=== PATIENT | male | born 1960 | race Caucasian/White ===

== ENCOUNTER 2019-01-18 10:30 | Outpatient (RCR) | payer OTHER, SELFPAY ==
--- NOTE | 2018-03-06 15:18 | PT.OTN ---
Current Diagnoses Stiffness of right knee, not elsewhere classified (03/06/18) Muscle weakness (generalized) (03/06/18) Other abnormalities of gait and mobility (03/06/18) Presence of right artificial knee joint (03/06/18) Physical Therapy Treatment Note PT-OP-A Visit Information Start: 03/06/18 14:55 Freq: Status: Active Protocol: Document 03/06/18 14:58 EA (Rec: 03/06/18 14:58 EA [id number]) Out-Patient Physical Therapy Visit Information Visit Information Visit Type Treatment Note Total Visit Minutes 55 Visit Number 13 PT-OP-B Current Condition Start: 03/06/18 14:55 Freq: Status: Active Protocol: Document 03/06/18 14:56 EA (Rec: 03/06/18 14:57 EA [id number]) Current Condition History of Current Condition Onset Date S/P R TKA 01/03/2018 Current Complaints Diffculty with all mobility Prior Treatments and Tests Patient 12 PT session since after surgery. Prior Functional Status Baseline Function- ADL's Independent Current Functional Impairments (Reported) Functional Limitations- Mobility/Gait Gait difficulty/distance tolerance Functional Limitations- Recreation/ Unable at this time Hobbies PT-OP-C Subjective Start: 03/06/18 14:55 Freq: Status: Active Protocol: Document 03/06/18 14:58 EA (Rec: 03/06/18 15:15 EA [id number]) OP-PT Subjective Patient Comments Patient Comments Patient reports unable to come last visits appointment due to medical insurance issue; states has been compliant w/ HEP; states pain to hamstring was quite increased in the past few days but improving at this time. Patient Reported Progress Improving PT-OP-Q Treatments Start: 03/06/18 14:55 Freq: Status: Active Protocol: Document 03/06/18 14:58 EA (Rec: 03/06/18 15:15 EA [id number]) Cardio Equipment Bicycle (Upright) Duration (Minutes) 8 Resistance 3-7 Seat Position 5-4 Gym Equipment Cable Column (Body Solid) Leg Extension Details pain free Resistance 10-15 Reps/Time 12-2reps Shuttle Recovery Bilateral Squats Details pain free range Resistance 6 cords Shuttle Recovery Platform Stable Reps/Time 15 x 3 Unilateral Squats Details pain free range Resistance 3 cords Shuttle Recovery Platform Stable Reps/Time 15x 2reps Shuttle Balance 1 Details ANT/POST TILT AT RED CLIPS: BALL REBOUND CHALLENGE Reps/Duration X 8 Therapeutic Exercises Supine Exercises 1 Supine Exercise Name Hamstring stretch Side right Standing Exercises 5 Standing Exercise Name 6 step and step down w/ rails support to step dwon Reps/Minutes x 10 reps x 2 sets 4 Standing Exercise Name side steps squat heel raises w / GTB to both ankle Reps/Minutes x 4 lines 2 Standing Exercise Name Steady: 3 ways (side/front/ back) step/ to partial lunges: stable to foam Side bilateral Reps/Minutes x 6 mins 3 Standing Exercise Name 3rd steps right leg lunges w/ arms fwd Side right Reps/Minutes 12 x 2 1 Standing Exercise Name Edge of steps heel raises Side bilateral Reps/Minutes 15 x 2 PT-OP-R Modalities Start: 03/06/18 14:55 Freq: Status: Active Protocol: Document 03/06/18 14:58 EA (Rec: 03/06/18 15:15 EA [id number]) Hot Pack/Cold Pack Treatment Cold Pack Patient Position Hooklying Patient Tolerance Good PT-OP-T Assessment and Plan Start: 03/06/18 14:55 Freq: Status: Active Protocol: Document 03/06/18 14:58 EA (Rec: 03/06/18 15:15 EA [id number]) Physical Therapy Assessment Assessment Summary Assessment Patient is progressing well and no signs of set back (Knee flexion 0-105). advanced as tolerated Physical Therapy Plan Next Visit Focus/Plan Next Visit Plan To possibly add gentle joint mob and quads stertch next visit to increase flexion.
--- NOTE | 2018-03-09 18:38 | PT.OTN ---
Current Diagnoses Stiffness of right knee, not elsewhere classified (03/09/18) Muscle weakness (generalized) (03/09/18) Other abnormalities of gait and mobility (03/09/18) Presence of right artificial knee joint (03/09/18) Physical Therapy Treatment Note PT-OP-A Visit Information Start: 03/06/18 14:55 Freq: Status: Active Protocol: Document 03/09/18 12:04 RCC (Rec: 03/09/18 18:37 RCC [email or web address]) Out-Patient Physical Therapy Visit Information Visit Information Visit Type Treatment Note Visit Start Time 11:15 Visit Stop Time 12:05 Visit Number 14 Number of COMMUNITY SUPPORT SPECIALIST Visits 0 Evaluation Information Evaluation Date 01/13/18 PT-OP-B Current Condition Start: 03/06/18 14:55 Freq: Status: Active Protocol: Document 03/09/18 12:04 RCC (Rec: 03/09/18 18:37 RCC [email or web address]) Current Condition History of Current Condition Onset Date S/P R TKA 01/03/2018 Current Complaints Diffculty with all mobility Prior Treatments and Tests Patient 13 PT session post- surgical. PT-OP-C Subjective Start: 03/06/18 14:55 Freq: Status: Active Protocol: Document 03/09/18 12:04 RCC (Rec: 03/09/18 18:37 RCC [email or web address]) OP-PT Subjective Patient Comments Patient Comments Pt reports he was sore after previous treatment. He feels like he is still lacking flexion he feels due to having missed sessions last week waiting for insurance approval , but has been dilligent with his HEP. Patient Reported Progress Improving Patient Questionnaires Lower Extremity Functional Scale LEFS Score 29 (as of 02/17/2018) PT-OP-K Range of Motion Start: 03/06/18 14:55 Freq: Status: Active Protocol: Document 03/09/18 12:04 RCC (Rec: 03/09/18 18:37 RCC [email or web address]) Knee Goniometric Range of Motion Knee Measured in Degrees Right Knee ROM WFL No Patient Position Supine Flexion Active (degrees) 107 Flexion Passive (degrees) 111 Extension Active (degrees) 0 Extension Passive (degrees) 0 PT-OP-M Strength Start: 03/06/18 14:55 Freq: Status: Active Protocol: Document 03/09/18 12:04 RCC (Rec: 03/09/18 18:37 [facility] [email or web address]) Knee Strength Knee Manual Muscle Testing Right Flexion (S2) 4 Good Extension (L3) 4 Good Left Flexion (S2) 5 Normal Extension (L3) 5 Normal Ankle/Foot Strength Ankle and Foot Manual Muscle Testing Right Dorsiflexion (L4) 5 Normal Left Dorsiflexion (L4) 5 Normal PT-OP-Q Treatments Start: 03/06/18 14:55 Freq: Status: Active Protocol: Document 03/09/18 12:04 [facility] (Rec: 03/09/18 18:37 [facility] [email or web address]) Gym Equipment Cable Column (Body Solid) Leg Curl Resistance 4 plates B, 2 plates R Reps/Time 10 B, 15 R Shuttle Recovery Bilateral Squats Details pain free range Resistance 150 lbs Shuttle Recovery Platform Stable Reps/Time 30 reps Unilateral Squats Details pain free range Resistance 75 lbs Shuttle Recovery Platform Stable Reps/Time 25 reps Therapeutic Exercises Standing Exercises 3 Standing Exercise Name 3rd steps right leg lunges w/ arms fwd Side right Reps/Minutes 2 x10 Manual Therapy Treatment Soft Tissue Mobilization 2 Body Location R knee scar tissue Mobilization Type Other Intensity/Depth Deep Body Position Supine 1 Body Location R hamstrings Mobilization Type Strumming Intensity/Depth mod Body Position Prone Joint Mobilizations 2 Joint Tibiofemoral Direction posterior Grade III Body Position Supine Reps/Duration 8 min. Comments to increase knee flexion. 1 Joint PF joint Direction inferior Grade III Body Position Supine Reps/Duration 8 min. PT-OP-R Modalities Start: 03/06/18 14:55 Freq: Status: Active Protocol: Document 03/09/18 12:04 [facility] (Rec: 03/09/18 18:37 [facility] [email or web address]) Hot Pack/Cold Pack Treatment Cold Pack Location R knee ant/posterior Patient Position Hooklying Treatment Duration (minutes) 10 Patient Tolerance Good PT-OP-T Assessment and Plan Start: 03/06/18 14:55 Freq: Status: Active Protocol: Document 03/09/18 12:04 [facility] (Rec: 03/09/18 18:37 [facility] [email or web address]) Physical Therapy Assessment Rehab Potential Rehabilitation Potential Excellent Impairments Impairments Activity Tolerance Gait Pain ROM Soft Tissue Mobility Strength Goals Six Impairment Lower Extremity Function Scale Shipping & Receiving Lead Goal (LTG) total score: 7 LTG Duration 6 weeks Five Impairment RLE weakness Shipping & Receiving Lead Goal (LTG) 5/5 MMT RLE strength grossly LTG Duration 6 weeks Four Impairment R knee ROM Shipping [employer] Receiving Lead Goal (LTG) 0-120 AROM R knee LTG Duration 6 weeks Three Impairment Unable to perform recreational activities Shipping & Receiving Lead Goal (LTG) low level hiking without pain prior to d/c LTG Duration 6 weeks Two Impairment Knee pain Shipping & Receiving Lead Goal (LTG) 1/10 knee pain or less LTG Duration 6 weeks One Impairment Gait impairment Shipping & Receiving Lead Goal (LTG) Normal, unassisted levels of gait LTG Duration 6 weeks Progress Towards Goals Progress Towards Goals Progressing Toward Goals Assessment Summary Assessment Pt with R knee AROM 0-107 degrees, and PROM of knee flexion to 111 degrees this session. Pt still with 4/5 grade MMT to the R knee, which is not equal to his non- involved side. Pt is ambulating without an assistive device, but has yet to get back to low level hiking or recreational activities. Pt would greatly benefit from the continuation of skilled physical therapy to progress his strength, ROM, decrease pain, and improve overall function to meet the established goals. Physical Therapy Plan Frequency and Duration Frequency of Treatment 2x/Week Duration of Treatment 6 weeks Plan of Care Start Date 03/09/18 Plan of Care End Date 04/20/18 Therapeutic Interventions Therapeutic Interventions Aquatic Therapy Balance Training Coordination Training Gait Training Home Exercise Program Joint Mobilizations Manual Therapy Neuromuscular Re-education Patient/Caregiver Education Self-Care/Home Management Soft Tissue Mobilization Taping Therapeutic Activities Therapeutic Exercises Modalities Cold Pack/Ice Massage Electric Stimulation Hot Packs Ultrasound Next Visit Focus/Plan Next Visit Plan quadriceps stretching, HS and quad strengthening. Progress knee flexion.
--- NOTE | 2018-03-09 18:39 | PT.OPPOC ---
Current Diagnoses Stiffness of right knee, not elsewhere classified (03/09/18) Muscle weakness (generalized) (03/09/18) Other abnormalities of gait and mobility (03/09/18) Presence of right artificial knee joint (03/09/18) Provider Visit Care Team Role Provider Type Franko Young MD Attending Provider Non-Staff Family Provider Primary Care Provider Specialty: Medical Address: [address] [place] [address], [facility] [place] Email: Plan Of Care PT-OP-T Assessment and Plan Start: 03/06/18 14:55 Freq: Status: Active Protocol: Document 03/09/18 12:04 RCC (Rec: 03/09/18 18:37 RCC [email or web address]) Physical Therapy Assessment Rehab Potential Rehabilitation Potential Excellent Impairments Impairments Activity Tolerance Gait Pain ROM Soft Tissue Mobility Strength Goals Six Impairment Lower Extremity Function Scale Upholsterer Helper Goal (LTG) total score: 7 LTG Duration 6 weeks Five Impairment RLE weakness Custodial Goal (LTG) 5/5 MMT RLE strength grossly LTG Duration 6 weeks Four Impairment R knee ROM Custodial Goal (LTG) 0-120 AROM R knee LTG Duration 6 weeks Three Impairment Unable to perform recreational activities Upholsterer Helper Goal (LTG) low level hiking without pain prior to d/c LTG Duration 6 weeks Two Impairment Knee pain Custodial Goal (LTG) 1/10 knee pain or less LTG Duration 6 weeks One Impairment Gait impairment Upholsterer Helper Goal (LTG) Normal, unassisted levels of gait LTG Duration 6 weeks Progress Towards Goals Progress Towards Goals Progressing Toward Goals Assessment Summary Assessment Pt with R knee AROM 0-107 degrees, and PROM of knee flexion to 111 degrees this session. Pt still with 4/5 grade MMT to the R knee, which is not equal to his non- involved side. Pt is ambulating without an assistive device, but has yet to get back to low level hiking or recreational activities. Pt would greatly benefit from the continuation of skilled physical therapy to progress his strength, ROM, decrease pain, and improve overall function to meet the established goals. Physical Therapy Plan Frequency and Duration Frequency of Treatment 2x/Week Duration of Treatment 6 weeks Plan of Care Start Date 03/09/18 Plan of Care End Date 04/20/18 Therapeutic Interventions Therapeutic Interventions Aquatic Therapy Balance Training Coordination Training Gait Training Home Exercise Program Joint Mobilizations Manual Therapy Neuromuscular Re-education Patient/Caregiver Education Self-Care/Home Management Soft Tissue Mobilization Taping Therapeutic Activities Therapeutic Exercises Modalities Cold Pack/Ice Massage Electric Stimulation Hot Packs Ultrasound Next Visit Focus/Plan Next Visit Plan quadriceps stretching, HS and quad strengthening. Progress knee flexion. Plan of Care Dates Plan of Care Start Date 03/09/18 Plan of Care End Date 04/20/18 Please Sign and Return: I have reviewed this Plan of Care and certify that the skilled therapy services above are required to meet the patient???s needs. Physician Signature Date Printed Name and Credentials
--- NOTE | 2018-03-14 16:03 | PT.OTN ---
Current Diagnoses Stiffness of right knee, not elsewhere classified (03/14/18) Muscle weakness (generalized) (03/14/18) Other abnormalities of gait and mobility (03/14/18) Presence of right artificial knee joint (03/14/18) Physical Therapy Treatment Note PT-OP-A Visit Information Start: 03/06/18 14:55 Freq: Status: Active Protocol: Document 03/14/18 15:56 EA (Rec: 03/14/18 16:03 EA [id number]) Out-Patient Physical Therapy Visit Information Visit Information Visit Type Treatment Note Visit Number 15 PT-OP-B Current Condition Start: 03/06/18 14:55 Freq: Status: Active Protocol: Document 03/09/18 12:04 RCC (Rec: 03/09/18 18:37 RCC [email or web address]) Current Condition History of Current Condition Onset Date S/P R TKA 01/03/2018 Current Complaints Diffculty with all mobility Prior Treatments and Tests Patient 13 PT session post- surgical. PT-OP-C Subjective Start: 03/06/18 14:55 Freq: Status: Active Protocol: Document 03/14/18 15:56 EA (Rec: 03/14/18 16:03 EA [id number]) OP-PT Subjective Patient Comments Patient Comments Patient reports hamstring still sore; but overall he feels that he is improving slowlyl. Patient Reported Progress Improving PT-OP-K Range of Motion Start: 03/06/18 14:55 Freq: Status: Active Protocol: Document 03/09/18 12:04 RCC (Rec: 03/09/18 18:37 RCC [email or web address]) Knee Goniometric Range of Motion Knee Measured in Degrees Right Knee ROM WFL No Patient Position Supine Flexion Active (degrees) 107 Flexion Passive (degrees) 111 Extension Active (degrees) 0 Extension Passive (degrees) 0 PT-OP-M Strength Start: 03/06/18 14:55 Freq: Status: Active Protocol: Document 03/09/18 12:04 RCC (Rec: 03/09/18 18:37 RCC [email or web address]) Knee Strength Knee Manual Muscle Testing Right Flexion (S2) 4 Good Extension (L3) 4 Good Left Flexion (S2) 5 Normal Extension (L3) 5 Normal Ankle/Foot Strength Ankle and Foot Manual Muscle Testing Right Dorsiflexion (L4) 5 Normal Left Dorsiflexion (L4) 5 Normal PT-OP-Q Treatments Start: 03/06/18 14:55 Freq: Status: Active Protocol: Document 03/14/18 15:56 EA (Rec: 03/14/18 16:03 EA [id number]) Cardio Equipment Bicycle (Upright) Duration (Minutes) 8 Resistance 3-7 Seat Position 5-4 Gym Equipment Cable Column (Body Solid) Leg Curl Resistance 4 plates B, 2 plates R Reps/Time 10 B, 15 R Leg Extension Details pain free Resistance 10-20 Reps/Time 12-2reps Shuttle Recovery Bilateral Squats Details pain free range Resistance 150 lbs Shuttle Recovery Platform Stable Reps/Time 30 reps Unilateral Squats Details pain free range Resistance 75 lbs Shuttle Recovery Platform Stable Reps/Time 25 reps Shuttle Balance 1 Details ANT/POST TILT AT RED CLIPS: BALL REBOUND CHALLENGE Reps/Duration X 8 Therapeutic Exercises Supine Exercises 1 Supine Exercise Name Hamstring stretch Side right Standing Exercises 5 Standing Exercise Name 6 step and step down w/ rails support to step dwon Reps/Minutes x 10 reps x 2 sets 4 Standing Exercise Name side steps squat heel raises w / GTB to both ankle Reps/Minutes x 4 lines 2 Standing Exercise Name Steady: 3 ways (side/front/ back) step/ to partial lunges: stable to foam Side bilateral Reps/Minutes x 6 mins 3 Standing Exercise Name 3rd steps right leg lunges w/ arms fwd Side right Reps/Minutes 2 x10 1 Standing Exercise Name Edge of steps heel raises Side bilateral Reps/Minutes 15 x 2 Manual Therapy Treatment Joint Mobilizations 2 Joint Tibiofemoral Direction posterior Grade III Body Position Supine Reps/Duration 5 Comments to increase knee flexion. PT-OP-R Modalities Start: 03/06/18 14:55 Freq: Status: Active Protocol: Document 03/14/18 15:56 EA (Rec: 03/14/18 16:03 EA [id number]) Electric Stimulation Electric Stimulation Interferential Current (IFC) Body Location right quads Combined With Heat/Cold Cold Pack PT-OP-T Assessment and Plan Start: 03/06/18 14:55 Freq: Status: Active Protocol: Document 03/14/18 15:56 EA (Rec: 03/14/18 16:03 EA [id number]) Physical Therapy Assessment Progress Towards Goals Progress Towards Goals Progressing Toward Goals Assessment Summary Assessment Tolerated treatment well. Physical Therapy Plan Next Visit Focus/Plan Next Visit Plan Continue with current plan; advance as tolerated. Please Sign and Return: I have reviewed this Plan of Care and certify that the skilled therapy services above are required to meet the patient???s needs. Physician Signature Date Printed Name and Credentials Clinical Instructor Signature Printed Name and Credentials
--- NOTE | 2018-03-18 13:57 | PT.OTN ---
Current Diagnoses Stiffness of right knee, not elsewhere classified (03/17/18) Muscle weakness (generalized) (03/17/18) Other abnormalities of gait and mobility (03/17/18) Presence of right artificial knee joint (03/17/18) Physical Therapy Treatment Note PT-OP-A Visit Information Start: 03/06/18 14:55 Freq: Status: Active Protocol: Document 03/17/18 10:40 RCC (Rec: 03/18/18 13:57 RCC [email or web address]) Out-Patient Physical Therapy Visit Information Visit Information Visit Type Treatment Note Visit Start Time 09:45 Visit Stop Time 10:40 Total Visit Minutes 55 Visit Number 16 Number of JUVENILE [employer]ENTION OFFICER Visits 0 Evaluation Information Evaluation Date 01/13/18 PT-OP-B Current Condition Start: 03/06/18 14:55 Freq: Status: Active Protocol: Document 03/09/18 12:04 RCC (Rec: 03/09/18 18:37 RCC [email or web address]) Current Condition History of Current Condition Onset Date S/P R TKA 01/03/2018 Current Complaints Diffculty with all mobility Prior Treatments and Tests Patient 13 PT session post- surgical. PT-OP-C Subjective Start: 03/06/18 14:55 Freq: Status: Active Protocol: Document 03/17/18 10:40 RCC (Rec: 03/18/18 13:57 RCC [email or web address]) OP-PT Subjective Patient Comments Patient Comments Pt notes that he is sore from last session, particularly in the hamstrings. His motion feels a little better but knows he needs to keep working it. PT-OP-K Range of Motion Start: 03/06/18 14:55 Freq: Status: Active Protocol: Document 03/17/18 10:40 RCC (Rec: 03/18/18 13:57 RCC [email or web address]) Knee Goniometric Range of Motion Knee Measured in Degrees Right Knee ROM WFL No Patient Position Supine Flexion Active (degrees) 109 Extension Active (degrees) 0 Knee ROM Limitations Comments R knee ROM 0-113 after session . PT-OP-M Strength Start: 03/06/18 14:55 Freq: Status: Active Protocol: Document 03/09/18 12:04 RCC (Rec: 03/09/18 18:37 RCC [email or web address]) Knee Strength Knee Manual Muscle Testing Right Flexion (S2) 4 Good Extension (L3) 4 Good Left Flexion (S2) 5 Normal Extension (L3) 5 Normal Ankle/Foot Strength Ankle and Foot Manual Muscle Testing Right Dorsiflexion (L4) 5 Normal Left Dorsiflexion (L4) 5 Normal PT-OP-Q Treatments Start: 03/06/18 14:55 Freq: Status: Active Protocol: Document 03/17/18 10:40 RCC (Rec: 03/18/18 13:57 RCC [email or web address]) Cardio Equipment Recumbent Bicycle Duration (Minutes) 6 Resistance 0 Seat Position 6-3 Therapeutic Exercises Standing Exercises 5 Standing Exercise Name 6 step and step down w/ rails support to step dwon Reps/Minutes x 10 reps x 2 sets 3 Standing Exercise Name 3rd steps right leg lunges w/ arms fwd Side right Reps/Minutes 2 x10 1 Standing Exercise Name Edge of steps heel raises Side bilateral Reps/Minutes 15 x 2 Manual Therapy Treatment Soft Tissue Mobilization 3 Body Location R gastroc Mobilization Type Strumming Intensity/Depth mod Body Position Prone Comments 5 min 1 Body Location R hamstrings Mobilization Type Strumming Intensity/Depth mod Body Position Prone Comments 15 min Joint Mobilizations 2 Joint Tibiofemoral Direction posterior Grade III Body Position Supine Reps/Duration 10 min Comments to increase knee flexion. 1 Joint PF joint Direction inferior Grade III Body Position Supine Reps/Duration 5 min. PT-OP-R Modalities Start: 03/06/18 14:55 Freq: Status: Active Protocol: Document 03/17/18 10:40 [facility] (Rec: 03/18/18 13:57 [facility] [email or web address]) Electric Stimulation Electric Stimulation Interferential Current (IFC) Body Location R anterior knee Duration (Minutes) 10 Combined With Heat/Cold Cold Pack PT-OP-T Assessment and Plan Start: 03/06/18 14:55 Freq: Status: Active Protocol: Document 03/17/18 10:40 [facility] (Rec: 03/18/18 13:57 [facility] [email or web address]) Physical Therapy Assessment Assessment Summary Assessment Pt's ROM 0-113 of the R knee after manual therapy. Pt with patellofemoral hypomobility and joint stiffness of the tibiofemoral joint, tolerates and responds to manual therapy well. Pt still requiring ongoing physical therapy to progress his strength, ROM, and return to recreational activities. Physical Therapy Plan Frequency and Duration Frequency of Treatment 2x/Week Duration of Treatment 6 weeks Plan of Care Start Date 03/09/18 Plan of Care End Date 04/20/18 Next Visit Focus/Plan Next Visit Plan advance R knee strength and ROM, emphasis on R knee flexion with ROM Please Sign and Return: I have reviewed this Plan of Care and certify that the skilled therapy services above are required to meet the patient???s needs. Physician Signature Date Printed Name and Credentials Clinical Instructor Signature Printed Name and Credentials
--- NOTE | 2018-03-23 17:55 | PT.OTN ---
Current Diagnoses Stiffness of right knee, not elsewhere classified (03/23/18) Muscle weakness (generalized) (03/23/18) Other abnormalities of gait and mobility (03/23/18) Presence of right artificial knee joint (03/23/18) Physical Therapy Treatment Note PT-OP-A Visit Information Start: 03/06/18 14:55 Freq: Status: Active Protocol: Document 03/23/18 17:40 [facility] (Rec: 03/23/18 17:54 [facility] [email or web address]) Out-Patient Physical Therapy Visit Information Visit Information Visit Type Treatment Note Visit Start Time 16:45 Visit Stop Time 17:40 Total Visit Minutes 55 Visit Number 17 Number of COORDINATOR OF PLACEMENT Visits 0 Evaluation Information Evaluation Date 01/13/18 PT-OP-B Current Condition Start: 03/06/18 14:55 Freq: Status: Active Protocol: Document 03/09/18 12:04 [facility] (Rec: 03/09/18 18:37 [facility] [email or web address]) Current Condition History of Current Condition Onset Date S/P R TKA 01/03/2018 Current Complaints Diffculty with all mobility Prior Treatments and Tests Patient 13 PT session post- surgical. PT-OP-C Subjective Start: 03/06/18 14:55 Freq: Status: Active Protocol: Document 03/23/18 17:40 [facility] (Rec: 03/23/18 17:54 [facility] [email or web address]) OP-PT Subjective Patient Comments Patient Comments Pt feels a little stiff from being in the car all day. PT-OP-K Range of Motion Start: 03/06/18 14:55 Freq: Status: Active Protocol: Document 03/23/18 17:40 [facility] (Rec: 03/23/18 17:54 [facility] [email or web address]) Knee Goniometric Range of Motion Knee Measured in Degrees Right Knee ROM WFL No Patient Position Supine Flexion Active (degrees) 111 Extension Active (degrees) 0 Knee ROM Limitations Comments R knee 0-115 AROM after session, PROM to 120. PT-OP-M Strength Start: 03/06/18 14:55 Freq: Status: Active Protocol: Document 03/09/18 12:04 [facility] (Rec: 03/09/18 18:37 [facility] [email or web address]) Knee Strength Knee Manual Muscle Testing Right Flexion (S2) 4 Good Extension (L3) 4 Good Left Flexion (S2) 5 Normal Extension (L3) 5 Normal Ankle/Foot Strength Ankle and Foot Manual Muscle Testing Right Dorsiflexion (L4) 5 Normal Left Dorsiflexion (L4) 5 Normal PT-OP-Q Treatments Start: 03/06/18 14:55 Freq: Status: Active Protocol: Document 03/23/18 17:40 [facility] (Rec: 03/23/18 17:54 [facility] [email or web address]) Cardio Equipment Bicycle (Upright) Duration (Minutes) 10 Seat Position 5-4 Gym Equipment Cable Column (Body Solid) Leg Curl Resistance 5 plate B Reps/Time 1x20 Shuttle Recovery Bilateral Squats Details pain free range Resistance 150 lbs Shuttle Recovery Platform Stable Reps/Time 30 reps Unilateral Squats Details pain free range Resistance 75 lbs Shuttle Recovery Platform Stable Reps/Time 25 reps Therapeutic Exercises Standing Exercises 7 Standing Exercise Name Quad stretch Side right Equipment Used chair Reps/Minutes 3 min Comments R foot on chair @ standing bar 6 Standing Exercise Name Lunges on level surface Reps/Minutes 2x10 3 Standing Exercise Name 3rd steps right leg lunges w/ arms fwd Side right Reps/Minutes 2 x10 Manual Therapy Treatment Soft Tissue Mobilization 3 Body Location R gastroc Mobilization Type Strumming Intensity/Depth mod Body Position Prone 2 Body Location R knee scar tissue Mobilization Type Other Intensity/Depth Deep Body Position Supine 1 Body Location R hamstrings Mobilization Type Strumming Intensity/Depth mod Body Position Prone Joint Mobilizations 1 Joint PF joint Direction inferior Grade III Body Position Supine Reps/Duration 5 min. PT-OP-R Modalities Start: 03/06/18 14:55 Freq: Status: Active Protocol: Document 03/23/18 17:40 [facility] (Rec: 03/23/18 17:54 [facility] [email or web address]) Electric Stimulation Electric Stimulation Interferential Current (IFC) Body Location R anterior knee Duration (Minutes) 10 Combined With Heat/Cold Cold Pack PT-OP-T Assessment and Plan Start: 03/06/18 14:55 Freq: Status: Active Protocol: Document 03/23/18 17:40 [facility] (Rec: 03/23/18 17:54 [facility] [email or web address]) Physical Therapy Assessment Assessment Summary Assessment PROM to 120 degrees of the R knee, but only able to get to 115 with AROM of the R knee. Pt responded well to standing quadriceps stretch using a chair, and added to HEP. Physical Therapy Plan Frequency and Duration Frequency of Treatment 2x/Week Duration of Treatment 6 weeks Plan of Care Start Date 03/09/18 Plan of Care End Date 04/20/18 Next Visit Focus/Plan Next Note Type Treatment Note Next Visit Plan Continue with current plan; advance as tolerated. Please Sign and Return: I have reviewed this Plan of Care and certify that the skilled therapy services above are required to meet the patient?s needs. Physician Signature Date Printed Name and Credentials Clinical Instructor Signature Printed Name and Credentials
--- NOTE | 2018-03-27 10:59 | PT.OTN ---
Current Diagnoses Stiffness of right knee, not elsewhere classified (03/27/18) Muscle weakness (generalized) (03/27/18) Other abnormalities of gait and mobility (03/27/18) Presence of right artificial knee joint (03/27/18) Physical Therapy Treatment Note PT-OP-A Visit Information Start: 03/06/18 14:55 Freq: Status: Active Protocol: Document 03/27/18 10:45 EA (Rec: 03/27/18 10:58 EA [id number]) Out-Patient Physical Therapy Visit Information Visit Information Visit Type Treatment Note Visit Start Time 09:45 Visit Stop Time 10:15 Total Visit Minutes 48 Visit Number 18 Number of PATIENT SERVICES SPECIALIST Visits 0 PT-OP-B Current Condition Start: 03/06/18 14:55 Freq: Status: Active Protocol: Document 03/09/18 12:04 [facility] (Rec: 03/09/18 18:37 [facility] [email or web address]) Current Condition History of Current Condition Onset Date S/P R TKA 01/03/2018 Current Complaints Diffculty with all mobility Prior Treatments and Tests Patient 13 PT session post- surgical. PT-OP-C Subjective Start: 03/06/18 14:55 Freq: Status: Active Protocol: Document 03/27/18 10:58 EA (Rec: 03/27/18 10:59 EA [id number]) OP-PT Subjective Patient Comments Patient Comments Patient reports less knee and hamstring pain even with increasing activities at home. Patient Reported Progress Improving PT-OP-K Range of Motion Start: 03/06/18 14:55 Freq: Status: Active Protocol: Document 03/23/18 17:40 [facility] (Rec: 03/23/18 17:54 [facility] [email or web address]) Knee Goniometric Range of Motion Knee Measured in Degrees Right Knee ROM WFL No Patient Position Supine Flexion Active (degrees) 111 Extension Active (degrees) 0 Knee ROM Limitations Comments R knee 0-115 AROM after session, PROM to 120. PT-OP-M Strength Start: 03/06/18 14:55 Freq: Status: Active Protocol: Document 03/09/18 12:04 [facility] (Rec: 03/09/18 18:37 [facility] [email or web address]) Knee Strength Knee Manual Muscle Testing Right Flexion (S2) 4 Good Extension (L3) 4 Good Left Flexion (S2) 5 Normal Extension (L3) 5 Normal Ankle/Foot Strength Ankle and Foot Manual Muscle Testing Right Dorsiflexion (L4) 5 Normal Left Dorsiflexion (L4) 5 Normal PT-OP-Q Treatments Start: 03/06/18 14:55 Freq: Status: Active Protocol: Document 03/27/18 10:45 EA (Rec: 03/27/18 10:58 EA [id number]) Cardio Equipment Treadmill Duration (Minutes) 7 Speed 2.8-1.2 Incline 6-15 Other No hand support: push off emphasis Gym Equipment Cable Column (Body Solid) Leg Extension Details pain free Resistance 10-20 Reps/Time 12-2reps Shuttle Recovery Bilateral Squats Details pain free range Resistance 150 lbs Shuttle Recovery Platform Stable Reps/Time 30 reps Unilateral Squats Details pain free range Resistance 80 lbs Shuttle Recovery Platform Stable Reps/Time 25 reps Shuttle Balance 1 Details Staggered knee bent/ side to side knee bent Reps/Duration x 30 sec each x 3 reps Therapeutic Exercises Prone Exercises 1 Prone Exercise Name Hold-Relax passive stretch to right quads Reps/Minutes x 3 reps Standing Exercises 8 Standing Exercise Name Floor square/ foot work w/ steady knee bent position Reps/Minutes x 3 lines 6 Standing Exercise Name cable squat/lunges row Resistance x 2-3 plates Reps/Minutes 2x10 5 Standing Exercise Name 6 step and step down w/ rails support to step dwon Reps/Minutes x 10 reps x 2 sets 3 Standing Exercise Name 3rd steps right leg lunges w/ arms fwd Side right Reps/Minutes 2 x10 1 Standing Exercise Name Edge of steps heel raises Side bilateral Reps/Minutes 15 x 2 PT-OP-R Modalities Start: 03/06/18 14:55 Freq: Status: Active Protocol: Document 03/27/18 10:45 EA (Rec: 03/27/18 10:58 EA [id number]) Electric Stimulation Electric Stimulation Interferential Current (IFC) Body Location R anterior knee Duration (Minutes) 10 Combined With Heat/Cold Cold Pack PT-OP-T Assessment and Plan Start: 03/06/18 14:55 Freq: Status: Active Protocol: Document 03/27/18 10:45 EA (Rec: 03/27/18 10:58 EA [id number]) Physical Therapy Assessment Assessment Summary Assessment Patient exhibits no discomfort during exercises. Early muscle fatigue noted in activities with steady squat position. However, patient is progressing well. Physical Therapy Plan Next Visit Focus/Plan Next Note Type Treatment Note Next Visit Plan Progress as tolerated. Please Sign and Return: I have reviewed this Plan of Care and certify that the skilled therapy services above are required to meet the patient?s needs. Physician Signature Date Printed Name and Credentials Clinical Instructor Signature Printed Name and Credentials
--- NOTE | 2018-03-31 12:01 | PT.OTN ---
Current Diagnoses Stiffness of right knee, not elsewhere classified (03/31/18) Muscle weakness (generalized) (03/31/18) Other abnormalities of gait and mobility (03/31/18) Presence of right artificial knee joint (03/31/18) Physical Therapy Treatment Note PT-OP-A Visit Information Start: 03/06/18 14:55 Freq: Status: Active Protocol: Document 03/31/18 11:30 [facility] (Rec: 03/31/18 12:01 [facility] [email or web address]) Out-Patient Physical Therapy Visit Information Visit Information Visit Type Treatment Note Visit Start Time 10:32 Visit Stop Time 11:30 Total Visit Minutes 58 Visit Number [address] OF [address] JUDGE Visits 0 Evaluation Information Evaluation Date 01/13/18 PT-OP-B Current Condition Start: 03/06/18 14:55 Freq: Status: Active Protocol: Document 03/09/18 12:04 [facility] (Rec: 03/09/18 18:37 RCC [email or web address]) Current Condition History of Current Condition Onset Date S/P R TKA 01/03/2018 Current Complaints Diffculty with all mobility Prior Treatments and Tests Patient 13 PT session post- surgical. PT-OP-C Subjective Start: 03/06/18 14:55 Freq: Status: Active Protocol: Document 03/31/18 11:30 [facility] (Rec: 03/31/18 12:01 [facility] [email or web address]) OP-PT Subjective Patient Comments Patient Comments Pt notes that he feels like the weather changes made his knee a little sore. He is doing exercises at home. Patient Reported Progress Improving PT-OP-K Range of Motion Start: 03/06/18 14:55 Freq: Status: Active Protocol: Document 03/31/18 11:30 [facility] (Rec: 03/31/18 12:01 RCC [email or web address]) Knee Goniometric Range of Motion Knee Measured in Degrees Right Knee ROM WFL No Patient Position Supine Flexion Active (degrees) 109 Extension Active (degrees) 0 Knee ROM Limitations Comments R knee flexion: 113 after PF mobs, 118 after first tibiofemoral glides, 125 after tibiofemoral glides on wall PT-OP-M Strength Start: 03/06/18 14:55 Freq: Status: Active Protocol: Document 03/09/18 12:04 [facility] (Rec: 03/09/18 18:37 RCC [email or web address]) Knee Strength Knee Manual Muscle Testing Right Flexion (S2) 4 Good Extension (L3) 4 Good Left Flexion (S2) 5 Normal Extension (L3) 5 Normal Ankle/Foot Strength Ankle and Foot Manual Muscle Testing Right Dorsiflexion (L4) 5 Normal Left Dorsiflexion (L4) 5 Normal PT-OP-Q Treatments Start: 03/06/18 14:55 Freq: Status: Active Protocol: Document 03/31/18 11:30 RCC (Rec: 03/31/18 12:01 [facility] [email or web address]) Therapeutic Exercises Supine Exercises 2 Supine Exercise Name Wall slides Side right Reps/Minutes 3 min Manual Therapy Treatment Soft Tissue Mobilization 2 Body Location R knee scar tissue Mobilization Type Other Intensity/Depth Deep Body Position Supine 1 Body Location R hamstrings Mobilization Type Strumming Intensity/Depth mod Body Position Prone Joint Mobilizations 2 Joint Tibiofemoral Direction posterior Grade IV Body Position Supine Reps/Duration 18 min Comments to increase knee flexion. supine and foot on wall (wall slide position). 1 Joint PF joint Direction inferior Grade III Body Position Supine Reps/Duration 6 min. Manual Techniques 2 Type Manual assisted heel slide to increase knee flexion Body Location R knee Body Position Hooklying Reps/Duration 5 min. 1 Type Contract/relax HS Body Location R knee Body Position Supine Reps/Duration 10 reps PT-OP-R Modalities Start: 03/06/18 14:55 Freq: Status: Active Protocol: Document 03/31/18 11:30 RCC (Rec: 03/31/18 12:01 [facility] [email or web address]) Electric Stimulation Electric Stimulation Interferential Current (IFC) Body Location R anterior knee Duration (Minutes) 15 Combined With Heat/Cold Cold Pack PT-OP-T Assessment and Plan Start: 03/06/18 14:55 Freq: Status: Active Protocol: Document 03/31/18 11:30 RCC (Rec: 03/31/18 12:01 [facility] [email or web address]) Physical Therapy Assessment Assessment Summary Assessment Pt able to achieve 125 degrees of passive R knee flexion at end of session today, but still only able to get 118 degrees AROM with treatment. Pt still with tension in the R hamstrings, and weakness of the R knee. Physical Therapy Plan Frequency and Duration Frequency of Treatment 2x/Week Duration of Treatment 6 weeks Plan of Care Start Date 03/09/18 Plan of Care End Date 06/28/18 Next Visit Focus/Plan Next Note Type Treatment Note Next Visit Plan advance R knee strength and ROM, emphasis on R knee flexion with ROM Please Sign and Return: I have reviewed this Plan of Care and certify that the skilled therapy services above are required to meet the patient?s needs. Physician Signature Date Printed Name and Credentials Clinical Instructor Signature Printed Name and Credentials
--- NOTE | 2018-04-03 14:35 | PT.OTN ---
Current Diagnoses Stiffness of right knee, not elsewhere classified (04/03/18) Muscle weakness (generalized) (04/03/18) Other abnormalities of gait and mobility (04/03/18) Presence of right artificial knee joint (04/03/18) Physical Therapy Treatment Note PT-OP-A Visit Information Start: 03/06/18 14:55 Freq: Status: Active Protocol: Document 04/03/18 10:30 [facility] (Rec: 04/03/18 14:32 [facility] [email or web address]) Out-Patient Physical Therapy Visit Information Visit Information Visit Type Treatment Note Visit Start Time 10:30 Visit Stop Time 11:35 Total Visit Minutes 65 Visit Number 20 Number of FOOD SUPERVISOR Visits 0 PT-OP-B Current Condition Start: 03/06/18 14:55 Freq: Status: Active Protocol: Document 03/09/18 12:04 RCC (Rec: 03/09/18 18:37 RCC [email or web address]) Current Condition History of Current Condition Onset Date S/P R TKA 01/03/2018 Current Complaints Diffculty with all mobility Prior Treatments and Tests Patient 13 PT session post- surgical. PT-OP-C Subjective Start: 03/06/18 14:55 Freq: Status: Active Protocol: Document 04/03/18 10:30 [facility] (Rec: 04/03/18 14:32 [facility] [email or web address]) OP-PT Subjective Patient Comments Patient Comments Cont issue with HS & is frustrated that his flex is not more. Was happy he gained more last session, but his knee gets tight even after the drive from [place] to PT. PT-OP-K Range of Motion Start: 03/06/18 14:55 Freq: Status: Active Protocol: Document 04/03/18 10:30 [facility] (Rec: 04/03/18 14:32 [facility] [email or web address]) Knee Goniometric Range of Motion Knee ROM Limitations Comments 0-111 at start then with mobs & scar tissue mobs 0-121 AROM PT-OP-M Strength Start: 03/06/18 14:55 Freq: Status: Active Protocol: Document 03/09/18 12:04 [facility] (Rec: 03/09/18 18:37 RCC [email or web address]) Knee Strength Knee Manual Muscle Testing Right Flexion (S2) 4 Good Extension (L3) 4 Good Left Flexion (S2) 5 Normal Extension (L3) 5 Normal Ankle/Foot Strength Ankle and Foot Manual Muscle Testing Right Dorsiflexion (L4) 5 Normal Left Dorsiflexion (L4) 5 Normal PT-OP-Q Treatments Start: 03/06/18 14:55 Freq: Status: Active Protocol: Document 04/03/18 10:30 [facility] (Rec: 04/03/18 14:32 [facility] [email or web address]) Therapeutic Exercises Supine Exercises 4 Supine Exercise Name rolling on tennis ball & foam roll HS 3 Supine Exercise Name HS with tball & foam roll Standing Exercises 4 Standing Exercise Name HS curls Resistance 6# Manual Therapy Treatment Soft Tissue Mobilization 2 Body Location R knee scar tissue Mobilization Type Other Intensity/Depth w/plunger Body Position Supine 1 Body Location R hamstrings Mobilization Type Strumming Intensity/Depth mod Body Position Prone Joint Mobilizations 3 Joint fibular mobs Direction PA FM 2 Joint Tibiofemoral Direction PA Grade IV Body Position Supine Comments to increase knee flexion FM with AP 1 Joint PF joint Direction inferior Grade III Body Position Supine Self-Care/Home Management Treatment Education Other Education HS, quad, tibia, fibula & femur edu on anatomy PT-OP-R Modalities Start: 03/06/18 14:55 Freq: Status: Active Protocol: Document 04/03/18 10:30 [facility] (Rec: 04/03/18 14:34 [facility] [email or web address]) Electric Stimulation Electric Stimulation Interferential Current (IFC) Body Location R anterior knee Duration (Minutes) 15 Combined With Heat/Cold Cold Pack PT-OP-T Assessment and Plan Start: 03/06/18 14:55 Freq: Status: Active Protocol: Document 04/03/18 10:30 [facility] (Rec: 04/03/18 14:32 [facility] [email or web address]) Physical Therapy Assessment Assessment Summary Assessment Significant improvement with comfort with ROM with PA mob of fibula. Improved ROM with tibial mobs & scar tissue mobs . Physical Therapy Plan Frequency and Duration Frequency of Treatment 2x/Week Duration of Treatment 6 weeks Plan of Care Start Date 03/09/18 Plan of Care End Date 04/20/18 Next Visit Focus/Plan Next Note Type Treatment Note Next Visit Plan Cont to work on flex & fibular mobility Please Sign and Return: I have reviewed this Plan of Care and certify that the skilled therapy services above are required to meet the patient?s needs. Physician Signature Date Printed Name and Credentials Clinical Instructor Signature Printed Name and Credentials
--- NOTE | 2018-04-07 12:47 | PT.OTN ---
Current Diagnoses Stiffness of right knee, not elsewhere classified (04/07/18) Muscle weakness (generalized) (04/07/18) Other abnormalities of gait and mobility (04/07/18) Presence of right artificial knee joint (04/07/18) Physical Therapy Treatment Note PT-OP-A Visit Information Start: 03/06/18 14:55 Freq: Status: Active Protocol: Document 04/07/18 11:30 [facility] (Rec: 04/07/18 12:47 [facility] [email or web address]) Out-Patient Physical Therapy Visit Information Visit Information Visit Type Treatment Note Visit Start Time 10:35 Visit Stop Time 11:30 Total Visit Minutes 55 Visit Number 21 Number of SUPERVISOR CARDING Visits 0 Evaluation Information Evaluation Date 01/13/18 OP-PT Subjective Patient Comments Patient Comments Pt has been working on his home exercise program. He notes that he still feels still with knee flexion, but is improving with every day function. Patient Reported Progress Improving PT-OP-K Range of Motion Start: 03/06/18 14:55 Freq: Status: Active Protocol: Document 04/07/18 11:30 [facility] (Rec: 04/07/18 12:47 [facility] [email or web address]) Knee Goniometric Range of Motion Knee Measured in Degrees Right Knee ROM WFL No Patient Position Supine Flexion Active (degrees) 111 Extension Active (degrees) 0 Knee ROM Limitations Comments R knee AROM 0-120 after manual therapy, and 125 degrees PROM . PT-OP-M Strength Start: 03/06/18 14:55 Freq: Status: Active Protocol: Document 04/07/18 11:30 [facility] (Rec: 04/07/18 12:47 [facility] [email or web address]) Hip Strength Hip Manual Muscle Testing Right Flexion (L2) 4+ Good+ External Rotation 4 Good Internal Rotation 4+ Good+ Knee Strength Knee Manual Muscle Testing Right Flexion (S2) 4+ Good+ Extension (L3) 5 Normal PT-OP-Q Treatments Start: 03/06/18 14:55 Freq: Status: Active Protocol: Document 04/07/18 11:30 [facility] (Rec: 04/07/18 12:47 [facility] [email or web address]) Gym Equipment Shuttle Recovery Bilateral Squats Resistance 150 lbs Shuttle Recovery Platform Stable Reps/Time 25 reps Unilateral Squats Resistance 87 lbs Shuttle Recovery Platform Stable Reps/Time 25 reps Sport Cord 3 Exercise Details Squats Cord/Resistance Blue with black Reps/Duration 10 Comments lateral facing for increased WB RLE 2 Exercise Details Step up, down, lateral with 5 step Cord/Resistance blue with black Reps/Duration 10 each 1 Exercise Details Fwd, Bkwd, lateral walks Cord/Resistance blue with black Reps/Duration 5 each Manual Therapy Treatment Soft Tissue Mobilization 2 Body Location R knee scar tissue Mobilization Type Other Intensity/Depth w/plunger Body Position Supine 1 Body Location R hamstrings Mobilization Type Strumming Intensity/Depth mod Body Position Prone Joint Mobilizations 3 Joint fibular mobs Direction PA FM 2 Joint Tibiofemoral Direction PA Grade IV Body Position Supine Comments to increase knee flexion FM with AP Manual Techniques 1 Type Contract/relax HS Body Location R knee Body Position Prone Reps/Duration 10 reps PT-OP-R Modalities Start: 03/06/18 14:55 Freq: Status: Active Protocol: Document 04/07/18 11:30 [facility] (Rec: 04/07/18 12:47 [facility] [email or web address]) Electric Stimulation Electric Stimulation Interferential Current (IFC) Body Location R anterior knee Duration (Minutes) 15 Combined With Heat/Cold Cold Pack PT-OP-T Assessment and Plan Start: 03/06/18 14:55 Freq: Status: Active Protocol: Document 04/07/18 11:30 [facility] (Rec: 04/07/18 12:47 [facility] [email or web address]) Physical Therapy Assessment Progress Towards Goals Progress Comments Pt not yet walking outdoors on trails for recreation. R knee flexion, hip flexion and ER are still below 5/5 grade with manual muscle testing. R knee AROM 0-111 without interventions. Assessment Summary Assessment Pt continues to improve s/p R TKA, however is still presenting with impaired RLE strength and ROM which is affecting his ability to return to recreational activities and tolerate prolonged standing without increased fatigue and weakness . Pt's R knee flexion is to 111 degrees actively, but able to get to 120 degrees with skilled outpatient therapy interventions and 125 degrees PROM after interventions. With pt's limited ROM and strength impairments, it is recommended that the pt continue to attend physical therapy at this time, and highly recommend 2 x per week for 4 weeks to continue to improve. Pt is still making progress with physical therapy and has excellent potential to achieve all established goals and safe functional independence and improved quality of life if able to attend further skilled physical therapy. Physical Therapy Plan Frequency and Duration Frequency of Treatment 3x/Week Duration of Treatment 4 weeks Plan of Care Start Date 04/07/18 Plan of Care End Date 05/05/18 Therapeutic Interventions Therapeutic Interventions Gait Training Home Exercise Program Joint Mobilizations Manual Therapy Neuromuscular Re-education Patient/Caregiver Education Self-Care/Home Management Soft Tissue Mobilization Taping Therapeutic Activities Therapeutic Exercises Modalities Cold Pack/Ice Massage Electric Stimulation Hot Packs Ultrasound Next Visit Focus/Plan Next Note Type Treatment Note Next Visit Plan continue to progress ROM ( emphasis on R kne flexion) and HS and hip strength. Please Sign and Return: I have reviewed this Plan of Care and certify that the skilled therapy services above are required to meet the patient?s needs. Physician Signature Date Printed Name and Credentials Clinical Instructor Signature Printed Name and Credentials
--- NOTE | 2018-04-11 10:29 | PT.OTN ---
Current Diagnoses Stiffness of right knee, not elsewhere classified (04/11/18) Muscle weakness (generalized) (04/11/18) Other abnormalities of gait and mobility (04/11/18) Presence of right artificial knee joint (04/11/18) Physical Therapy Treatment Note PT-OP-A Visit Information Start: 03/06/18 14:55 Freq: Status: Active Protocol: Document 04/11/18 09:00 [facility] (Rec: 04/11/18 10:28 [facility] [id number]) Out-Patient Physical Therapy Visit Information Visit Information Visit Type Treatment Note Visit Start Time 09:03 Visit Stop Time 09:55 Total Visit Minutes 52 Visit Number 22 Number of MACHINE SILVER STRIPPER Visits 0 PT-OP-B Current Condition Start: 03/06/18 14:55 Freq: Status: Active Protocol: Document 03/09/18 12:04 [facility] (Rec: 03/09/18 18:37 [facility] [id number]) Current Condition History of Current Condition Onset Date S/P R TKA 01/03/2018 Current Complaints Diffculty with all mobility Prior Treatments and Tests Patient 13 PT session post- surgical. PT-OP-C Subjective Start: 03/06/18 14:55 Freq: Status: Active Protocol: Document 04/11/18 09:00 [facility] (Rec: 04/11/18 10:28 [facility] [id number]) OP-PT Subjective Patient Comments Patient Comments Cont frustration with flex PT-OP-K Range of Motion Start: 03/06/18 14:55 Freq: Status: Active Protocol: Document 04/11/18 09:00 [facility] (Rec: 04/11/18 10:27 [facility] [id number]) Knee Goniometric Range of Motion Knee Measured in Degrees Right Patient Position Supine Flexion Active (degrees) 115 PT-OP-M Strength Start: 03/06/18 14:55 Freq: Status: Active Protocol: Document 04/07/18 11:30 [facility] (Rec: 04/07/18 12:47 [facility] [id number]) Hip Strength Hip Manual Muscle Testing Right Flexion (L2) 4+ Good+ External Rotation 4 Good Internal Rotation 4+ Good+ Knee Strength Knee Manual Muscle Testing Right Flexion (S2) 4+ Good+ Extension (L3) 5 Normal PT-OP-Q Treatments Start: 03/06/18 14:55 Freq: Status: Active Protocol: Document 04/11/18 09:00 [facility] (Rec: 04/11/18 10:27 [facility] [id number]) Gym Equipment Sport Cord 3 Exercise Details Squats Cord/Resistance Blue with black Reps/Duration 10 Comments lateral facing B 2 Exercise Details Step up, down, lateral with 5 step Cord/Resistance blue with black Reps/Duration 10 each 1 Exercise Details Fwd, Bkwd, lateral walks Cord/Resistance blue with black Reps/Duration 5 each Comments w/lunge at end Therapeutic Exercises Supine Exercises 3 Supine Exercise Name HS curl with foam roll Manual Therapy Treatment Joint Mobilizations 3 Joint fibular mobs Direction PA FM 2 Joint Tibiofemoral Direction PA Grade IV Body Position Supine Comments to increase knee flexion FM with AP Taping 1 Body Location Hugo for tibial IR & Fibular PA position Manual Techniques 2 Type Manual assisted heel slide to increase knee flexion Body Location R knee Body Position Hooklying Reps/Duration 5 min. PT-OP-R Modalities Start: 03/06/18 14:55 Freq: Status: Active Protocol: Document 04/11/18 09:00 [facility] (Rec: 04/11/18 10:28 [facility] [id number]) Hot Pack/Cold Pack Treatment Cold Pack Location R knee Treatment Duration (minutes) 10 PT-OP-T Assessment and Plan Start: 03/06/18 14:55 Freq: Status: Active Protocol: Document 04/11/18 09:00 [facility] (Rec: 04/11/18 10:27 [facility] [id number]) Physical Therapy Assessment Assessment Summary Assessment Pt has excessive ER of tibia and cont to have improved ROM with tibial & fibular glides. Inc AROM to 118 with glides and 121 with taping Physical Therapy Plan Frequency and Duration Frequency of Treatment 3x/Week Duration of Treatment 4 weeks Plan of Care Start Date 04/07/18 Plan of Care End Date 05/05/18 Next Visit Focus/Plan Next Note Type Treatment Note Next Visit Plan Cont to work on knee ROM & hip strength
--- NOTE | 2018-04-14 13:36 | PT.OTN ---
Current Diagnoses Stiffness of right knee, not elsewhere classified (04/14/18) Muscle weakness (generalized) (04/14/18) Other abnormalities of gait and mobility (04/14/18) Presence of right artificial knee joint (04/14/18) Physical Therapy Treatment Note PT-OP-A Visit Information Start: 03/06/18 14:55 Freq: Status: Active Protocol: Document 04/14/18 11:25 [facility] (Rec: 04/14/18 13:36 [facility] [email or web address]) Out-Patient Physical Therapy Visit Information Visit Information Visit Type Treatment Note Visit Start Time 10:40 Visit Stop Time 11:25 Total Visit Minutes 45 Visit Number 23 Number of RADIO ELECTRONICS OFFICER Visits 0 Evaluation Information Evaluation Date 01/13/18 PT-OP-B Current Condition Start: 03/06/18 14:55 Freq: Status: Active Protocol: Document 03/09/18 12:04 [facility] (Rec: 03/09/18 18:37 [facility] [email or web address]) Current Condition History of Current Condition Onset Date S/P R TKA 01/03/2018 Current Complaints Diffculty with all mobility Prior Treatments and Tests Patient 13 PT session post- surgical. PT-OP-C Subjective Start: 03/06/18 14:55 Freq: Status: Active Protocol: Document 04/14/18 11:25 [facility] (Rec: 04/14/18 13:36 [facility] [email or web address]) OP-PT Subjective Patient Comments Patient Comments Pt states the tape did not stay on long. He does admit he feels stiff, but he is compliant with his HEP. PT-OP-K Range of Motion Start: 03/06/18 14:55 Freq: Status: Active Protocol: Document 04/14/18 11:25 [facility] (Rec: 04/14/18 13:36 [facility] [email or web address]) Knee Goniometric Range of Motion Knee Measured in Degrees Right Patient Position Supine Flexion Active (degrees) 115 Knee ROM Limitations Comments R knee 0-120 after manual therapy and taping of AROM PT-OP-M Strength Start: 03/06/18 14:55 Freq: Status: Active Protocol: Document 04/07/18 11:30 [facility] (Rec: 04/07/18 12:47 [facility] [email or web address]) Hip Strength Hip Manual Muscle Testing Right Flexion (L2) 4+ Good+ External Rotation 4 Good Internal Rotation 4+ Good+ Knee Strength Knee Manual Muscle Testing Right Flexion (S2) 4+ Good+ Extension (L3) 5 Normal PT-OP-Q Treatments Start: 03/06/18 14:55 Freq: Status: Active Protocol: Document 04/14/18 11:25 [facility] (Rec: 04/14/18 13:36 [facility] [id number]) Cardio Equipment Recumbent Elliptical (Biodex) Duration (Minutes) 5 Resistance 2 Manual Therapy Treatment Soft Tissue Mobilization 1 Body Location R hamstrings Mobilization Type Strumming Intensity/Depth mod Body Position Prone Joint Mobilizations 3 Joint fibular mobs Direction PA FM 2 Joint Tibiofemoral Direction PA Grade IV Body Position Supine Comments to increase knee flexion FM with AP Taping 1 Body Location Hugo for tibial IR & Fibular PA position Manual Techniques 2 Type Manual assisted heel slide to increase knee flexion Body Location R knee Body Position Hooklying 1 Type Contract/relax HS Body Location R knee Body Position Prone Reps/Duration 10 reps PT-OP-R Modalities Start: 03/06/18 14:55 Freq: Status: Active Protocol: Document 04/14/18 11:25 [facility] (Rec: 04/14/18 13:36 [facility] [id number]) Electric Stimulation Electric Stimulation Interferential Current (IFC) Body Location R anterior knee Duration (Minutes) 15 Combined With Heat/Cold Cold Pack PT-OP-T Assessment and Plan Start: 03/06/18 14:55 Freq: Status: Active Protocol: Document 04/14/18 11:25 [facility] (Rec: 04/14/18 13:36 [facility] [id number]) Physical Therapy Assessment Assessment Summary Assessment Pt with 115 degrees of AROM R knee flexion on cold measurement, increased to 120 degrees with tape and manual therapy. Pt continues to have fibular hypomobility and impaired kinematics which are possible cause of impaired R knee ROM. Physical Therapy Plan Frequency and Duration Frequency of Treatment 3x/Week Duration of Treatment 4 weeks Plan of Care Start Date 04/07/18 Plan of Care End Date 05/05/18 Next Visit Focus/Plan Next Note Type Treatment Note Next Visit Plan Cont to work on knee ROM ( flexion) & hip strength as tolerated.
--- NOTE | 2018-05-18 07:47 | PT.OTN ---
Current Diagnoses Stiffness of right knee, not elsewhere classified (05/10/18) Muscle weakness (generalized) (05/10/18) Other abnormalities of gait and mobility (05/10/18) Presence of right artificial knee joint (05/10/18) Physical Therapy Treatment Note PT-OP-A Visit Information Start: 03/06/18 14:55 Freq: Status: Active Protocol: Document 05/10/18 15:10 EA (Rec: 05/10/18 16:00 EA [id number]) Out-Patient Physical Therapy Visit Information Visit Information Visit Type Treatment Note Visit Note No charge re-eval performed to this date Visit Start Time 09:45 Visit Stop Time 10:30 Total Visit Minutes 45 Visit Number 24 Number of LCAC RADAR OPERATOR/NAVIGATOR Visits 0 PT-OP-B Current Condition Start: 03/06/18 14:55 Freq: Status: Active Protocol: Document 05/10/18 15:10 EA (Rec: 05/10/18 16:00 EA [id number]) Current Condition Current Functional Impairments (Reported) Functional Limitations- ADL's Deep squat Functional Limitations- Mobility/Gait indep PT-OP-C Subjective Start: 03/06/18 14:55 Freq: Status: Active Protocol: Document 05/10/18 15:10 EA (Rec: 05/10/18 16:00 EA [id number]) OP-PT Subjective Patient Comments Patient Comments Pt reports unable to come in the last 3 weeks due to medical insurance issues; states he has been compliant with HEP and noticed only knee discomfort mostly with stairs descent. Patient Reported Progress Improving PT-OP-K Range of Motion Start: 03/06/18 14:55 Freq: Status: Active Protocol: Document 05/10/18 15:10 EA (Rec: 05/10/18 16:00 EA [id number]) Knee Goniometric Range of Motion Knee Measured in Degrees Right Patient Position Supine Flexion Active (degrees) 110 Knee ROM Limitations Comments Patient had knee flexion ROM decreased by 5 degrees due to soft tissue tightness PT-OP-M Strength Start: 03/06/18 14:55 Freq: Status: Active Protocol: Document 05/10/18 15:40 EA (Rec: 05/18/18 07:46 EA [id number]) Knee Strength Knee Manual Muscle Testing Right Flexion (S2) 4 Good Extension (L3) 4- Good- PT-OP-Q Treatments Start: 03/06/18 14:55 Freq: Status: Active Protocol: Document 05/10/18 15:40 EA (Rec: 05/18/18 07:46 EA [id number]) Cardio Equipment Bicycle (Upright) Duration (Minutes) 10 Resistance 3-6 Seat Position 6-4 Gym Equipment Cable Column (Body Solid) Leg Curl Resistance 2-4 plates Reps/Time x 15 reps Leg Extension Resistance 1-3 plates Reps/Time 12-15 reps Shuttle Recovery Bilateral Squats Details plyomet/ Resistance 50 lbs Shuttle Recovery Platform Stable Reps/Time 25 reps Unilateral Squats Resistance 87lbs Shuttle Recovery Platform Stable Reps/Time 12-15 reps Sport Cord 3 Exercise Details Squats Cord/Resistance Blue with black Reps/Duration 10 Comments lateral facing B 1 Exercise Details Fwd, Bkwd, lateral walks Cord/Resistance blue with black Reps/Duration 5 each Comments w/lunge at end Therapeutic Exercises Standing Exercises 8 Standing Exercise Name Side step squat Reps/Minutes x 10 steps each side Manual Therapy Treatment Joint Mobilizations 2 Joint Tibiofemoral Direction PA Grade IV Body Position Supine Comments to increase knee flexion FM with AP PT-OP-R Modalities Start: 03/06/18 14:55 Freq: Status: Active Protocol: Document 05/10/18 17:46 EA (Rec: 05/18/18 07:47 EA [id number]) Hot Pack/Cold Pack Treatment Cold Pack Patient Position Hooklying Patient Tolerance Good PT-OP-T Assessment and Plan Start: 03/06/18 14:55 Freq: Status: Active Protocol: Document 05/10/18 15:40 EA (Rec: 05/18/18 07:46 EA [id number]) Physical Therapy Assessment Goals Six Impairment Lower Extremity Function Scale Group Home Goal (LTG) total score: 7 LTG Duration 4 weeks Five Impairment RLE weakness grossly grade 4-5 / Car Pusher Goal (LTG) 5/5 MMT RLE strength grossly LTG Duration 6 weeks Four Impairment R knee ROM 0-110 Car Pusher Goal (LTG) 0-120 AROM R knee LTG Duration 6 weeks Three Impairment Low level hiking with minimal pain Car Pusher Goal (LTG) low level hiking without pain prior to d/c LTG Duration 4 weeks Two Impairment Knee pain Group Home Goal (LTG) 1/10 knee pain or less LTG Duration 2 wks One Impairment Gait impairment Car Pusher Goal (LTG) Normal, unassisted levels of gait LTG Duration goals reached Assessment Summary Assessment Patient is progressing well as to strength and functional mobility. Patient will cont. to benefit with skilled PT with decrease frequency session. Advance rehab program as tolerated. Physical Therapy Plan Frequency and Duration Frequency of Treatment 1x/Week Duration of Treatment 6 wks Plan of Care Start Date 05/10/18 Plan of Care End Date 06/21/18 Therapeutic Interventions Therapeutic Interventions Gait Training Home Exercise Program Joint Mobilizations Manual Therapy Neuromuscular Re-education Patient/Caregiver Education Self-Care/Home Management Soft Tissue Mobilization Taping Therapeutic Activities Therapeutic Exercises Modalities Cold Pack/Ice Massage Electric Stimulation Hot Packs Ultrasound Next Visit Focus/Plan Next Note Type Treatment Note Next Visit Plan Advance rehab protocol as tolerated.
--- NOTE | 2018-05-18 07:47 | PT.OPPOC ---
Current Diagnoses Stiffness of right knee, not elsewhere classified (05/10/18) Muscle weakness (generalized) (05/10/18) Other abnormalities of gait and mobility (05/10/18) Presence of right artificial knee joint (05/10/18) Provider Visit Care Team Role Provider Type Franko Young MD Attending Provider Non-Staff Family Provider Primary Care Provider Specialty: Medical Address: [address] [place] [address], [facility] Email: Plan Of Care PT-OP-T Assessment and Plan Start: 03/06/18 14:55 Freq: Status: Active Protocol: Document 05/10/18 15:40 EA (Rec: 05/18/18 07:46 EA [id number]) Physical Therapy Assessment Goals Six Impairment Lower Extremity Function Scale Nursing Home Goal (LTG) total score: 7 LTG Duration 4 weeks Five Impairment RLE weakness grossly grade 4-5 / Central Supply Clerk Goal (LTG) 5/5 MMT RLE strength grossly LTG Duration 6 weeks Four Impairment R knee ROM 0-110 Central Supply Clerk Goal (LTG) 0-120 AROM R knee LTG Duration 6 weeks Three Impairment Low level hiking with minimal pain Nursing Home Goal (LTG) low level hiking without pain prior to d/c LTG Duration 4 weeks Two Impairment Knee pain Nursing Home Goal (LTG) 1/10 knee pain or less LTG Duration 2 wks One Impairment Gait impairment Nursing Home Goal (LTG) Normal, unassisted levels of gait LTG Duration goals reached Assessment Summary Assessment Patient is progressing well as to strength and functional mobility. Patient will cont. to benefit with skilled PT with decrease frequency session. Advance rehab program as tolerated. Physical Therapy Plan Frequency and Duration Frequency of Treatment 1x/Week Duration of Treatment 6 wks Plan of Care Start Date 05/10/18 Plan of Care End Date 06/21/18 Therapeutic Interventions Therapeutic Interventions Gait Training Home Exercise Program Joint Mobilizations Manual Therapy Neuromuscular Re-education Patient/Caregiver Education Self-Care/Home Management Soft Tissue Mobilization Taping Therapeutic Activities Therapeutic Exercises Modalities Cold Pack/Ice Massage Electric Stimulation Hot Packs Ultrasound Next Visit Focus/Plan Next Note Type Treatment Note Next Visit Plan Advance rehab protocol as tolerated. Plan of Care Dates Plan of Care Start Date 05/10/18 Plan of Care End Date 06/21/18 Please Sign and Return: I have reviewed this Plan of Care and certify that the skilled therapy services above are required to meet the patient?s needs. Physician Signature Date Printed Name and Credentials Clinical Instructor Signature Printed Name and Credentials
--- NOTE | 2018-05-25 10:08 | PT.OTN ---
Current Diagnoses Stiffness of right knee, not elsewhere classified (05/25/18) Muscle weakness (generalized) (05/25/18) Other abnormalities of gait and mobility (05/25/18) Presence of right artificial knee joint (05/25/18) Physical Therapy Treatment Note PT-OP-A Visit Information Start: 03/06/18 14:55 Freq: Status: Active Protocol: Document 05/25/18 09:01 [facility] (Rec: 05/25/18 10:07 [facility] [id number]) Out-Patient Physical Therapy Visit Information Visit Information Visit Type Treatment Note Visit Start Time 09:00 Visit Stop Time 10:00 Total Visit Minutes 60 Visit Number 25 PT-OP-B Current Condition Start: 03/06/18 14:55 Freq: Status: Active Protocol: Document 05/10/18 15:10 EA (Rec: 05/10/18 16:00 EA [id number]) Current Condition Current Functional Impairments (Reported) Functional Limitations- ADL's Deep squat Functional Limitations- Mobility/Gait indep PT-OP-C Subjective Start: 03/06/18 14:55 Freq: Status: Active Protocol: Document 05/25/18 09:01 [facility] (Rec: 05/25/18 10:07 [facility] [id number]) OP-PT Subjective Patient Comments Patient Comments Reports the first time going down stairs in AM is still a little painful, but typically not painful. He has been walking and that is helpful but has not tried trails yet. PT-OP-K Range of Motion Start: 03/06/18 14:55 Freq: Status: Active Protocol: Document 05/10/18 15:10 EA (Rec: 05/10/18 16:00 EA [id number]) Knee Goniometric Range of Motion Knee Measured in Degrees Right Patient Position Supine Flexion Active (degrees) 110 Knee ROM Limitations Comments Patient had knee flexion ROM decreased by 5 degrees due to soft tissue tightness PT-OP-M Strength Start: 03/06/18 14:55 Freq: Status: Active Protocol: Document 05/10/18 15:40 EA (Rec: 05/18/18 07:46 EA [id number]) Knee Strength Knee Manual Muscle Testing Right Flexion (S2) 4 Good Extension (L3) 4- Good- PT-OP-Q Treatments Start: 03/06/18 14:55 Freq: Status: Active Protocol: Document 05/25/18 09:01 [facility] (Rec: 05/25/18 10:07 [facility] [id number]) Manual Therapy Treatment Soft Tissue Mobilization 2 Body Location ant knee Mobilization Type Myofascial Release Comments FM w/ knee flex & c/r into flex in supine & prone 1 Body Location R hamstrings Mobilization Type Sustained Pressure Intensity/Depth mod Body Position Supine Comments FM w/knee ext Joint Mobilizations 3 Joint fibular mobs Direction PA FM 2 Joint Tibiofemoral Direction PA Grade IV Body Position Supine Comments to increase knee flexion FM PT-OP-R Modalities Start: 03/06/18 14:55 Freq: Status: Active Protocol: Document 05/25/18 09:01 [facility] (Rec: 05/25/18 10:08 [facility] [id number]) Electric Stimulation Electric Stimulation Interferential Current (IFC) Body Location R anterior knee Duration (Minutes) 15 Combined With Heat/Cold Cold Pack PT-OP-T Assessment and Plan Start: 03/06/18 14:55 Freq: Status: Active Protocol: Document 05/25/18 09:01 [facility] (Rec: 05/25/18 10:07 [facility] [id number]) Physical Therapy Assessment Goals Six Impairment Lower Extremity Function Scale Detention Goal (LTG) total score: 7 LTG Duration 4 weeks Five Impairment RLE weakness grossly grade 4-5 / Detention Goal (LTG) 5/5 MMT RLE strength grossly LTG Duration 6 weeks Four Impairment R knee ROM 0-110 Detention Goal (LTG) 0-120 AROM R knee LTG Duration 6 weeks Three Impairment Low level hiking with minimal pain Detention Goal (LTG) low level hiking without pain prior to d/c LTG Duration 4 weeks Two Impairment Knee pain Detention Goal (LTG) 1/10 knee pain or less LTG Duration 2 wks One Impairment Gait impairment Detention Goal (LTG) Normal, unassisted levels of gait LTG Duration goals reached Assessment Summary Assessment Discussed w/pt re: starting to hike flat trails to start working on uneven terrain. Inc AROM flex to 121 from 112 deg after manual rx. Pt cont to have tibiofemoral tigthness, HS tightness especially between gracilis & semimembrenosus. Physical Therapy Plan Frequency and Duration Frequency of Treatment 1x/Week Duration of Treatment 6 wks Plan of Care Start Date 05/10/18 Plan of Care End Date 06/21/18 Next Visit Focus/Plan Next Note Type Treatment Note Next Visit Plan uneven surfaces work, cont to work on limits of myofascial tissue restricting flex & joint restrictions.
--- NOTE | 2018-06-01 15:10 | PT.OTN ---
Current Diagnoses Stiffness of right knee, not elsewhere classified (06/01/18) Muscle weakness (generalized) (06/01/18) Other abnormalities of gait and mobility (06/01/18) Presence of right artificial knee joint (06/01/18) Physical Therapy Treatment Note PT-OP-A Visit Information Start: 03/06/18 14:55 Freq: Status: Active Protocol: Document 06/01/18 13:43 EA (Rec: 06/01/18 15:10 EA [id number]) Out-Patient Physical Therapy Visit Information Visit Information Visit Type Treatment Note Visit Start Time 13:45 Total Visit Minutes 45 Visit Number PT-OP-B Current Condition Start: 03/06/18 14:55 Freq: Status: Active Protocol: Document 05/10/18 15:10 EA (Rec: 05/10/18 16:00 EA [id number]) Current Condition Current Functional Impairments (Reported) Functional Limitations- ADL's Deep squat Functional Limitations- Mobility/Gait indep PT-OP-C Subjective Start: 03/06/18 14:55 Freq: Status: Active Protocol: Document 06/01/18 13:43 EA (Rec: 06/01/18 15:10 EA [id number]) OP-PT Subjective Patient Comments Patient Comments Pt reports right knee is painful at night 2 days after last session; denies any task alteration. PT-OP-K Range of Motion Start: 03/06/18 14:55 Freq: Status: Active Protocol: Document 05/10/18 15:10 EA (Rec: 05/10/18 16:00 EA [id number]) Knee Goniometric Range of Motion Knee Measured in Degrees Right Patient Position Supine Flexion Active (degrees) 110 Knee ROM Limitations Comments Patient had knee flexion ROM decreased by 5 degrees due to soft tissue tightness PT-OP-M Strength Start: 03/06/18 14:55 Freq: Status: Active Protocol: Document 05/10/18 15:40 EA (Rec: 05/18/18 07:46 EA [id number]) Knee Strength Knee Manual Muscle Testing Right Flexion (S2) 4 Good Extension (L3) 4- Good- PT-OP-Q Treatments Start: 03/06/18 14:55 Freq: Status: Active Protocol: Document 06/01/18 13:43 EA (Rec: 06/01/18 15:10 EA [id number]) Cardio Equipment Bicycle (Upright) Duration (Minutes) 10 Resistance 3-6 Seat Position 6-4 Gym Equipment Cable Column (Body Solid) Leg Extension Resistance 2-3 plates Reps/Time 12-15 reps Shuttle Recovery Unilateral Squats Resistance 87-150lbs Shuttle Recovery Platform Stable Reps/Time 12-15 reps Shuttle Balance 1 Details Staggered knee bent/ side to side knee bent Reps/Duration x 30 sec each x 3 reps Manual Therapy Treatment Soft Tissue Mobilization 2 Body Location ant knee Mobilization Type Myofascial Release 1 Body Location R hamstrings Mobilization Type Myofascial Release Strumming Sustained Pressure Intensity/Depth mod Body Position Prone Joint Mobilizations 2 Joint Tibiofemoral Direction PA Grade IV Body Position Supine Comments to increase knee flexion FM PT-OP-R Modalities Start: 03/06/18 14:55 Freq: Status: Active Protocol: Document 06/01/18 13:43 EA (Rec: 06/01/18 15:10 EA [id number]) Electric Stimulation Electric Stimulation Interferential Current (IFC) Body Location R anterior knee/hamstring Duration (Minutes) 15 Combined With Heat/Cold Cold Pack Comments cold pack ant/posterior knee Hot Pack/Cold Pack Treatment Cold Pack Patient Position Hooklying Patient Tolerance Good PT-OP-T Assessment and Plan Start: 03/06/18 14:55 Freq: Status: Active Protocol: Document 06/01/18 13:43 EA (Rec: 06/01/18 15:10 EA [id number]) Physical Therapy Assessment Assessment Summary Assessment Noted hamstring tenderness and medial sup patellar pole which probably irritation of the bursa. advised patient to refrain from strenous and low duration of walk to rest hamstring. Physical Therapy Plan Next Visit Focus/Plan Next Note Type Treatment Note Next Visit Plan Advance as tolerated.
--- NOTE | 2018-06-08 15:15 | PT.OTN ---
Current Diagnoses Stiffness of right knee, not elsewhere classified (06/08/18) Muscle weakness (generalized) (06/08/18) Other abnormalities of gait and mobility (06/08/18) Presence of right artificial knee joint (06/08/18) Physical Therapy Treatment Note PT-OP-A Visit Information Start: 03/06/18 14:55 Freq: Status: Active Protocol: Document 06/08/18 15:15 RCC (Rec: 06/09/18 12:23 RCC [email or web address]) Out-Patient Physical Therapy Visit Information Visit Information Visit Type Treatment Note Visit Start Time 14:40 Visit Stop Time 15:30 Total Visit Minutes 50 Visit Number 27/32 Number of RADIOPHONE OPERATOR Visits 0 Evaluation Information Evaluation Date 01/13/18 PT-OP-B Current Condition Start: 03/06/18 14:55 Freq: Status: Active Protocol: Document 05/10/18 15:10 EA (Rec: 05/10/18 16:00 EA [id number]) Current Condition Current Functional Impairments (Reported) Functional Limitations- ADL's Deep squat Functional Limitations- Mobility/Gait indep PT-OP-C Subjective Start: 03/06/18 14:55 Freq: Status: Active Protocol: Document 06/08/18 15:15 RCC (Rec: 06/09/18 12:23 RCC [email or web address]) OP-PT Subjective Patient Comments Patient Comments pt notes that his pain in the HS area feel like a dull ache, sometimes waking him up at night. PT-OP-K Range of Motion Start: 03/06/18 14:55 Freq: Status: Active Protocol: Document 06/08/18 15:15 RCC (Rec: 06/09/18 12:23 RCC [email or web address]) Knee Goniometric Range of Motion Knee Measured in Degrees Right Patient Position Supine Flexion Active (degrees) 114 Knee ROM Limitations Comments AROM after manual therapy 122 degrees PT-OP-M Strength Start: 03/06/18 14:55 Freq: Status: Active Protocol: Document 05/10/18 15:40 EA (Rec: 05/18/18 07:46 EA [id number]) Knee Strength Knee Manual Muscle Testing Right Flexion (S2) 4 Good Extension (L3) 4- Good- PT-OP-Q Treatments Start: 03/06/18 14:55 Freq: Status: Active Protocol: Document 06/08/18 15:15 RCC (Rec: 06/09/18 12:23 [facility] [email or web address]) Therapeutic Exercises Sitting Exercises 1 Sitting Exercise Name HS curl Side right Resistance L3 Reps/Minutes 2x15 Standing Exercises 7 Standing Exercise Name HS and gastroc stretch Side bilateral Equipment Used stair Manual Therapy Treatment Soft Tissue Mobilization 3 Body Location R gastroc Mobilization Type Strumming Intensity/Depth mod Body Position Prone 1 Body Location R hamstrings Mobilization Type Myofascial Release Strumming Sustained Pressure Intensity/Depth mod Body Position Prone Joint Mobilizations 3 Joint fibular mobs Direction PA FM Grade IV Body Position Prone 2 Joint Tibiofemoral Direction PA Grade IV Body Position Supine Comments to increase knee flexion FM PT-OP-R Modalities Start: 03/06/18 14:55 Freq: Status: Active Protocol: Document 06/08/18 15:15 [facility] (Rec: 06/09/18 12:23 [facility] [email or web address]) Electric Stimulation Electric Stimulation Interferential Current (IFC) Body Location R anterior knee/hamstring Duration (Minutes) 15 Combined With Heat/Cold Cold Pack Comments cold pack ant/posterior knee Hot Pack/Cold Pack Treatment Cold Pack Location R ant/posterior knee Patient Position Hooklying Treatment Duration (minutes) 15 Patient Tolerance Good Comments with IFC PT-OP-T Assessment and Plan Start: 03/06/18 14:55 Freq: Status: Active Protocol: Document 06/08/18 15:15 [facility] (Rec: 06/09/18 12:23 [facility] [email or web address]) Physical Therapy Assessment Assessment Summary Assessment Pt continues to have stiffness of the R fibual and tension in the HS and gastroc, likely causing continued impaired R knee AROM without manual intervention. Pt would greatly benefit from continued progression of R knee strengthening and ROM to improve with daily function and recreation. Physical Therapy Plan Frequency and Duration Frequency of Treatment 1x/Week Duration of Treatment 6 wks Plan of Care Start Date 05/10/18 Plan of Care End Date 06/21/18 Next Visit Focus/Plan Next Note Type Progress Note Next Visit Plan new POC required, reassess obj . measures.
--- NOTE | 2018-06-22 10:30 | PT.OPPOC ---
Current Diagnoses Stiffness of right knee, not elsewhere classified (06/22/18) Muscle weakness (generalized) (06/22/18) Other abnormalities of gait and mobility (06/22/18) Presence of right artificial knee joint (06/22/18) Provider Visit Care Team Role Provider Type Franko Young MD Attending Provider Non-Staff Family Provider Primary Care Provider Specialty: Medical Address: [address] [place] [address], [facility] Email: Plan Of Care PT-OP-T Assessment and Plan Start: 03/06/18 14:55 Freq: Status: Active Protocol: Document 06/22/18 10:30 RCC (Rec: 06/22/18 11:48 RCC [email or web address]) Physical Therapy Assessment Goals Six Impairment Lower Extremity Function Scale Jail Goal (LTG) total score: 70% or greater (score on 06/22/2018 45%) LTG Duration 4 weeks Five Impairment RLE weakness grossly grade 4-5 / Jail Goal (LTG) 5/5 MMT RLE strength grossly LTG Duration 4 weeks Four Impairment R knee ROM 0-111 Jail Goal (LTG) 0-120 AROM R knee LTG Duration 4 weeks Three Impairment Low level hiking with minimal pain Jail Goal (LTG) low level hiking without pain prior to d/c LTG Duration 4 weeks Two Impairment Knee pain Vegetable I Farmworker Goal (LTG) 1/10 knee pain or less LTG Duration 4 wks One Impairment Gait impairment Jail Goal (LTG) Normal, unassisted levels of gait LTG Duration goals reached Progress Towards Goals Progress Comments pt with increased knee pain and pain in the L knee also with stairs, strength in R knee and hip is improving but still below 5/5 with manual muscle testing, ROM 0-111 degree on the R. Assessment Summary Assessment Pt's increased knee pain bilaterally, likely due to increased activity and as pt reported performing an increasing amount of stairs over the past couple of weeks. Pt's ROM of the R knee actively is still limited, 0- 111 degrees. His R knee AROM improved to 116 degrees just after soft tissue mobilization to the R hamstrings. He lacks appropriate knee strength in flexion and extension to progress his hiking and activity intensity, which would continue to be progressed with his HEP and physical therapy. Pt continues to also have restricted tibiofibular joint mobility on the right, which is restricting his AROM of the R knee as well. Pt demonstrates improvements in strength since last assessment, and will require skilled physical therapy to progress his HEP, strength, ROM and overall activity tolerance to improve functional independence and quality of life. Physical Therapy Plan Frequency and Duration Frequency of Treatment 1x/Week Duration of Treatment 4 wks Plan of Care Start Date 06/22/18 Plan of Care End Date 07/20/18 Therapeutic Interventions Therapeutic Interventions Gait Training Home Exercise Program Joint Mobilizations Manual Therapy Neuromuscular Re-education Patient/Caregiver Education Self-Care/Home Management Soft Tissue Mobilization Taping Therapeutic Activities Therapeutic Exercises Modalities Cold Pack/Ice Massage Electric Stimulation Hot Packs Ultrasound Next Visit Focus/Plan Next Note Type Progress Note Next Visit Plan continue to advance HS and quadriceps strengthening, knee ROM activities, joint mobilizations. Plan of Care Dates Plan of Care Start Date 06/22/18 Plan of Care End Date 07/20/18 Please Sign and Return: I have reviewed this Plan of Care and certify that the skilled therapy services above are required to meet the patient?s needs. Physician Signature Date Printed Name and Credentials Clinical Instructor Signature Printed Name and Credentials
--- NOTE | 2018-06-22 10:30 | PT.OTN ---
Current Diagnoses Stiffness of right knee, not elsewhere classified (06/22/18) Muscle weakness (generalized) (06/22/18) Other abnormalities of gait and mobility (06/22/18) Presence of right artificial knee joint (06/22/18) Physical Therapy Treatment Note PT-OP-A Visit Information Start: 03/06/18 14:55 Freq: Status: Active Protocol: Document 06/22/18 10:30 RCC (Rec: 06/22/18 11:48 RCC [email or web address]) Out-Patient Physical Therapy Visit Information Visit Information Visit Type Treatment Note Visit Start Time 09:55 Visit Stop Time 10:45 Total Visit Minutes 50 Visit Number 28/32 Number of PIT CREW SUPPORT WORKER Visits 0 Evaluation Information Evaluation Date 01/13/18 PT-OP-B Current Condition Start: 03/06/18 14:55 Freq: Status: Active Protocol: Document 05/10/18 15:10 EA (Rec: 05/10/18 16:00 EA [id number]) Current Condition Current Functional Impairments (Reported) Functional Limitations- ADL's Deep squat Functional Limitations- Mobility/Gait indep PT-OP-C Subjective Start: 03/06/18 14:55 Freq: Status: Active Protocol: Document 06/22/18 10:30 RCC (Rec: 06/22/18 11:48 RCC [email or web address]) OP-PT Subjective Patient Comments Patient Comments Pt notes that he continues to have tension and discomfort in the R hamstrings, and now states that he is having R lateral knee discomfort and L medial knee discomfort that he attributes to going up/down a lot of stairs over the past couple of weeks and traveling to [place]. Patient Questionnaires Lower Extremity Functional Scale LEFS Score 36 LEFS Impairment 40 to 59% Impaired (Score 32- 47) OP-PT Pain Assessment Location Right Knee Pain Location Details going up/down stairs @ worst Intensity 6 Scale Used Numeric (1 - 10) PT-OP-F Manual Assessment Start: 03/06/18 14:55 Freq: Status: Active Protocol: Document 06/22/18 10:30 RCC (Rec: 06/22/18 11:48 RCC [email or web address]) Manual Assessments Soft Tissue Assessment Soft Tissue Mobility Assessment tenderness to palpation: R hamstrings, L MCL and medial joint line Joint Mobility Assessment Joint Mobility Assessment hypomobile: R tibiofemoral and tibiofibular joints. PT-OP-K Range of Motion Start: 03/06/18 14:55 Freq: Status: Active Protocol: Document 06/22/18 10:30 RCC (Rec: 06/22/18 11:48 RCC [email or web address]) Knee Goniometric Range of Motion Knee Measured in Degrees Left Patient Position Supine Flexion Active (degrees) 122 Extension Active (degrees) 0 Right Patient Position Supine Flexion Active (degrees) 111 Extension Active (degrees) 0 Knee ROM Limitations Comments AROM R knee flexion to 116 after hamstring STR PT-OP-L Special Tests Start: 06/22/18 11:19 Freq: Status: Active Protocol: Document 06/22/18 10:30 RCC (Rec: 06/22/18 11:48 RCC [email or web address]) Special Tests Knee Special Tests Thessaly Test 5 Degrees Test Results Left: negative Thessaly Test 20 Degrees Test Results Left: positive Comments medial Yissel Test Test Results Left: negative Varus- 25 Degrees Test Results Left: negative Varus- 0 Degrees Test Results Left: negative Valgus- 25 Degrees Test Results Left: negative Valgus- 0 Degrees Test Results Left: negative Sabino's Test Results Left: negative PT-OP-M Strength Start: 03/06/18 14:55 Freq: Status: Active Protocol: Document 06/22/18 10:30 RCC (Rec: 06/22/18 11:48 RCC [email or web address]) Hip Strength Hip Manual Muscle Testing Left Flexion (L2) 5 Normal External Rotation 5 Normal Internal Rotation 4 Good Comments pain with IR @ medial L knee Right Flexion (L2) 5 Normal External Rotation 4+ Good+ Internal Rotation 4+ Good+ Knee Strength Knee Manual Muscle Testing Right Flexion (S2) 4 Good Extension (L3) 4 Good Left Flexion (S2) 5 Normal Extension (L3) 5 Normal PT-OP-Q Treatments Start: 03/06/18 14:55 Freq: Status: Active Protocol: Document 06/22/18 10:30 RCC (Rec: 06/22/18 11:48 RCC [email or web address]) Therapeutic Exercises Standing Exercises 9 Standing Exercise Name step up/down 6 steps Side bilateral Equipment Used B rails Reps/Minutes 2x10 Manual Therapy Treatment Soft Tissue Mobilization 3 Body Location R gastroc Mobilization Type Strumming Intensity/Depth mod Body Position Prone 1 Body Location R hamstrings Mobilization Type Myofascial Release Strumming Sustained Pressure Intensity/Depth mod Body Position Prone Joint Mobilizations 3 Joint fibular mobs Direction PA FM Grade IV Body Position Prone 2 Joint Tibiofemoral Direction PA Grade IV Body Position Supine Comments to increase knee flexion FM Other Other Manual Treatments Knee ROM, special tests, palpation, strength/MMT PT-OP-R Modalities Start: 03/06/18 14:55 Freq: Status: Active Protocol: Document 06/22/18 10:30 RCC (Rec: 06/22/18 11:49 RCC [email or web address]) Electric Stimulation Electric Stimulation Interferential Current (IFC) Body Location R anterior knee/hamstring Duration (Minutes) 15 Combined With Heat/Cold Cold Pack Comments cold pack ant/posterior knee Hot Pack/Cold Pack Treatment Cold Pack Location R ant/posterior knee Patient Position Hooklying Treatment Duration (minutes) 15 Patient Tolerance Good Comments with IFC PT-OP-T Assessment and Plan Start: 03/06/18 14:55 Freq: Status: Active Protocol: Document 06/22/18 10:30 [facility] (Rec: 06/22/18 11:48 RCC [email or web address]) Physical Therapy Assessment Goals Six Impairment Lower Extremity Function Scale Longterm Goal (LTG) total score: 70% or greater (score on 06/22/2018 45%) LTG Duration 4 weeks Five Impairment RLE weakness grossly grade 4-5 / Longterm Goal (LTG) 5/5 MMT RLE strength grossly LTG Duration 4 weeks Four Impairment R knee ROM 0-111 Manager Creative Goal (LTG) 0-120 AROM R knee LTG Duration 4 weeks Three Impairment Low level hiking with minimal pain Longterm Goal (LTG) low level hiking without pain prior to d/c LTG Duration 4 weeks Two Impairment Knee pain Manager Creative Goal (LTG) 1/10 knee pain or less LTG Duration 4 wks One Impairment Gait impairment Longterm Goal (LTG) Normal, unassisted levels of gait LTG Duration goals reached Progress Towards Goals Progress Comments pt with increased knee pain and pain in the L knee also with stairs, strength in R knee and hip is improving but still below 5/5 with manual muscle testing, ROM 0-111 degree on the R. Assessment Summary Assessment Pt's increased knee pain bilaterally, likely due to increased activity and as pt reported performing an increasing amount of stairs over the past couple of weeks. Pt's ROM of the R knee actively is still limited, 0- 111 degrees. His R knee AROM improved to 116 degrees just after soft tissue mobilization to the R hamstrings. He lacks appropriate knee strength in flexion and extension to progress his hiking and activity intensity, which would continue to be progressed with his HEP and physical therapy. Pt continues to also have restricted tibiofibular joint mobility on the right, which is restricting his AROM of the R knee as well. Pt demonstrates improvements in strength since last assessment, and will require skilled physical therapy to progress his HEP, strength, ROM and overall activity tolerance to improve functional independence and quality of life. Physical Therapy Plan Frequency and Duration Frequency of Treatment 1x/Week Duration of Treatment 4 wks Plan of Care Start Date 06/22/18 Plan of Care End Date 07/20/18 Therapeutic Interventions Therapeutic Interventions Gait Training Home Exercise Program Joint Mobilizations Manual Therapy Neuromuscular Re-education Patient/Caregiver Education Self-Care/Home Management Soft Tissue Mobilization Taping Therapeutic Activities Therapeutic Exercises Modalities Cold Pack/Ice Massage Electric Stimulation Hot Packs Ultrasound Next Visit Focus/Plan Next Note Type Progress Note Next Visit Plan continue to advance HS and quadriceps strengthening, knee ROM activities, joint mobilizations.
--- NOTE | 2018-06-29 13:17 | PT.OTN ---
Current Diagnoses Stiffness of right knee, not elsewhere classified (06/29/18) Muscle weakness (generalized) (06/29/18) Other abnormalities of gait and mobility (06/29/18) Presence of right artificial knee joint (06/29/18) Physical Therapy Treatment Note PT-OP-A Visit Information Start: 03/06/18 14:55 Freq: Status: Active Protocol: Document 06/29/18 13:04 EA (Rec: 06/29/18 13:17 EA [id number]) Out-Patient Physical Therapy Visit Information Visit Information Visit Type Treatment Note Visit Start Time 10:30 Visit Stop Time 11:30 Total Visit Minutes 55 Visit Number Number of SECONDARY SET UP MAN Visits 0 PT-OP-B Current Condition Start: 03/06/18 14:55 Freq: Status: Active Protocol: Document 05/10/18 15:10 EA (Rec: 05/10/18 16:00 EA [id number]) Current Condition Current Functional Impairments (Reported) Functional Limitations- ADL's Deep squat Functional Limitations- Mobility/Gait indep PT-OP-C Subjective Start: 03/06/18 14:55 Freq: Status: Active Protocol: Document 06/29/18 13:04 EA (Rec: 06/29/18 13:17 EA [id number]) OP-PT Subjective Patient Comments Patient Comments Doctor's referral brought by patient with a IT band syndrome treatment protocol. Patient still c/o lateral knee knee pain which aggravated with long walk. PT-OP-F Manual Assessment Start: 03/06/18 14:55 Freq: Status: Active Protocol: Document 06/22/18 10:30 RCC (Rec: 06/22/18 11:48 RCC [email or web address]) Manual Assessments Soft Tissue Assessment Soft Tissue Mobility Assessment tenderness to palpation: R hamstrings, L MCL and medial joint line Joint Mobility Assessment Joint Mobility Assessment hypomobile: R tibiofemoral and tibiofibular joints. PT-OP-K Range of Motion Start: 03/06/18 14:55 Freq: Status: Active Protocol: Document 06/22/18 10:30 RCC (Rec: 06/22/18 11:48 RCC [email or web address]) Knee Goniometric Range of Motion Knee Measured in Degrees Left Patient Position Supine Flexion Active (degrees) 122 Extension Active (degrees) 0 Right Patient Position Supine Flexion Active (degrees) 111 Extension Active (degrees) 0 Knee ROM Limitations Comments AROM R knee flexion to 116 after hamstring STR PT-OP-L Special Tests Start: 06/22/18 11:19 Freq: Status: Active Protocol: Document 06/22/18 10:30 RCC (Rec: 06/22/18 11:48 RCC [email or web address]) Special Tests Knee Special Tests Thessaly Test 5 Degrees Test Results Left: negative Thessaly Test 20 Degrees Test Results Left: positive Comments medial Yissel Test Test Results Left: negative Varus- 25 Degrees Test Results Left: negative Varus- 0 Degrees Test Results Left: negative Valgus- 25 Degrees Test Results Left: negative Valgus- 0 Degrees Test Results Left: negative Sabino's Test Results Left: negative PT-OP-M Strength Start: 03/06/18 14:55 Freq: Status: Active Protocol: Document 06/22/18 10:30 RCC (Rec: 06/22/18 11:48 RCC [email or web address]) Hip Strength Hip Manual Muscle Testing Left Flexion (L2) 5 Normal External Rotation 5 Normal Internal Rotation 4 Good Comments pain with IR @ medial L knee Right Flexion (L2) 5 Normal External Rotation 4+ Good+ Internal Rotation 4+ Good+ Knee Strength Knee Manual Muscle Testing Right Flexion (S2) 4 Good Extension (L3) 4 Good Left Flexion (S2) 5 Normal Extension (L3) 5 Normal PT-OP-Q Treatments Start: 03/06/18 14:55 Freq: Status: Active Protocol: Document 06/29/18 13:04 EA (Rec: 06/29/18 13:17 EA [id number]) Cardio Equipment Bicycle (Upright) Duration (Minutes) 10 Resistance 3-6 Seat Position 6-4 Gym Equipment Cable Column (Body Solid) Leg Extension Resistance 2-3 plates Reps/Time 12-15 reps Shuttle Recovery Unilateral Squats Resistance 100 lbs Shuttle Recovery Platform Stable Reps/Time 12-15 reps Therapeutic Exercises Sidelying Exercises 1 Sidelying Exercise Name ITB Passive to active stretch Reps/Minutes x 30 SH Comments Home program component Standing Exercises 9 Standing Exercise Name step up/down 6 -8 steps Side bilateral Equipment Used single rail Reps/Minutes 2x10 7 Standing Exercise Name HS and gastroc stretch Side bilateral Equipment Used stair 6 Standing Exercise Name BUSO step up/dpn with light hand support Reps/Minutes x 30 secx 2 5 Standing Exercise Name // bars steady lunges Reps/Minutes x 8 reps x 2 sets each leg 4 Standing Exercise Name 16 box squat Reps/Minutes x 10 reps x 2 Manual Therapy Treatment Soft Tissue Mobilization 2 Body Location R ITB Mobilization Type Myofascial Release Rolling 1 Body Location R hamstrings Mobilization Type Myofascial Release Strumming Sustained Pressure Intensity/Depth mod Body Position Prone PT-OP-R Modalities Start: 03/06/18 14:55 Freq: Status: Active Protocol: Document 06/29/18 13:04 EA (Rec: 06/29/18 13:17 EA [id number]) Electric Stimulation Electric Stimulation Interferential Current (IFC) Body Location R anterior knee/hamstring Duration (Minutes) 15 Combined With Heat/Cold Cold Pack Comments cold pack ant/posterior knee Ultrasound Therapy Treatment Right Lateral Hip Frequency Setting (mHz) 1 Mode Setting Continuous Intensity Setting (w/cm2) 1.2 PT-OP-T Assessment and Plan Start: 03/06/18 14:55 Freq: Status: Active Protocol: Document 06/29/18 13:04 EA (Rec: 06/29/18 13:17 EA [id number]) Physical Therapy Assessment Assessment Summary Assessment Increased functional strength noted at this time; no discomfort during exercises noted. Jenny's test positive in right ITB but improved after US and stretch Physical Therapy Plan Next Visit Focus/Plan Next Visit Plan Advance as tolerated.
--- NOTE | 2018-07-06 12:16 | PT.OTN ---
Current Diagnoses Stiffness of right knee, not elsewhere classified (07/06/18) Muscle weakness (generalized) (07/06/18) Other abnormalities of gait and mobility (07/06/18) Presence of right artificial knee joint (07/06/18) Physical Therapy Treatment Note PT-OP-A Visit Information Start: 03/06/18 14:55 Freq: Status: Active Protocol: Document 06/29/18 13:04 EA (Rec: 06/29/18 13:17 EA [id number]) Out-Patient Physical Therapy Visit Information Visit Information Visit Type Treatment Note Visit Start Time 10:30 Visit Stop Time 11:30 Total Visit Minutes 55 Visit Number 29/32 Number of EMBEDDED SOFTWARE DEVELOPER Visits 0 PT-OP-B Current Condition Start: 03/06/18 14:55 Freq: Status: Active Protocol: Document 05/10/18 15:10 EA (Rec: 05/10/18 16:00 EA [id number]) Current Condition Current Functional Impairments (Reported) Functional Limitations- ADL's Deep squat Functional Limitations- Mobility/Gait indep PT-OP-C Subjective Start: 03/06/18 14:55 Freq: Status: Active Protocol: Document 07/06/18 10:33 EA (Rec: 07/06/18 11:18 EA [id number]) OP-PT Subjective Patient Comments Patient Comments Pt reports knee is getting better. Patient states had a 5 miles walk flat/elevated ground. Denies increased symptoms. PT-OP-F Manual Assessment Start: 03/06/18 14:55 Freq: Status: Active Protocol: Document 06/22/18 10:30 RCC (Rec: 06/22/18 11:48 RCC [email or web address]) Manual Assessments Soft Tissue Assessment Soft Tissue Mobility Assessment tenderness to palpation: R hamstrings, L MCL and medial joint line Joint Mobility Assessment Joint Mobility Assessment hypomobile: R tibiofemoral and tibiofibular joints. PT-OP-K Range of Motion Start: 03/06/18 14:55 Freq: Status: Active Protocol: Document 06/22/18 10:30 RCC (Rec: 06/22/18 11:48 RCC [email or web address]) Knee Goniometric Range of Motion Knee Measured in Degrees Left Patient Position Supine Flexion Active (degrees) 122 Extension Active (degrees) 0 Right Patient Position Supine Flexion Active (degrees) 111 Extension Active (degrees) 0 Knee ROM Limitations Comments AROM R knee flexion to 116 after hamstring STR PT-OP-L Special Tests Start: 06/22/18 11:19 Freq: Status: Active Protocol: Document 06/22/18 10:30 RCC (Rec: 06/22/18 11:48 RCC [email or web address]) Special Tests Knee Special Tests Thessaly Test 5 Degrees Test Results Left: negative Thessaly Test 20 Degrees Test Results Left: positive Comments medial Yissel Test Test Results Left: negative Varus- 25 Degrees Test Results Left: negative Varus- 0 Degrees Test Results Left: negative Valgus- 25 Degrees Test Results Left: negative Valgus- 0 Degrees Test Results Left: negative Sabino's Test Results Left: negative PT-OP-M Strength Start: 03/06/18 14:55 Freq: Status: Active Protocol: Document 06/22/18 10:30 RCC (Rec: 06/22/18 11:48 RCC [email or web address]) Hip Strength Hip Manual Muscle Testing Left Flexion (L2) 5 Normal External Rotation 5 Normal Internal Rotation 4 Good Comments pain with IR @ medial L knee Right Flexion (L2) 5 Normal External Rotation 4+ Good+ Internal Rotation 4+ Good+ Knee Strength Knee Manual Muscle Testing Right Flexion (S2) 4 Good Extension (L3) 4 Good Left Flexion (S2) 5 Normal Extension (L3) 5 Normal PT-OP-Q Treatments Start: 03/06/18 14:55 Freq: Status: Active Protocol: Document 07/06/18 10:33 EA (Rec: 07/06/18 11:18 EA [id number]) Cardio Equipment Bicycle (Upright) Duration (Minutes) 10 Resistance 3-6 Seat Position 6-4 Gym Equipment Cable Column (Body Solid) Leg Extension Resistance 2-3 plates Reps/Time 12-15 reps Shuttle Recovery Unilateral Squats Resistance 100 lbs Shuttle Recovery Platform Stable Reps/Time 12-15 reps Shuttle Balance 1 Details Staggered knee bent/ side to side knee bent Reps/Duration x 30 sec each x 3 reps Therapeutic Exercises Standing Exercises 9 Standing Exercise Name step up/down 6 -8 steps Side bilateral Equipment Used single rail Reps/Minutes 2x10 7 Standing Exercise Name HS and gastroc stretch Side bilateral Equipment Used stair 6 Standing Exercise Name BUSO step up/dpn with light hand support Reps/Minutes x 30 secx 2 5 Standing Exercise Name steady lunges Reps/Minutes x 8 reps x 2 sets each leg Manual Therapy Treatment Soft Tissue Mobilization 2 Body Location R ITB Mobilization Type Myofascial Release Rolling Joint Mobilizations 2 Joint Tibiofemoral Direction PA Grade IV Body Position Supine Comments to increase knee flexion FM PT-OP-R Modalities Start: 03/06/18 14:55 Freq: Status: Active Protocol: Document 07/06/18 10:33 EA (Rec: 07/06/18 11:18 EA [id number]) Electric Stimulation Electric Stimulation Interferential Current (IFC) Body Location R anterior knee/hamstring Duration (Minutes) 15 Combined With Heat/Cold Cold Pack Comments cold pack ant/posterior knee PT-OP-T Assessment and Plan Start: 03/06/18 14:55 Freq: Status: Active Protocol: Document 07/06/18 10:33 EA (Rec: 07/06/18 11:18 EA [id number]) Physical Therapy Assessment Assessment Summary Assessment Patient is progressing well. Increased ROM, increased functional strength and dicreased discomfort during thera exercises Physical Therapy Plan Next Visit Focus/Plan Next Note Type Treatment Note Next Visit Plan Advance as tolerated.
--- NOTE | 2018-07-11 17:04 | PT.OTN ---
Current Diagnoses Stiffness of right knee, not elsewhere classified (07/11/18) Muscle weakness (generalized) (07/11/18) Other abnormalities of gait and mobility (07/11/18) Presence of right artificial knee joint (07/11/18) Physical Therapy Treatment Note PT-OP-A Visit Information Start: 03/06/18 14:55 Freq: Status: Active Protocol: Document 07/11/18 16:15 [facility] (Rec: 07/11/18 17:03 [facility] [id number]) Out-Patient Physical Therapy Visit Information Visit Information Visit Type Treatment Note Visit Start Time 16:05 Visit Stop Time 17:00 Total Visit Minutes 55 Visit Number 31/32 Number of TOWEL FOLDER Visits 0 PT-OP-B Current Condition Start: 03/06/18 14:55 Freq: Status: Active Protocol: Document 05/10/18 15:10 EA (Rec: 05/10/18 16:00 EA [id number]) Current Condition Current Functional Impairments (Reported) Functional Limitations- ADL's Deep squat Functional Limitations- Mobility/Gait indep PT-OP-C Subjective Start: 03/06/18 14:55 Freq: Status: Active Protocol: Document 07/11/18 16:15 [facility] (Rec: 07/11/18 17:03 [facility] [id number]) OP-PT Subjective Patient Comments Patient Comments Pt reports he was doing his hiking yesterday and now has pain in post thigh & knee in L side. Pt reports overall improving. PT-OP-F Manual Assessment Start: 03/06/18 14:55 Freq: Status: Active Protocol: Document 06/22/18 10:30 RCC (Rec: 06/22/18 11:48 RCC [email or web address]) Manual Assessments Soft Tissue Assessment Soft Tissue Mobility Assessment tenderness to palpation: R hamstrings, L MCL and medial joint line Joint Mobility Assessment Joint Mobility Assessment hypomobile: R tibiofemoral and tibiofibular joints. PT-OP-K Range of Motion Start: 03/06/18 14:55 Freq: Status: Active Protocol: Document 06/22/18 10:30 RCC (Rec: 06/22/18 11:48 RCC [email or web address]) Knee Goniometric Range of Motion Knee Measured in Degrees Left Patient Position Supine Flexion Active (degrees) 122 Extension Active (degrees) 0 Right Patient Position Supine Flexion Active (degrees) 111 Extension Active (degrees) 0 Knee ROM Limitations Comments AROM R knee flexion to 116 after hamstring STR PT-OP-L Special Tests Start: 06/22/18 11:19 Freq: Status: Active Protocol: Document 06/22/18 10:30 RCC (Rec: 06/22/18 11:48 RCC [email or web address]) Special Tests Knee Special Tests Thessaly Test 5 Degrees Test Results Left: negative Thessaly Test 20 Degrees Test Results Left: positive Comments medial Yissel Test Test Results Left: negative Varus- 25 Degrees Test Results Left: negative Varus- 0 Degrees Test Results Left: negative Valgus- 25 Degrees Test Results Left: negative Valgus- 0 Degrees Test Results Left: negative Sabino's Test Results Left: negative PT-OP-M Strength Start: 03/06/18 14:55 Freq: Status: Active Protocol: Document 06/22/18 10:30 RCC (Rec: 06/22/18 11:48 [facility] [email or web address]) Hip Strength Hip Manual Muscle Testing Left Flexion (L2) 5 Normal External Rotation 5 Normal Internal Rotation 4 Good Comments pain with IR @ medial L knee Right Flexion (L2) 5 Normal External Rotation 4+ Good+ Internal Rotation 4+ Good+ Knee Strength Knee Manual Muscle Testing Right Flexion (S2) 4 Good Extension (L3) 4 Good Left Flexion (S2) 5 Normal Extension (L3) 5 Normal PT-OP-Q Treatments Start: 03/06/18 14:55 Freq: Status: Active Protocol: Document 07/11/18 16:15 [facility] (Rec: 07/11/18 17:03 [facility] [id number]) Cardio Equipment Bicycle (Upright) Duration (Minutes) 10 Resistance 6 Seat Position 6-4 Other to inc flex Gait Training Gait Activity 1 Description up/down 6 in step Comments manual cueing & mirror Manual Therapy Treatment Soft Tissue Mobilization 2 Body Location R ITB Mobilization Type Myofascial Release Rolling 1 Body Location R hamstrings Mobilization Type Myofascial Release Strumming Sustained Pressure Intensity/Depth mod Body Position Prone Joint Mobilizations 2 Joint Tibiofemoral Direction PA Grade IV Body Position Supine Comments to increase knee flexion FM 1 Joint patellar mobs Direction sup, inf PT-OP-R Modalities Start: 03/06/18 14:55 Freq: Status: Active Protocol: Document 07/11/18 16:15 [facility] (Rec: 07/11/18 17:03 [facility] [id number]) Electric Stimulation Electric Stimulation Interferential Current (IFC) Body Location R anterior knee/hamstring Duration (Minutes) 15 Combined With Heat/Cold Cold Pack Comments cold pack ant/posterior knee PT-OP-T Assessment and Plan Start: 03/06/18 14:55 Freq: Status: Active Protocol: Document 07/11/18 16:15 [facility] (Rec: 07/11/18 17:03 [facility] [id number]) Physical Therapy Assessment Goals Six Impairment Lower Extremity Function Scale Warehouse Technician Goal (LTG) total score: 70% or greater (score on 06/22/2018 45%) LTG Duration 4 weeks Five Impairment RLE weakness grossly grade 4-5 / Fpc Goal (LTG) 5/5 MMT RLE strength grossly LTG Duration 4 weeks Four Impairment R knee ROM 0-111 Warehouse Technician Goal (LTG) 0-120 AROM R knee LTG Duration 4 weeks Three Impairment Low level hiking with minimal pain Warehouse Technician Goal (LTG) low level hiking without pain prior to d/c LTG Duration 4 weeks Two Impairment Knee pain Warehouse Technician Goal (LTG) 1/10 knee pain or less LTG Duration 4 wks One Impairment Gait impairment Warehouse Technician Goal (LTG) Normal, unassisted levels of gait LTG Duration goals reached Assessment Summary Assessment Pt is progressing with functional mobility and had significant improvement in pain with stairs after cueing and changing mechanics. Physical Therapy Plan Frequency and Duration Frequency of Treatment 1x/Week Duration of Treatment 4 wks Plan of Care Start Date 06/22/18 Plan of Care End Date 07/20/18 Next Visit Focus/Plan Next Note Type Treatment Note Next Visit Plan Advance as tolerated. Pt to bring his orthotics in for trial. Pt pending approval for further PT visits for ITB pain
--- NOTE | 2018-08-28 17:30 | PT.OTRE ---
Current Diagnoses Stiffness of right knee, not elsewhere classified (07/11/18) Muscle weakness (generalized) (07/11/18) Other abnormalities of gait and mobility (07/11/18) Presence of right artificial knee joint (07/11/18) Provider Visit Care Team Role Provider Type Franko Young MD Attending Provider Non-Staff Family Provider Primary Care Provider Specialty: Medical Address: [address] [place] [address], [facility] Email: Physical Therapy Re-Evaluation PT-OP-A Visit Information Start: 03/06/18 14:55 Freq: Status: Active Protocol: Document 07/11/18 16:15 LR (Rec: 07/11/18 17:03 [facility] [id number]) Out-Patient Physical Therapy Visit Information Visit Information Visit Type Treatment Note Visit Start Time 16:05 Visit Stop Time 17:00 Total Visit Minutes 55 Visit Number 31/32 Number of INCINERATOR PLANT GENERAL SUPERVISOR Visits 0 PT-OP-B Current Condition Start: 03/06/18 14:55 Freq: Status: Active Protocol: Document 05/10/18 15:10 EA (Rec: 05/10/18 16:00 EA [id number]) Current Condition Current Functional Impairments (Reported) Functional Limitations- ADL's Deep squat Functional Limitations- Mobility/Gait indep PT-OP-C Subjective Start: 03/06/18 14:55 Freq: Status: Active Protocol: Document 08/28/18 17:30 EA (Rec: 10/02/18 15:58 EA [id number]) OP-PT Subjective Patient Comments Patient Comments Pt reports unable to get schedule in the past weeks due insurance authorization issues. Patient states that knee pain is quite on and off and mostly occurred during long distance walk; states he is much more functional at this time and his concerns is just mainly with aches and pain with cold weather. Patient Reported Progress Improving PT-OP-F Manual Assessment Start: 03/06/18 14:55 Freq: Status: Active Protocol: Document 08/28/18 17:30 EA (Rec: 10/02/18 15:58 EA [id number]) Manual Assessments Soft Tissue Assessment Soft Tissue Mobility Assessment Mild R Quads tightness PT-OP-K Range of Motion Start: 03/06/18 14:55 Freq: Status: Active Protocol: Document 08/28/18 17:30 EA (Rec: 10/02/18 15:58 EA [id number]) Knee Goniometric Range of Motion Knee Measured in Degrees Left Patient Position Supine Flexion Active (degrees) 122 Extension Active (degrees) 0 Right Patient Position Supine Flexion Active (degrees) 118 Extension Active (degrees) 0 PT-OP-L Special Tests Start: 06/22/18 11:19 Freq: Status: Active Protocol: Document 06/22/18 10:30 RCC (Rec: 06/22/18 11:48 RCC [email or web address]) Special Tests Knee Special Tests Thessaly Test 5 Degrees Test Results Left: negative Thessaly Test 20 Degrees Test Results Left: positive Comments medial Yissel Test Test Results Left: negative Varus- 25 Degrees Test Results Left: negative Varus- 0 Degrees Test Results Left: negative Valgus- 25 Degrees Test Results Left: negative Valgus- 0 Degrees Test Results Left: negative Sabino's Test Results Left: negative PT-OP-M Strength Start: 03/06/18 14:55 Freq: Status: Active Protocol: Document 08/28/18 17:30 EA (Rec: 10/02/18 15:58 EA [id number]) Knee Strength Knee Manual Muscle Testing Right Flexion (S2) 5 Normal Extension (L3) 4+ Good+ Left Flexion (S2) 5 Normal Extension (L3) 5 Normal PT-OP-Q Treatments Start: 03/06/18 14:55 Freq: Status: Active Protocol: Document 08/28/18 17:30 EA (Rec: 10/02/18 15:58 EA [id number]) Cardio Equipment Bicycle (Upright) Duration (Minutes) 10 Resistance 6 Seat Position 6-3 Other to inc flex Therapeutic Exercises Prone Exercises 1 Prone Exercise Name Hold-Relax passive stretch to right quads Reps/Minutes x 3 reps Standing Exercises 9 Standing Exercise Name step up/down 6 -8 steps Side bilateral Equipment Used single rail Reps/Minutes 2x10 8 Standing Exercise Name Side step squat Reps/Minutes x 10 steps each side 7 Standing Exercise Name HS and gastroc stretch 6 Standing Exercise Name BUSO step up/dpn with light hand support 5 Standing Exercise Name steady lunges Reps/Minutes x 8 reps x 2 sets each leg 4 Standing Exercise Name 16 box squat Reps/Minutes x 10 reps x 2 Manual Therapy Treatment Soft Tissue Mobilization 3 Body Location R gastroc Mobilization Type Strumming Intensity/Depth mod Body Position Prone 2 Body Location R ITB Mobilization Type Myofascial Release Rolling 1 Body Location R hamstrings Mobilization Type Myofascial Release Strumming Sustained Pressure Intensity/Depth mod Body Position Prone PT-OP-R Modalities Start: 03/06/18 14:55 Freq: Status: Active Protocol: Document 07/11/18 16:15 [facility] (Rec: 07/11/18 17:03 [facility] [id number]) Electric Stimulation Electric Stimulation Interferential Current (IFC) Body Location R anterior knee/hamstring Duration (Minutes) 15 Combined With Heat/Cold Cold Pack Comments cold pack ant/posterior knee PT-OP-T Assessment and Plan Start: 03/06/18 14:55 Freq: Status: Active Protocol: Document 08/28/18 17:30 EA (Rec: 10/02/18 15:58 EA [id number]) Physical Therapy Assessment Goals Six Impairment Lower Extremity Function Scale Tenter Frame Back Tender Goal (LTG) total score: 70% or greater LTG Duration 4 weeks Five Impairment RLE weakness grossly grade 4/5 Residential Goal (LTG) 5/5 MMT RLE strength grossly LTG Duration 4 weeks Four Impairment R knee ROM 0-118 Residential Goal (LTG) 0-120 AROM R knee LTG Duration 4 weeks (Improving well) Three Impairment Low level hiking with minimal pain Residential Goal (LTG) low level hiking without pain prior to d/c LTG Duration 4 weeks Two Impairment Knee pain Residential Goal (LTG) 1/10 knee pain or less LTG Duration 4 wks One Impairment Gait impairment Tenter Frame Back Tender Goal (LTG) Normal, unassisted levels of gait LTG Duration goals reached Progress Towards Goals Progress Towards Goals Progressing Toward Goals Physical Therapy Plan Frequency and Duration Frequency of Treatment 1x/Week Plan of Care Start Date 07/20/18 Plan of Care End Date 09/14/18 Therapeutic Interventions Therapeutic Interventions Gait Training Home Exercise Program Joint Mobilizations Manual Therapy Neuromuscular Re-education Patient/Caregiver Education Self-Care/Home Management Soft Tissue Mobilization Taping Therapeutic Activities Therapeutic Exercises Modalities Cold Pack/Ice Massage Electric Stimulation Hot Packs Ultrasound Next Visit Focus/Plan Next Note Type Treatment Note Next Visit Plan Transition to HEP in the next 2 visits
--- NOTE | 2018-10-10 16:58 | PT.OTRE ---
Current Diagnoses Stiffness of right knee, not elsewhere classified (10/10/18) Muscle weakness (generalized) (10/10/18) Other abnormalities of gait and mobility (10/10/18) Presence of right artificial knee joint (10/10/18) Provider Visit Care Team Role Provider Type Franko Young MD Attending Provider Non-Staff Family Provider Primary Care Provider Specialty: Medical Address: [address] [place] [address], [facility] Email: Physical Therapy Re-Evaluation PT-OP-A Visit Information Start: 03/06/18 14:55 Freq: Status: Active Protocol: Document 10/10/18 16:56 EA (Rec: 10/10/18 16:57 EA [id number]) Out-Patient Physical Therapy Visit Information Visit Information Visit Type Treatment Note Visit Note Re-evaluation performed to this visit Visit Start Time 16:00 Visit Stop Time 16:55 Total Visit Minutes 55 Visit Number 32/32 PT-OP-B Current Condition Start: 03/06/18 14:55 Freq: Status: Active Protocol: Document 05/10/18 15:10 EA (Rec: 05/10/18 16:00 EA [id number]) Current Condition Current Functional Impairments (Reported) Functional Limitations- ADL's Deep squat Functional Limitations- Mobility/Gait indep PT-OP-C Subjective Start: 03/06/18 14:55 Freq: Status: Active Protocol: Document 10/10/18 16:43 EA (Rec: 10/10/18 16:54 EA [id number]) OP-PT Subjective Patient Comments Patient Comments Patient reports went to his surgeon for follow up visit and 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 Pt reports knee almost near to full function however unable to perform high impact exercises yet. Patient Questionnaires Lower Extremity Functional Scale LEFS Score 36 LEFS Impairment 40 to 59% Impaired (Score 32- 47) PT-OP-F Manual Assessment Start: 03/06/18 14:55 Freq: Status: Active Protocol: Document 10/10/18 16:43 EA (Rec: 10/10/18 16:54 EA [id number]) Manual Assessments Soft Tissue Assessment Soft Tissue Mobility Assessment Mild R Quads tightness Joint Mobility Assessment Joint Mobility Assessment Slight hypomobility of tibiofemoral jnt PT-OP-K Range of Motion Start: 03/06/18 14:55 Freq: Status: Active Protocol: Document 10/10/18 16:43 EA (Rec: 10/10/18 16:54 EA [id number]) Knee Goniometric Range of Motion Knee Measured in Degrees Left Patient Position Supine Flexion Active (degrees) 122 Extension Active (degrees) 0 Right Patient Position Supine Flexion Active (degrees) 120 Extension Active (degrees) 0 Knee ROM Limitations Knee ROM Limitations Soft Tissue Tightness Pain PT-OP-L Special Tests Start: 06/22/18 11:19 Freq: Status: Active Protocol: Document 10/10/18 16:43 EA (Rec: 10/10/18 16:54 EA [id number]) Special Tests Knee Special Tests Jenny's Test Test Results positive PT-OP-M Strength Start: 03/06/18 14:55 Freq: Status: Active Protocol: Document 10/10/18 16:43 EA (Rec: 10/10/18 16:54 EA [id number]) Knee Strength Knee Manual Muscle Testing Right Flexion (S2) 5 Normal Extension (L3) 4+ Good+ Left Flexion (S2) 5 Normal Extension (L3) 5 Normal PT-OP-Q Treatments Start: 03/06/18 14:55 Freq: Status: Active Protocol: Document 10/10/18 16:43 EA (Rec: 10/10/18 16:54 EA [id number]) Therapeutic Exercises Sidelying Exercises 1 Sidelying Exercise Name ITB stretch Standing Exercises 9 Standing Exercise Name step up/down 8-10 steps Side bilateral Equipment Used single rail Reps/Minutes 2x10 8 Standing Exercise Name Side step squat Reps/Minutes x 10 steps each side 7 Standing Exercise Name HS and gastroc stretch 6 Standing Exercise Name BUSO step up/dpn with light hand support 5 Standing Exercise Name steady lunges Reps/Minutes x 8 reps x 2 sets each leg 4 Standing Exercise Name 16 box squat Reps/Minutes x 10 reps x 2 2 Standing Exercise Name Steady: 3 ways (side/front/ back) step/ to partial lunges: stable to foam Side bilateral Reps/Minutes x 6 mins 3 Standing Exercise Name 3rd steps right leg lunges w/ arms fwd Side right Reps/Minutes 2 x10 1 Standing Exercise Name Edge of steps heel raises Side bilateral Reps/Minutes 15 x 2 Manual Therapy Treatment Soft Tissue Mobilization 2 Body Location R ITB Mobilization Type Myofascial Release Rolling 1 Body Location R hamstrings Mobilization Type Myofascial Release Strumming Sustained Pressure Intensity/Depth mod Body Position Prone Comments FM w/knee ext PT-OP-R Modalities Start: 03/06/18 14:55 Freq: Status: Active Protocol: Document 10/10/18 16:43 EA (Rec: 10/10/18 16:54 EA [id number]) Electric Stimulation Electric Stimulation Interferential Current (IFC) Body Location R anterior knee/hamstring Duration (Minutes) 15 Combined With Heat/Cold Cold Pack Comments cold pack ant/posterior knee PT-OP-T Assessment and Plan Start: 03/06/18 14:55 Freq: Status: Active Protocol: Document 10/10/18 16:43 EA (Rec: 10/10/18 16:54 EA [id number]) Physical Therapy Assessment Goals Six Impairment Lower Extremity Function Scale Rail Track Layer Goal (LTG) total score: 70% or greater LTG Duration 4 weeks Five Impairment RLE weakness grossly grade 4/5 [facility] Goal (LTG) 5/5 MMT RLE strength grossly LTG Duration 4 weeks Four Impairment R knee ROM 0-118 Rail Track Layer Goal (LTG) 0-122 AROM R knee LTG Duration 4 weeks (Improving well) Three Impairment Low level hiking with minimal pain [facility] Goal (LTG) low level hiking without pain prior to d/c LTG Duration 4 weeks Two Impairment Knee pain [facility] Goal (LTG) 1/10 knee pain or less LTG Duration 4 wks One Impairment Gait impairment Rail Track Layer Goal (LTG) Normal, unassisted levels of gait LTG Duration goals reached Assessment Summary Assessment Patient continue to show good improvement as to ROM, strength, functional mobility and symptoms. Overall patient is progress well and will continue to benefit s with skilled PT. Physical Therapy Plan Frequency and Duration Frequency of Treatment 1x/Week Plan of Care Start Date 09/14/18 Plan of Care End Date 11/14/18 Therapeutic Interventions Therapeutic Interventions Gait Training Home Exercise Program Joint Mobilizations Manual Therapy Neuromuscular Re-education Patient/Caregiver Education Self-Care/Home Management Soft Tissue Mobilization Taping Therapeutic Activities Therapeutic Exercises Modalities Cold Pack/Ice Massage Electric Stimulation Hot Packs Ultrasound Next Visit Focus/Plan Next Note Type Treatment Note
--- NOTE | 2018-10-10 16:58 | PT.OPPOC ---
Current Diagnoses Stiffness of right knee, not elsewhere classified (10/10/18) Muscle weakness (generalized) (10/10/18) Other abnormalities of gait and mobility (10/10/18) Presence of right artificial knee joint (10/10/18) Provider Visit Care Team Role Provider Type Franko Young MD Attending Provider Non-Staff Family Provider Primary Care Provider Specialty: Medical Address: [address] [place] [address], [facility] Email: Plan Of Care PT-OP-T Assessment and Plan Start: 03/06/18 14:55 Freq: Status: Active Protocol: Document 10/10/18 16:43 EA (Rec: 10/10/18 16:54 EA [id number]) Physical Therapy Assessment Goals Six Impairment Lower Extremity Function Scale [facility] Goal (LTG) total score: 70% or greater LTG Duration 4 weeks Five Impairment RLE weakness grossly grade 4/5 [facility] Goal (LTG) 5/5 MMT RLE strength grossly LTG Duration 4 weeks Four Impairment R knee ROM 0-118 [facility] Goal (LTG) 0-122 AROM R knee LTG Duration 4 weeks (Improving well) Three Impairment Low level hiking with minimal pain [facility] Goal (LTG) low level hiking without pain prior to d/c LTG Duration 4 weeks Two Impairment Knee pain Administrative Resident Goal (LTG) 1/10 knee pain or less LTG Duration 4 wks One Impairment Gait impairment Administrative Resident Goal (LTG) Normal, unassisted levels of gait LTG Duration goals reached Assessment Summary Assessment Patient continue to show good improvement as to ROM, strength, functional mobility and symptoms. Overall patient is progress well and will continue to benefit s with skilled PT. Physical Therapy Plan Frequency and Duration Frequency of Treatment 1x/Week Plan of Care Start Date 09/14/18 Plan of Care End Date 11/14/18 Therapeutic Interventions Therapeutic Interventions Gait Training Home Exercise Program Joint Mobilizations Manual Therapy Neuromuscular Re-education Patient/Caregiver Education Self-Care/Home Management Soft Tissue Mobilization Taping Therapeutic Activities Therapeutic Exercises Modalities Cold Pack/Ice Massage Electric Stimulation Hot Packs Ultrasound Next Visit Focus/Plan Next Note Type Treatment Note Plan of Care Dates Plan of Care Start Date 09/14/18 Plan of Care End Date 11/14/18 Please Sign and Return: I have reviewed this Plan of Care and certify that the skilled therapy services above are required to meet the patient?s needs. Physician Signature Date Printed Name and Credentials Clinical Instructor Signature Printed Name and Credentials
--- NOTE | 2018-10-18 17:05 | PT.OTN ---
Current Diagnoses Stiffness of right knee, not elsewhere classified (10/18/18) Muscle weakness (generalized) (10/18/18) Other abnormalities of gait and mobility (10/18/18) Presence of right artificial knee joint (10/18/18) Physical Therapy Treatment Note PT-OP-A Visit Information Start: 03/06/18 14:55 Freq: Status: Active Protocol: Document 10/18/18 16:00 EA (Rec: 10/18/18 16:13 EA [id number]) Out-Patient Physical Therapy Visit Information Visit Information Visit Type Treatment Note Visit Start Time 16:00 Visit Stop Time 16:45 Total Visit Minutes 45 PT-OP-B Current Condition Start: 03/06/18 14:55 Freq: Status: Active Protocol: Document 05/10/18 15:10 EA (Rec: 05/10/18 16:00 EA [id number]) Current Condition Current Functional Impairments (Reported) Functional Limitations- ADL's Deep squat Functional Limitations- Mobility/Gait indep PT-OP-C Subjective Start: 03/06/18 14:55 Freq: Status: Active Protocol: Document 10/18/18 16:00 EA (Rec: 10/18/18 16:13 EA [id number]) OP-PT Subjective Patient Comments Patient Comments Pt reports right knee is still quite tight but much better with walking. Patient Reported Progress Improving PT-OP-F Manual Assessment Start: 03/06/18 14:55 Freq: Status: Active Protocol: Document 10/10/18 16:43 EA (Rec: 10/10/18 16:54 EA [id number]) Manual Assessments Soft Tissue Assessment Soft Tissue Mobility Assessment Mild R Quads tightness Joint Mobility Assessment Joint Mobility Assessment Slight hypomobility of tibiofemoral jnt PT-OP-K Range of Motion Start: 03/06/18 14:55 Freq: Status: Active Protocol: Document 10/10/18 16:43 EA (Rec: 10/10/18 16:54 EA [id number]) Knee Goniometric Range of Motion Knee Measured in Degrees Left Patient Position Supine Flexion Active (degrees) 122 Extension Active (degrees) 0 Right Patient Position Supine Flexion Active (degrees) 120 Extension Active (degrees) 0 Knee ROM Limitations Knee ROM Limitations Soft Tissue Tightness Pain PT-OP-L Special Tests Start: 08/30/18 11:19 Freq: Status: Active Protocol: Document 10/10/18 16:43 EA (Rec: 10/10/18 16:54 EA [id number]) Special Tests Knee Special Tests Jenny's Test Test Results positive PT-OP-M Strength Start: 03/06/18 14:55 Freq: Status: Active Protocol: Document 10/10/18 16:43 EA (Rec: 10/10/18 16:54 EA [id number]) Knee Strength Knee Manual Muscle Testing Right Flexion (S2) 5 Normal Extension (L3) 4+ Good+ Left Flexion (S2) 5 Normal Extension (L3) 5 Normal PT-OP-Q Treatments Start: 03/06/18 14:55 Freq: Status: Active Protocol: Document 10/18/18 16:00 EA (Rec: 10/18/18 16:13 EA [id number]) Cardio Equipment Bicycle (Upright) Duration (Minutes) 10 Resistance 6 Seat Position 6-2 Other to inc flex Therapeutic Exercises Sidelying Exercises 1 Sidelying Exercise Name ITB stretch Reps/Minutes x 15SH x 2 reps Standing Exercises 9 Standing Exercise Name step up/down 8-10 steps Side bilateral Equipment Used single rail Reps/Minutes 2x10 7 Standing Exercise Name HS and gastroc stretch 5 Standing Exercise Name steady lunges Reps/Minutes x 8 reps x 2 sets each leg Manual Therapy Treatment Soft Tissue Mobilization 2 Body Location R ITB Mobilization Type Myofascial Release Rolling 1 Body Location R hamstrings Mobilization Type Myofascial Release Strumming Sustained Pressure Intensity/Depth mod Body Position Prone Comments FM w/knee ext Joint Mobilizations 2 Joint Tibiofemoral Direction PA Grade IV Body Position Supine Comments to increase knee flexion FM PT-OP-R Modalities Start: 03/06/18 14:55 Freq: Status: Active Protocol: Document 10/18/18 17:01 EA (Rec: 10/18/18 17:01 EA [id number]) Electric Stimulation Electric Stimulation Interferential Current (IFC) Body Location R anterior knee/hamstring Duration (Minutes) 15 Combined With Heat/Cold Cold Pack Comments cold pack ant/posterior knee PT-OP-T Assessment and Plan Start: 03/06/18 14:55 Freq: Status: Active Protocol: Document 10/18/18 17:02 EA (Rec: 10/18/18 17:05 EA [id number]) Physical Therapy Assessment Assessment Summary Assessment Pt tolerated treatment well with minor difficulty to bilateral lunges due to left knee pain. R Knee range measured with results of 122 degrees knee flexion after warm-up and manual stretch. IT band is less tight and tender after manual PT. Overall patient is progressing very well. Physical Therapy Plan Next Visit Focus/Plan Next Note Type Treatment Note
--- NOTE | 2018-11-01 10:57 | PT.OTN ---
Current Diagnoses Stiffness of right knee, not elsewhere classified (10/31/18) Muscle weakness (generalized) (10/31/18) Other abnormalities of gait and mobility (10/31/18) Presence of right artificial knee joint (10/31/18) Physical Therapy Treatment Note PT-OP-A Visit Information Start: 03/06/18 14:55 Freq: Status: Active Protocol: Document 10/31/18 13:45 [facility] (Rec: 11/01/18 09:58 [facility] [id number]) Out-Patient Physical Therapy Visit Information Visit Information Visit Type Re-Evaluation Visit Start Time 13:45 Visit Stop Time 14:30 Total Visit Minutes 55 Visit Number 2 PT-OP-B Current Condition Start: 03/06/18 14:55 Freq: Status: Active Protocol: Document 05/10/18 15:10 EA (Rec: 05/10/18 16:00 EA [id number]) Current Condition Current Functional Impairments (Reported) Functional Limitations- ADL's Deep squat Functional Limitations- Mobility/Gait indep PT-OP-C Subjective Start: 03/06/18 14:55 Freq: Status: Active Protocol: Document 10/31/18 13:45 [facility] (Rec: 11/01/18 09:58 [facility] [id number]) OP-PT Subjective Patient Comments Patient Comments Overall doing better, still experiencing tightness in the lateral ITB on the right. He did note some medial knee pain with lunges on the left knee after last visit PT-OP-F Manual Assessment Start: 03/06/18 14:55 Freq: Status: Active Protocol: Document 10/10/18 16:43 EA (Rec: 10/10/18 16:54 EA [id number]) Manual Assessments Soft Tissue Assessment Soft Tissue Mobility Assessment Mild R Quads tightness Joint Mobility Assessment Joint Mobility Assessment Slight hypomobility of tibiofemoral jnt PT-OP-K Range of Motion Start: 03/06/18 14:55 Freq: Status: Active Protocol: Document 10/10/18 16:43 EA (Rec: 10/10/18 16:54 EA [id number]) Knee Goniometric Range of Motion Knee Measured in Degrees Left Patient Position Supine Flexion Active (degrees) 122 Extension Active (degrees) 0 Right Patient Position Supine Flexion Active (degrees) 120 Extension Active (degrees) 0 Knee ROM Limitations Knee ROM Limitations Soft Tissue Tightness Pain PT-OP-L Special Tests Start: 06/22/18 11:19 Freq: Status: Active Protocol: Document 10/10/18 16:43 EA (Rec: 10/10/18 16:54 EA [id number]) Special Tests Knee Special Tests Jenny's Test Test Results positive PT-OP-M Strength Start: 03/06/18 14:55 Freq: Status: Active Protocol: Document 10/10/18 16:43 EA (Rec: 10/10/18 16:54 EA [id number]) Knee Strength Knee Manual Muscle Testing Right Flexion (S2) 5 Normal Extension (L3) 4+ Good+ Left Flexion (S2) 5 Normal Extension (L3) 5 Normal PT-OP-Q Treatments Start: 03/06/18 14:55 Freq: Status: Active Protocol: Document 10/31/18 13:45 [facility] (Rec: 11/01/18 09:58 [facility] [id number]) Cardio Equipment Bicycle (Upright) Duration (Minutes) 8 Resistance 6 Gym Equipment Shuttle Recovery Bilateral Squats Details plyomet/ Resistance 50 lbs Shuttle Recovery Platform Stable Reps/Time 25 reps Unilateral Squats Resistance 100 lbs Shuttle Recovery Platform Stable Reps/Time 12-15 reps Therapeutic Ball 1 Exercise Details supine ball rolls Ball Size/Color 65 Reps/Duration 20 reps Comments with hip extension Therapeutic Exercises Prone Exercises 1 Prone Exercise Name Hold-Relax passive stretch to right quads Standing Exercises 10 Standing Exercise Name standing lunges Comments cues to keep knee over the ankle 7 Standing Exercise Name HS and gastroc stretch Other Exercises 1 Other Exercise Name piriformis and ITB stretches PT-OP-R Modalities Start: 03/06/18 14:55 Freq: Status: Active Protocol: Document 10/31/18 13:45 [facility] (Rec: 11/01/18 10:56 [facility] [id number]) Hot Pack/Cold Pack Treatment Cold Pack Location R ant/posterior knee Patient Position Hooklying Treatment Duration (minutes) 15 Patient Tolerance Good PT-OP-T Assessment and Plan Start: 03/06/18 14:55 Freq: Status: Active Protocol: Document 10/31/18 13:45 [facility] (Rec: 11/01/18 10:56 [facility] [id number]) Physical Therapy Assessment Assessment Summary Assessment Worked on quad and ITB, and piriformis stretching prior to lunges today and then worked on cueing for lunges. Decreased symptoms of knee pain Physical Therapy Plan Frequency and Duration Frequency of Treatment 1x/Week Plan of Care Start Date 09/14/18 Plan of Care End Date 11/14/18 Therapeutic Interventions Therapeutic Interventions Gait Training Home Exercise Program Joint Mobilizations Manual Therapy Neuromuscular Re-education Patient/Caregiver Education Self-Care/Home Management Soft Tissue Mobilization Taping Therapeutic Activities Therapeutic Exercises Modalities Cold Pack/Ice Massage Electric Stimulation Hot Packs Ultrasound Next Visit Focus/Plan Next Note Type Treatment Note Next Visit Plan Continue working on releasing the right ITB, improve quad flexibility and knee stabilization
--- NOTE | 2018-11-07 16:05 | PT.OTN ---
Current Diagnoses Stiffness of right knee, not elsewhere classified (11/07/18) Muscle weakness (generalized) (11/07/18) Other abnormalities of gait and mobility (11/07/18) Presence of right artificial knee joint (11/07/18) Physical Therapy Treatment Note PT-OP-A Visit Information Start: 03/06/18 14:55 Freq: Status: Active Protocol: Document 11/07/18 15:55 EA (Rec: 11/07/18 16:04 EA [id number]) Out-Patient Physical Therapy Visit Information Visit Information Visit Type Treatment Note Visit Start Time 15:15 Visit Stop Time 16:00 Total Visit Minutes 45 Visit Number 3 PT-OP-B Current Condition Start: 03/06/18 14:55 Freq: Status: Active Protocol: Document 05/10/18 15:10 EA (Rec: 05/10/18 16:00 EA [id number]) Current Condition Current Functional Impairments (Reported) Functional Limitations- ADL's Deep squat Functional Limitations- Mobility/Gait indep PT-OP-C Subjective Start: 03/06/18 14:55 Freq: Status: Active Protocol: Document 11/07/18 15:55 EA (Rec: 11/07/18 16:04 EA [id number]) OP-PT Subjective Patient Comments Patient Comments Patient reports compliant with HEP; states left knee still bother her with mobility. Pt mentioned that right knee strength is improving; states ITB tightness still bother him . PT-OP-F Manual Assessment Start: 03/06/18 14:55 Freq: Status: Active Protocol: Document 10/10/18 16:43 EA (Rec: 10/10/18 16:54 EA [id number]) Manual Assessments Soft Tissue Assessment Soft Tissue Mobility Assessment Mild R Quads tightness Joint Mobility Assessment Joint Mobility Assessment Slight hypomobility of tibiofemoral jnt PT-OP-K Range of Motion Start: 03/06/18 14:55 Freq: Status: Active Protocol: Document 10/10/18 16:43 EA (Rec: 10/10/18 16:54 EA [id number]) Knee Goniometric Range of Motion Knee Measured in Degrees Left Patient Position Supine Flexion Active (degrees) 122 Extension Active (degrees) 0 Right Patient Position Supine Flexion Active (degrees) 120 Extension Active (degrees) 0 Knee ROM Limitations Knee ROM Limitations Soft Tissue Tightness Pain PT-OP-L Special Tests Start: 06/22/18 11:19 Freq: Status: Active Protocol: Document 10/10/18 16:43 EA (Rec: 10/10/18 16:54 EA [id number]) Special Tests Knee Special Tests Jenny's Test Test Results positive PT-OP-M Strength Start: 03/06/18 14:55 Freq: Status: Active Protocol: Document 10/10/18 16:43 EA (Rec: 10/10/18 16:54 EA [id number]) Knee Strength Knee Manual Muscle Testing Right Flexion (S2) 5 Normal Extension (L3) 4+ Good+ Left Flexion (S2) 5 Normal Extension (L3) 5 Normal PT-OP-Q Treatments Start: 03/06/18 14:55 Freq: Status: Active Protocol: Document 11/07/18 15:55 EA (Rec: 11/07/18 16:04 EA [id number]) Cardio Equipment Bicycle (Upright) Duration (Minutes) 10 Resistance 6 Seat Position 6-2 Other to inc flex Treadmill Duration (Minutes) 3 Speed 3-4.0 interval Gym Equipment Shuttle Recovery Unilateral Squats Details Plyometrics Resistance 50 lbs Shuttle Recovery Platform Stable Reps/Time 12-15 reps Therapeutic Exercises Sidelying Exercises 1 Sidelying Exercise Name ITB stretch Reps/Minutes x 15SH x 2 reps Standing Exercises 10 Standing Exercise Name standing lunges Comments cues to keep knee over the ankle 9 Standing Exercise Name step up/down 8-10 steps Side bilateral Equipment Used single rail Reps/Minutes 2x10 7 Standing Exercise Name HS and gastroc stretch 6 Standing Exercise Name 15 chair sit to stand without HS Reps/Minutes x 10 reps x 2 5 Standing Exercise Name Single leg walk hopping Reps/Minutes x 12 steps x 2 alternate Other Exercises 1 Other Exercise Name piriformis and ITB stretches Manual Therapy Treatment Soft Tissue Mobilization 2 Body Location R ITB Mobilization Type Myofascial Release Rolling 1 Body Location R hamstrings Mobilization Type Myofascial Release Strumming Sustained Pressure Intensity/Depth mod Body Position Prone Comments FM w/knee ext Joint Mobilizations 2 Joint Tibiofemoral Direction PA Grade IV Body Position Supine Comments to increase knee flexion FM PT-OP-R Modalities Start: 03/06/18 14:55 Freq: Status: Active Protocol: Document 11/07/18 15:55 EA (Rec: 11/07/18 16:04 EA [id number]) Hot Pack/Cold Pack Treatment Cold Pack Location R ant/posterior knee Patient Position Hooklying Treatment Duration (minutes) 15 Patient Tolerance Good PT-OP-T Assessment and Plan Start: 03/06/18 14:55 Freq: Status: Active Protocol: Document 11/07/18 15:55 EA (Rec: 11/07/18 16:04 EA [id number]) Physical Therapy Assessment Assessment Summary Assessment Tolerated treatment. Improved functional lunges exercises and hopping with no deficits noted. 12' sit to stand still bothers hamstring R. Pt continue to progress with mobility as no gait deviation with 4.0 treadmill speed. Physical Therapy Plan Next Visit Focus/Plan Next Note Type Treatment Note Next Visit Plan More advance functional exercises.
--- NOTE | 2018-11-20 15:03 | PT.OTN ---
Current Diagnoses Stiffness of right knee, not elsewhere classified (11/20/18) Muscle weakness (generalized) (11/20/18) Other abnormalities of gait and mobility (11/20/18) Presence of right artificial knee joint (11/20/18) Physical Therapy Treatment Note PT-OP-A Visit Information Start: 03/06/18 14:55 Freq: Status: Active Protocol: Document 11/20/18 13:50 [facility] (Rec: 11/20/18 15:02 [facility] [id number]) Out-Patient Physical Therapy Visit Information Visit Information Visit Type Treatment Note Visit Start Time 13:45 Visit Stop Time 14:45 Total Visit Minutes 60 Visit Number 4 PT-OP-B Current Condition Start: 03/06/18 14:55 Freq: Status: Active Protocol: Document 05/10/18 15:10 EA (Rec: 05/10/18 16:00 EA [id number]) Current Condition Current Functional Impairments (Reported) Functional Limitations- ADL's Deep squat Functional Limitations- Mobility/Gait indep PT-OP-C Subjective Start: 03/06/18 14:55 Freq: Status: Active Protocol: Document 11/20/18 13:50 [facility] (Rec: 11/20/18 15:02 [facility] [id number]) OP-PT Subjective Patient Comments Patient Comments Pt reports quad stretching helps with parnell and ROM. Pt reports difficulty with uneven terrain still Patient Questionnaires Lower Extremity Functional Scale LEFS Score 28 LEFS Impairment 60 to 79% Impaired (Score 17- 31) PT-OP-F Manual Assessment Start: 03/06/18 14:55 Freq: Status: Active Protocol: Document 10/10/18 16:43 EA (Rec: 10/10/18 16:54 EA [id number]) Manual Assessments Soft Tissue Assessment Soft Tissue Mobility Assessment Mild R Quads tightness Joint Mobility Assessment Joint Mobility Assessment Slight hypomobility of tibiofemoral jnt PT-OP-K Range of Motion Start: 03/06/18 14:55 Freq: Status: Active Protocol: Document 11/20/18 13:50 [facility] (Rec: 11/20/18 15:02 [facility] [id number]) Knee Goniometric Range of Motion Knee Measured in Degrees Right Flexion Active (degrees) 117 Knee ROM Limitations Comments pain post thigh and ant knee PT-OP-L Special Tests Start: 06/22/18 11:19 Freq: Status: Active Protocol: Document 10/10/18 16:43 EA (Rec: 10/10/18 16:54 EA [id number]) Special Tests Knee Special Tests Jenny's Test Test Results positive PT-OP-M Strength Start: 03/06/18 14:55 Freq: Status: Active Protocol: Document 11/20/18 13:50 [facility] (Rec: 11/20/18 15:02 [facility] [id number]) Hip Strength Hip Manual Muscle Testing Left Flexion (L2) 5 Normal Extension (S1) 5 Normal Abduction 5 Normal External Rotation 5 Normal Internal Rotation 5 Normal Right Flexion (L2) 4+ Good+ Extension (S1) 4+ Good+ Abduction 5 Normal External Rotation 5 Normal Internal Rotation 5 Normal Knee Strength Knee Manual Muscle Testing Right Flexion (S2) 4+ Good+ Extension (L3) 5 Normal Left Flexion (S2) 5 Normal Extension (L3) 5 Normal Ankle/Foot Strength Ankle and Foot Manual Muscle Testing Right Dorsiflexion (L4) 5 Normal Plantarflexion (S1) 5 Normal Left Dorsiflexion (L4) 5 Normal Plantarflexion (S1) 5 Normal PT-OP-Q Treatments Start: 03/06/18 14:55 Freq: Status: Active Protocol: Document 11/20/18 13:50 [facility] (Rec: 11/20/18 15:02 [facility] [id number]) Cardio Equipment Bicycle (Upright) Duration (Minutes) 10 Resistance 6 Seat Position 6-2 Other to inc flex Treadmill Duration (Minutes) 4 Speed 2.9 Incline 2-5 Gait Training Gait Activity 1 Description up/down stair Comments 6 in steps with focus on wt shift fwd Manual Therapy Treatment Soft Tissue Mobilization 3 Body Location ant knee Comments plunger 2 Body Location R ITB Mobilization Type Myofascial Release Rolling 1 Body Location R hamstrings Mobilization Type Myofascial Release Strumming Sustained Pressure Intensity/Depth mod Body Position Prone Comments FM w/knee ext Joint Mobilizations 2 Joint Tibiofemoral Direction PA; lat tib glide Grade IV Body Position Supine Comments to increase knee flexion FM PT-OP-R Modalities Start: 03/06/18 14:55 Freq: Status: Active Protocol: Document 11/20/18 13:50 [facility] (Rec: 11/20/18 15:02 [facility] [id number]) Electric Stimulation Electric Stimulation Interferential Current (IFC) Body Location R anterior knee/hamstring Duration (Minutes) 15 Combined With Heat/Cold Cold Pack Comments cold pack ant/posterior knee PT-OP-T Assessment and Plan Start: 03/06/18 14:55 Freq: Status: Active Protocol: Document 11/20/18 13:50 [facility] (Rec: 11/20/18 15:02 [facility] [id number]) Physical Therapy Assessment Goals Six Impairment Lower Extremity Function Scale Long-Term Goal (LTG) total score: 70% or greater (score on 06/22/2018 45%) LTG Duration 4 weeks Five Impairment RLE weakness grossly grade 4-5 / Long-Term Goal (LTG) 5/5 MMT RLE strength grossly LTG Duration 4 weeks-advancing Four Impairment R knee ROM 0-111 [employer] Team Leader Goal (LTG) 0-120 AROM R knee LTG Duration 4 weeks -advancing 116 11/20 Three Impairment Low level hiking with minimal pain [employer] Team Leader Goal (LTG) low level hiking without pain prior to d/c LTG Duration 4 weeks-able to walk flat terrain Two Impairment Knee pain [employer] Team Leader Goal (LTG) 1/10 knee pain or less LTG Duration 4 wks One Impairment Gait impairment Long-Term Goal (LTG) Normal, unassisted levels of gait LTG Duration goals reached Assessment Summary Assessment Pt is improving with ITB tightness, strength, and ROM. Improved functional ability to do stairs and improved ROM ot 120 after manual treatment. He cont to have soft tissue and joint restrictions limiting motion. Physical Therapy Plan Frequency and Duration Frequency of Treatment 1x/Week Duration of Treatment 2 months Plan of Care Start Date 11/20/18 Plan of Care End Date 01/18/19 Therapeutic Interventions Therapeutic Interventions Gait Training Home Exercise Program Joint Mobilizations Manual Therapy Neuromuscular Re-education Patient/Caregiver Education Self-Care/Home Management Soft Tissue Mobilization Taping Therapeutic Activities Therapeutic Exercises Modalities Cold Pack/Ice Massage Electric Stimulation Hot Packs Ultrasound Next Visit Focus/Plan Next Note Type Treatment Note Next Visit Plan cont to advance functional activity.
--- NOTE | 2018-11-20 15:03 | PT.OPPOC ---
Current Diagnoses Stiffness of right knee, not elsewhere classified (11/20/18) Muscle weakness (generalized) (11/20/18) Other abnormalities of gait and mobility (11/20/18) Presence of right artificial knee joint (11/20/18) Provider Visit Care Team Role Provider Type Franko Young MD Attending Provider Non-Staff Family Provider Primary Care Provider Specialty: Medical Address: [address] [place] [address], [facility] Email: Plan Of Care PT-OP-T Assessment and Plan Start: 03/06/18 14:55 Freq: Status: Active Protocol: Document 11/20/18 13:50 [facility] (Rec: 11/20/18 15:02 [facility] [id number]) Physical Therapy Assessment Goals Six Impairment Lower Extremity Function Scale [employer] Goal (LTG) total score: 70% or greater (score on 06/22/2018 45%) LTG Duration 4 weeks Five Impairment RLE weakness grossly grade 4-5 / [employer] Goal (LTG) 5/5 MMT RLE strength grossly LTG Duration 4 weeks-advancing Four Impairment R knee ROM 0-111 [employer] Goal (LTG) 0-120 AROM R knee LTG Duration 4 weeks -advancing 116 11/20 Three Impairment Low level hiking with minimal pain Custodial Goal (LTG) low level hiking without pain prior to d/c LTG Duration 4 weeks-able to walk flat terrain Two Impairment Knee pain [employer] Goal (LTG) 1/10 knee pain or less LTG Duration 4 wks One Impairment Gait impairment [employer] Goal (LTG) Normal, unassisted levels of gait LTG Duration goals reached Assessment Summary Assessment Pt is improving with ITB tightness, strength, and ROM. Improved functional ability to do stairs and improved ROM ot 120 after manual treatment. He cont to have soft tissue and joint restrictions limiting motion. Physical Therapy Plan Frequency and Duration Frequency of Treatment 1x/Week Duration of Treatment 2 months Plan of Care Start Date 11/20/18 Plan of Care End Date 01/18/19 Therapeutic Interventions Therapeutic Interventions Gait Training Home Exercise Program Joint Mobilizations Manual Therapy Neuromuscular Re-education Patient/Caregiver Education Self-Care/Home Management Soft Tissue Mobilization Taping Therapeutic Activities Therapeutic Exercises Modalities Cold Pack/Ice Massage Electric Stimulation Hot Packs Ultrasound Next Visit Focus/Plan Next Note Type Treatment Note Next Visit Plan cont to advance functional activity. Plan of Care Dates Plan of Care Start Date 11/20/18 Plan of Care End Date 01/18/19 Please Sign and Return: I have reviewed this Plan of Care and certify that the skilled therapy services above are required to meet the patient?s needs. Physician Signature Date Printed Name and Credentials Clinical Instructor Signature Printed Name and Credentials
--- NOTE | 2018-11-24 16:22 | PT.OTN ---
Current Diagnoses Stiffness of right knee, not elsewhere classified (11/24/18) Muscle weakness (generalized) (11/24/18) Other abnormalities of gait and mobility (11/24/18) Presence of right artificial knee joint (11/24/18) Physical Therapy Treatment Note PT-OP-A Visit Information Start: 03/06/18 14:55 Freq: Status: Active Protocol: Document 11/24/18 15:15 DCW (Rec: 11/24/18 16:22 DCW [id number]) Out-Patient Physical Therapy Visit Information Visit Information Visit Type Treatment Note Visit Start Time 15:15 Visit Stop Time 16:10 Total Visit Minutes 55 Visit Number 5 PT-OP-B Current Condition Start: 03/06/18 14:55 Freq: Status: Active Protocol: Document 05/10/18 15:10 EA (Rec: 05/10/18 16:00 EA [id number]) Current Condition Current Functional Impairments (Reported) Functional Limitations- ADL's Deep squat Functional Limitations- Mobility/Gait indep PT-OP-C Subjective Start: 03/06/18 14:55 Freq: Status: Active Protocol: Document 11/24/18 15:15 DCW (Rec: 11/24/18 16:22 DCW [id number]) OP-PT Subjective Patient Comments Patient Comments Pt reports his back is pretty stiff and sore from an old injury. PT-OP-F Manual Assessment Start: 03/06/18 14:55 Freq: Status: Active Protocol: Document 10/10/18 16:43 EA (Rec: 10/10/18 16:54 EA [id number]) Manual Assessments Soft Tissue Assessment Soft Tissue Mobility Assessment Mild R Quads tightness Joint Mobility Assessment Joint Mobility Assessment Slight hypomobility of tibiofemoral jnt PT-OP-K Range of Motion Start: 03/06/18 14:55 Freq: Status: Active Protocol: Document 11/20/18 13:50 [facility] (Rec: 11/20/18 15:02 [facility] [id number]) Knee Goniometric Range of Motion Knee Measured in Degrees Right Flexion Active (degrees) 117 Knee ROM Limitations Comments pain post thigh and ant knee PT-OP-L Special Tests Start: 06/22/18 11:19 Freq: Status: Active Protocol: Document 10/10/18 16:43 EA (Rec: 10/10/18 16:54 EA [id number]) Special Tests Knee Special Tests Jenny's Test Test Results positive PT-OP-M Strength Start: 03/06/18 14:55 Freq: Status: Active Protocol: Document 11/20/18 13:50 [facility] (Rec: 11/20/18 15:02 [facility] [id number]) Hip Strength Hip Manual Muscle Testing Left Flexion (L2) 5 Normal Extension (S1) 5 Normal Abduction 5 Normal External Rotation 5 Normal Internal Rotation 5 Normal Right Flexion (L2) 4+ Good+ Extension (S1) 4+ Good+ Abduction 5 Normal External Rotation 5 Normal Internal Rotation 5 Normal Knee Strength Knee Manual Muscle Testing Right Flexion (S2) 4+ Good+ Extension (L3) 5 Normal Left Flexion (S2) 5 Normal Extension (L3) 5 Normal Ankle/Foot Strength Ankle and Foot Manual Muscle Testing Right Dorsiflexion (L4) 5 Normal Plantarflexion (S1) 5 Normal Left Dorsiflexion (L4) 5 Normal Plantarflexion (S1) 5 Normal PT-OP-Q Treatments Start: 03/06/18 14:55 Freq: Status: Active Protocol: Document 11/24/18 15:15 DCW (Rec: 11/24/18 16:22 DCW [id number]) Cardio Equipment Bicycle (Upright) Duration (Minutes) 10 Resistance 6 Seat Position 6-2 Other to inc flex Gym Equipment Shuttle Recovery Bilateral Squats Details plyometric Resistance 100# Shuttle Recovery Platform Stable Reps/Time 25 reps Unilateral Squats Details Plyometrics Resistance 37# Shuttle Recovery Platform Stable Reps/Time 12-15 reps Manual Therapy Treatment Soft Tissue Mobilization 3 Body Location Scar mobiliization 1 Body Location R hamstrings Mobilization Type Myofascial Release Strumming Sustained Pressure Intensity/Depth mod Body Position Prone Comments FM w/knee ext Joint Mobilizations 2 Joint Tibiofemoral Direction PA; lat tib glide Grade IV Body Position Supine Comments to increase knee flexion FM PT-OP-R Modalities Start: 03/06/18 14:55 Freq: Status: Active Protocol: Document 11/24/18 15:15 DCW (Rec: 11/24/18 16:22 DCW [id number]) Electric Stimulation Electric Stimulation Interferential Current (IFC) Body Location R anterior knee/hamstring Duration (Minutes) 15 Combined With Heat/Cold Cold Pack Comments cold pack ant/posterior knee PT-OP-T Assessment and Plan Start: 03/06/18 14:55 Freq: Status: Active Protocol: Document 11/24/18 15:15 DCW (Rec: 11/24/18 16:22 DCW [id number]) Physical Therapy Assessment Goals Six Impairment Lower Extremity Function Scale 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 Goal (LTG) total score: 70% or greater (score on 06/22/2018 45%) LTG Duration 4 weeks Five Impairment RLE weakness grossly grade 4-5 / 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 Goal (LTG) 5/5 MMT RLE strength grossly LTG Duration 4 weeks-advancing Four Impairment R knee ROM 0-111 Fpc Goal (LTG) 0-120 AROM R knee LTG Duration 4 weeks -advancing 116 11/20 Three Impairment Low level hiking with minimal pain 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 Physical Therapy Plan Frequency and Duration Frequency of Treatment 1x/Week Duration of Treatment 2 months Plan of Care Start Date 11/20/18 Plan of Care End Date 01/18/19 Therapeutic Interventions Therapeutic Interventions Gait Training Home Exercise Program Joint Mobilizations Manual Therapy Neuromuscular Re-education Patient/Caregiver Education Self-Care/Home Management Soft Tissue Mobilization Taping Therapeutic Activities Therapeutic Exercises Modalities Cold Pack/Ice Massage Electric Stimulation Hot Packs Ultrasound Next Visit Focus/Plan Next Note Type Treatment Note Next Visit Plan cont to advance functional activity.
--- NOTE | 2018-12-06 14:42 | PT.OTN ---
Current Diagnoses Stiffness of right knee, not elsewhere classified (12/06/18) Muscle weakness (generalized) (12/06/18) Other abnormalities of gait and mobility (12/06/18) Presence of right artificial knee joint (12/06/18) Physical Therapy Treatment Note PT-OP-A Visit Information Start: 03/06/18 14:55 Freq: Status: Active Protocol: Document 12/06/18 13:51 EA (Rec: 12/06/18 13:54 EA [id number]) Out-Patient Physical Therapy Visit Information Visit Information Visit Type Treatment Note Visit Start Time 13:00 Visit Stop Time 13:50 PT-OP-B Current Condition Start: 03/06/18 14:55 Freq: Status: Active Protocol: Document 05/10/18 15:10 EA (Rec: 05/10/18 16:00 EA [id number]) Current Condition Current Functional Impairments (Reported) Functional Limitations- ADL's Deep squat Functional Limitations- Mobility/Gait indep PT-OP-C Subjective Start: 03/06/18 14:55 Freq: Status: Active Protocol: Document 12/06/18 13:51 EA (Rec: 12/06/18 13:54 EA [id number]) OP-PT Subjective Patient Comments Patient Comments Pt reports complaint with HEP; occasional sharp medial knee pain. Patient Reported Progress Improving PT-OP-F Manual Assessment Start: 03/06/18 14:55 Freq: Status: Active Protocol: Document 10/10/18 16:43 EA (Rec: 10/10/18 16:54 EA [id number]) Manual Assessments Soft Tissue Assessment Soft Tissue Mobility Assessment Mild R Quads tightness Joint Mobility Assessment Joint Mobility Assessment Slight hypomobility of tibiofemoral jnt PT-OP-K Range of Motion Start: 03/06/18 14:55 Freq: Status: Active Protocol: Document 11/20/18 13:50 [facility] (Rec: 11/20/18 15:02 [facility] [id number]) Knee Goniometric Range of Motion Knee Measured in Degrees Right Flexion Active (degrees) 117 Knee ROM Limitations Comments pain post thigh and ant knee PT-OP-L Special Tests Start: 06/22/18 11:19 Freq: Status: Active Protocol: Document 10/10/18 16:43 EA (Rec: 10/10/18 16:54 EA [id number]) Special Tests Knee Special Tests Jenny's Test Test Results positive PT-OP-M Strength Start: 03/06/18 14:55 Freq: Status: Active Protocol: Document 11/20/18 13:50 [facility] (Rec: 11/20/18 15:02 [facility] [id number]) Hip Strength Hip Manual Muscle Testing Left Flexion (L2) 5 Normal Extension (S1) 5 Normal Abduction 5 Normal External Rotation 5 Normal Internal Rotation 5 Normal Right Flexion (L2) 4+ Good+ Extension (S1) 4+ Good+ Abduction 5 Normal External Rotation 5 Normal Internal Rotation 5 Normal Knee Strength Knee Manual Muscle Testing Right Flexion (S2) 4+ Good+ Extension (L3) 5 Normal Left Flexion (S2) 5 Normal Extension (L3) 5 Normal Ankle/Foot Strength Ankle and Foot Manual Muscle Testing Right Dorsiflexion (L4) 5 Normal Plantarflexion (S1) 5 Normal Left Dorsiflexion (L4) 5 Normal Plantarflexion (S1) 5 Normal PT-OP-Q Treatments Start: 03/06/18 14:55 Freq: Status: Active Protocol: Document 12/06/18 13:54 EA (Rec: 12/06/18 13:55 EA [id number]) Cardio Equipment Bicycle (Upright) Duration (Minutes) 10 Resistance 6 Seat Position 4-2 Other to inc flex Gym Equipment Shuttle Recovery Bilateral Squats Details plyometric Resistance 125# Shuttle Recovery Platform Stable Reps/Time 25 reps x 3 sets Unilateral Squats Details Plyometrics Resistance 50-75# Shuttle Recovery Platform Stable Reps/Time 12-15 reps x 3 sests Therapeutic Exercises Prone Exercises 1 Prone Exercise Name Hold-Relax passive stretch to right quads Sidelying Exercises 1 Sidelying Exercise Name ITB stretch Reps/Minutes x 15SH x 2 reps Standing Exercises 10 Standing Exercise Name standing lunges Comments cues to keep knee over the ankle 9 Standing Exercise Name step up/down 8-10 steps Side bilateral Equipment Used single rail Reps/Minutes 2x10 7 Standing Exercise Name HS and gastroc stretch 6 Standing Exercise Name 15 chair sit to stand without HS Reps/Minutes x 10 reps x 2 5 Standing Exercise Name Single leg walk hopping Reps/Minutes x 12 steps x 2 alternate Other Exercises 1 Other Exercise Name single leg partial squat Side right Reps/Minutes x 5 reps x 2 sets Comments on blue foam PT-OP-R Modalities Start: 03/06/18 14:55 Freq: Status: Active Protocol: Document 12/06/18 13:51 EA (Rec: 12/06/18 13:54 EA [id number]) Hot Pack/Cold Pack Treatment Cold Pack Location R ant/posterior knee Patient Position Hooklying Treatment Duration (minutes) 10 Patient Tolerance Good PT-OP-T Assessment and Plan Start: 03/06/18 14:55 Freq: Status: Active Protocol: Document 12/06/18 13:51 EA (Rec: 12/06/18 13:54 EA [id number]) Physical Therapy Assessment Assessment Summary Assessment Pt performed therex with no discomfort noted and no sharp pain; left knee noted slight antalgic at times. Overall patient is progressing functionally. Physical Therapy Plan Next Visit Focus/Plan Next Visit Plan Advance as tolerated.
--- NOTE | 2018-12-12 11:15 | PT.OTN ---
Current Diagnoses Stiffness of right knee, not elsewhere classified (12/12/18) Muscle weakness (generalized) (12/12/18) Other abnormalities of gait and mobility (12/12/18) Presence of right artificial knee joint (12/12/18) Physical Therapy Treatment Note PT-OP-A Visit Information Start: 03/06/18 14:55 Freq: Status: Active Protocol: Document 12/12/18 11:06 EA (Rec: 12/12/18 11:15 EA [id number]) Out-Patient Physical Therapy Visit Information Visit Information Visit Type Treatment Note Visit Start Time 09:45 Visit Stop Time 10:40 Visit Number 7 PT-OP-B Current Condition Start: 03/06/18 14:55 Freq: Status: Active Protocol: Document 05/10/18 15:10 EA (Rec: 05/10/18 16:00 EA [id number]) Current Condition Current Functional Impairments (Reported) Functional Limitations- ADL's Deep squat Functional Limitations- Mobility/Gait indep PT-OP-C Subjective Start: 03/06/18 14:55 Freq: Status: Active Protocol: Document 12/12/18 11:06 EA (Rec: 12/12/18 11:15 EA [id number]) OP-PT Subjective Patient Comments Patient Comments Pt reports right medial side of the knee and IT band still sore but much very less and rated pain 2/10. Patient Reported Progress Improving PT-OP-F Manual Assessment Start: 03/06/18 14:55 Freq: Status: Active Protocol: Document 10/10/18 16:43 EA (Rec: 10/10/18 16:54 EA [id number]) Manual Assessments Soft Tissue Assessment Soft Tissue Mobility Assessment Mild R Quads tightness Joint Mobility Assessment Joint Mobility Assessment Slight hypomobility of tibiofemoral jnt PT-OP-K Range of Motion Start: 03/06/18 14:55 Freq: Status: Active Protocol: Document 11/20/18 13:50 [facility] (Rec: 11/20/18 15:02 [facility] [id number]) Knee Goniometric Range of Motion Knee Measured in Degrees Right Flexion Active (degrees) 117 Knee ROM Limitations Comments pain post thigh and ant knee PT-OP-L Special Tests Start: 06/22/18 11:19 Freq: Status: Active Protocol: Document 10/10/18 16:43 EA (Rec: 10/10/18 16:54 EA [id number]) Special Tests Knee Special Tests Jenny's Test Test Results positive PT-OP-M Strength Start: 03/06/18 14:55 Freq: Status: Active Protocol: Document 11/20/18 13:50 [facility] (Rec: 11/20/18 15:02 LR [id number]) Hip Strength Hip Manual Muscle Testing Left Flexion (L2) 5 Normal Extension (S1) 5 Normal Abduction 5 Normal External Rotation 5 Normal Internal Rotation 5 Normal Right Flexion (L2) 4+ Good+ Extension (S1) 4+ Good+ Abduction 5 Normal External Rotation 5 Normal Internal Rotation 5 Normal Knee Strength Knee Manual Muscle Testing Right Flexion (S2) 4+ Good+ Extension (L3) 5 Normal Left Flexion (S2) 5 Normal Extension (L3) 5 Normal Ankle/Foot Strength Ankle and Foot Manual Muscle Testing Right Dorsiflexion (L4) 5 Normal Plantarflexion (S1) 5 Normal Left Dorsiflexion (L4) 5 Normal Plantarflexion (S1) 5 Normal PT-OP-Q Treatments Start: 03/06/18 14:55 Freq: Status: Active Protocol: Document 12/12/18 11:06 EA (Rec: 12/12/18 11:15 EA [id number]) Cardio Equipment Bicycle (Upright) Duration (Minutes) 10 Resistance 6-7 Seat Position 4-2 Other to inc flex Therapeutic Exercises Prone Exercises 1 Prone Exercise Name Hold-Relax passive stretch to right quads Sidelying Exercises 1 Sidelying Exercise Name ITB stretch Reps/Minutes x 15SH x 2 reps Standing Exercises 10 Standing Exercise Name standing lunges Comments cues to keep knee over the ankle 9 Standing Exercise Name step up/down 8-10 steps Side bilateral Equipment Used single rail Reps/Minutes 2x10 7 Standing Exercise Name HS and gastroc stretch Reps/Minutes x 30SH x 2 reps 6 Standing Exercise Name 15 chair sit to stand without HS Reps/Minutes x 15 reps x 2 5 Standing Exercise Name Single leg walk hopping Reps/Minutes x 12 steps x 2 alternate 3 Standing Exercise Name steady backward full lunges Reps/Minutes x 8 reps x 2 sets Comments // bars balance support ( slight) 1 Standing Exercise Name 3: board jump up/down back with bars support Reps/Minutes x 8 reps x 2 sets Comments No locked knees PT-OP-R Modalities Start: 03/06/18 14:55 Freq: Status: Active Protocol: Document 12/12/18 11:06 EA (Rec: 12/12/18 11:15 EA [id number]) Hot Pack/Cold Pack Treatment Cold Pack Location R ant/posterior knee Patient Position Hooklying Treatment Duration (minutes) 15 Patient Tolerance Good PT-OP-T Assessment and Plan Start: 03/06/18 14:55 Freq: Status: Active Protocol: Document 12/12/18 11:06 EA (Rec: 12/12/18 11:15 EA [id number]) Physical Therapy Assessment Assessment Summary Assessment Improved R knee ROM to now 120 with passive and 117 with AROM . Patient functional mobility and RLE functional strength has noticeable gained. Patient continue to progress. Physical Therapy Plan Next Visit Focus/Plan Next Note Type Treatment Note Next Visit Plan Advance as tolerated.
--- NOTE | 2018-12-19 14:56 | PT.OTN ---
Current Diagnoses Stiffness of right knee, not elsewhere classified (12/19/18) Muscle weakness (generalized) (12/19/18) Other abnormalities of gait and mobility (12/19/18) Presence of right artificial knee joint (12/19/18) Physical Therapy Treatment Note PT-OP-A Visit Information Start: 03/06/18 14:55 Freq: Status: Active Protocol: Document 12/19/18 13:42 EA (Rec: 12/19/18 13:47 EA [id number]) Out-Patient Physical Therapy Visit Information Visit Information Visit Type Treatment Note Visit Start Time 09:45 Visit Stop Time 10:40 Visit Number 7 PT-OP-B Current Condition Start: 03/06/18 14:55 Freq: Status: Active Protocol: Document 05/10/18 15:10 EA (Rec: 05/10/18 16:00 EA [id number]) Current Condition Current Functional Impairments (Reported) Functional Limitations- ADL's Deep squat Functional Limitations- Mobility/Gait indep PT-OP-C Subjective Start: 03/06/18 14:55 Freq: Status: Active Protocol: Document 12/19/18 13:42 EA (Rec: 12/19/18 13:47 EA [id number]) OP-PT Subjective Patient Comments Patient Comments Pt reports that he has been active lately; states left knee bothers him a bit but not the right. Patient Reported Progress Improving PT-OP-F Manual Assessment Start: 03/06/18 14:55 Freq: Status: Active Protocol: Document 10/10/18 16:43 EA (Rec: 10/10/18 16:54 EA [id number]) Manual Assessments Soft Tissue Assessment Soft Tissue Mobility Assessment Mild R Quads tightness Joint Mobility Assessment Joint Mobility Assessment Slight hypomobility of tibiofemoral jnt PT-OP-K Range of Motion Start: 03/06/18 14:55 Freq: Status: Active Protocol: Document 11/20/18 13:50 [facility] (Rec: 11/20/18 15:02 [facility] [id number]) Knee Goniometric Range of Motion Knee Measured in Degrees Right Flexion Active (degrees) 117 Knee ROM Limitations Comments pain post thigh and ant knee PT-OP-L Special Tests Start: 06/22/18 11:19 Freq: Status: Active Protocol: Document 10/10/18 16:43 EA (Rec: 12/18/18 16:54 EA [id number]) Special Tests Knee Special Tests Jenny's Test Test Results positive PT-OP-M Strength Start: 03/06/18 14:55 Freq: Status: Active Protocol: Document 11/20/18 13:50 [facility] (Rec: 11/20/18 15:02 LR [id number]) Hip Strength Hip Manual Muscle Testing Left Flexion (L2) 5 Normal Extension (S1) 5 Normal Abduction 5 Normal External Rotation 5 Normal Internal Rotation 5 Normal Right Flexion (L2) 4+ Good+ Extension (S1) 4+ Good+ Abduction 5 Normal External Rotation 5 Normal Internal Rotation 5 Normal Knee Strength Knee Manual Muscle Testing Right Flexion (S2) 4+ Good+ Extension (L3) 5 Normal Left Flexion (S2) 5 Normal Extension (L3) 5 Normal Ankle/Foot Strength Ankle and Foot Manual Muscle Testing Right Dorsiflexion (L4) 5 Normal Plantarflexion (S1) 5 Normal Left Dorsiflexion (L4) 5 Normal Plantarflexion (S1) 5 Normal PT-OP-Q Treatments Start: 03/06/18 14:55 Freq: Status: Active Protocol: Document 12/19/18 13:42 EA (Rec: 12/19/18 13:47 EA [id number]) Gym Equipment Shuttle Recovery Bilateral Squats Details plyometric Resistance 125# Shuttle Recovery Platform Stable Reps/Time 25 reps x 3 sets Unilateral Squats Details Plyometrics Resistance 75# Shuttle Recovery Platform Stable Reps/Time 12-15 reps x 3 sests Therapeutic Exercises Prone Exercises 1 Prone Exercise Name Hold-Relax passive stretch to right quads Standing Exercises 10 Standing Exercise Name standing lunges Reps/Minutes x 7 ft x 12 lines Comments cues to keep knee over the ankle 9 Standing Exercise Name step up/down 8-10 steps Side bilateral Equipment Used no rail Reps/Minutes 2x10 6 Standing Exercise Name 15 chair sit to stand without HS Reps/Minutes x 15 reps x 2 5 Standing Exercise Name Single leg walk hopping Reps/Minutes x 15 steps x 2 alternate Comments with SLS during hopping 2 Standing Exercise Name TFL/IT band stretch 3 Standing Exercise Name steady backward full lunges Reps/Minutes x 8 reps x 2 sets Comments // bars balance support ( slight) 1 Standing Exercise Name 3: board jump up/down back with bars support Reps/Minutes x 8 reps x 2 sets Comments No locked knees Other Exercises 1 Other Exercise Name single leg partial squat Side right Reps/Minutes x 5 reps x 2 sets Comments on blue foam PT-OP-R Modalities Start: 03/06/18 14:55 Freq: Status: Active Protocol: Document 12/19/18 13:47 EA (Rec: 12/19/18 13:47 EA [id number]) Hot Pack/Cold Pack Treatment Cold Pack Location R ant/posterior knee Patient Position Hooklying Treatment Duration (minutes) 15 Patient Tolerance Good PT-OP-T Assessment and Plan Start: 03/06/18 14:55 Freq: Status: Active Protocol: Document 12/19/18 13:42 EA (Rec: 12/19/18 13:47 EA [id number]) Physical Therapy Assessment Assessment Summary Assessment Tolerated treatment well with no discomfort to right leg. Patient continued to progress. Physical Therapy Plan Next Visit Focus/Plan Next Note Type Treatment Note Next Visit Plan Advance as tolerated.
--- NOTE | 2018-12-26 12:13 | PT.OTN ---
Current Diagnoses Stiffness of right knee, not elsewhere classified (12/26/18) Muscle weakness (generalized) (12/26/18) Other abnormalities of gait and mobility (12/26/18) Presence of right artificial knee joint (12/26/18) Physical Therapy Treatment Note PT-OP-A Visit Information Start: 03/06/18 14:55 Freq: Status: Active Protocol: Document 12/26/18 11:07 EA (Rec: 12/26/18 11:16 EA [id number]) Out-Patient Physical Therapy Visit Information Visit Information Visit Type Treatment Note Visit Start Time 09:45 Visit Stop Time 10:37 Total Visit Minutes 53 Visit Number 9 PT-OP-B Current Condition Start: 03/06/18 14:55 Freq: Status: Active Protocol: Document 05/10/18 15:10 EA (Rec: 05/10/18 16:00 EA [id number]) Current Condition Current Functional Impairments (Reported) Functional Limitations- ADL's Deep squat Functional Limitations- Mobility/Gait indep PT-OP-C Subjective Start: 03/06/18 14:55 Freq: Status: Active Protocol: Document 12/26/18 11:07 EA (Rec: 12/26/18 11:16 EA [id number]) OP-PT Subjective Patient Comments Patient Comments Pt reports he will be seeing his doctor and would possibly look at his left knee which has been bothering him lately. PT-OP-F Manual Assessment Start: 03/06/18 14:55 Freq: Status: Active Protocol: Document 10/10/18 16:43 EA (Rec: 10/10/18 16:54 EA [id number]) Manual Assessments Soft Tissue Assessment Soft Tissue Mobility Assessment Mild R Quads tightness Joint Mobility Assessment Joint Mobility Assessment Slight hypomobility of tibiofemoral jnt PT-OP-K Range of Motion Start: 03/06/18 14:55 Freq: Status: Active Protocol: Document 11/20/18 13:50 [facility] (Rec: 11/20/18 15:02 LRH [id number]) Knee Goniometric Range of Motion Knee Measured in Degrees Right Flexion Active (degrees) 117 Knee ROM Limitations Comments pain post thigh and ant knee PT-OP-L Special Tests Start: 06/22/18 11:19 Freq: Status: Active Protocol: Document 10/10/18 16:43 EA (Rec: 10/10/18 16:54 EA [id number]) Special Tests Knee Special Tests Jenny's Test Test Results positive PT-OP-M Strength Start: 03/06/18 14:55 Freq: Status: Active Protocol: Document 11/20/18 13:50 [facility] (Rec: 11/20/18 15:02 LR [id number]) Hip Strength Hip Manual Muscle Testing Left Flexion (L2) 5 Normal Extension (S1) 5 Normal Abduction 5 Normal External Rotation 5 Normal Internal Rotation 5 Normal Right Flexion (L2) 4+ Good+ Extension (S1) 4+ Good+ Abduction 5 Normal External Rotation 5 Normal Internal Rotation 5 Normal Knee Strength Knee Manual Muscle Testing Right Flexion (S2) 4+ Good+ Extension (L3) 5 Normal Left Flexion (S2) 5 Normal Extension (L3) 5 Normal Ankle/Foot Strength Ankle and Foot Manual Muscle Testing Right Dorsiflexion (L4) 5 Normal Plantarflexion (S1) 5 Normal Left Dorsiflexion (L4) 5 Normal Plantarflexion (S1) 5 Normal PT-OP-Q Treatments Start: 03/06/18 14:55 Freq: Status: Active Protocol: Document 12/26/18 11:07 EA (Rec: 12/26/18 11:16 EA [id number]) Cardio Equipment Bicycle (Upright) Duration (Minutes) 10 Resistance 6-7 Seat Position 4-0 Other to inc flex Gym Equipment Cable Column (Body Solid) Leg Extension Resistance 30-70# both legs Reps/Time 12-15 reps Shuttle Recovery Unilateral Squats Details Plyometrics Resistance 75# Shuttle Recovery Platform Stable Reps/Time 12-15 reps x 3 sests Therapeutic Exercises Supine Exercises 5 Supine Exercise Name heel slides quads stretch 2 Supine Exercise Name Figure of 4 1 Supine Exercise Name Hamstring stretch Side right Prone Exercises 1 Prone Exercise Name Hold-Relax passive stretch to right quads Sidelying Exercises 1 Sidelying Exercise Name ITB stretch Reps/Minutes x 15SH x 2 reps Standing Exercises 10 Standing Exercise Name standing lunges Reps/Minutes x 7 ft x 12 lines Comments cues to keep knee over the ankle 9 Standing Exercise Name step up/down 8-12 steps Side bilateral Equipment Used no rail Reps/Minutes 2x10 6 Standing Exercise Name 15 chair sit to stand without HS Reps/Minutes x 15 reps x 2 5 Standing Exercise Name Single leg walk hopping Reps/Minutes x 15 steps x 2 alternate Comments with SLS during hopping 2 Standing Exercise Name TFL/IT band stretch Other Exercises 1 Other Exercise Name single leg partial squat Side right Reps/Minutes x 5 reps x 2 sets Comments on blue foam PT-OP-R Modalities Start: 03/06/18 14:55 Freq: Status: Active Protocol: Document 12/26/18 11:07 EA (Rec: 12/26/18 11:16 EA [id number]) Electric Stimulation Electric Stimulation Interferential Current (IFC) Body Location Left knee Duration (Minutes) 15 Intensity 15 Combined With Heat/Cold Cold Pack Comments cold pack ant/posterior both knees PT-OP-T Assessment and Plan Start: 03/06/18 14:55 Freq: Status: Active Protocol: Document 12/26/18 11:07 EA (Rec: 12/26/18 11:16 EA [id number]) Physical Therapy Assessment Assessment Summary Assessment Discomfort to left inner knee limits single leg WB exercises . Right knee ROM shows much improvement with 0-120 knee flexion, good 8 stair descent , good single leg squat and hopping. Overall patient is progressing well. Physical Therapy Plan Next Visit Focus/Plan Next Note Type Treatment Note Next Visit Plan Advance as tolerated.
--- NOTE | 2019-01-09 12:25 | PT.OTN ---
Current Diagnoses Stiffness of right knee, not elsewhere classified (01/09/19) Muscle weakness (generalized) (01/09/19) Other abnormalities of gait and mobility (01/09/19) Presence of right artificial knee joint (01/09/19) Physical Therapy Treatment Note PT-OP-A Visit Information Start: 03/06/18 14:55 Freq: Status: Active Protocol: Document 01/09/19 10:38 EA (Rec: 01/09/19 10:46 EA [id number]) Out-Patient Physical Therapy Visit Information Visit Information Visit Type Treatment Note Visit Start Time 09:45 Visit Stop Time 10:40 Total Visit Minutes 55 Visit Number 10 PT-OP-B Current Condition Start: 03/06/18 14:55 Freq: Status: Active Protocol: Document 05/10/18 15:10 EA (Rec: 05/10/18 16:00 EA [id number]) Current Condition Current Functional Impairments (Reported) Functional Limitations- ADL's Deep squat Functional Limitations- Mobility/Gait indep PT-OP-C Subjective Start: 03/06/18 14:55 Freq: Status: Active Protocol: Document 01/09/19 10:38 EA (Rec: 01/09/19 10:46 EA [id number]) OP-PT Subjective Patient Comments Patient Comments Pt reports that right knee is doing well and had checked by his surgeon; states that his surgeon was elated with the outcome recovery. Pt mentioned that his left knee continued to bother his mobility and he has talked about it to his doctor. Patient Reported Progress Improving PT-OP-F Manual Assessment Start: 03/06/18 14:55 Freq: Status: Active Protocol: Document 10/10/18 16:43 EA (Rec: 10/10/18 16:54 EA [id number]) Manual Assessments Soft Tissue Assessment Soft Tissue Mobility Assessment Mild R Quads tightness Joint Mobility Assessment Joint Mobility Assessment Slight hypomobility of tibiofemoral jnt PT-OP-K Range of Motion Start: 03/06/18 14:55 Freq: Status: Active Protocol: Document 11/20/18 13:50 [facility] (Rec: 11/20/18 15:02 LRH [id number]) Knee Goniometric Range of Motion Knee Measured in Degrees Right Flexion Active (degrees) 117 Knee ROM Limitations Comments pain post thigh and ant knee PT-OP-L Special Tests Start: 06/22/18 11:19 Freq: Status: Active Protocol: Document 10/10/18 16:43 EA (Rec: 10/10/18 16:54 EA [id number]) Special Tests Knee Special Tests Jenny's Test Test Results positive PT-OP-M Strength Start: 03/06/18 14:55 Freq: Status: Active Protocol: Document 11/20/18 13:50 [facility]H (Rec: 11/20/18 15:02 LR [id number]) Hip Strength Hip Manual Muscle Testing Left Flexion (L2) 5 Normal Extension (S1) 5 Normal Abduction 5 Normal External Rotation 5 Normal Internal Rotation 5 Normal Right Flexion (L2) 4+ Good+ Extension (S1) 4+ Good+ Abduction 5 Normal External Rotation 5 Normal Internal Rotation 5 Normal Knee Strength Knee Manual Muscle Testing Right Flexion (S2) 4+ Good+ Extension (L3) 5 Normal Left Flexion (S2) 5 Normal Extension (L3) 5 Normal Ankle/Foot Strength Ankle and Foot Manual Muscle Testing Right Dorsiflexion (L4) 5 Normal Plantarflexion (S1) 5 Normal Left Dorsiflexion (L4) 5 Normal Plantarflexion (S1) 5 Normal PT-OP-Q Treatments Start: 03/06/18 14:55 Freq: Status: Active Protocol: Document 01/09/19 10:38 EA (Rec: 01/09/19 10:46 EA [id number]) Cardio Equipment Bicycle (Upright) Duration (Minutes) 10 Resistance 6-7 Seat Position 4-0 Other to inc flex Gym Equipment Shuttle Balance 1 Details Staggered knee bent/ side to side knee bent Reps/Duration 4 mins Comments Ball throws Therapeutic Exercises Supine Exercises 1 Supine Exercise Name Hamstring stretch Side right Prone Exercises 1 Prone Exercise Name Hold-Relax passive stretch to right quads Sidelying Exercises 1 Sidelying Exercise Name ITB stretch Reps/Minutes x 15SH x 2 reps Standing Exercises 10 Standing Exercise Name standing lunges Reps/Minutes x 7 ft x 12 lines Comments fwd/backward with rails as needed 9 Standing Exercise Name step up/down 8-12 steps Side bilateral Equipment Used no rail Reps/Minutes 2x10 6 Standing Exercise Name 15 -13 chair sit to stand with HS Reps/Minutes x 10 reps x 2 5 Standing Exercise Name Single leg hopping Reps/Minutes x 15 steps x 2 alternate Comments with SLS pause in bet hopped 2 Standing Exercise Name TFL/IT band stretch 1 Standing Exercise Name 3 board jump up/down back with bars support Reps/Minutes x 8 reps x 2 sets Comments No locked knees Other Exercises 1 Other Exercise Name single leg partial squat Side right Reps/Minutes x 5 reps x 2 sets PT-OP-R Modalities Start: 03/06/18 14:55 Freq: Status: Active Protocol: Document 01/09/19 10:38 EA (Rec: 01/09/19 10:46 EA [id number]) Electric Stimulation Electric Stimulation Interferential Current (IFC) Body Location Left knee/right kneew Duration (Minutes) 15 Intensity 15 Combined With Heat/Cold Cold Pack Comments cold pack ant/posterior both knees PT-OP-T Assessment and Plan Start: 03/06/18 14:55 Freq: Status: Active Protocol: Document 01/09/19 12:15 EA (Rec: 01/09/19 12:17 EA [id number]) Physical Therapy Assessment Assessment Summary Assessment Patient show no difficulty using the right knee; exercises tolerance mostly limited by left knee discomfort and pain. Physical Therapy Plan Next Visit Focus/Plan Next Note Type Treatment Note Next Visit Plan Possible discharge next visit.
--- NOTE | 2019-01-18 10:30 | PT.OTN ---
Current Diagnoses Stiffness of right knee, not elsewhere classified (01/18/19) Muscle weakness (generalized) (01/18/19) Other abnormalities of gait and mobility (01/18/19) Presence of right artificial knee joint (01/18/19) Physical Therapy Treatment Note PT-OP-A Visit Information Start: 03/06/18 14:55 Freq: Status: Active Protocol: Document 01/18/19 10:30 RCC (Rec: 01/18/19 13:31 RCC [email or web address]) Out-Patient Physical Therapy Visit Information Visit Information Visit Type Treatment Note Visit Start Time 10:30 Visit Stop Time 11:20 Total Visit Minutes 50 Visit Number 11 Evaluation Information Evaluation Date 01/13/18 PT-OP-B Current Condition Start: 03/06/18 14:55 Freq: Status: Active Protocol: Document 05/10/18 15:10 EA (Rec: 05/10/18 16:00 EA [id number]) Current Condition Current Functional Impairments (Reported) Functional Limitations- ADL's Deep squat Functional Limitations- Mobility/Gait indep PT-OP-C Subjective Start: 03/06/18 14:55 Freq: Status: Active Protocol: Document 01/18/19 10:30 RCC (Rec: 01/18/19 13:31 RCC [id number]) OP-PT Subjective Patient Comments Patient Comments Pt reports things are going well overall with the R knee s /p R TKA. Pt does admit to L medial knee pain which has limited his ability to ambulate on uneven surfaces and is the most limiting factor for him at this time. OP-PT Pain Assessment Location Right Knee Intensity 0 PT-OP-F Manual Assessment Start: 03/06/18 14:55 Freq: Status: Active Protocol: Document 10/10/18 16:43 EA (Rec: 10/10/18 16:54 EA [id number]) Manual Assessments Soft Tissue Assessment Soft Tissue Mobility Assessment Mild R Quads tightness Joint Mobility Assessment Joint Mobility Assessment Slight hypomobility of tibiofemoral jnt PT-OP-K Range of Motion Start: 03/06/18 14:55 Freq: Status: Active Protocol: Document 01/18/19 10:30 RCC (Rec: 01/18/19 13:31 RCC [email or web address]) Knee Goniometric Range of Motion Knee Measured in Degrees Right Flexion Active (degrees) 117 Extension Active (degrees) 0 PT-OP-L Special Tests Start: 06/22/18 11:19 Freq: Status: Active Protocol: Document 10/10/18 16:43 EA (Rec: 10/10/18 16:54 EA [id number]) Special Tests Knee Special Tests Jenny's Test Test Results positive PT-OP-M Strength Start: 03/06/18 14:55 Freq: Status: Active Protocol: Document 01/18/19 10:30 RCC (Rec: 01/18/19 13:31 RCC [email or web address]) Hip Strength Hip Manual Muscle Testing Left Flexion (L2) 5 Normal Extension (S1) 5 Normal Abduction 5 Normal External Rotation 5 Normal Internal Rotation 5 Normal Right Flexion (L2) 5 Normal Extension (S1) 5 Normal Abduction 5 Normal External Rotation 5 Normal Internal Rotation 5 Normal Knee Strength Knee Manual Muscle Testing Right Flexion (S2) 4+ Good+ Extension (L3) 5 Normal Left Flexion (S2) 5 Normal Extension (L3) 5 Normal PT-OP-Q Treatments Start: 03/06/18 14:55 Freq: Status: Active Protocol: Document 01/18/19 10:30 RCC (Rec: 01/18/19 13:31 RCC [email or web address]) Cardio Equipment Bicycle (Upright) Duration (Minutes) 10 Resistance 7 Seat Position 4 Therapeutic Exercises Supine Exercises SLR Supine Exercise Name neutral and ER of the LE Side bilateral Reps/Minutes x10 Sitting Exercises HS curls Sitting Exercise Name neutral, ER, IR HS curls Side bilateral Reps/Minutes x10 Comments L4 band Standing Exercises 10 Standing Exercise Name standing lunges Reps/Minutes x 7 ft x 12 lines Comments fwd/backward with rails as needed 6 Standing Exercise Name 15 -13 chair sit to stand with HS Reps/Minutes x 10 reps x 2 Manual Therapy Treatment Other Other Manual Treatments R knee ROM and LE MMT PT-OP-R Modalities Start: 03/06/18 14:55 Freq: Status: Active Protocol: Document 01/18/19 10:30 RCC (Rec: 01/18/19 13:31 RCC [email or web address]) Electric Stimulation Electric Stimulation Interferential Current (IFC) Body Location Left knee/right kneew Duration (Minutes) 15 Intensity 46 Combined With Heat/Cold Cold Pack Comments cold pack ant/posterior both knees PT-OP-T Assessment and Plan Start: 03/06/18 14:55 Freq: Status: Active Protocol: Document 01/18/19 10:[address] [facility] (Rec: 01/18/19 13:31 RCC [email or web address]) Physical Therapy Assessment Goals Six Impairment Lower Extremity Function Scale Prison Goal (LTG) total score: 70% or greater (score on 06/22/2018 45%) LTG Duration 4 weeks Five Impairment RLE weakness grossly grade 4-5 / Pet Caregiver Goal (LTG) 5/5 MMT RLE strength grossly LTG Duration 4 weeks-advancing Four Impairment R knee ROM 0-111 Pet Caregiver Goal (LTG) 0-120 AROM R knee LTG Duration 4 weeks -advancing 116 11/20 Three Impairment Low level hiking with minimal pain Pet Caregiver Goal (LTG) low level hiking without pain prior to d/c LTG Duration 4 weeks-able to walk flat terrain Two Impairment Knee pain Prison Goal (LTG) 1/10 knee pain or less LTG Duration achieved Progress Towards Goals Progress Comments pt able to ambulate on level trails but hesitant due to L knee pain with gravel and when wet. R knee ROM 0-117 degrees AROM. LE strength improved but still 4+/5 with R knee flexion (hamstring strength). Assessment Summary Assessment Pt's R knee ROM 0-117 degrees actively today without intervention. He is able to perform lunges without R knee discomfort at this time. His most limiting factor now appears to be pain with the L knee medially with sit<->stand , squatting, and lunges and is actually the most limiting factor with his recreational activities including full return to hiking. Pt without c /o R knee pain during session, and appears to be safe for d/ c s/p R TKA and IT band issues . However, highly recommend pt be examined for his L knee pain and discuss with MD. At this time, pt no longer limited by impairments of R knee and will be d/c from physical therapy. Physical Therapy Plan Discharge Physical Therapy Discharge Comments pt completed current program, L knee impairing progression/ completion of all established goals (recreational)
== END 2019-02-07 10:51 | disposition home or self-care (01) ==
LOC: PHYS 10:30
PROVIDERS: Family Provider Orthopaedic Surgery; PCP Orthopaedic Surgery; Visit Provider Orthopaedic Surgery
DX: M25.661 Stiffness of right knee, not elsewhere classified (principal); Z96.651 Presence of right artificial knee joint; M62.81 Muscle weakness (generalized); R26.89 Other abnormalities of gait and mobility
CPT/HCPCS: 97010; 97014; 97110; 97116; 97140; 97535; G0283

== ENCOUNTER 2020-06-26 11:42 | Emergency (ER) | payer BC, SELFPAY ==
[2020-06-26] VITALS (20 sets, daily range): BP systolic 97–132; BP diastolic 54–74; PULSE 51–71; RESP 10–24; TEMP 36.3; O2SAT 94–98; BMI 31.1
--- NOTE | 2020-06-26 11:58 | DI.RAD.S_ITS ---
PROCEDURE: XR CHEST 1V INDICATIONS: chest pain TECHNIQUE: One view of the chest was acquired. COMPARISON: None. FINDINGS: Surgical changes and devices: None. Lungs and pleura: Lungs are clear. No pleural effusions or pneumothorax. Mediastinum: Mediastinal contours appear normal. Heart size is normal. Bones and chest wall: No suspicious bony lesions. Overlying soft tissues appear unremarkable. IMPRESSION: Normal for age, source of current chest pain symptoms is not seen. Dictated by: Siddharth Fan M.D. on 06/26/2020 at 12:56 Approved by: Siddharth Fan M.D. on 06/26/2020 at 12:57
[2020-06-26 12:03] LABS: Add Manual Diff / Slide Review NO; Basophils Absolute Auto 0 /uL (0-100); Basophils Percent Auto 0.7 % (0-2); Eosinophils Absolute Auto 100 /uL (0-450); Eosinophils Percent Auto 1.5 % (2-4); Hematocrit 44.9 % (41-53); Hemoglobin 15.2 g/dL (13.5-17.5); Lymphocytes Absolute Auto 1300 /uL (1100-4500); Lymphocytes Percent Auto 25.2 % (25-40); Mean Corpuscular HGB Conc 33.8 % (30-36); Mean Corpuscular Volume 91.7 fL (80-100); Monocytes Absolute Auto 600 /uL (0-900); Monocytes Percent Auto 10.7 % (3-14); Neutrophils Absolute Auto 3300 /uL (1500-7000); Neutrophils Percent Auto 61.9 % (50-75); Platelet Count 204 X10^3/uL (150-400); Red Cell Distribution Width 12.6 % (11.6-14.8); White Blood Cell Count 5.3 X10^3/uL (4.5-11.0)
[2020-06-26 12:09] LABS: Prothrombin Time 11.6 SECONDS (10.1-12.7)
[2020-06-26 12:11] LABS: PTT Partial Thromboplastin Tim 31 SECONDS (26.4-36.2)
[2020-06-26 12:13] LABS: Alanine Aminotransferase 34 IU/L (<50); Albumin 4.5 g/dL (3.5-5.0); Albumin Globulin Ratio 1.6 (1.0-2.8); Alkaline Phosphatase 54 U/L (38-126); Aspartate Aminotransferase 33 IU/L (17-59); BUN Creatinine Ratio 17.8 (6-22); Bilirubin Total 0.6 mg/dL (0.2-1.3); Blood Urea Nitrogen 16 mg/dL (9-20); Calcium 9.7 mg/dL (8.4-10.2); Carbon Dioxide 27 mmol/L (22-32); Chloride 102 mmol/L (98-107); Creatine Kinase 150 U/L (55-170); Estimated Glomerular Filt Rate > 60.0 mL/min (>60); Globulin 2.9 g/dL (1.7-4.1); Glucose 74 mg/dL (80-110); HEMOLYSIS < 15 (0-50); Lipase 49 U/L (23-300); Potassium 4.2 mmol/L (3.4-5.1); Sodium 137 mmol/L (137-145); Total Protein 7.4 g/dL (6.3-8.2)
--- NOTE | 2020-06-26 12:24 | ED.CHESTPAIN ---
HPI - Chest Pain General Chief Complaint: Chest Pain Stated Complaint: chest pains Time Seen by Provider: 06/26/20 11:56 Source: patient Mode of arrival: Ambulatory Limitations: no limitations History of Present Illness HPI narrative: Family physician in [place] sent patient here for evaluation of left-sided chest pain. Burning sensation. Left scapula left arm and left upper chest. Onset 2 days ago. No exertional chest pain or dyspnea. No syncope. No numbness tingling or weakness. Has history eczema and does have constant rash on his sternum. There are few lesions on the left upper back but at this time has the same appearance as his eczema on the chest. No prior history of shingles. Patient took full aspirin today MD complaint: chest pain Related Data Allergies Allergy/AdvReac Type Severity Reaction Status Date / Time ceftriaxone [From Rocephin] Allergy Verified 06/26/20 11:55 Review of Systems Review of Systems Narrative: GENERAL: Denies chills, fatigue, malaise, fever, sweats. HEENT: Denies sinus pain, ear pain, sore throat, difficulty swallowing, dizziness. RESPIRATORY: Denies dyspnea, cough, wheezing, hemoptysis, sputum. CARDIOVASCULAR: Complains chest pain, denied palpitations, orthopnea, edema, GASTROINTESTINAL: Denies nausea, vomiting, abdominal pain, diarrhea, constipation, melena. : Denies dysuria, frequency, incontinence, hematuria, urinary retention. MUSCULOSKELETAL: denies weakness, joint pain, or bony pain SKIN: Denies rash, skin lesions, or other NEUROLOGIC: Denies weakness, headache, numbness, change in speech, confusion, seizures, incoordination. PSYCHIATRIC: No concerning psychosocial issues. ROS Unobtainable: All systems reviewed & are unremarkable except as noted in HPI and below Patient History Social History Smoking Status: Unknown if ever smoked Smoking Status: Unknown if ever smoked alcohol intake frequency: holidays/special occasions only Substance Use Type: does not use Exam Narrative Exam Narrative: GENERAL: patient appears stated age. Well-nourished, well-developed patient, in no distress, not toxic HEAD: Atraumatic. Normocephalic. EYES: Pupils equal round and reactive. Extraocular motions intact. No scleral icterus. No injection or drainage. ENT: Nose without bleeding, purulent drainage. Throat without erythema, tonsillar hypertrophy or exudate. Airway patent. NECK: Trachea midline. Non tender CARDIOVASCULAR: Regular rate and rhythm without murmurs, gallops, or rubs. RESPIRATORY: Clear to auscultation. Breath sounds equal bilaterally. No wheezes, rales, or rhonchi. GASTROINTESTINAL: Abdomen soft, non-tender, nondistended. EXTREMITIES: No edema or joint tenderness. BACK: Nontender without deformity or crepitance. No flank tenderness. NEURO: AOx4. SKIN: Short is off. There is chronic eczema of the midsternum. Similar lesions on the left scapula but only 3 or 4 lesions. None on the neck and none on the arms none on the armpit PSYCH: Not anxious, is cooperative Initial Vital Signs Initial Vital Signs: Vital Signs Temperature 97.4 F L 06/26/20 11:50 Pulse Rate 71 06/26/20 11:50 Respiratory Rate 15 06/26/20 11:50 Blood Pressure 132/70 06/26/20 11:50 Pulse Oximetry 97 06/26/20 11:50 Scores HEART Score Heart Score history: Moderately Suspicious Heart Score EKG: Normal Heart Score Age: 45-64 years old Heart Score risk factors: 1-2 risk factors Heart Score troponin: < or = to normal limit Heart Score Total: 3 Course Course Course Narrative: Some relief with nitro paste Decision to Admit Date: 06/26/20 Decision to Admit time: 15:00 Orders Ordered: ED Orders 06/26/20 11:49 EKG-12 Lead Routine 06/26/20 11:53 Complete Blood Count AUTO DIFF Stat Comprehensive Metabolic Panel Stat Lipase Stat Partial Thromboplastin Time Stat Prothrombin Time INR Stat Troponin & CK Cardiac Panel Stat 06/26/20 11:58 XR chest 1V Stat Discontinued Medications Acetaminophen (Tylenol) 650 mg PO NOW ONE Stop: 06/26/20 16:47 Last Admin: 06/26/20 16:51 Dose: 650 mg Documented by: TRUONG Sodium Chloride (Normal Saline 0.9%) 1,000 mls @ 1,000 mls/hr IV BOLUS ONE Stop: 06/26/20 13:23 Last Infusion: 06/26/20 13:32 Dose: 0 mls/hr Documented by: Admin: 06/26/20 12:30 Dose: 1,000 mls/hr Documented by: TATIANA Nitroglycerin (Nitro-Bid) 0.5 inch TOP NOW ONE Stop: 06/26/20 12:25 Last Admin: 06/26/20 12:31 Dose: 0.5 inch Documented by: TATIANA Reevaluation(s) Reevaluation #1: Patient has had some mild relief with nitro paste. Time: 14:56 Reevaluation #2: at bedside. I did review results with patient and , she states the rash on the back is similar to his eczema Time: 16:07 Consultations Consultation #1: Spoke with primary care physician office nurse, Dr. Jones, informs that Dr. Jones would like patient be admitted Time: 15:01 Consultation #2: Spoke with [facility], hospitalist Dr Hudson, will admit patient Time: 16:06 Vital Signs Vital signs: Vital Signs - 8 hr 06/26/20 11:50 06/26/20 11:53 06/26/20 12:00 Temperature 97.4 F L Pulse Rate 71 66 63 Respiratory Rate 15 19 12 Blood Pressure 132/70 117/66 Pulse Oximetry 97 98 95 06/26/20 12:30 06/26/20 12:31 06/26/20 12:46 Temperature Pulse Rate 63 62 55 L Respiratory Rate 24 13 Blood Pressure 100/66 100/66 102/55 L Pulse Oximetry 96 96 06/26/20 13:00 06/26/20 13:15 06/26/20 13:30 Temperature Pulse Rate 55 L 51 L 51 L Respiratory Rate 10 L 11 L 11 L Blood Pressure 102/58 L 105/60 106/62 Pulse Oximetry 95 98 98 06/26/20 13:45 06/26/20 14:00 06/26/20 14:15 Temperature Pulse Rate 51 L 52 L 57 L Respiratory Rate 14 14 15 Blood Pressure 105/61 104/56 L 106/58 L Pulse Oximetry 98 98 97 06/26/20 14:30 06/26/20 14:45 06/26/20 15:00 Temperature Pulse Rate 58 L 52 L Respiratory Rate 18 18 Blood Pressure 109/57 L 103/56 L 102/57 L Pulse Oximetry 97 98 06/26/20 15:15 06/26/20 15:30 06/26/20 15:31 Temperature Pulse Rate 71 70 Respiratory Rate 19 24 Blood Pressure 104/56 L 128/74 Pulse Oximetry 96 96 06/26/20 15:45 06/26/20 17:20 Temperature Pulse Rate 53 L 55 L Respiratory Rate 12 18 Blood Pressure 97/54 L 112/58 L Pulse Oximetry 94 MDM - Chest Pain Differential Diagnosis Differential diagnosis: Likely stable angina, unstable angina pectoris, atypical chest pain, costochondritis and other (Shingles) Lab Data Attestation: I reviewed the patient's lab results. Result diagrams: 06/26/20 11:53 06/26/20 11:53 Labs: Lab Results 06/26/20 06/26/20 06/26/20 Range/Units 11:53 11:53 11:53 WBC 5.3 (4.5-11.0) X10^3/uL RBC 4.90 (4.5-5.9) X10^6/uL Hgb 15.2 (13.5-17.5) g/dL Hct 44.9 (41-53) % MCV 91.7 (80-100) fL MCH 31.0 (26-34) PG MCHC 33.8 (30-36) % RDW 12.6 (11.6-14.8) % Plt Count 204 (150-400) X10^3/uL Neut % (Auto) 61.9 (50-75) % Lymph % (Auto) 25.2 (25-40) % Borden % (Auto) 10.7 (3-14) % Eos % (Auto) 1.5 L (2-4) % Baso % (Auto) 0.7 (0-2) % Neut # (Auto) 3300 (1322-1766) /uL Lymph # (Auto) 1300 (8540-5692) /uL Borden # (Auto) 600 (0-900) /uL Eos # (Auto) 100 (0-450) /uL Baso # (Auto) 0 (0-100) /uL PT 11.6 (10.1-12.7) SECONDS INR 1.0 (0.9-1.3) APTT 31 (26.4-36.2) SECONDS Sodium 137 (137-145) mmol/L Potassium 4.2 (3.4-5.1) mmol/L Chloride 102 (98-107) mmol/L Carbon Dioxide 27 (22-32) mmol/L BUN 16 (9-20) mg/dL Creatinine 0.90 (0.66-1.25) mg/dL Estimated GFR > 60.0 (>60) mL/min BUN/Creatinine Ratio 17.8 (6-22) Glucose 74 L (80-110) mg/dL Calcium 9.7 (8.4-10.2) mg/dL Total Bilirubin 0.6 (0.2-1.3) mg/dL AST 33 (17-59) IU/L ALT 34 (<50) IU/L Alkaline Phosphatase 54 (38-126) U/L Total Creatine Kinase 150 (55-170) U/L CK-MB (CK-2) 1.21 (<2.37) ng/mL CK-MB (CK-2) Rel Index 0.8 L (1.5-5.0) % Troponin I < 0.012 (0.01-0.034) ng/mL Total Protein 7.4 (6.3-8.2) g/dL Albumin 4.5 (3.5-5.0) g/dL Globulin 2.9 (1.7-4.1) g/dL Albumin/Globulin Ratio 1.6 (1.0-2.8) Lipase 49 (23-300) U/L Imaging Data Chest x-ray: Radiologist's Impression: [place] [address] XRay Report Signed Patient: Gerri Bliss#: [id number] : 9Acct:[id number] Age/Sex: 59 / MDate of Service: 06/26/20 Loc: ED Accession Number: [id number] Procedure: XR chest 1V Ordering Provider: Khoi Reilly MD PROCEDURE: XR CHEST 1V INDICATIONS: chest pain TECHNIQUE: One view of the chest was acquired. COMPARISON: None. FINDINGS: Surgical changes and devices: None. Lungs and pleura: Lungs are clear. No pleural effusions or pneumothorax. Mediastinum: Mediastinal contours appear normal. Heart size is normal. Bones and chest wall: No suspicious bony lesions. Overlying soft tissues appear unremarkable. IMPRESSION: Normal for age, source of current chest pain symptoms is not seen. Dictated by: Siddharth Fan M.D. on 06/26/2020 at 12:56 Approved by: Siddharth Fan M.D. on 06/26/2020 at 12:57 ECG Data Attestation: I personally reviewed and interpreted this ECG as follows: Interpretation: Normal sinus rhythm, ventricular rate 60, no ST elevation or depression. MDM Narrative Medical decision making narrative: I spoke with hospitalist at [facility] dr javier,,,, there are no scheduled availability for stress test here tomorrow. Patient will need to be transferred At this time I do not believe left-sided chest pain and left scapular pain and left arm pain is due to the eczema or shingles. Dermatome distribution would involve cervical nerve root distribution. Skin lesion is on the scapula. Discharge Plan Departure Patient Disposition: [facility] Clinical Impression: Chest pain Qualifiers: Chest pain type: unspecified Qualified Code(s): R07.9 - Chest pain, unspecified Discharge Date/Time: 06/26/20 17:29 Referrals: Franko Young MD [Primary Care Provider] -
[2020-06-26 12:25] LABS: Troponin I < 0.012 ng/mL (0.01-0.034)
[2020-06-26 12:28] LABS: CKMB % Relative Index 0.8 % (1.5-5.0); Creatine Kinase MB 1.21 ng/mL (<2.37)
[2020-06-26] MEDS: SODIUM CHLORIDE 0.9% 1,000 ML 1000 ML IV (12:30)
[2020-06-26] MEDS: NITROGLYCERIN OINT 1 INCH/GM OINT...G. 0.5 INCH TOP (12:31)
--- NOTE | 2020-06-26 15:12 | PC.NURSE ---
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
[2020-06-26] MEDS: ACETAMINOPHEN 325 MG TABLET 650 MG PO (16:51)
== END 2020-06-26 17:29 | disposition short-term general hospital (02) ==
PROVIDERS: Emergency Provider Emergency Medicine; Family Provider Orthopaedic Surgery; PCP Orthopaedic Surgery
DX: R07.9 Chest pain, unspecified (principal)
CPT/HCPCS: 36415; 71045; 80053; 82550; 82553; 83690; 84484; 85025; 85610; 85730; 93005; 96360; 99284

== ENCOUNTER → 2023-04-15 16:37 | Outpatient (CLI) | payer BC, SELFPAY ==
--- NOTE | 2023-04-15 16:46 | DI.MRI.S_ITS ---
PROCEDURE: MR CERVICAL SPINE WO/W CON INDICATIONS: Numbness and tingling TECHNIQUE: Noncontrast sagittal T1 spin echo and T2 fast spin echo, sagittal STIR, foraminal oblique sagittal T2 fast spin echo, axial gradient echo or T2 fast spin echo through the cervical spine. After the administration of contrast, axial and sagittal T1 spin echo with fat saturation through the cervical spine. COMPARISON: None. FINDINGS: Image quality: Excellent. Alignment and curvature: There is normal bony alignment. Marrow: Mild multilevel degenerative endplate changes Spinal cord: Visualized spinal cord has normal size and signal. No cerebellar tonsillar herniation. No abnormal intramedullary enhancement. Paraspinous soft tissues: No paravertebral masses or suspicious enhancement. C2-3: Normal appearance. C3-4: Disc space narrowing and asymmetric left disc osteophyte complex with hypertrophic uncovertebral joints results in mild central stenosis with severe left in moderate right foraminal stenosis. C4-5: Disc height is preserved. No central or foraminal stenosis C5-6: Disc space narrowing small posterior disc osteophyte complex results in mild central stenosis. No foraminal stenosis. C6-7: Disc space narrowing with posterior disc osteophyte complex results in mild central stenosis. No foraminal stenosis. C7-T1: Normal appearance. IMPRESSION: Multilevel degenerative disc disease and arthropathy results in severe left and moderate right foraminal stenosis at C3-4 Approved by: Colin Lyle M.D. on 04/18/2023 at 13:57
== END ==
PROVIDERS: Family Provider Orthopaedic Surgery; PCP Orthopaedic Surgery; Referring Provider Nurse Practitioner Family; Visit Provider Nurse Practitioner Family
DX: M50.31 Other cervical disc degeneration, high cervical region (principal); M47.812 Spondylosis without myelopathy or radiculopathy, cervical region; M48.02 Spinal stenosis, cervical region; R20.0 Anesthesia of skin; R20.2 Paresthesia of skin
CPT/HCPCS: 72156; A9579

== ENCOUNTER → 2024-09-12 16:15 | Outpatient (CLI) | payer MEDICARE, OTHER, SELFPAY ==
--- NOTE | 2024-09-12 16:23 | DI.RAD.S_ITS ---
PROCEDURE: XR WRIST RT MIN 3V INDICATIONS: WRIST PAIN TECHNIQUE: 4 views of the wrist were acquired. COMPARISON: [facility], CR, XR HAND 3+ VIEWS RIGHT, 02/11/2023, 9:26. FINDINGS: Bones: No fractures or dislocations. Mild degenerative changes. No suspicious bony lesions. Soft tissues: No suspicious soft tissue calcifications. IMPRESSION: Mild degenerative changes. Dictated by: Harry Price M.D. on 09/12/2024 at 23:40 Approved by: Harry Price M.D. on 09/12/2024 at 23:42
--- NOTE | 2024-09-12 16:24 | DI.RAD.S_ITS ---
PROCEDURE: XR SHOULDER RT MIN 2V INDICATIONS: SHOULDER PAIN TECHNIQUE: 3 views of the shoulder were acquired. COMPARISON: None. FINDINGS: Bones: No fractures or dislocations. Mild to moderate degenerative changes at the AC joint. No suspicious bony lesions. Visualized ribs appear intact. Soft tissues: No suspicious soft tissue calcifications. IMPRESSION: [id number] degenerative changes at the AC joint. Dictated by: Harry Price M.D. on 09/12/2024 at 23:43 Approved by: Harry Price M.D. on 09/12/2024 at 23:44
== END ==
PROVIDERS: Family Provider Family Medicine
DX: M25.531 Pain in right wrist (principal); M25.511 Pain in right shoulder; G89.29 Other chronic pain
CPT/HCPCS: 73030; 73110

== ENCOUNTER 2024-12-03 12:00 | Emergency (ER) | payer MEDICARE, SELFPAY ==
[2024-12-03] VITALS (10 sets, daily range): BP systolic 97–123; BP diastolic 57–71; PULSE 51–71; RESP 16–19; TEMP 36.3–36.6; O2SAT 97–100; BMI 29.0
--- NOTE | 2024-12-03 16:57 | EKG_ITS ---
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
[2024-12-03 17:25] LABS: Add Manual Diff / Slide Review NO; Basophils Absolute Auto 0 /uL (0-100); Basophils Percent Auto 0.7 % (0-2); Eosinophils Absolute Auto 100 /uL (0-450); Eosinophils Percent Auto 1.6 % (2-4); Hematocrit 42.2 % (41-53); Hemoglobin 14.2 g/dL (13.5-17.5); Lymphocytes Absolute Auto 1400 /uL (1100-4500); Lymphocytes Percent Auto 25.9 % (25-40); Mean Corpuscular HGB Conc 33.6 % (30-36); Mean Corpuscular Hemoglobin 31.3 PG (26-34); Monocytes Absolute Auto 600 /uL (0-900); Monocytes Percent Auto 11.6 % (3-14); Neutrophils Absolute Auto 3300 /uL (1500-7000); Neutrophils Percent Auto 60.2 % (50-75); Platelet Count 232 X10^3/uL (150-400); Red Blood Cell Count 4.53 X10^6/uL (4.5-5.9); Red Cell Distribution Width 12.7 % (11.6-14.8); White Blood Cell Count 5.5 X10^3/uL (4.5-11.0)
[2024-12-03 17:29] LABS: INR 1.1 (0.9-1.3); Prothrombin Time 12.1 SECONDS (9.4-12.5)
[2024-12-03 17:32] LABS: PTT Partial Thromboplastin Tim 34 SECONDS (25.1-36.5)
[2024-12-03 17:33] LABS: Alanine Aminotransferase 22 IU/L (<50); Albumin 4.3 g/dL (3.5-5.0); Albumin Globulin Ratio 1.3 (1.0-2.8); Alkaline Phosphatase 63 U/L (38-126); Aspartate Aminotransferase 27 IU/L (17-59); BUN Creatinine Ratio 17.2 (6-22); Bilirubin Total 0.7 mg/dL (0.2-1.3); Blood Urea Nitrogen 15 mg/dL (9-20); Calcium 9.5 mg/dL (8.4-10.2); Carbon Dioxide 30 mmol/L (22-32); Chloride 100 mmol/L (98-107); Estimated Glomerular Filt Rate > 60 mL/min (>60); Globulin 3.2 g/dL (1.7-4.1); Glucose 93 mg/dL (80-110); HEMOLYSIS < 15 (0-50); Lipase 46 U/L (23-300); Sodium 136 mmol/L (137-145); Total Protein 7.5 g/dL (6.3-8.2)
[2024-12-03] MEDS: ONDANSETRON 4 MG/2 ML INJ IV (17:48)
[2024-12-03] MEDS: PANTOPRAZOLE 40 MG VIAL 80 MG IV (17:48)
[2024-12-03 20:06] LABS: Hematocrit 40.6 % (41-53); Hemoglobin 13.8 g/dL (13.5-17.5)
--- NOTE | 2024-12-03 21:06 | ED_ITS ---
HPI - GI Bleed General Chief complaint: GI Bleed Stated complaint: rectal bleeding Time Seen by Provider: 12/03/24 16:57 Source: patient Mode of arrival: Ambulatory History of Present Illness HPI Narrative: Patient is a 64-year-old male not on anticoagulation or antiplatelet medication presenting today with rectal bleeding. Reports it has been ongoing for about a week and a half. He fasted from meat and sugar with a month of October he had a piece of meat last week. He does put some for with a paper between his buttocks it soaks it. He has not having 2 with a pulse of blood he has not passing blood clots. He has no significant abdominal pain. No dizziness lightheadedness chest pain or shortness of breath. He had a colonoscopy 5 years ago that was clean. Related Data Allergies Allergy/AdvReac Type Severity Reaction Status Date / Time ceftriaxone [From Rocephin] Allergy Verified 06/26/20 11:55 Patient History Social History Smoking Status: Unknown if ever smoked Smoking Status: Unknown if ever smoked alcohol intake frequency: holidays/special occasions only Exam Initial Vital Signs Initial Vital Signs: Vital Signs Temperature 97.3 F L 12/03/24 12:03 Pulse Rate 71 12/03/24 12:03 Respiratory Rate 18 12/03/24 12:03 Blood Pressure 123/60 12/03/24 12:03 Pulse Oximetry 97 12/03/24 12:03 Oxygen Delivery Method Room Air 12/03/24 12:03 GENERAL: Alert well-appearing 64-year-old and in no acute distress. HEENT: Head atraumatic,EOMI, pupils reactive, face symmetric, moist mucous membranes CARDIOVASCULAR: Regular rate and rhythm without murmurs, rubs or gallops. RESPIRATORY: Breath sounds equal bilaterally, no wheezes rales or rhonchi. ABDOMEN: Soft, nontender. Normoactive bowel sounds all 4 quadrants. No guarding or rebound. EXTREMITIES: Normal range of motion, no clubbing or edema. Neurovascularly intact NEUROLOGICAL: Alert and oriented x4.Normal gait and speech. Cranial nerves II through XII grossly intact. SKIN: Warm, dry, no laceration, no petechiae, no rashes or lesions. Course Orders Ordered: Discontinued Medications Ondansetron HCl (Ondansetron 4 Mg/2 Ml Inj) 4 mg IV NOW PRN PRN Reason: Nausea And Vomiting Last Admin: 12/03/24 17:48 Dose: 4 mg Documented By: JULIANA Ondansetron HCl (Ondansetron 4 Mg Odt) 4 mg SL NOW PRN PRN Reason: Nausea And Vomiting Pantoprazole Sodium (Pantoprazole 40 Mg Vial) 80 mg IV NOW ONE Stop: 12/03/24 16:58 Last Admin: 12/03/24 17:48 Dose: 80 mg Documented By: JULIANA Vital Signs Vital signs: Vital Signs - 8 hr 12/03/24 16:57 12/03/24 17:00 12/03/24 17:00 Temperature Pulse Rate 52 L 51 L Respiratory Rate 16 Blood Pressure 111/69 Pulse Oximetry 99 100 Oxygen Delivery Method 12/03/24 17:30 12/03/24 17:30 12/03/24 18:00 Temperature 98 F Pulse Rate 53 L 52 L Respiratory Rate 19 19 Blood Pressure 110/66 Pulse Oximetry 100 98 Oxygen Delivery Method Room Air Room Air 12/03/24 18:00 12/03/24 18:30 12/03/24 19:00 Temperature Pulse Rate 57 L 57 L Respiratory Rate 18 18 Blood Pressure 114/59 L 97/57 L 108/61 Pulse Oximetry 98 100 Oxygen Delivery Method Room Air Room Air 12/03/24 19:30 12/03/24 20:00 12/03/24 20:15 Temperature Pulse Rate 54 L 55 L 57 L Respiratory Rate 18 16 Blood Pressure 115/61 111/71 Pulse Oximetry 99 97 Oxygen Delivery Method Room Air Room Air MDM - GI Bleed Lab Data 12/03/24 19:52 12/03/24 17:10 Labs: Lab Results 12/03/24 12/03/24 Range/Units 17:10 19:52 WBC 5.5 (4.5-11.0) X10^3/uL RBC 4.53 (4.5-5.9) X10^6/uL Hgb 14.2 13.8 (13.5-17.5) g/dL Hct 42.2 40.6 L (41-53) % MCV 93.0 (80-100) fL MCH 31.3 (26-34) PG MCHC 33.6 (30-36) % RDW 12.7 (11.6-14.8) % Plt Count 232 (150-400) X10^3/uL Neut % (Auto) 60.2 (50-75) % Lymph % (Auto) 25.9 (25-40) % Kleberg % (Auto) 11.6 (3-14) % Eos % (Auto) 1.6 L (2-4) % Baso % (Auto) 0.7 (0-2) % Neut # (Auto) 3300 (1871-8467) /uL Lymph # (Auto) 1400 (5929-4059) /uL Kleberg # (Auto) 600 (0-900) /uL Eos # (Auto) 100 (0-450) /uL Baso # (Auto) 0 (0-100) /uL PT 12.1 (9.4-12.5) SECONDS INR 1.1 (0.9-1.3) APTT 34 (25.1-36.5) SECONDS Sodium 136 L (137-145) mmol/L Potassium 4.0 (3.4-5.1) mmol/L Chloride 100 (98-107) mmol/L Carbon Dioxide 30 (22-32) mmol/L BUN 15 (9-20) mg/dL Creatinine 0.87 (0.66-1.25) mg/dL Estimated GFR > 60 (>60) mL/min BUN/Creatinine Ratio 17.2 (6-22) Glucose 93 (80-110) mg/dL Calcium 9.5 (8.4-10.2) mg/dL Total Bilirubin 0.7 (0.2-1.3) mg/dL AST 27 (17-59) IU/L ALT 22 (<50) IU/L Alkaline Phosphatase 63 (38-126) U/L Total Protein 7.5 (6.3-8.2) g/dL Albumin 4.3 (3.5-5.0) g/dL Globulin 3.2 (1.7-4.1) g/dL Albumin/Globulin Ratio 1.3 (1.0-2.8) Lipase 46 (23-300) U/L Blood Type O Positive Antibody Screen Negative Urine Dip Bedside Urine Glucose Negative Bedside Urine Bilirubin - Negative Bedside Urine Ketone - Negative Urine Specific Sparks 1.010 Bedside Urine Occult Blood - Negative Bedside Urine pH 6 Bedside Urine Protein - Negative Bedside Urine Urobilinogen - Negative Bedside Urine Nitrite - Negative Bedside Urine Leukocytes - Negative Esterase ECG Data Attestation: I personally reviewed and interpreted this ECG as follows: Prior ECG tracings: available for review Interpretation: Normal sinus rhythm see 6 QRS [address] changes similar to previous EKGs in 2020 MDM Narrative Medical decision making narrative: Patient left the emergency department initially prior to evaluation however he came back was very apologetic. He is hungry he wants to leave. Abdomen is soft nontender. He is awake alert appropriate. Blood work is overall reassuring he has stable hemoglobin no significant drop. He was shown me a picture of the blood-soaked toilet paper. There is no significant blood clots or toilet bowl filled. He has had ongoing rectal waiting for awhile. He was hemodynamically stable. At this time recommend outpatient colonoscopy. Abdomen is soft nontender I see no need for imaging. Discharge Plan Departure Patient Disposition: Home Clinical Impression: RB (rectal bleeding) Instructions: Gastrointestinal Bleeding Activity Restrictions/Additional Instructions: *You have been diagnosed with rectal bleeding *What to do: At this time I recommend outpatient colonoscopy. Bleeding should slow down however if it worsens you must return to the ED *Continue to take medications as directed Avoid aspirin ibuprofen NSAIDs Okay to take Tylenol if needed *Follow up with your primary care provider in 2-3 days or call [phone] *Return to ER if you should have increasing rectal bleeding pain dizziness lightheadedness passing out or any new, worsening or concerning symptoms Referrals: Zeinab Espinoza ARNP [Primary Care Provider] - Stand Alone Forms: Patient Portal/API/Survey
--- NOTE | 2024-12-03 21:21 | PC.NURSE ---
1900 asking to leave 190 Patient completed AMA paperwork, RAC #18 Ga PIV removed by RN Suzi Garcia, patient ambulated out of department independently steady gate left after 4 hours after waiting 5 hours in lobby 191 called and spoke to [facility] that we discharged patient with IV in place, [facility] stated if he would come back in we could remove IV. Patient returned to ER room 7 asking to be seen by MD, No iv in place in RAC, PIV removed with AMA paperwork completion. 1917 Physician remains on phone explanation provided to patient by nursing staff that provider was currently with patient and could not come in room at current time.
--- NOTE | 2024-12-03 21:24 | PC.NURSE ---
2114 Pts Spouse called back to ED from red phone to let ED know that Pt left with his IV in and the Dr refused to see Pt. This Tech informed Spouse that Pt should not have left with IV in and Pt is to come back to dept to have it removed. Tech informed pts spouse that the Dr is trying to get through Pts as fast as possible. Spouse Stated that Why are you not watching my ? you should not have let him leave. Tech went out to red phone but, Spouse had left. Pt did return to the Dept a couple of minutes later to have IV taken out. @ 1904 JAKE Garcia had already taken out the IV prior to Pt leaving. When Pt returned to the Dept he said the Dr was supposed to see him now. RN and Provider aware of interaction
--- NOTE | 2024-12-03 21:33 | PC.NURSE ---
192 Provider in with patient 1932 Patient apologized to staff for losing patientce Provider completing dc papers.
== END 2024-12-03 21:39 | disposition home or self-care (01) ==
PROVIDERS: Emergency Medicine; Emergency Provider Emergency Medicine; Family Provider Nurse Practitioner Family; PCP Nurse Practitioner Family
DX: K62.5 Hemorrhage of anus and rectum (principal)
CPT/HCPCS: 36415; 80053; 81003; 83690; 85014; 85018; 85025; 85610; 85730; 86850; 86900; 86901; 93005; 96374; 96375; 99284; J2405; J2470

== ENCOUNTER → 2025-01-28 15:14 | Outpatient (CLI) | payer MEDICARE, OTHER, SELFPAY ==
--- NOTE | 2025-01-28 15:19 | DI.MRI.S_ITS ---
PROCEDURE: MR WRIST RT WO CON INDICATIONS: CHRONIC RT SHOULDER PAIN AND RT WRIST TECHNIQUE: Noncontrast coronal proton density fast spin echo and T2 fast spin echo with fat saturation; coronal 3-D gradient echo, axial T1 spin echo and T2 fast spin echo with fat saturation, sagittal T1 spin echo through the wrist. COMPARISON: None. FINDINGS: Image quality: Excellent. Bones and cartilage: Mild degenerative changes of the 1st carpometacarpal joint, with mild marrow edema at the 1st metacarpal base. Additional multilevel mild subchondral marrow edema in the carpal bones and the base of the metacarpals, favoring degenerative. There is moderate subchondral marrow edema in the proximal, ulnar aspect of the lunate, concerning for ulnar impingement syndrome. Mild marrow edema the ulnar styloid, nonspecific and may be reactive. No acute fracture. Carpal ligaments: The scapholunate and lunotriquetral ligaments appear intact. In the absence of intra-articular contrast, the extrinsic carpal ligaments are not well identified. On sagittal images, the pisohamate ligament appears intact. Triangular fibrocartilage complex: Low-grade undersurface tear of the central disc. No full-thickness tear. Ulnar negative variance. Tendons and soft tissues: The carpal tunnel structures appear normal, including the median nerve. The ulnar nerve appears normal within Guyon's canal. Ulnar subluxation within the ulnar groove. There is high-grade tear of the extensor carpi ulnaris at the level of the ulnar styloid. Moderate tenosynovitis of the extensor carpi ulnaris at the level of the distal carpal row. 1.1 cm ganglion cyst volar to the radial styloid (4:8). IMPRESSION: 1. Mild degenerative changes in the wrist. 2. Ulnar negative variance. Marrow edema in the lunate, raising concern for ulnar impingement syndrome. 3. Low-grade tear of the central disc of the triangular fibrocartilage. 4. High-grade tear of the extensor carpi ulnaris with ulnar subluxation and moderate tenosynovitis. 5. 1.1 cm ganglion cyst volar to the radial styloid. Dictated by: Mony Vaughn M.D. on 01/28/2025 at 17:32 Approved by: Mony Vaughn M.D. on 01/28/2025 at 17:44
--- NOTE | 2025-01-28 15:19 | DI.MRI.S_ITS ---
PROCEDURE: MR SHOULDER RT WO CON INDICATIONS: CHRONIC RT SHOULDER PAIN AND RT WRIST TECHNIQUE: Noncontrast oblique coronal T2 fast spin echo with fat saturation, oblique sagittal T1 spin echo and T2 fast spin echo with fat saturation, axial T1 spin echo and T2 fast spin echo with fat saturation through the shoulder. COMPARISON: None. FINDINGS: Image quality: Excellent. Rotator cuff: In the supraspinatus, there is full-thickness, full width tear of the supraspinatus, extending to a high-grade articular sided tear in the footprint and critical zone of the anterior infraspinatus. No significant tendon retraction of the supraspinatus. Moderate tendinosis of the infraspinatus. The teres minor is unremarkable. Mild tendinosis of the subscapularis, without tear. Mild atrophy of the supraspinatus. No muscle edema. Bones and bursae: Severe degenerative changes of the acromioclavicular joint. Type 2 acromion. No os acromiale. Mild subacromial/subdeltoid bursitis. Multifocal mild subchondral cystic changes at the greater and lesser tuberosity, reactive. No acute fracture. No focal chondral defect of the glenohumeral articulation. Capsule and soft tissues: Circumferential labral tear. No paralabral cyst. Mild tenosynovitis of the extra-articular biceps tendon. Mild tendinosis of the intra-articular biceps tendon. Small glenohumeral effusion. Mild subcoracoid bursitis. No intra-articular body. IMPRESSION: 1. Full-thickness, full width tear of the supraspinatus, extending to a high-grade tear at the anterior infraspinatus. 2. Severe degenerative changes of the acromioclavicular joint. 3. Circumferential labral tear. 4. Mild tenosynovitis of the extra-articular biceps tendon. Dictated by: Mony Vaughn M.D. on 01/28/2025 at 17:44 Approved by: Mony Vaughn M.D. on 01/28/2025 at 17:51
== END ==
PROVIDERS: Family Provider Nurse Practitioner Family; PCP Nurse Practitioner Family; Referring Provider Nurse Practitioner Family; Visit Provider Nurse Practitioner Family
DX: M75.121 Complete rotator cuff tear or rupture of right shoulder, not specified as traumatic (principal); S63.501A Unspecified sprain of right wrist, initial encounter; M67.431 Ganglion, right wrist; M65.931 Unspecified synovitis and tenosynovitis, right forearm; S43.491A Other sprain of right shoulder joint, initial encounter; M65.911 Unspecified synovitis and tenosynovitis, right shoulder; M25.511 Pain in right shoulder; M25.531 Pain in right wrist; G89.29 Other chronic pain
CPT/HCPCS: 73221

== ENCOUNTER 2025-01-30 11:30 | Outpatient (RCR) | payer MEDICARE, OTHER, SELFPAY ==
--- NOTE | 2024-10-09 12:37 | PT.OIE ---
Current Diagnoses Other chronic pain (10/09/24) Pain in right shoulder (10/09/24) Pain in right wrist (10/09/24) Visit Care Team Role Provider Type STELLA Frey Attending Provider Non-Staff Family Provider Primary Care Provider Referring Provider Specialty: Medical Address: [address] [place] [address], [id number] Email: Physical Therapy Initial Evaluation PT-OP-A Visit Information Start: 10/03/24 16:44 Freq: Status: Active Protocol: Document 10/09/24 07:33 [facility] (Rec: 10/09/24 08:22 [facility] [id number]) Out-Patient Physical Therapy Visit Information Visit Information Visit Type Initial Evaluation Visit Start Time 07:35 Visit Stop Time 08:15 Visit Number 1 (11/02 IE) 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 Hx R 2nd digit reconstruction after granade incident. pain hasn't gotten better since this incident and sleeping is difficult. Sees DO in [place]. Prior Treatments and Tests cervical MRI IMPRESSION: Multilevel degenerative disc disease and arthropathy results in severe left and moderate right foraminal stenosis at C3 -4 Xray wrist: IMPRESSION: Mild degenerative changes. PT-OP-C Subjective Start: 10/03/24 16:44 Freq: Status: Active Protocol: Document 10/09/24 07:33 [facility] (Rec: 10/09/24 08:22 [facility] [id number]) Patient Questionnaires Quick Dash- Upper Extremity Quick Dash UE Score 70.5 OP-PT Pain Assessment Location R wrist Pain Location Details post med wrist Description- Other feels weak Other Pain Aggravating Factors moving wrist around, handshake weak R shoulder Pain Location Details lat shoulder R Description With Movement Pain Aggravating Factors ADL's Other Pain Aggravating Factors reaching overhead and to side, sleeping (laying any position ), get dressed Other Pain Alleviating Factors sit w/pillow under PT-OP-J Posture/Palpation/Skin Start: 10/03/24 16:44 Freq: Status: Active Protocol: Document 10/09/24 07:33 [facility] (Rec: 10/09/24 12:37 [facility] [id number]) Posture Evaluation Comments Posture Comments R shoulder elevated, ant tipped, inc kyphosis sand fwd head; elevated 1st rib PT-OP-K Range of Motion Start: 10/03/24 16:44 Freq: Status: Active Protocol: Document 10/09/24 07:33 [facility] (Rec: 10/09/24 08:22 [facility] [id number]) Cervical Spine Range of Motion Cervical Spine Active Degrees Flexion 54 Extension 32 Rotation Left 58 Rotation Right 49 Lateral Flexion Left 22 Lateral Flexion Right 20 Shoulder Goniometric Range of Motion Shoulder Right Active Flexion 144 Extension 52 Abduction 165 External Rotation at 0 degrees Abduction 52 Internal Rotation Behind Back (text) T12 Comments pain abd, flex Left Active Flexion 148 Extension 51 Abduction 178 External Rotation at 0 degrees Abduction 70 Internal Rotation Behind Back (text) T9 Wrist Goniometric Range of Motion Wrist Right Flexion Active (degrees) 54 Extension Active (degrees) 43 Ulnar Deviation Active (degrees) 20 Radial Deviation Active (degrees) 12 Left Flexion Active (degrees) 55 Extension Active (degrees) 54 Ulnar Deviation Active (degrees) 35 Radial Deviation Active (degrees) 19 ROM Limitations Comments pain flex and ulnar deviation PT-OP-L Special Tests Start: 10/03/24 16:44 Freq: Status: Active Protocol: Document 10/09/24 07:33 [facility] (Rec: 10/09/24 08:22 [facility] [id number]) Special Tests Shoulder Special Tests Neer Impingement Comments neg [place] Impingement Comments positive Empty Can Comments positive AC Joint Compression Test Results neg obriens Comments worse than speeds Speeds Comments positive but obriens worse Neural Special Tests- Upper Body Radial Nerve Tension Comments positive Median Nerve Tension Comments neg Ulnar Nerve Tension Comments neg PT-OP-M Strength Start: 10/03/24 16:44 Freq: Status: Active Protocol: Document 10/09/24 07:33 [facility] (Rec: 10/09/24 08:22 [facility] [id number]) Shoulder Strength Shoulder Manual Muscle Testing Right Flexion 3+ Fair+ Extension 4+ Good+ Abduction (C5) 3 Fair External Rotation 3+ Fair+ Internal Rotation 4- Good- Comments pain Left Flexion 5 Normal Extension 5 Normal Abduction (C5) 4+ Good+ External Rotation 4 Good Internal Rotation 4+ Good+ Elbow/Forearm Strength Elbow and Forearm Manual Muscle Testing Right Flexion (C6) 5 Normal Extension (C7) 5 Normal Pronation 4 Good Supination 3+ Fair+ Comments pain w/supination Left Flexion (C6) 5 Normal Extension (C7) 5 Normal Pronation 5 Normal Supination 5 Normal Wrist Strength Wrist Manual Muscle Testing Right Flexion (C7) 4 Good Ulnar Deviation 3+ Fair+ Radial Deviation 4 Good Left Flexion (C7) 5 Normal Extension (C6) 5 Normal Ulnar Deviation 5 Normal Radial Deviation 5 Normal PT-OP-Q Treatments Start: 10/03/24 16:44 Freq: Status: Active Protocol: Document 10/09/24 07:33 [facility] (Rec: 10/09/24 12:37 [facility] [id number]) Self-Care/Home Management Treatment Education Other Education 10 min: edu for options for OMT locally and discussed pt nerve tension concerns meaning neckmay be involed. Edu on findings and disucssed possible injury to part of RC. plan for PT for 4 weeks and if not progressing refer to ortho PT-OP-T Assessment and Plan Start: 10/03/24 16:44 Freq: Status: Active Protocol: Document 10/09/24 07:33 [facility] (Rec: 10/09/24 08:22 [facility] [id number]) Physical Therapy Assessment Rehab Potential Rehabilitation Potential Good Evaluation Complexity Number of Personal Factors/Comorbidities 3 or More Number of Body Systems Impaired 4 or More Clinical Presentation at Evaluation Evolving Impairments Impairments Functional Activities, Functional Mobility,Gait,Pain, Posture,ROM,Soft Tissue Mobility,Strength Goals activities Short Term Goal (STG) Pt will be able to sleep w/o distruption d/t R shoulder or wrist pain. STG Duration 11/07 Senior Care Goal (LTG) Pt will be able do all reaching and house work and dressing w/o inc pain in R wrist or shoulder LTG Duration 12/18 strength Short Term Goal (STG) Pt will be indep w/HEP STG Duration 11/12 Senior Care Goal (LTG) Pt will score at least 4+/5 on all BUE MMT and at least 4/5 on EFT to ila improved stability and dec pain LTG Duration 12/18 Quick dash Short Term Goal (STG) Pt will improve quick dash score to no greater than 45 to show improved functional ability. STG Duration 11/07/24 Senior Care Goal (LTG) Pt will improve quick dash score to no greater than 7 to show improved functional ability. LTG Duration 12/18/24 Assessment Summary Assessment Pt presents w/R shoulder and wrist pain after a fall stepping over a toy when mowing in June. Xray showed mild arthritis is both joints, but no fx. He is cont to have pain that limits ADLs and causes pain w/sleeping and sometimes just resting w/o support, limiting his activity . He appears positive for radial n tension and impingement/possible supraspinatus injury based on special tests. His cervical degeneration likely is related to pain along w/posture and stability. Pt would benefit from skilled PT to address deficits to improve mobility. Physical Therapy Plan Frequency and Duration Frequency of Treatment 2x/Week Duration of treatment (weeks) 10 Plan of Care Start Date 10/09/24 Plan of Care End Date 12/18/24 Therapeutic Interventions Therapeutic Interventions Coordination Training,Home Exercise Program,Joint Mobilizations,Manual Therapy, Neuromuscular Re-education, Patient/Caregiver Education, Self-Care/Home Management,Soft Tissue Mobilization,Taping, Therapeutic Activities, Therapeutic Exercises Modalities Cold Pack/Ice Massage,Electric Stimulation,Hot Packs, Infrared Therapy,Ultrasound Next Visit Focus/Plan Next Note Type Treatment Note Next Visit Plan Next PT visit: arterial screen & ligamentous screen cervical HEP: chin tucks, rows, ER resisted, UT stretch /rib rib self mob, self roll out scap region ball manual: radial n pathway, scap , AC, SC, ribs, thoracic, cervical mobility (STM & jts)
--- NOTE | 2024-10-09 12:38 | PT.OPPOC ---
Physical, Occupational & Speech Therapy At [facility] Current Diagnoses Other chronic pain (10/09/24) Pain in right shoulder (10/09/24) Pain in right wrist (10/09/24) Visit Care Team Role Provider Type STELLA Frey Attending Provider Non-Staff Family Provider Primary Care Provider Referring Provider Specialty: Medical Address: [address] [place] [address], [place], [address] Email: Plan Of Care PT-OP-B Current Condition Start: 10/03/24 16:44 Freq: Status: Active Protocol: Document 10/09/24 07:33 [facility] (Rec: 10/09/24 08:22 [facility] [id number]) Current Condition History of Current Condition Onset Date Jun 2024 Current Complaints R shoudler and wrist pain History of Current Condition Pt L knee buckled and fell onto R shoudler and wrist and started having pain in those started being painful. Hx R 2nd digit reconstruction after granade incident. pain hasn't gotten better since this incident and sleeping is difficult. Sees DO in [place]. Prior Treatments and Tests cervical MRI IMPRESSION: Multilevel degenerative disc disease and arthropathy results in severe left and moderate right foraminal stenosis at C3 -4 Xray wrist: IMPRESSION: Mild degenerative changes. PT-OP-T Assessment and Plan Start: 10/03/24 16:44 Freq: Status: Active Protocol: Document 10/09/24 07:33 [facility] (Rec: 10/09/24 08:22 [facility] [id number]) Physical Therapy Assessment Rehab Potential Rehabilitation Potential Good Evaluation Complexity Number of Personal Factors/Comorbidities 3 or More Number of Body Systems Impaired 4 or More Clinical Presentation at Evaluation Evolving Impairments Impairments Functional Activities, Functional Mobility,Gait,Pain, Posture,ROM,Soft Tissue Mobility,Strength Goals activities Short Term Goal (STG) Pt will be able to sleep w/o distruption d/t R shoulder or wrist pain. STG Duration 1 Care Home Goal (LTG) Pt will be able do all reaching and house work and dressing w/o inc pain in R wrist or shoulder LTG Duration 12/18 strength Short Term Goal (STG) Pt will be indep w/HEP STG Duration 1 Care Home Goal (LTG) Pt will score at least 4+/5 on all BUE MMT and at least 4/5 on EFT to ila improved stability and dec pain LTG Duration 12/18 Quick dash Short Term Goal (STG) Pt will improve quick dash score to no greater than 45 to show improved functional ability. STG Duration 11/07/24 Teacher Assistant Goal (LTG) Pt will improve quick dash score to no greater than 7 to show improved functional ability. LTG Duration 12/18/24 Assessment Summary Assessment Pt presents w/R shoulder and wrist pain after a fall stepping over a toy when mowing in June. Xray showed mild arthritis is both joints, but no fx. He is cont to have pain that limits ADLs and causes pain w/sleeping and sometimes just resting w/o support, limiting his activity . He appears positive for radial n tension and impingement/possible supraspinatus injury based on special tests. His cervical degeneration likely is related to pain along w/posture and stability. Pt would benefit from skilled PT to address deficits to improve mobility. Physical Therapy Plan Frequency and Duration Frequency of Treatment 2x/Week Duration of treatment (weeks) 10 Plan of Care Start Date 10/09/24 Plan of Care End Date 12/18/24 Therapeutic Interventions Therapeutic Interventions Coordination Training,Home Exercise Program,Joint Mobilizations,Manual Therapy, Neuromuscular Re-education, Patient/Caregiver Education, Self-Care/Home Management,Soft Tissue Mobilization,Taping, Therapeutic Activities, Therapeutic Exercises Modalities Cold Pack/Ice Massage,Electric Stimulation,Hot Packs, Infrared Therapy,Ultrasound Next Visit Focus/Plan Next Note Type Treatment Note Next Visit Plan Next PT visit: arterial screen & ligamentous screen cervical HEP: chin tucks, rows, ER resisted, UT stretch /rib rib self mob, self roll out scap region ball manual: radial n pathway, scap , AC, SC, ribs, thoracic, cervical mobility (STM & jts) Plan of Care Dates Plan of Care Start Date 10/09/24 Plan of Care End Date 12/18/24 Electronically Signed by: Lety Pierre, PT 10/09/24 [id number] If you are in agreement with this Plan of Care, please return a signed and dated copy. I have reviewed this Plan of Care and certify that the skilled therapy services above are required to meet the patient?s needs. Physician Signature Date Printed Name and Credentials Clinical Instructor Signature Printed Name and Credentials
--- NOTE | 2024-10-11 12:21 | PT.OTN ---
Current Diagnoses Other chronic pain (10/11/24) Pain in right shoulder (10/11/24) Pain in right wrist (10/11/24) Physical Therapy Treatment Note PT-OP-A Visit Information Start: 10/03/24 16:44 Freq: Status: Active Protocol: Document 10/11/24 08:16 [facility] (Rec: 10/11/24 12:21 [facility] [id number]) Out-Patient Physical Therapy Visit Information Visit Information Visit Type Treatment Note Visit Start Time 08:17 Visit Stop Time 09:02 Visit Number 2 (12/03 IE) Number of SQUASH CENTRE MANAGER Visits 0 PT-OP-B Current Condition Start: 10/03/24 16:44 Freq: Status: Active Protocol: Document 10/09/24 07:33 [facility] (Rec: 10/09/24 08:22 [facility] [id number]) Current Condition History of Current Condition Onset Date Jun 2024 Current Complaints R shoudler and wrist pain History of Current Condition Pt L knee buckled and fell onto R shoudler and wrist and started having pain in those started being painful. Hx R 2nd digit reconstruction after granade incident. pain hasn't gotten better since this incident and sleeping is difficult. Sees DO in [place]. Prior Treatments and Tests cervical MRI IMPRESSION: Multilevel degenerative disc disease and arthropathy results in severe left and moderate right foraminal stenosis at C3 -4 Xray wrist: IMPRESSION: Mild degenerative changes. PT-OP-C Subjective Start: 10/03/24 16:44 Freq: Status: Active Protocol: Document 10/11/24 08:16 [facility] (Rec: 10/11/24 12:21 [facility] [id number]) OP-PT Subjective Patient Comments Patient Comments Pt reports difficulty sleeping after last session PT-OP-J Posture/Palpation/Skin Start: 10/03/24 16:44 Freq: Status: Active Protocol: Document 10/09/24 07:33 [facility] (Rec: 10/09/24 12:37 [facility] [id number]) Posture Evaluation Comments Posture Comments R shoulder elevated, ant tipped, inc kyphosis sand fwd head; elevated 1st rib PT-OP-K Range of Motion Start: 10/03/24 16:44 Freq: Status: Active Protocol: Document 10/09/24 07:33 [facility] (Rec: 10/09/24 08:22 [facility] [id number]) Cervical Spine Range of Motion Cervical Spine Active Degrees Flexion 54 Extension 32 Rotation Left 58 Rotation Right 49 Lateral Flexion Left 22 Lateral Flexion Right 20 Shoulder Goniometric Range of Motion Shoulder Right Active Flexion 144 Extension 52 Abduction 165 External Rotation at 0 degrees Abduction 52 Internal Rotation Behind Back (text) T12 Comments pain abd, flex Left Active Flexion 148 Extension 51 Abduction 178 External Rotation at 0 degrees Abduction 70 Internal Rotation Behind Back (text) T9 Wrist Goniometric Range of Motion Wrist Right Flexion Active (degrees) 54 Extension Active (degrees) 43 Ulnar Deviation Active (degrees) 20 Radial Deviation Active (degrees) 12 Left Flexion Active (degrees) 55 Extension Active (degrees) 54 Ulnar Deviation Active (degrees) 35 Radial Deviation Active (degrees) 19 ROM Limitations Comments pain flex and ulnar deviation PT-OP-L Special Tests Start: 10/03/24 16:44 Freq: Status: Active Protocol: Document 10/11/24 08:16 [facility] (Rec: 10/11/24 12:21 [facility] [id number]) Special Tests Cervical Spine Special Tests tectoral membrane Test Results neg Vertebral Artery Test Results BP 112/60; HR 71; O2 95 Comments neg positional screen, Ausciltation of heart and carotid wNL Transverse Ligament Test Results neg Alar Ligament Test Results neg PT-OP-M Strength Start: 10/03/24 16:44 Freq: Status: Active Protocol: Document 10/09/24 07:33 [facility] (Rec: 10/09/24 08:22 [facility] [id number]) Shoulder Strength Shoulder Manual Muscle Testing Right Flexion 3+ Fair+ Extension 4+ Good+ Abduction (C5) 3 Fair External Rotation 3+ Fair+ Internal Rotation 4- Good- Comments pain Left Flexion 5 Normal Extension 5 Normal Abduction (C5) 4+ Good+ External Rotation 4 Good Internal Rotation 4+ Good+ Elbow/Forearm Strength Elbow and Forearm Manual Muscle Testing Right Flexion (C6) 5 Normal Extension (C7) 5 Normal Pronation 4 Good Supination 3+ Fair+ Comments pain w/supination Left Flexion (C6) 5 Normal Extension (C7) 5 Normal Pronation 5 Normal Supination 5 Normal Wrist Strength Wrist Manual Muscle Testing Right Flexion (C7) 4 Good Ulnar Deviation 3+ Fair+ Radial Deviation 4 Good Left Flexion (C7) 5 Normal Extension (C6) 5 Normal Ulnar Deviation 5 Normal Radial Deviation 5 Normal PT-OP-Q Treatments Start: 10/03/24 16:44 Freq: Status: Active Protocol: Document 10/11/24 08:16 [facility] (Rec: 10/11/24 12:21 [facility] [id number]) Therapeutic Exercises Sitting Exercises chin tucks Equipment Used lvl 1 Reps/Minutes 15 Standing Exercises self release Standing Exercise Name tennis ball to R scap region Reps/Minutes 2 min Rows Side bilateral Equipment Used lovelock Reps/Minutes 15 Comments cues no UT engagement ER Side right Equipment Used lvl 1 w/rolled towel at side Reps/Minutes 15 Comments attempted double arm but painful so SL ok Manual Therapy Treatment Consent Patient gave verbal consent for manual Yes treatment Soft Tissue Mobilization superior Body Location R scalenes, UT Mobilization Type Rolling Intensity/Depth Moderate Body Position Sidelying post Body Location R lat Mobilization Type Rolling,Sustained Pressure Intensity/Depth Moderate Body Position Sidelying Comments wscap pattern forearm Comments R w/MFR circumfrential, wrist extensors Joint Mobilizations thoracic Body Position Sidelying Comments UPA R T6 w/scap movement AC Joint clavicle ant c/r Body Position Sidelying wrist Grade II Comments 1. trapezium lat c/r 2. AP c/r distal row PT-OP-T Assessment and Plan Start: 10/03/24 16:44 Freq: Status: Active Protocol: Document 10/11/24 08:16 [facility] (Rec: 10/11/24 12:21 [facility] [id number]) Physical Therapy Assessment Goals activities Short Term Goal (STG) Pt will be able to sleep w/o distruption d/t R shoulder or wrist pain. STG Duration 11/07 Optoelectronic Technician Goal (LTG) Pt will be able do all reaching and house work and dressing w/o inc pain in R wrist or shoulder LTG Duration 12/18 strength Short Term Goal (STG) Pt will be indep w/HEP STG Duration 11/12 Optoelectronic Technician Goal (LTG) Pt will score at least 4+/5 on all BUE MMT and at least 4/5 on EFT to ila improved stability and dec pain LTG Duration 12/18 Quick dash Short Term Goal (STG) Pt will improve quick dash score to no greater than 45 to show improved functional ability. STG Duration 11/07/24 Optoelectronic Technician Goal (LTG) Pt will improve quick dash score to no greater than 7 to show improved functional ability. LTG Duration 12/18/24 Assessment Summary Assessment Pt did well with exercsies w/o pain except ER until did 1 arm at a time and w/towel under arm. He had stiffness in thoracic spine and improved scap mobility after manual and improved wrist movement. Physical Therapy Plan Frequency and Duration Frequency of Treatment 2x/Week Duration of treatment (weeks) 10 Plan of Care Start Date 10/09/24 Plan of Care End Date 12/18/24 Next Visit Focus/Plan Next Note Type Treatment Note Next Visit Plan review exercises; add UT stretch, radial n glide manual: radial n pathway, scap , AC, SC, ribs, thoracic, cervical mobility (STM & jts) & GHJ
--- NOTE | 2024-10-15 09:48 | PT.OTN ---
Current Diagnoses Other chronic pain (10/15/24) Pain in right shoulder (10/15/24) Pain in right wrist (10/15/24) Physical Therapy Treatment Note PT-OP-A Visit Information Start: 10/03/24 16:44 Freq: Status: Active Protocol: Document 10/15/24 09:02 [facility] (Rec: 10/15/24 09:53 [facility] [id number]) Out-Patient Physical Therapy Visit Information Visit Information Visit Type Treatment Note Visit Start Time 09:02 Visit Stop Time 09:48 Visit Number 3 (12/31 IE) Number of NOVELTY CANDY MAKER Visits 1 PT-OP-B Current Condition Start: 10/03/24 16:44 Freq: Status: Active Protocol: Document 10/09/24 07:33 [facility] (Rec: 10/09/24 08:22 [facility] [id number]) Current Condition History of Current Condition Onset Date Jun 2024 Current Complaints R shoudler and wrist pain History of Current Condition Pt L knee buckled and fell onto R shoudler and wrist and started having pain in those started being painful. Hx R 2nd digit reconstruction after granade incident. pain hasn't gotten better since this incident and sleeping is difficult. Sees DO in [place]. Prior Treatments and Tests cervical MRI IMPRESSION: Multilevel degenerative disc disease and arthropathy results in severe left and moderate right foraminal stenosis at C3 -4 Xray wrist: IMPRESSION: Mild degenerative changes. PT-OP-C Subjective Start: 10/03/24 16:44 Freq: Status: Active Protocol: Document 10/15/24 09:02 [facility] (Rec: 10/15/24 09:53 [facility] [id number]) OP-PT Subjective Patient Comments Patient Comments Pt reports felt pretty good afer last appt. Coming in stiff in neck today. Is compliant with TB exercises reported anchored in door. PT-OP-J Posture/Palpation/Skin Start: 10/03/24 16:44 Freq: Status: Active Protocol: Document 10/09/24 07:33 [facility] (Rec: 10/09/24 12:37 [facility] [id number]) Posture Evaluation Comments Posture Comments R shoulder elevated, ant tipped, inc kyphosis sand fwd head; elevated 1st rib PT-OP-K Range of Motion Start: 10/03/24 16:44 Freq: Status: Active Protocol: Document 10/09/24 07:33 [facility] (Rec: 10/09/24 08:22 [facility] [id number]) Cervical Spine Range of Motion Cervical Spine Active Degrees Flexion 54 Extension 32 Rotation Left 58 Rotation Right 49 Lateral Flexion Left 22 Lateral Flexion Right 20 Shoulder Goniometric Range of Motion Shoulder Right Active Flexion 144 Extension 52 Abduction 165 External Rotation at 0 degrees Abduction 52 Internal Rotation Behind Back (text) T12 Comments pain abd, flex Left Active Flexion 148 Extension 51 Abduction 178 External Rotation at 0 degrees Abduction 70 Internal Rotation Behind Back (text) T9 Wrist Goniometric Range of Motion Wrist Right Flexion Active (degrees) 54 Extension Active (degrees) 43 Ulnar Deviation Active (degrees) 20 Radial Deviation Active (degrees) 12 Left Flexion Active (degrees) 55 Extension Active (degrees) 54 Ulnar Deviation Active (degrees) 35 Radial Deviation Active (degrees) 19 ROM Limitations Comments pain flex and ulnar deviation PT-OP-L Special Tests Start: 10/03/24 16:44 Freq: Status: Active Protocol: Document 10/11/24 08:16 [facility] (Rec: 10/11/24 12:21 [facility] [id number]) Special Tests Cervical Spine Special Tests tectoral membrane Test Results neg Vertebral Artery Test Results BP 112/60; HR 71; O2 95 Comments neg positional screen, Ausciltation of heart and carotid wNL Transverse Ligament Test Results neg Alar Ligament Test Results neg PT-OP-M Strength Start: 10/03/24 16:44 Freq: Status: Active Protocol: Document 10/09/24 07:33 [facility] (Rec: 10/09/24 08:22 [facility] [id number]) Shoulder Strength Shoulder Manual Muscle Testing Right Flexion 3+ Fair+ Extension 4+ Good+ Abduction (C5) 3 Fair External Rotation 3+ Fair+ Internal Rotation 4- Good- Comments pain Left Flexion 5 Normal Extension 5 Normal Abduction (C5) 4+ Good+ External Rotation 4 Good Internal Rotation 4+ Good+ Elbow/Forearm Strength Elbow and Forearm Manual Muscle Testing Right Flexion (C6) 5 Normal Extension (C7) 5 Normal Pronation 4 Good Supination 3+ Fair+ Comments pain w/supination Left Flexion (C6) 5 Normal Extension (C7) 5 Normal Pronation 5 Normal Supination 5 Normal Wrist Strength Wrist Manual Muscle Testing Right Flexion (C7) 4 Good Ulnar Deviation 3+ Fair+ Radial Deviation 4 Good Left Flexion (C7) 5 Normal Extension (C6) 5 Normal Ulnar Deviation 5 Normal Radial Deviation 5 Normal PT-OP-Q Treatments Start: 10/03/24 16:44 Freq: Status: Active Protocol: Document 10/15/24 09:02 [facility] (Rec: 10/15/24 09:53 [facility] [id number]) Therapeutic Exercises Sidelying Exercises FF Sidelying Exercise Name trialed with report ABD Sidelying Exercise Name trialed after manual Side right Comments improved post AC jt mob openbook Sidelying Exercise Name added to HEP Side bilateral Reps/Minutes 8 reps each side (mainly R) Comments cued segmental arm, scap, TS rotation, breath end feel for rib mobility Sitting Exercises Neck stretching Sitting Exercise Name added to HEP: UT, LS, SCM/ [place] Side right Reps/Minutes 5 breath hold each Comments cued L hand support light over pressure UT/ LS, clavicle SCM chin tucks Sitting Exercise Name reviewed Equipment Used lvl 1 behind head Reps/Minutes 2 SH x15 Comments cued slow pacing CS retraction /c slight head nod Standing Exercises R wrist TB Standing Exercise Name added to HEP: flexion/ eccentric ext only Side right Resistance TB #1 Equipment Used provided HO Reps/Minutes 10 reps Comments cued scap set/posture Rows Standing Exercise Name reviewed Side bilateral Equipment Used ewiiaapaayp #3 Reps/Minutes 215 Comments cues no UT engagement, scap retraction, open chesst ER Standing Exercise Name reviewed Side right Equipment Used lvl 1 (orange in PT/ light blue home w/rolled towel at side Reps/Minutes 15 Comments cued scap set /c L fac. Manual Therapy Treatment Consent Patient gave verbal consent for manual Yes treatment Soft Tissue Mobilization superior Body Location R scalenes, UT Mobilization Type Rolling Intensity/Depth Moderate Body Position Sidelying post Body Location R lat Mobilization Type Rolling,Sustained Pressure Intensity/Depth Moderate Body Position Sidelying Comments wscap pattern Joint Mobilizations AC Joint clavicle ant c/r Body Position Sidelying PT-OP-T Assessment and Plan Start: 10/03/24 16:44 Freq: Status: Active Protocol: Document 10/15/24 09:02 [facility] (Rec: 10/15/24 09:53 SP [id number]) Physical Therapy Assessment Goals activities Short Term Goal (STG) Pt will be able to sleep w/o distruption d/t R shoulder or wrist pain. STG Duration 11/07 Correction Goal (LTG) Pt will be able do all reaching and house work and dressing w/o inc pain in R wrist or shoulder LTG Duration 12/18 strength Short Term Goal (STG) Pt will be indep w/HEP STG Duration 11/12 Nurse Ortho Goal (LTG) Pt will score at least 4+/5 on all BUE MMT and at least 4/5 on EFT to ila improved stability and dec pain LTG Duration 12/18 Quick dash Short Term Goal (STG) Pt will improve quick dash score to no greater than 45 to show improved functional ability. STG Duration 11/07/24 Correction Goal (LTG) Pt will improve quick dash score to no greater than 7 to show improved functional ability. LTG Duration 12/18/24 Assessment Summary Assessment Pt improved with ther ex no pain reports with good tolerance progression resisted R wrist concentric flexion and eccentric extension added to HEP. Did not tolerate concentric extension due to symptomatic pain. Occasional cues for postural correction during standing ther ex. Tactile cues and addition to HEP segmental HABD (open book) for opening scapular complex and seated neck stretching with good feedback response symptom and painfree. Physical Therapy Plan Frequency and Duration Frequency of Treatment 2x/Week Duration of treatment (weeks) 10 Plan of Care Start Date 10/09/24 Plan of Care End Date 12/18/24 Therapeutic Interventions Therapeutic Interventions Coordination Training,Home Exercise Program,Joint Mobilizations,Manual Therapy, Neuromuscular Re-education, Patient/Caregiver Education, Self-Care/Home Management,Soft Tissue Mobilization,Taping, Therapeutic Activities, Therapeutic Exercises Modalities Cold Pack/Ice Massage,Electric Stimulation,Hot Packs, Infrared Therapy,Ultrasound Next Visit Focus/Plan Next Note Type Treatment Note Next Visit Plan REview open book, wrist TB, added neck stretches. Next : radial n glide manual: radial n pathway, scap , AC, SC, ribs, thoracic, cervical mobility (STM & jts) & GHJ
--- NOTE | 2024-10-18 10:31 | PT.OTN ---
Current Diagnoses Other chronic pain (10/18/24) Pain in right shoulder (10/18/24) Pain in right wrist (10/18/24) Physical Therapy Treatment Note PT-OP-A Visit Information Start: 10/03/24 16:44 Freq: Status: Active Protocol: Document 10/18/24 09:47 SP (Rec: 10/18/24 10:42 SP [id number]) Out-Patient Physical Therapy Visit Information Visit Information Visit Type Treatment Note Visit Start Time 09:53 Visit Stop Time 10:31 Visit Number 4 (01/31 IE) Number of SUPERVISOR ROVING Visits 2 PT-OP-B Current Condition Start: 10/03/24 16:44 Freq: Status: Active Protocol: Document 10/09/24 07:33 [facility] (Rec: 10/09/24 08:22 [facility] [id number]) Current Condition History of Current Condition Onset Date Jun 2024 Current Complaints R shoudler and wrist pain History of Current Condition Pt L knee buckled and fell onto R shoudler and wrist and started having pain in those started being painful. Hx R 2nd digit reconstruction after granade incident. pain hasn't gotten better since this incident and sleeping is difficult. Sees DO in [place]. Prior Treatments and Tests cervical MRI IMPRESSION: Multilevel degenerative disc disease and arthropathy results in severe left and moderate right foraminal stenosis at C3 -4 Xray wrist: IMPRESSION: Mild degenerative changes. PT-OP-C Subjective Start: 10/03/24 16:44 Freq: Status: Active Protocol: Document 10/18/24 09:47 SP (Rec: 10/18/24 10:42 SP [id number]) OP-PT Subjective Patient Comments Patient Comments Pt reports soreness R shld anterolateral. Reports sleeping in L shld tingling 1- 3 and tip 4th finger. 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 PT-OP-J Posture/Palpation/Skin Start: 10/03/24 16:44 Freq: Status: Active Protocol: Document 10/09/24 07:33 [facility] (Rec: 10/09/24 12:37 [facility] [id number]) Posture Evaluation Comments Posture Comments R shoulder elevated, ant tipped, inc kyphosis sand fwd head; elevated 1st rib PT-OP-K Range of Motion Start: 10/03/24 16:44 Freq: Status: Active Protocol: Document 10/09/24 07:33 [facility] (Rec: 10/09/24 08:22 [facility] [id number]) Cervical Spine Range of Motion Cervical Spine Active Degrees Flexion 54 Extension 32 Rotation Left 58 Rotation Right 49 Lateral Flexion Left 22 Lateral Flexion Right 20 Shoulder Goniometric Range of Motion Shoulder Right Active Flexion 144 Extension 52 Abduction 165 External Rotation at 0 degrees Abduction 52 Internal Rotation Behind Back (text) T12 Comments pain abd, flex Left Active Flexion 148 Extension 51 Abduction 178 External Rotation at 0 degrees Abduction 70 Internal Rotation Behind Back (text) T9 Wrist Goniometric Range of Motion Wrist Right Flexion Active (degrees) 54 Extension Active (degrees) 43 Ulnar Deviation Active (degrees) 20 Radial Deviation Active (degrees) 12 Left Flexion Active (degrees) 55 Extension Active (degrees) 54 Ulnar Deviation Active (degrees) 35 Radial Deviation Active (degrees) 19 ROM Limitations Comments pain flex and ulnar deviation PT-OP-L Special Tests Start: 10/03/24 16:44 Freq: Status: Active Protocol: Document 10/11/24 08:16 [facility] (Rec: 10/11/24 12:21 [facility] [id number]) Special Tests Cervical Spine Special Tests tectoral membrane Test Results neg Vertebral Artery Test Results BP 112/60; HR 71; O2 95 Comments neg positional screen, Ausciltation of heart and carotid wNL Transverse Ligament Test Results neg Alar Ligament Test Results neg PT-OP-M Strength Start: 10/03/24 16:44 Freq: Status: Active Protocol: Document 10/09/24 07:33 [facility] (Rec: 10/09/24 08:22 [facility] [id number]) Shoulder Strength Shoulder Manual Muscle Testing Right Flexion 3+ Fair+ Extension 4+ Good+ Abduction (C5) 3 Fair External Rotation 3+ Fair+ Internal Rotation 4- Good- Comments pain Left Flexion 5 Normal Extension 5 Normal Abduction (C5) 4+ Good+ External Rotation 4 Good Internal Rotation 4+ Good+ Elbow/Forearm Strength Elbow and Forearm Manual Muscle Testing Right Flexion (C6) 5 Normal Extension (C7) 5 Normal Pronation 4 Good Supination 3+ Fair+ Comments pain w/supination Left Flexion (C6) 5 Normal Extension (C7) 5 Normal Pronation 5 Normal Supination 5 Normal Wrist Strength Wrist Manual Muscle Testing Right Flexion (C7) 4 Good Ulnar Deviation 3+ Fair+ Radial Deviation 4 Good Left Flexion (C7) 5 Normal Extension (C6) 5 Normal Ulnar Deviation 5 Normal Radial Deviation 5 Normal PT-OP-Q Treatments Start: 10/03/24 16:44 Freq: Status: Active Protocol: Document 10/18/24 09:47 SP (Rec: 10/18/24 10:42 SP [id number]) Therapeutic Exercises Sidelying Exercises ER Sidelying Exercise Name trialed inPT- added to HEP next tx /c HO Side right Resistance AROM Equipment Used towel under arm Reps/Minutes 8 reps Comments tactile cues elbow, humeral glide during AROM FF Sidelying Exercise Name trialed with report pain lateral shld Side right Comments 10/18/24 hold ABD Sidelying Exercise Name trialed after manual Side right Reps/Minutes 10 reps Comments improved post AC jt mob,cued larger arc openbook Sidelying Exercise Name reviewed /c SA press open arc Side right Reps/Minutes 8 reps each side (mainly R) Comments cued segmental arm, scap add& inf glide, TS rotation Standing Exercises R wrist TB Standing Exercise Name reviewed HEP: flexion/ eccentric ext only Side right Resistance TB #2 orange Reps/Minutes 10 reps Comments cued scap set/posture, good response no pain Manual Therapy Treatment Consent Patient gave verbal consent for manual Yes treatment Soft Tissue Mobilization superior Body Location R scalenes, UT Mobilization Type Rolling Intensity/Depth Moderate Body Position L Sidelying post Body Location R lat, SA, Teres Mobilization Type Rolling,Sustained Pressure, Other Intensity/Depth Moderate Body Position L Sidelying Comments w/scap pattern and MWM inferior glide during arc ABD, open book, ER forearm Body Location R extensors Mobilization Type Sustained Pressure,Other Body Position Supine Comments MWM wrist flex/ ext Joint Mobilizations L elbow Joint inferior and lateral Grade II Comments w/ strap wrist flex/ext AC Joint R AC gapping Body Position LSidelying Comments MWM ABD wrist Grade II Comments 1. trapezium lat c/r 2. AP c/r distal row MWM: wrist ext Taping R shld Treatment Focus LT, Rhomboid, proximal humeral support Type of Tape Kinesio Tape Comments AC- A>P UT- distal RTC to Interscap T3 R RHomboid- distal RTC to T6 PT-OP-T Assessment and Plan Start: 10/03/24 16:44 Freq: Status: Active Protocol: Document 10/18/24 09:47 SP (Rec: 10/18/24 10:43 SP [id number]) Physical Therapy Assessment Goals activities Short Term Goal (STG) Pt will be able to sleep w/o distruption d/t R shoulder or wrist pain. STG Duration 11/07 Senior Care Goal (LTG) Pt will be able do all reaching and house work and dressing w/o inc pain in R wrist or shoulder LTG Duration 12/18 strength Short Term Goal (STG) Pt will be indep w/HEP STG Duration 11/12 Gumming Machine Operator Goal (LTG) Pt will score at least 4+/5 on all BUE MMT and at least 4/5 on EFT to ila improved stability and dec pain LTG Duration 12/18 Quick dash Short Term Goal (STG) Pt will improve quick dash score to no greater than 45 to show improved functional ability. STG Duration 11/07/24 Gumming Machine Operator Goal (LTG) Pt will improve quick dash score to no greater than 7 to show improved functional ability. LTG Duration 12/18/24 Assessment Summary Assessment Pt responded well to manual with improvement in wrist ext during MWM elbow distraction. Cues for humeral press ( inferior glide) during ther ex improved ABD with no pain L SL and adducted scapular glide during trial humeral ER. Continues experience weakness during trial L SL R FF and HABD some pain over distal RTC , Discussed hold these as HEP today. Good response Ktaping proximal support to humerus and scapular postural awarneess end tx. Good understanding adverse affect to remove tape but if ok can keep on up to 4 days. Physical Therapy Plan Frequency and Duration Frequency of Treatment 2x/Week Duration of treatment (weeks) 10 Plan of Care Start Date 10/09/24 Plan of Care End Date 12/18/24 Therapeutic Interventions Therapeutic Interventions Coordination Training,Home Exercise Program,Joint Mobilizations,Manual Therapy, Neuromuscular Re-education, Patient/Caregiver Education, Self-Care/Home Management,Soft Tissue Mobilization,Taping, Therapeutic Activities, Therapeutic Exercises Modalities Cold Pack/Ice Massage,Electric Stimulation,Hot Packs, Infrared Therapy,Ultrasound Next Visit Focus/Plan Next Note Type Treatment Note Next Visit Plan REview open book, wrist TB, neck stretches. Ask response to Ktaping R shld. Next : trial prone scapular strengthening, add radial n glide manual: radial n pathway, scap , AC, SC, ribs, thoracic, cervical mobility (STM & jts) & GHJ
--- NOTE | 2024-10-30 09:05 | PT.OTN ---
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 (Rec: 10/09/24 08:22 [facility] [id number]) Current Condition History of Current Condition Onset Date Jun 2024 Current Complaints R shoudler and wrist pain History of Current Condition Pt L knee buckled and fell onto R shoudler and wrist and started having pain in those started being painful. Hx R 2nd digit reconstruction after granade incident. pain hasn't gotten better since this incident and sleeping is difficult. Sees DO in [place]. Prior Treatments and Tests cervical MRI IMPRESSION: Multilevel degenerative disc disease and arthropathy results in severe left and moderate right foraminal stenosis at C3 -4 Xray wrist: IMPRESSION: Mild degenerative changes. PT-OP-C Subjective Start: 10/03/24 16:44 Freq: Status: Active Protocol: Document 10/30/24 08:18 SP (Rec: 10/30/24 09:07 SP [id number]) OP-PT Subjective Patient Comments Patient Comments Pt stated has a new referral for Bilateral knees also through [facility]. The Ktape felt supported with elisa. He reports the band wrist exercises are tough standing, may need to modify them. PT-OP-J Posture/Palpation/Skin Start: 10/03/24 16:44 Freq: Status: Active Protocol: Document 10/09/24 07:33 [facility] (Rec: 10/09/24 12:37 [facility] [id number]) Posture Evaluation Comments Posture Comments R shoulder elevated, ant tipped, inc kyphosis sand fwd head; elevated 1st rib PT-OP-K Range of Motion Start: 10/03/24 16:44 Freq: Status: Active Protocol: Document 10/09/24 07:33 [facility] (Rec: 10/09/24 08:22 [facility] [id number]) Cervical Spine Range of Motion Cervical Spine Active Degrees Flexion 54 Extension 32 Rotation Left 58 Rotation Right 49 Lateral Flexion Left 22 Lateral Flexion Right 20 Shoulder Goniometric Range of Motion Shoulder Right Active Flexion 144 Extension 52 Abduction 165 External Rotation at 0 degrees Abduction 52 Internal Rotation Behind Back (text) T12 Comments pain abd, flex Left Active Flexion 148 Extension 51 Abduction 178 External Rotation at 0 degrees Abduction 70 Internal Rotation Behind Back (text) T9 Wrist Goniometric Range of Motion Wrist Right Flexion Active (degrees) 54 Extension Active (degrees) 43 Ulnar Deviation Active (degrees) 20 Radial Deviation Active (degrees) 12 Left Flexion Active (degrees) 55 Extension Active (degrees) 54 Ulnar Deviation Active (degrees) 35 Radial Deviation Active (degrees) 19 ROM Limitations Comments pain flex and ulnar deviation PT-OP-L Special Tests Start: 10/03/24 16:44 Freq: Status: Active Protocol: Document 10/11/24 08:16 [facility] (Rec: 10/11/24 12:21 [facility] [id number]) Special Tests Cervical Spine Special Tests tectoral membrane Test Results neg Vertebral Artery Test Results BP 112/60; HR 71; O2 95 Comments neg positional screen, Ausciltation of heart and carotid wNL Transverse Ligament Test Results neg Alar Ligament Test Results neg PT-OP-M Strength Start: 10/03/24 16:44 Freq: Status: Active Protocol: Document 10/09/24 07:33 [facility] (Rec: 10/09/24 08:22 [facility] [id number]) Shoulder Strength Shoulder Manual Muscle Testing Right Flexion 3+ Fair+ Extension 4+ Good+ Abduction (C5) 3 Fair External Rotation 3+ Fair+ Internal Rotation 4- Good- Comments pain Left Flexion 5 Normal Extension 5 Normal Abduction (C5) 4+ Good+ External Rotation 4 Good Internal Rotation 4+ Good+ Elbow/Forearm Strength Elbow and Forearm Manual Muscle Testing Right Flexion (C6) 5 Normal Extension (C7) 5 Normal Pronation 4 Good Supination 3+ Fair+ Comments pain w/supination Left Flexion (C6) 5 Normal Extension (C7) 5 Normal Pronation 5 Normal Supination 5 Normal Wrist Strength Wrist Manual Muscle Testing Right Flexion (C7) 4 Good Ulnar Deviation 3+ Fair+ Radial Deviation 4 Good Left Flexion (C7) 5 Normal Extension (C6) 5 Normal Ulnar Deviation 5 Normal Radial Deviation 5 Normal PT-OP-Q Treatments Start: 10/03/24 16:44 Freq: Status: Active Protocol: Document 10/30/24 08:18 SP (Rec: 10/30/24 09:07 SP [id number]) Therapeutic Exercises Prone Exercises AROM Prone Exercise Name R shld:Is, Ys, abd 90 deg /c ER- added HEP /c HOs Side right Resistance AROM Equipment Used towel roll under prox humerus for level surface and support ABD/ER Reps/Minutes 10 each Comments cues rhomboid fac, not tolerated Ts/HABD hold for now . Sidelying Exercises ABD Sidelying Exercise Name after manual Side right Reps/Minutes 10 reps Comments improved post AC jt mob,cued larger arc openbook Sidelying Exercise Name reviewed /c SA press open arc Side right Reps/Minutes 8 reps each side (mainly R) Comments cued segmental arm, scap add& inf glide, TS rotation Standing Exercises R wrist TB Standing Exercise Name Modified HEP to sitting: flex, ext, pron/sup Side right Resistance TB #2 teal vs hammer (2# DB in PT)- TB anchored under foot Reps/Minutes 10 reps each Comments cued pnfree range during pronation with good posture Rows Standing Exercise Name reviewed Side bilateral Equipment Used hughes #3 Reps/Minutes 2x15 Comments cues no UT engagement, scap retraction, open chesst ER Standing Exercise Name reviewed Side right Equipment Used lvl 2-Double arm Reps/Minutes 15 Comments cued scap set /c L fac. Manual Therapy Treatment Consent Patient gave verbal consent for manual Yes treatment Soft Tissue Mobilization superior Body Location R scalenes, UT, SCM, SOR Mobilization Type Rolling Intensity/Depth Moderate Body Position L Sidelying Comments L SL: UT, scalene supine: SCM & SOR post Body Location R lat, SA, Teres Mobilization Type Rolling,Sustained Pressure, Other Intensity/Depth Moderate Body Position L Sidelying Comments w/scap pattern and MWM inferior glide during arc ABD, open book Joint Mobilizations AC Joint R AC gapping Body Position LSidelying Comments MWM ABD- improved no pinching shld PT-OP-T Assessment and Plan Start: 10/03/24 16:44 Freq: Status: Active Protocol: Document 10/30/24 08:18 SP (Rec: 10/30/24 09:07 SP [id number]) Physical Therapy Assessment Goals activities Short Term Goal (STG) Pt will be able to sleep w/o distruption d/t R shoulder or wrist pain. STG Duration 11/07 Consulting Actuary Goal (LTG) Pt will be able do all reaching and house work and dressing w/o inc pain in R wrist or shoulder LTG Duration 12/18 strength Short Term Goal (STG) Pt will be indep w/HEP STG Duration 11/12 Consulting Actuary Goal (LTG) Pt will score at least 4+/5 on all BUE MMT and at least 4/5 on EFT to ila improved stability and dec pain LTG Duration 12/18 Quick dash Short Term Goal (STG) Pt will improve quick dash score to no greater than 45 to show improved functional ability. STG Duration 11/07/24 Consulting Actuary Goal (LTG) Pt will improve quick dash score to no greater than 7 to show improved functional ability. LTG Duration 12/18/24 Assessment Summary Assessment Pt responded well to manual, with increased head/neck rotation motion with less tension and reach into ABD with less to no pinch feeling after AC Jt MWM ABD gapping. Modified resisted wrist R strengthening seated today with DB vs TB with ed and cues comfort tiring not pain range with verbalize understood corrections. Improved demonstration scapular segmental mobility with only 1 cue feedback slower motion, better self awareness. Initiated prone scapular strengthening with tactile cues rhomboid and LT facilitation painfree range Is , Ys, AB /c ER can perform edge of bed home AROM. provided HOs. Pt did not tolerated HABD at this time, will try future appt. Physical Therapy Plan Frequency and Duration Frequency of Treatment 2x/Week Duration of treatment (weeks) 10 Plan of Care Start Date 10/09/24 Plan of Care End Date 12/18/24 Therapeutic Interventions Therapeutic Interventions Coordination Training,Home Exercise Program,Joint Mobilizations,Manual Therapy, Neuromuscular Re-education, Patient/Caregiver Education, Self-Care/Home Management,Soft Tissue Mobilization,Taping, Therapeutic Activities, Therapeutic Exercises Modalities Cold Pack/Ice Massage,Electric Stimulation,Hot Packs, Infrared Therapy,Ultrasound Next Visit Focus/Plan Next Note Type Treatment Note Next Visit Plan REview open book, wrist TB, neck stretches. Ask response to Ktaping R shld. Next : trial prone scapular strengthening, add radial n glide manual: radial n pathway, scap , AC, SC, ribs, thoracic, cervical mobility (STM & jts) & GHJ
--- NOTE | 2024-11-06 18:54 | PT.OTN ---
Current Diagnoses Other chronic pain (11/06/24) Pain in right shoulder (11/06/24) Pain in right wrist (11/06/24) Physical Therapy Treatment Note PT-OP-A Visit Information Start: 10/03/24 16:44 Freq: Status: Active Protocol: Document 11/06/24 11:46 [facility] (Rec: 11/06/24 12:38 [facility] [id number]) Out-Patient Physical Therapy Visit Information Visit Information Visit Type Treatment Note Visit Note Pt late - called ahead, stuck in traffic. Visit Start Time 11:49 Visit Stop Time 12:34 Visit Number 6 (04/02 IE) Number of YARDAGE CONTROL OPERATOR FORMING Visits 4 PT-OP-B Current Condition Start: 10/03/24 16:44 Freq: Status: Active Protocol: Document 10/09/24 07:33 [facility] (Rec: 10/09/24 08:22 [facility] [id number]) Current Condition History of Current Condition Onset Date Jun 2024 Current Complaints R shoudler and wrist pain History of Current Condition Pt L knee buckled and fell onto R shoudler and wrist and started having pain in those started being painful. Hx R 2nd digit reconstruction after granade incident. pain hasn't gotten better since this incident and sleeping is difficult. Sees DO in [place]. Prior Treatments and Tests cervical MRI IMPRESSION: Multilevel degenerative disc disease and arthropathy results in severe left and moderate right foraminal stenosis at C3 -4 Xray wrist: IMPRESSION: Mild degenerative changes. PT-OP-C Subjective Start: 10/03/24 16:44 Freq: Status: Active Protocol: Document 11/06/24 11:46 [facility] (Rec: 11/06/24 12:38 [facility] [id number]) OP-PT Subjective Patient Comments Patient Comments Ranulfo reports he does wake up less if he doesn't sleep on his side, he sleeps on back with a pillow on each side. He was so sore after last visit a week ago he wasn't able to do HEP except rows starting Tuesday, and the open book and wrist with band was too much. He is waiting for authorization for knee eval. PT-OP-J Posture/Palpation/Skin Start: 10/03/24 16:44 Freq: Status: Active Protocol: Document 10/09/24 07:33 [facility] (Rec: 10/09/24 12:37 [facility] [id number]) Posture Evaluation Comments Posture Comments R shoulder elevated, ant tipped, inc kyphosis sand fwd head; elevated 1st rib PT-OP-K Range of Motion Start: 10/03/24 16:44 Freq: Status: Active Protocol: Document 10/09/24 07:33 [facility] (Rec: 10/09/24 08:22 [facility] [id number]) Cervical Spine Range of Motion Cervical Spine Active Degrees Flexion 54 Extension 32 Rotation Left 58 Rotation Right 49 Lateral Flexion Left 22 Lateral Flexion Right 20 Shoulder Goniometric Range of Motion Shoulder Right Active Flexion 144 Extension 52 Abduction 165 External Rotation at 0 degrees Abduction 52 Internal Rotation Behind Back (text) T12 Comments pain abd, flex Left Active Flexion 148 Extension 51 Abduction 178 External Rotation at 0 degrees Abduction 70 Internal Rotation Behind Back (text) T9 Wrist Goniometric Range of Motion Wrist Right Flexion Active (degrees) 54 Extension Active (degrees) 43 Ulnar Deviation Active (degrees) 20 Radial Deviation Active (degrees) 12 Left Flexion Active (degrees) 55 Extension Active (degrees) 54 Ulnar Deviation Active (degrees) 35 Radial Deviation Active (degrees) 19 ROM Limitations Comments pain flex and ulnar deviation PT-OP-L Special Tests Start: 10/03/24 16:44 Freq: Status: Active Protocol: Document 10/11/24 08:16 [facility] (Rec: 10/11/24 12:21 [facility] [id number]) Special Tests Cervical Spine Special Tests tectoral membrane Test Results neg Vertebral Artery Test Results BP 112/60; HR 71; O2 95 Comments neg positional screen, Ausciltation of heart and carotid wNL Transverse Ligament Test Results neg Alar Ligament Test Results neg PT-OP-M Strength Start: 10/03/24 16:44 Freq: Status: Active Protocol: Document 10/09/24 07:33 [facility] (Rec: 10/09/24 08:22 [facility] [id number]) Shoulder Strength Shoulder Manual Muscle Testing Right Flexion 3+ Fair+ Extension 4+ Good+ Abduction (C5) 3 Fair External Rotation 3+ Fair+ Internal Rotation 4- Good- Comments pain Left Flexion 5 Normal Extension 5 Normal Abduction (C5) 4+ Good+ External Rotation 4 Good Internal Rotation 4+ Good+ Elbow/Forearm Strength Elbow and Forearm Manual Muscle Testing Right Flexion (C6) 5 Normal Extension (C7) 5 Normal Pronation 4 Good Supination 3+ Fair+ Comments pain w/supination Left Flexion (C6) 5 Normal Extension (C7) 5 Normal Pronation 5 Normal Supination 5 Normal Wrist Strength Wrist Manual Muscle Testing Right Flexion (C7) 4 Good Ulnar Deviation 3+ Fair+ Radial Deviation 4 Good Left Flexion (C7) 5 Normal Extension (C6) 5 Normal Ulnar Deviation 5 Normal Radial Deviation 5 Normal PT-OP-Q Treatments Start: 10/03/24 16:44 Freq: Status: Active Protocol: Document 11/06/24 11:46 [facility] (Rec: 11/06/24 12:38 [facility] [id number]) Therapeutic Exercises Sitting Exercises Neck stretching Sitting Exercise Name added to HEP: UT, LS, SCM/ Scalene Side bilateral Equipment Used L hand holding chair to stabilize L ila Reps/Minutes 5 breath hold each Comments pressure UT/ LS, clavicle SCM, cued pain-free ROM chin tucks Sitting Exercise Name reviewed HEP Equipment Used lvl 1 behind head Reps/Minutes 2x15 1 SH Comments cued slow pacing CS retraction /c slight head nod Standing Exercises R wrist TB Standing Exercise Name HEP updated: sitting eccentric only: flex, ext, rad deviation Side right Resistance no weight Reps/Minutes 10 reps each Comments cued pain-free range during flexion PT-OP-T Assessment and Plan Start: 10/03/24 16:44 Freq: Status: Active Protocol: Document 11/06/24 11:46 [facility] (Rec: 11/06/24 12:38 [facility] [id number]) Physical Therapy Assessment Goals activities Short Term Goal (STG) Pt will be able to sleep w/o distruption d/t R shoulder or wrist pain. STG Duration 11/07 Fci Goal (LTG) Pt will be able do all reaching and house work and dressing w/o inc pain in R wrist or shoulder LTG Duration 12/18 strength Short Term Goal (STG) Pt will be indep w/HEP STG Duration 11/12 Rn Vascular Goal (LTG) Pt will score at least 4+/5 on all BUE MMT and at least 4/5 on EFT to ila improved stability and dec pain LTG Duration 12/18 Quick dash Short Term Goal (STG) Pt will improve quick dash score to no greater than 45 to show improved functional ability. STG Duration 11/07/24 Rn Vascular Goal (LTG) Pt will improve quick dash score to no greater than 7 to show improved functional ability. LTG Duration 12/18/24 Assessment Summary Assessment Per conversation with evaluating PT and pt treatment plan for R wrist updated to remove the theraband and replace with soup can eccentrics (added to HEP- HO given). Edu to pt for incorporating HEP more consistently at home and strictly within pain-free ROM. Pt requires initial cueing for chin retraction. Ranulfo horn improved self-awareness of pain-free range and cervcial stretches are modified from applying overpressure to performing with stabilized scapulae and deep breaths - pt reports and demos observably improved pain -free range with UT, LS, and scalenes with these cues. Wrist eccentrics trialed with AROM only today and pt reports initial discomfort with flexion and again is cued for gentle pain-free range. Physical Therapy Plan Frequency and Duration Frequency of Treatment 2x/Week Duration of treatment (weeks) 10 Plan of Care Start Date 10/09/24 Plan of Care End Date 12/18/24 Therapeutic Interventions Therapeutic Interventions Coordination Training,Home Exercise Program,Joint Mobilizations,Manual Therapy, Neuromuscular Re-education, Patient/Caregiver Education, Self-Care/Home Management,Soft Tissue Mobilization,Taping, Therapeutic Activities, Therapeutic Exercises Modalities Cold Pack/Ice Massage,Electric Stimulation,Hot Packs, Infrared Therapy,Ultrasound Next Visit Focus/Plan Next Note Type Treatment Note Next Visit Plan Review open book (bent arm vs straight as tolerated), wrist eccentrics (flex,ext,radial, prone/sup) add weight/hammer as yazan), updated neck stretches. Ask response to Ktaping R shld. Next : trial prone scapular strengthening, add radial n glide manual: radial n pathway, scap , AC, SC, ribs, thoracic, cervical mobility (STM & jts) & GHJ
--- NOTE | 2024-11-08 16:38 | PT.OTN ---
Current Diagnoses Other chronic pain (11/08/24) Pain in right shoulder (11/08/24) Pain in right wrist (11/08/24) Physical Therapy Treatment Note PT-OP-A Visit Information Start: 10/03/24 16:44 Freq: Status: Active Protocol: Document 11/08/24 14:34 [facility] (Rec: 11/08/24 16:38 [facility] [id number]) Out-Patient Physical Therapy Visit Information Visit Information Visit Type Progress Note Visit Note Pt late - called ahead, stuck in traffic. 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 (Rec: 10/09/24 08:22 [facility] [id number]) Current Condition History of Current Condition Onset Date Jun 2024 Current Complaints R shoudler and wrist pain History of Current Condition Pt L knee buckled and fell onto R shoudler and wrist and started having pain in those started being painful. Hx R 2nd digit reconstruction after granade incident. pain hasn't gotten better since this incident and sleeping is difficult. Sees DO in [place]. Prior Treatments and Tests cervical MRI IMPRESSION: Multilevel degenerative disc disease and arthropathy results in severe left and moderate right foraminal stenosis at C3 -4 Xray wrist: IMPRESSION: Mild degenerative changes. PT-OP-C Subjective Start: 10/03/24 16:44 Freq: Status: Active Protocol: Document 11/08/24 14:34 [facility] (Rec: 11/08/24 16:38 [facility] [id number]) OP-PT Subjective Patient Comments Patient Comments Pt reports he feels like PT is helping. He monica doing better until he flared up. PT-OP-J Posture/Palpation/Skin Start: 10/03/24 16:44 Freq: Status: Active Protocol: Document 10/09/24 07:33 [facility] (Rec: 10/09/24 12:37 [facility] [id number]) Posture Evaluation Comments Posture Comments R shoulder elevated, ant tipped, inc kyphosis sand fwd head; elevated 1st rib PT-OP-K Range of Motion Start: 10/03/24 16:44 Freq: Status: Active Protocol: Document 10/09/24 07:33 [facility] (Rec: 10/09/24 08:22 [facility] [id number]) Cervical Spine Range of Motion Cervical Spine Active Degrees Flexion 54 Extension 32 Rotation Left 58 Rotation Right 49 Lateral Flexion Left 22 Lateral Flexion Right 20 Shoulder Goniometric Range of Motion Shoulder Right Active Flexion 144 Extension 52 Abduction 165 External Rotation at 0 degrees Abduction 52 Internal Rotation Behind Back (text) T12 Comments pain abd, flex Left Active Flexion 148 Extension 51 Abduction 178 External Rotation at 0 degrees Abduction 70 Internal Rotation Behind Back (text) T9 Wrist Goniometric Range of Motion Wrist Right Flexion Active (degrees) 54 Extension Active (degrees) 43 Ulnar Deviation Active (degrees) 20 Radial Deviation Active (degrees) 12 Left Flexion Active (degrees) 55 Extension Active (degrees) 54 Ulnar Deviation Active (degrees) 35 Radial Deviation Active (degrees) 19 ROM Limitations Comments pain flex and ulnar deviation PT-OP-L Special Tests Start: 10/03/24 16:44 Freq: Status: Active Protocol: Document 10/11/24 08:16 [facility] (Rec: 10/11/24 12:21 [facility] [id number]) Special Tests Cervical Spine Special Tests tectoral membrane Test Results neg Vertebral Artery Test Results BP 112/60; HR 71; O2 95 Comments neg positional screen, Ausciltation of heart and carotid wNL Transverse Ligament Test Results neg Alar Ligament Test Results neg PT-OP-M Strength Start: 10/03/24 16:44 Freq: Status: Active Protocol: Document 11/08/24 14:34 [facility] (Rec: 11/08/24 16:38 [facility] [id number]) Shoulder Strength Shoulder Manual Muscle Testing Right Flexion 4- Good- Extension 5 Normal Abduction (C5) 3+ Fair+ External Rotation 4- Good- Internal Rotation 4+ Good+ Comments pain flex, ER, abd Elbow/Forearm Strength Elbow and Forearm Manual Muscle Testing Right Flexion (C6) 5 Normal Extension (C7) 5 Normal Pronation 4- Good- Supination 4 Good Comments pain wrist in pronation pain Wrist Strength Wrist Manual Muscle Testing Right Flexion (C7) 4 Good Extension (C6) 4 Good Ulnar Deviation 3+ Fair+ Radial Deviation 4 Good Comments pain all PT-OP-Q Treatments Start: 10/03/24 16:44 Freq: Status: Active Protocol: Document 11/08/24 14:34 [facility] (Rec: 11/08/24 16:38 [facility] [id number]) Therapeutic Exercises Other Exercises isometrics Other Exercise Name BUE MMT Side bilateral Manual Therapy Treatment Consent Patient gave verbal consent for manual Yes treatment Soft Tissue Mobilization superior Body Location R scalenes, UT, LT Mobilization Type Rolling Intensity/Depth Moderate Body Position L Sidelying forearm Body Location R extensors Mobilization Type Sustained Pressure,Other Body Position Supine Comments w/wrist flex/ ext Joint Mobilizations L elbow Comments PA radius wrist Comments PA radius ; AP proximal and distal carpels, med proximal carpels c/r PT-OP-T Assessment and Plan Start: 10/03/24 16:44 Freq: Status: Active Protocol: Document 11/08/24 14:34 [facility] (Rec: 11/08/24 16:38 [facility] [id number]) Physical Therapy Assessment Goals activities Short Term Goal (STG) Pt will be able to sleep w/o distruption d/t R shoulder or wrist pain. 11/08- a lot better. last night did have it waking STG Duration 11/07 Corporate Concierge Goal (LTG) Pt will be able do all reaching and house work and dressing w/o inc pain in R wrist or shoulder 11/08-pain w/jackets but not shirts, reaching and houseowrk difficult LTG Duration 12/18 strength Short Term Goal (STG) Pt will be indep w/HEP 11/08- working on improved form STG Duration 11/12 Retirement Goal (LTG) Pt will score at least 4+/5 on all BUE MMT and at least 4/5 on EFT to ila improved stability and dec pain 11/08-some progression LTG Duration 12/18 Quick dash Short Term Goal (STG) Pt will improve quick dash score to no greater than 45 to show improved functional ability. 11/08-59.1 STG Duration 11/07/24 Retirement Goal (LTG) Pt will improve quick dash score to no greater than 7 to show improved functional ability. LTG Duration 12/18/24 Assessment Summary Assessment pt had made some progresssion w/PT but is limited in pn d/t pt regression about 1 week ago d/t overdoing it. He would benefit from cont PT to improve RUE function. Physical Therapy Plan Frequency and Duration Frequency of Treatment 2x/Week Duration of treatment (weeks) 10 Plan of Care Start Date 10/09/24 Plan of Care End Date 12/18/24 Therapeutic Interventions Therapeutic Interventions Coordination Training,Home Exercise Program,Joint Mobilizations,Manual Therapy, Neuromuscular Re-education, Patient/Caregiver Education, Self-Care/Home Management,Soft Tissue Mobilization,Taping, Therapeutic Activities, Therapeutic Exercises Modalities Cold Pack/Ice Massage,Electric Stimulation,Hot Packs, Infrared Therapy,Ultrasound Next Visit Focus/Plan Next Note Type Treatment Note Next Visit Plan review exercises, consider KT tape Next : trial prone scapular strengthening, add radial n glide manual: radial n pathway, scap , AC, SC, ribs, thoracic, cervical mobility (STM & jts) & GHJ
--- NOTE | 2024-11-15 12:27 | PT.OTN ---
Current Diagnoses Other chronic pain (11/15/24) Pain in right shoulder (11/15/24) Pain in right wrist (11/15/24) Physical Therapy Treatment Note PT-OP-A Visit Information Start: 10/03/24 16:44 Freq: Status: Active Protocol: Document 11/15/24 09:51 [facility] (Rec: 11/15/24 12:26 [facility] [id number]) Out-Patient Physical Therapy Visit Information Visit Information Visit Type Treatment Note Visit Start Time 09:50 Visit Stop Time 10:30 Visit Number 8 (12/03) Number of CALIBRATION CHECKER Visits 0 PT-OP-B Current Condition Start: 10/03/24 16:44 Freq: Status: Active Protocol: Document 10/09/24 07:33 [facility] (Rec: 10/09/24 08:22 [facility] [id number]) Current Condition History of Current Condition Onset Date Jun 2024 Current Complaints R shoudler and wrist pain History of Current Condition Pt L knee buckled and fell onto R shoudler and wrist and started having pain in those started being painful. Hx R 2nd digit reconstruction after granade incident. pain hasn't gotten better since this incident and sleeping is difficult. Sees DO in [place]. Prior Treatments and Tests cervical MRI IMPRESSION: Multilevel degenerative disc disease and arthropathy results in severe left and moderate right foraminal stenosis at C3 -4 Xray wrist: IMPRESSION: Mild degenerative changes. PT-OP-C Subjective Start: 10/03/24 16:44 Freq: Status: Active Protocol: Document 11/15/24 09:51 [facility] (Rec: 11/15/24 12:26 [facility] [id number]) OP-PT Subjective Patient Comments Patient Comments Pt reports he hasn't been as good as he should be w/his exercises PT-OP-J Posture/Palpation/Skin Start: 10/03/24 16:44 Freq: Status: Active Protocol: Document 10/09/24 07:33 [facility] (Rec: 10/09/24 12:37 [facility] [id number]) Posture Evaluation Comments Posture Comments R shoulder elevated, ant tipped, inc kyphosis sand fwd head; elevated 1st rib PT-OP-K Range of Motion Start: 10/03/24 16:44 Freq: Status: Active Protocol: Document 10/09/24 07:33 [facility] (Rec: 10/09/24 08:22 [facility] [id number]) Cervical Spine Range of Motion Cervical Spine Active Degrees Flexion 54 Extension 32 Rotation Left 58 Rotation Right 49 Lateral Flexion Left 22 Lateral Flexion Right 20 Shoulder Goniometric Range of Motion Shoulder Right Active Flexion 144 Extension 52 Abduction 165 External Rotation at 0 degrees Abduction 52 Internal Rotation Behind Back (text) T12 Comments pain abd, flex Left Active Flexion 148 Extension 51 Abduction 178 External Rotation at 0 degrees Abduction 70 Internal Rotation Behind Back (text) T9 Wrist Goniometric Range of Motion Wrist Right Flexion Active (degrees) 54 Extension Active (degrees) 43 Ulnar Deviation Active (degrees) 20 Radial Deviation Active (degrees) 12 Left Flexion Active (degrees) 55 Extension Active (degrees) 54 Ulnar Deviation Active (degrees) 35 Radial Deviation Active (degrees) 19 ROM Limitations Comments pain flex and ulnar deviation PT-OP-L Special Tests Start: 10/03/24 16:44 Freq: Status: Active Protocol: Document 10/11/24 08:16 [facility] (Rec: 10/11/24 12:21 [facility] [id number]) Special Tests Cervical Spine Special Tests tectoral membrane Test Results neg Vertebral Artery Test Results BP 112/60; HR 71; O2 95 Comments neg positional screen, Ausciltation of heart and carotid wNL Transverse Ligament Test Results neg Alar Ligament Test Results neg PT-OP-M Strength Start: 10/03/24 16:44 Freq: Status: Active Protocol: Document 11/08/24 14:34 [facility] (Rec: 11/08/24 16:38 [facility] [id number]) Shoulder Strength Shoulder Manual Muscle Testing Right Flexion 4- Good- Extension 5 Normal Abduction (C5) 3+ Fair+ External Rotation 4- Good- Internal Rotation 4+ Good+ Comments pain flex, ER, abd Elbow/Forearm Strength Elbow and Forearm Manual Muscle Testing Right Flexion (C6) 5 Normal Extension (C7) 5 Normal Pronation 4- Good- Supination 4 Good Comments pain wrist in pronation pain Wrist Strength Wrist Manual Muscle Testing Right Flexion (C7) 4 Good Extension (C6) 4 Good Ulnar Deviation 3+ Fair+ Radial Deviation 4 Good Comments pain all PT-OP-Q Treatments Start: 10/03/24 16:44 Freq: Status: Active Protocol: Document 11/15/24 09:51 [facility] (Rec: 11/15/24 12:26 [facility] [id number]) Therapeutic Exercises Sidelying Exercises ABD Side right Reps/Minutes 15 Comments cues reach long Sitting Exercises pronation/supination Sitting Exercise Name hammer holding midway Side right Reps/Minutes 20 wrist Sitting Exercise Name 1.AROM radial dev 2. AROM ext 3. eccentric only flex Reps/Minutes 2x10 ea Standing Exercises Rows Standing Exercise Name reviewed Side bilateral Equipment Used morongo #3 Reps/Minutes 2x15 Comments cues no UT engagement, scap retraction, open chesst ER Side right Equipment Used L1 Reps/Minutes 15 Comments cues control Manual Therapy Treatment Consent Patient gave verbal consent for manual Yes treatment Soft Tissue Mobilization forearm Body Location R extensors Mobilization Type Sustained Pressure,Other Body Position Supine Comments w/wrist flex/ ext Joint Mobilizations GH Joint distraction R w/flex wrist Comments PA radius ; AP proximal and distal carpels, med proximal carpels c/r PT-OP-T Assessment and Plan Start: 10/03/24 16:44 Freq: Status: Active Protocol: Document 11/15/24 09:51 [facility] (Rec: 11/15/24 12:26 [facility] [id number]) Physical Therapy Assessment Goals activities Short Term Goal (STG) Pt will be able to sleep w/o distruption d/t R shoulder or wrist pain. 11/08- a lot better. last night did have it waking STG Duration 11/07 Half-Way Goal (LTG) Pt will be able do all reaching and house work and dressing w/o inc pain in R wrist or shoulder 11/08-pain w/jackets but not shirts, reaching and houseowrk difficult LTG Duration 12/18 strength Short Term Goal (STG) Pt will be indep w/HEP 11/08- working on improved form STG Duration 11/12 Binding Folder Machine Goal (LTG) Pt will score at least 4+/5 on all BUE MMT and at least 4/5 on EFT to ila improved stability and dec pain 11/08-some progression LTG Duration 12/18 Quick dash Short Term Goal (STG) Pt will improve quick dash score to no greater than 45 to show improved functional ability. 11/08-59.1 STG Duration 11/07/24 Binding Folder Machine Goal (LTG) Pt will improve quick dash score to no greater than 7 to show improved functional ability. LTG Duration 12/18/24 Assessment Summary Assessment Pt able to tolerate all exercises today w/cues for comfortable range and movment pattern throguhout. He cont to have dec scap stability Physical Therapy Plan Frequency and Duration Frequency of Treatment 2x/Week Duration of treatment (weeks) 10 Plan of Care Start Date 10/09/24 Plan of Care End Date 12/18/24 Next Visit Focus/Plan Next Note Type Treatment Note Next Visit Plan review exercises, consider KT tape if can trial prone scapular strengthening, add radial n glide manual: radial n pathway, scap , AC, SC, ribs, thoracic, cervical mobility (STM & jts) & GHJ
--- NOTE | 2024-11-19 14:35 | PT.OTN ---
Current Diagnoses Other chronic pain (11/19/24) Pain in right shoulder (11/19/24) Pain in right wrist (11/19/24) Physical Therapy Treatment Note PT-OP-A Visit Information Start: 10/03/24 16:44 Freq: Status: Active Protocol: Document 11/19/24 09:06 [facility] (Rec: 11/19/24 14:35 [facility] [id number]) Out-Patient Physical Therapy Visit Information Visit Information Visit Type Treatment Note Visit Start Time 09:05 Visit Stop Time 09:45 Visit Number 9 (3/10 Number of PROPOSAL DEVELOPMENT MANAGER Visits 0 PT-OP-B Current Condition Start: 10/03/24 16:44 Freq: Status: Active Protocol: Document 10/09/24 07:33 [facility] (Rec: 10/09/24 08:22 [facility] [id number]) Current Condition History of Current Condition Onset Date Jun 2024 Current Complaints R shoudler and wrist pain History of Current Condition Pt L knee buckled and fell onto R shoudler and wrist and started having pain in those started being painful. Hx R 2nd digit reconstruction after granade incident. pain hasn't gotten better since this incident and sleeping is difficult. Sees DO in [place]. Prior Treatments and Tests cervical MRI IMPRESSION: Multilevel degenerative disc disease and arthropathy results in severe left and moderate right foraminal stenosis at C3 -4 Xray wrist: IMPRESSION: Mild degenerative changes. PT-OP-C Subjective Start: 10/03/24 16:44 Freq: Status: Active Protocol: Document 11/19/24 09:06 [facility] (Rec: 11/19/24 14:35 [facility] [id number]) OP-PT Subjective Patient Comments Patient Comments pt reports doing exercises PT-OP-J Posture/Palpation/Skin Start: 10/03/24 16:44 Freq: Status: Active Protocol: Document 10/09/24 07:33 [facility] (Rec: 10/09/24 12:37 [facility] [id number]) Posture Evaluation Comments Posture Comments R shoulder elevated, ant tipped, inc kyphosis sand fwd head; elevated 1st rib PT-OP-K Range of Motion Start: 10/03/24 16:44 Freq: Status: Active Protocol: Document 10/09/24 07:33 [facility] (Rec: 10/09/24 08:22 [facility] [id number]) Cervical Spine Range of Motion Cervical Spine Active Degrees Flexion 54 Extension 32 Rotation Left 58 Rotation Right 49 Lateral Flexion Left 22 Lateral Flexion Right 20 Shoulder Goniometric Range of Motion Shoulder Right Active Flexion 144 Extension 52 Abduction 165 External Rotation at 0 degrees Abduction 52 Internal Rotation Behind Back (text) T12 Comments pain abd, flex Left Active Flexion 148 Extension 51 Abduction 178 External Rotation at 0 degrees Abduction 70 Internal Rotation Behind Back (text) T9 Wrist Goniometric Range of Motion Wrist Right Flexion Active (degrees) 54 Extension Active (degrees) 43 Ulnar Deviation Active (degrees) 20 Radial Deviation Active (degrees) 12 Left Flexion Active (degrees) 55 Extension Active (degrees) 54 Ulnar Deviation Active (degrees) 35 Radial Deviation Active (degrees) 19 ROM Limitations Comments pain flex and ulnar deviation PT-OP-L Special Tests Start: 10/03/24 16:44 Freq: Status: Active Protocol: Document 10/11/24 08:16 [facility] (Rec: 10/11/24 12:21 [facility] [id number]) Special Tests Cervical Spine Special Tests tectoral membrane Test Results neg Vertebral Artery Test Results BP 112/60; HR 71; O2 95 Comments neg positional screen, Ausciltation of heart and carotid wNL Transverse Ligament Test Results neg Alar Ligament Test Results neg PT-OP-M Strength Start: 10/03/24 16:44 Freq: Status: Active Protocol: Document 11/08/24 14:34 [facility] (Rec: 11/08/24 16:38 [facility] [id number]) Shoulder Strength Shoulder Manual Muscle Testing Right Flexion 4- Good- Extension 5 Normal Abduction (C5) 3+ Fair+ External Rotation 4- Good- Internal Rotation 4+ Good+ Comments pain flex, ER, abd Elbow/Forearm Strength Elbow and Forearm Manual Muscle Testing Right Flexion (C6) 5 Normal Extension (C7) 5 Normal Pronation 4- Good- Supination 4 Good Comments pain wrist in pronation pain Wrist Strength Wrist Manual Muscle Testing Right Flexion (C7) 4 Good Extension (C6) 4 Good Ulnar Deviation 3+ Fair+ Radial Deviation 4 Good Comments pain all PT-OP-Q Treatments Start: 10/03/24 16:44 Freq: Status: Active Protocol: Document 11/19/24 09:06 [facility] (Rec: 11/19/24 12:35 [facility] [id number]) Therapeutic Exercises Sidelying Exercises openbook Side bilateral Reps/Minutes 10 ea Comments cues for no excessive shoulder Habd Sitting Exercises wrist Sitting Exercise Name 1.eccentric radial dev 2. ext 3. flex Equipment Used 1lb Reps/Minutes 2x10 ea Standing Exercises Rows Standing Exercise Name reviewed Side bilateral Equipment Used sun'aq #3 Reps/Minutes 12 Comments min cues needed ER Side right Equipment Used L1 towel under elbwo Reps/Minutes 15 Comments cues control Manual Therapy Treatment Consent Patient gave verbal consent for manual Yes treatment Soft Tissue Mobilization superior Body Location R scalenes, UT, LT Mobilization Type Rolling Intensity/Depth Moderate Body Position L Sidelying post Body Location R lat, Teres Mobilization Type Rolling,Sustained Pressure, Other Intensity/Depth Moderate Body Position L Sidelying Comments w/scap pattern Joint Mobilizations ribs Comments ribs 1-3 seated PA percussion and caudal ribs 1-3 c/r GH Comments R gapping c/r thoracic Comments R UPA and transverse L percussion sitting and c/r PT-OP-T Assessment and Plan Start: 10/03/24 16:44 Freq: Status: Active Protocol: Document 11/19/24 09:06 [facility] (Rec: 11/19/24 12:35 [facility] [id number]) Physical Therapy Assessment Goals activities Short Term Goal (STG) Pt will be able to sleep w/o distruption d/t R shoulder or wrist pain. 11/08- a lot better. last night did have it waking STG Duration 11/07 Group Home Goal (LTG) Pt will be able do all reaching and house work and dressing w/o inc pain in R wrist or shoulder 11/08-pain w/jackets but not shirts, reaching and houseowrk difficult LTG Duration 12/18 strength Short Term Goal (STG) Pt will be indep w/HEP 11/08- working on improved form STG Duration 11/12 Compensator Worker Goal (LTG) Pt will score at least 4+/5 on all BUE MMT and at least 4/5 on EFT to ila improved stability and dec pain 11/08-some progression LTG Duration 12/18 Quick dash Short Term Goal (STG) Pt will improve quick dash score to no greater than 45 to show improved functional ability. 11/08-59.1 STG Duration 11/07/24 Group Home Goal (LTG) Pt will improve quick dash score to no greater than 7 to show improved functional ability. LTG Duration 2/25/25 Assessment Summary Assessment Pt tolerated progression of exercises well today but does have restriction of scap mobility and cervical mm tenssion likely related to rib and thoccic tightness causing pain. Physical Therapy Plan Frequency and Duration Frequency of Treatment 2x/Week Duration of treatment (weeks) 10 Plan of Care Start Date 10/09/24 Plan of Care End Date 12/18/24 Next Visit Focus/Plan Next Note Type Treatment Note Next Visit Plan cont working on R scap mobility and thoracic/rib mobility trial prone scapular strengthening manual: radial n pathway, scap , AC, SC, ribs, thoracic, cervical mobility (STM & jts) & GHJ
--- NOTE | 2024-12-10 11:14 | PT.OTN ---
Current Diagnoses Other chronic pain (12/10/24) Pain in right shoulder (12/10/24) Pain in right wrist (12/10/24) Physical Therapy Treatment Note PT-OP-A Visit Information Start: 10/03/24 16:44 Freq: Status: Active Protocol: Document 12/10/24 09:09 [facility] (Rec: 12/10/24 11:07 [facility] [id number]) Out-Patient Physical Therapy Visit Information Visit Information Visit Type Progress Note Visit Start Time 09:07 Visit Stop Time 09:47 Visit Number 11 (11/02) Number of SUPERVISOR PHOSPHORIC ACID Visits 0 PT-OP-B Current Condition Start: 10/03/24 16:44 Freq: Status: Active Protocol: Document 10/09/24 07:33 [facility] (Rec: 10/09/24 08:22 [facility] [id number]) Current Condition History of Current Condition Onset Date Jun 2024 Current Complaints R shoudler and wrist pain History of Current Condition Pt L knee buckled and fell onto R shoudler and wrist and started having pain in those started being painful. Hx R 2nd digit reconstruction after granade incident. pain hasn't gotten better since this incident and sleeping is difficult. Sees DO in [place]. Prior Treatments and Tests cervical MRI IMPRESSION: Multilevel degenerative disc disease and arthropathy results in severe left and moderate right foraminal stenosis at C3 -4 Xray wrist: IMPRESSION: Mild degenerative changes. PT-OP-C Subjective Start: 10/03/24 16:44 Freq: Status: Active Protocol: Document 12/10/24 09:09 [facility] (Rec: 12/10/24 11:07 [facility] [id number]) OP-PT Subjective Patient Comments Patient Comments Pt was in ER d/t rectal bleeding and saw primary and he just has to let body heal. Had internal hemrhoid. With all that has done less shoulder and wrist stuff. Both have subsided some. Shoulder didnt wake him until early this am. Normally it is 3x/ niht Patient Questionnaires Quick Dash- Upper Extremity Quick Dash UE Score 45.45 PT-OP-J Posture/Palpation/Skin Start: 10/03/24 16:44 Freq: Status: Active Protocol: Document 10/09/24 07:33 [facility] (Rec: 10/09/24 12:37 [facility] [id number]) Posture Evaluation Comments Posture Comments R shoulder elevated, ant tipped, inc kyphosis sand fwd head; elevated 1st rib PT-OP-K Range of Motion Start: 10/03/24 16:44 Freq: Status: Active Protocol: Document 10/09/24 07:33 [facility] (Rec: 10/09/24 08:22 [facility] [id number]) Cervical Spine Range of Motion Cervical Spine Active Degrees Flexion 54 Extension 32 Rotation Left 58 Rotation Right 49 Lateral Flexion Left 22 Lateral Flexion Right 20 Shoulder Goniometric Range of Motion Shoulder Right Active Flexion 144 Extension 52 Abduction 165 External Rotation at 0 degrees Abduction 52 Internal Rotation Behind Back (text) T12 Comments pain abd, flex Left Active Flexion 148 Extension 51 Abduction 178 External Rotation at 0 degrees Abduction 70 Internal Rotation Behind Back (text) T9 Wrist Goniometric Range of Motion Wrist Right Flexion Active (degrees) 54 Extension Active (degrees) 43 Ulnar Deviation Active (degrees) 20 Radial Deviation Active (degrees) 12 Left Flexion Active (degrees) 55 Extension Active (degrees) 54 Ulnar Deviation Active (degrees) 35 Radial Deviation Active (degrees) 19 ROM Limitations Comments pain flex and ulnar deviation PT-OP-L Special Tests Start: 10/03/24 16:44 Freq: Status: Active Protocol: Document 10/11/24 08:16 [facility] (Rec: 10/11/24 12:21 [facility] [id number]) Special Tests Cervical Spine Special Tests tectoral membrane Test Results neg Vertebral Artery Test Results BP 112/60; HR 71; O2 95 Comments neg positional screen, Ausciltation of heart and carotid wNL Transverse Ligament Test Results neg Alar Ligament Test Results neg PT-OP-M Strength Start: 10/03/24 16:44 Freq: Status: Active Protocol: Document 12/10/24 09:09 [facility] (Rec: 12/10/24 11:07 [facility] [id number]) Shoulder Strength Shoulder Manual Muscle Testing Right Flexion 4 Good Extension 5 Normal Abduction (C5) 4- Good- External Rotation 4- Good- Internal Rotation 5 Normal Comments pain flex, ER, abd Elbow/Forearm Strength Elbow and Forearm Manual Muscle Testing Right Flexion (C6) 5 Normal Extension (C7) 5 Normal Pronation 4 Good Supination 4+ Good+ Comments pain w/flex Wrist Strength Wrist Manual Muscle Testing Right Flexion (C7) 4+ Good+ Extension (C6) 4+ Good+ Ulnar Deviation 5 Normal Radial Deviation 4 Good Comments pain radial deviation PT-OP-Q Treatments Start: 12/11/24 16:44 Freq: Status: Active Protocol: Document 12/10/24 09:09 [facility] (Rec: 12/10/24 11:07 [facility] [id number]) Therapeutic Exercises Supine Exercises serratus punch Side right Equipment Used 2# Reps/Minutes 10 Comments cues no scap elevation Sidelying Exercises ABD Side right Reps/Minutes 15 Comments cues reach long and set scap first Sitting Exercises wrist Sitting Exercise Name 1 radial dev 2. ext 3. flex Equipment Used 1lb Reps/Minutes 2x15 ea Standing Exercises ER Side right Equipment Used L1 towel under elbwo Reps/Minutes 15 Comments cues control Other Exercises isometrics Other Exercise Name BUE MMT Side bilateral Manual Therapy Treatment Consent Patient gave verbal consent for manual Yes treatment Soft Tissue Mobilization inf Body Location R subscap, teres, lat Mobilization Type Sustained Pressure Intensity/Depth Moderate Comments w/flex Joint Mobilizations GH Comments R inf and distraction w/flex PT-OP-T Assessment and Plan Start: 10/03/24 16:44 Freq: Status: Active Protocol: Document 12/10/24 09:09 [facility] (Rec: 12/10/24 11:07 [facility] [id number]) Physical Therapy Assessment Goals activities Short Term Goal (STG) Pt will be able to sleep w/o distruption d/t R shoulder or wrist pain. 11/08- a lot better. last night did have it waking 12/10-tonight only 1x waking STG Duration 01/07 Special Services Director Goal (LTG) Pt will be able do all reaching and house work and dressing w/o inc pain in R wrist or shoulder 11/08-pain w/jackets but not shirts, reaching and houseowrk difficult 12/10-only hurts dressing if goes too qucikly, reaching still hurts. LTG Duration 02/05 strength Short Term Goal (STG) Pt will be indep w/HEP 11/08- working on improved form 12/10-cues needed STG Duration 01/05 Special Services Director Goal (LTG) Pt will score at least 4+/5 on all BUE MMT and at least 4/5 on EFT to ila improved stability and dec pain 11/08-some progression 12/10-improving LTG Duration 02/18 Quick dash Short Term Goal (STG) Pt will improve quick dash score to no greater than 45 to show improved functional ability. 1/16-59.1 STG Duration achieved to 45 12/10 Special Services Director Goal (LTG) Pt will improve quick dash score to no greater than 7 to show improved functional ability. 12/10- LTG Duration 02/18 Assessment Summary Assessment Pt is improving in strength and activity tolerance but is still significantly limited and may benefit from further imaging or follow up w/ortho. Pt has not been consistent w/ strengthening of wrist so encouraged to work on this in comfortable ranges at home along w/shoulder strength. Cont PT for this to improve function Physical Therapy Plan Frequency and Duration Frequency of Treatment 2x/Week Duration of treatment (weeks) 10 Plan of Care Start Date 12/10/24 Plan of Care End Date 02/18/25 Therapeutic Interventions Therapeutic Interventions Coordination Training,Home Exercise Program,Joint Mobilizations,Manual Therapy, Neuromuscular Re-education, Patient/Caregiver Education, Self-Care/Home Management,Soft Tissue Mobilization,Taping, Therapeutic Activities, Therapeutic Exercises Modalities Cold Pack/Ice Massage,Electric Stimulation,Hot Packs, Infrared Therapy,Ultrasound Next Visit Focus/Plan Next Note Type Treatment Note Next Visit Plan cont working on R scap mobility and thoracic/rib mobility trial prone scapular strengthening manual: radial n pathway, scap , AC, SC, ribs, thoracic, cervical mobility (STM & jts) & GHJ
--- NOTE | 2024-12-10 11:14 | PT.OPPOC ---
Physical, Occupational & Speech Therapy At [facility] Current Diagnoses Other chronic pain (12/10/24) Pain in right shoulder (12/10/24) Pain in right wrist (12/10/24) Visit Care Team Role Provider Type STELLA Frey Attending Provider Non-Staff Family Provider Primary Care Provider Referring Provider Specialty: Medical Address: [address] [place] [address], [place], [address] Email: Plan Of Care PT-OP-B Current Condition Start: 10/03/24 16:44 Freq: Status: Active Protocol: Document 10/09/24 07:33 [facility] (Rec: 10/09/24 08:22 [facility] [id number]) Current Condition History of Current Condition Onset Date Jun 2024 Current Complaints R shoudler and wrist pain History of Current Condition Pt L knee buckled and fell onto R shoudler and wrist and started having pain in those started being painful. Hx R 2nd digit reconstruction after granade incident. pain hasn't gotten better since this incident and sleeping is difficult. Sees DO in [place]. Prior Treatments and Tests cervical MRI IMPRESSION: Multilevel degenerative disc disease and arthropathy results in severe left and moderate right foraminal stenosis at C3 -4 Xray wrist: IMPRESSION: Mild degenerative changes. PT-OP-T Assessment and Plan Start: 10/03/24 16:44 Freq: Status: Active Protocol: Document 12/10/24 09:09 [facility] (Rec: 12/10/24 11:07 [facility] [id number]) Physical Therapy Assessment Goals activities Short Term Goal (STG) Pt will be able to sleep w/o distruption d/t R shoulder or wrist pain. 11/08- a lot better. last night did have it waking 12/10-tonight only 1x waking STG Duration 01/07 Synthetic Filament Spinner Goal (LTG) Pt will be able do all reaching and house work and dressing w/o inc pain in R wrist or shoulder 11/08-pain w/jackets but not shirts, reaching and houseowrk difficult 12/10-only hurts dressing if goes too qucikly, reaching still hurts. LTG Duration 02/05 strength Short Term Goal (STG) Pt will be indep w/HEP 11/08- working on improved form 12/10-cues needed STG Duration 01/05 Synthetic Filament Spinner Goal (LTG) Pt will score at least 4+/5 on all BUE MMT and at least 4/5 on EFT to ila improved stability and dec pain 11/08-some progression 12/10-improving LTG Duration 02/18 Quick dash Short Term Goal (STG) Pt will improve quick dash score to no greater than 45 to show improved functional ability. 11/08-59.1 STG Duration achieved to 45 12/10 Synthetic Filament Spinner Goal (LTG) Pt will improve quick dash score to no greater than 7 to show improved functional ability. 12/10-45 LTG Duration 02/18 Assessment Summary Assessment Pt is improving in strength and activity tolerance but is still significantly limited and may benefit from further imaging or follow up w/ortho. Pt has not been consistent w/ strengthening of wrist so encouraged to work on this in comfortable ranges at home along w/shoulder strength. Cont PT for this to improve function Physical Therapy Plan Frequency and Duration Frequency of Treatment 2x/Week Duration of treatment (weeks) 10 Plan of Care Start Date 12/10/24 Plan of Care End Date 02/18/25 Therapeutic Interventions Therapeutic Interventions Coordination Training,Home Exercise Program,Joint Mobilizations,Manual Therapy, Neuromuscular Re-education, Patient/Caregiver Education, Self-Care/Home Management,Soft Tissue Mobilization,Taping, Therapeutic Activities, Therapeutic Exercises Modalities Cold Pack/Ice Massage,Electric Stimulation,Hot Packs, Infrared Therapy,Ultrasound Next Visit Focus/Plan Next Note Type Treatment Note Next Visit Plan cont working on R scap mobility and thoracic/rib mobility trial prone scapular strengthening manual: radial n pathway, scap , AC, SC, ribs, thoracic, cervical mobility (STM & jts) & GHJ Plan of Care Dates Plan of Care Start Date 12/10/24 Plan of Care End Date 02/18/25 Electronically Signed by: Lety Pierre, PT 12/10/24 [id number] If you are in agreement with this Plan of Care, please return a signed and dated copy. I have reviewed this Plan of Care and certify that the skilled therapy services above are required to meet the patient?s needs. Physician Signature Date Printed Name and Credentials Clinical Instructor Signature Printed Name and Credentials
--- NOTE | 2024-12-14 10:43 | PT.OTN ---
Current Diagnoses Other chronic pain (12/14/24) Pain in right shoulder (12/14/24) Pain in right wrist (12/14/24) Physical Therapy Treatment Note PT-OP-A Visit Information Start: 10/03/24 16:44 Freq: Status: Active Protocol: Document 12/14/24 08:12 [facility] (Rec: 12/14/24 10:43 AB [id number]) Out-Patient Physical Therapy Visit Information Visit Information Visit Type Treatment Note Visit Start Time 09:49 Visit Stop Time 10:33 Visit Number 12 Number of SECURITY SITE SUPERVISOR Visits 1 PT-OP-B Current Condition Start: 10/03/24 16:44 Freq: Status: Active Protocol: Document 10/09/24 07:33 [facility] (Rec: 10/09/24 08:22 [facility] [id number]) Current Condition History of Current Condition Onset Date Jun 2024 Current Complaints R shoudler and wrist pain History of Current Condition Pt L knee buckled and fell onto R shoudler and wrist and started having pain in those started being painful. Hx R 2nd digit reconstruction after granade incident. pain hasn't gotten better since this incident and sleeping is difficult. Sees DO in [place]. Prior Treatments and Tests cervical MRI IMPRESSION: Multilevel degenerative disc disease and arthropathy results in severe left and moderate right foraminal stenosis at C3 -4 Xray wrist: IMPRESSION: Mild degenerative changes. PT-OP-C Subjective Start: 10/03/24 16:44 Freq: Status: Active Protocol: Document 12/14/24 08:12 [facility] (Rec: 12/14/24 10:43 AB [id number]) OP-PT Subjective Patient Comments Patient Comments AROM R shoulder flexion 145 deg start of session. PT-OP-J Posture/Palpation/Skin Start: 10/03/24 16:44 Freq: Status: Active Protocol: Document 10/09/24 07:33 [facility] (Rec: 10/09/24 12:37 [facility] [id number]) Posture Evaluation Comments Posture Comments R shoulder elevated, ant tipped, inc kyphosis sand fwd head; elevated 1st rib PT-OP-K Range of Motion Start: 10/03/24 16:44 Freq: Status: Active Protocol: Document 10/09/24 07:33 [facility] (Rec: 10/09/24 08:22 [facility] [id number]) Cervical Spine Range of Motion Cervical Spine Active Degrees Flexion 54 Extension 32 Rotation Left 58 Rotation Right 49 Lateral Flexion Left 22 Lateral Flexion Right 20 Shoulder Goniometric Range of Motion Shoulder Right Active Flexion 144 Extension 52 Abduction 165 External Rotation at 0 degrees Abduction 52 Internal Rotation Behind Back (text) T12 Comments pain abd, flex Left Active Flexion 148 Extension 51 Abduction 178 External Rotation at 0 degrees Abduction 70 Internal Rotation Behind Back (text) T9 Wrist Goniometric Range of Motion Wrist Right Flexion Active (degrees) 54 Extension Active (degrees) 43 Ulnar Deviation Active (degrees) 20 Radial Deviation Active (degrees) 12 Left Flexion Active (degrees) 55 Extension Active (degrees) 54 Ulnar Deviation Active (degrees) 35 Radial Deviation Active (degrees) 19 ROM Limitations Comments pain flex and ulnar deviation PT-OP-L Special Tests Start: 10/03/24 16:44 Freq: Status: Active Protocol: Document 10/11/24 08:16 [facility] (Rec: 10/11/24 12:21 [facility] [id number]) Special Tests Cervical Spine Special Tests tectoral membrane Test Results neg Vertebral Artery Test Results BP 112/60; HR 71; O2 95 Comments neg positional screen, Ausciltation of heart and carotid wNL Transverse Ligament Test Results neg Alar Ligament Test Results neg PT-OP-M Strength Start: 10/03/24 16:44 Freq: Status: Active Protocol: Document 12/10/24 09:09 [facility] (Rec: 12/10/24 11:07 [facility] [id number]) Shoulder Strength Shoulder Manual Muscle Testing Right Flexion 4 Good Extension 5 Normal Abduction (C5) 4- Good- External Rotation 4- Good- Internal Rotation 5 Normal Comments pain flex, ER, abd Elbow/Forearm Strength Elbow and Forearm Manual Muscle Testing Right Flexion (C6) 5 Normal Extension (C7) 5 Normal Pronation 4 Good Supination 4+ Good+ Comments pain w/flex Wrist Strength Wrist Manual Muscle Testing Right Flexion (C7) 4+ Good+ Extension (C6) 4+ Good+ Ulnar Deviation 5 Normal Radial Deviation 4 Good Comments pain radial deviation PT-OP-Q Treatments Start: 10/03/24 16:44 Freq: Status: Active Protocol: Document 12/14/24 08:12 [facility] (Rec: 12/14/24 10:43 AB [id number]) Therapeutic Exercises Prone Exercises AROM Prone Exercise Name Y, W I ( trial of T not yazan) Side bilateral Resistance AROM Equipment Used towel roll under prox humerus for level surface and support ABD/ER Reps/Minutes 8 each IE prone with pillows then over ball Comments Good return demonstration. Sidelying Exercises openbook Side bilateral Reps/Minutes 15 ea Manual Therapy Treatment Soft Tissue Mobilization inf Body Location R subscap, teres, lat Mobilization Type Sustained Pressure Intensity/Depth Moderate Comments w/flex superior Body Location R scalenes, UT, LT Mobilization Type Rolling Intensity/Depth Moderate Body Position L Sidelying forearm Body Location R extensors Mobilization Type Sustained Pressure,Other Body Position Supine Joint Mobilizations ribs Comments ribs 1 and 2 GH Joint R Direction AP and inf Grade IV Body Position Hooklying Reps/Duration X10 X 3 L elbow Joint MWM R elbow Direction lat Grade III Body Position Sitting Reps/Duration X10 X 3 Comments with gripping PT-OP-T Assessment and Plan Start: 10/03/24 16:44 Freq: Status: Active Protocol: Document 12/14/24 08:12 [facility] (Rec: 12/14/24 10:43 AB [id number]) Physical Therapy Assessment Goals activities Short Term Goal (STG) Pt will be able to sleep w/o distruption d/t R shoulder or wrist pain. 11/08- a lot better. last night did have it waking 12/10-tonight only 1x waking STG Duration 01/07 Special Education Associate Goal (LTG) Pt will be able do all reaching and house work and dressing w/o inc pain in R wrist or shoulder 11/08-pain w/jackets but not shirts, reaching and houseowrk difficult 12/10-only hurts dressing if goes too qucikly, reaching still hurts. LTG Duration 02/05 strength Short Term Goal (STG) Pt will be indep w/HEP 11/08- working on improved form 12/10-cues needed STG Duration 01/05 [facility] Goal (LTG) Pt will score at least 4+/5 on all BUE MMT and at least 4/5 on EFT to ila improved stability and dec pain 11/08-some progression 12/10-improving LTG Duration 02/18 Quick dash Short Term Goal (STG) Pt will improve quick dash score to no greater than 45 to show improved functional ability. 11/08-59.1 STG Duration achieved to 45 12/10 [facility] Goal (LTG) Pt will improve quick dash score to no greater than 7 to show improved functional ability. 12/10- LTG Duration 02/18 Assessment Summary Assessment AROM 155 deg right shoulder flexion end of session. 5-04/02 right shoulder. Physical Therapy Plan Frequency and Duration Frequency of Treatment 2x/Week Duration of treatment (weeks) 10 Plan of Care Start Date 12/10/24 Plan of Care End Date 02/18/25 Next Visit Focus/Plan Next Note Type Treatment Note Next Visit Plan cont working on R scap mobility and thoracic/rib mobility trial prone scapular strengthening manual: radial n pathway, scap , AC, SC, ribs, thoracic, cervical mobility (STM & jts) & GHJ
--- NOTE | 2024-12-17 10:36 | PT.OTN ---
Current Diagnoses Other chronic pain (12/17/24) Pain in right shoulder (12/17/24) Pain in right wrist (12/17/24) Physical Therapy Treatment Note PT-OP-A Visit Information Start: 10/03/24 16:44 Freq: Status: Active Protocol: Document 12/17/24 08:15 [facility] (Rec: 12/17/24 10:35 AB [id number]) Out-Patient Physical Therapy Visit Information Visit Information Visit Type Treatment Note Visit Start Time 09:49 Visit Stop Time 10:33 Visit Number 13 Number of DIRECTOR OF INSTRUCTION Visits 2 PT-OP-B Current Condition Start: 10/03/24 16:44 Freq: Status: Active Protocol: Document 10/09/24 07:33 [facility] (Rec: 10/09/24 08:22 [facility] [id number]) Current Condition History of Current Condition Onset Date Jun 2024 Current Complaints R shoudler and wrist pain History of Current Condition Pt L knee buckled and fell onto R shoudler and wrist and started having pain in those started being painful. Hx R 2nd digit reconstruction after granade incident. pain hasn't gotten better since this incident and sleeping is difficult. Sees DO in [place]. Prior Treatments and Tests cervical MRI IMPRESSION: Multilevel degenerative disc disease and arthropathy results in severe left and moderate right foraminal stenosis at C3 -4 Xray wrist: IMPRESSION: Mild degenerative changes. PT-OP-C Subjective Start: 10/03/24 16:44 Freq: Status: Active Protocol: Document 12/17/24 08:15 [facility] (Rec: 12/17/24 10:35 AB [id number]) OP-PT Subjective Patient Comments Patient Comments Patient reports he just found out he has a referral for his knees. Patient reports his shoulder is better, reaches overhead to demonstrate. Ranulfo reports pain 6/10 right shoulder start of session attributes to sleeping. AROM right shoulder flexion 152 deg start of session. PT-OP-J Posture/Palpation/Skin Start: 10/03/24 16:44 Freq: Status: Active Protocol: Document 10/09/24 07:33 [facility] (Rec: 10/09/24 12:37 [facility] [id number]) Posture Evaluation Comments Posture Comments R shoulder elevated, ant tipped, inc kyphosis sand fwd head; elevated 1st rib PT-OP-K Range of Motion Start: 10/03/24 16:44 Freq: Status: Active Protocol: Document 10/09/24 07:33 [facility] (Rec: 10/09/24 08:22 [facility] [id number]) Cervical Spine Range of Motion Cervical Spine Active Degrees Flexion 54 Extension 32 Rotation Left 58 Rotation Right 49 Lateral Flexion Left 22 Lateral Flexion Right 20 Shoulder Goniometric Range of Motion Shoulder Right Active Flexion 144 Extension 52 Abduction 165 External Rotation at 0 degrees Abduction 52 Internal Rotation Behind Back (text) T12 Comments pain abd, flex Left Active Flexion 148 Extension 51 Abduction 178 External Rotation at 0 degrees Abduction 70 Internal Rotation Behind Back (text) T9 Wrist Goniometric Range of Motion Wrist Right Flexion Active (degrees) 54 Extension Active (degrees) 43 Ulnar Deviation Active (degrees) 20 Radial Deviation Active (degrees) 12 Left Flexion Active (degrees) 55 Extension Active (degrees) 54 Ulnar Deviation Active (degrees) 35 Radial Deviation Active (degrees) 19 ROM Limitations Comments pain flex and ulnar deviation PT-OP-L Special Tests Start: 10/03/24 16:44 Freq: Status: Active Protocol: Document 10/11/24 08:16 [facility] (Rec: 10/11/24 12:21 [facility] [id number]) Special Tests Cervical Spine Special Tests tectoral membrane Test Results neg Vertebral Artery Test Results BP 112/60; HR 71; O2 95 Comments neg positional screen, Ausciltation of heart and carotid wNL Transverse Ligament Test Results neg Alar Ligament Test Results neg PT-OP-M Strength Start: 10/03/24 16:44 Freq: Status: Active Protocol: Document 12/10/24 09:09 [facility] (Rec: 12/10/24 11:07 [facility] [id number]) Shoulder Strength Shoulder Manual Muscle Testing Right Flexion 4 Good Extension 5 Normal Abduction (C5) 4- Good- External Rotation 4- Good- Internal Rotation 5 Normal Comments pain flex, ER, abd Elbow/Forearm Strength Elbow and Forearm Manual Muscle Testing Right Flexion (C6) 5 Normal Extension (C7) 5 Normal Pronation 4 Good Supination 4+ Good+ Comments pain w/flex Wrist Strength Wrist Manual Muscle Testing Right Flexion (C7) 4+ Good+ Extension (C6) 4+ Good+ Ulnar Deviation 5 Normal Radial Deviation 4 Good Comments pain radial deviation PT-OP-Q Treatments Start: 10/03/24 16:44 Freq: Status: Active Protocol: Document 12/17/24 08:15 [facility] (Rec: 12/17/24 10:35 AB [id number]) Therapeutic Exercises Supine Exercises mini band Side bilateral Resistance level one band Reps/Minutes X8 Comments shoulder ER with flexion elb flex/verbal cues CS rotation Supine Exercise Name on occipital float AROM Side bilateral Reps/Minutes 2 min Comments Verbal cues Prone Exercises AROM Prone Exercise Name Y, W I Side bilateral Resistance AROM Reps/Minutes X8 each Comments prone with towel roll under forehead Sidelying Exercises ER Sidelying Exercise Name trialed inPT- added to HEP next tx /c HO Side right Resistance AROM Equipment Used towel under arm Reps/Minutes 15 reps Comments tactile cues elbow, humeral glide during AROM openbook Side bilateral Reps/Minutes 10 ea Manual Therapy Treatment Consent Patient gave verbal consent for manual Yes treatment Soft Tissue Mobilization inf Body Location R subscap, teres, lat Mobilization Type Sustained Pressure Intensity/Depth Moderate Comments w/flex superior Body Location R scalenes, UT, LT Mobilization Type Rolling Intensity/Depth Moderate Body Position L Sidelying post Body Location R lat, Teres Mobilization Type Rolling,Sustained Pressure, Other Intensity/Depth Moderate Body Position L Sidelying Comments w/scap pattern Joint Mobilizations ribs Comments ribs 1 and 2 GH Joint R Direction AP and inf Grade IV Body Position Hooklying Reps/Duration X10 X 3 PT-OP-T Assessment and Plan Start: 10/03/24 16:44 Freq: Status: Active Protocol: Document 12/17/24 08:15 [facility] (Rec: 12/17/24 10:35 AB [id number]) Physical Therapy Assessment Goals activities Short Term Goal (STG) Pt will be able to sleep w/o distruption d/t R shoulder or wrist pain. 11/08- a lot better. last night did have it waking 12/10-tonight only 1x waking STG Duration 01/07 Group Home Goal (LTG) Pt will be able do all reaching and house work and dressing w/o inc pain in R wrist or shoulder 11/08-pain w/jackets but not shirts, reaching and houseowrk difficult 12/10-only hurts dressing if goes too qucikly, reaching still hurts. LTG Duration 02/05 strength Short Term Goal (STG) Pt will be indep w/HEP 11/08- working on improved form 12/10-cues needed STG Duration 3/15 Pyrotechnic Assembler Goal (LTG) Pt will score at least 4+/5 on all BUE MMT and at least 4/5 on EFT to ila improved stability and dec pain 11/08-some progression 12/10-improving LTG Duration 02/18 Quick dash Short Term Goal (STG) Pt will improve quick dash score to no greater than 45 to show improved functional ability. 11/08-59.1 STG Duration achieved to 45 12/10 Pyrotechnic Assembler Goal (LTG) Pt will improve quick dash score to no greater than 7 to show improved functional ability. 12/10-45 LTG Duration 02/18 Assessment Summary Assessment AROM right shoulder flexion 156 deg end of session rating pain 7/10 end of session. Physical Therapy Plan Frequency and Duration Frequency of Treatment 2x/Week Duration of treatment (weeks) 10 Plan of Care Start Date 12/10/24 Plan of Care End Date 02/18/25 Next Visit Focus/Plan Next Note Type Treatment Note Next Visit Plan cont working on R scap mobility and thoracic/rib mobility trial prone scapular strengthening manual: radial n pathway, scap , AC, SC, ribs, thoracic, cervical mobility (STM & jts) & GHJ
--- NOTE | 2024-12-20 10:44 | PT.OTN ---
Current Diagnoses Other chronic pain (12/20/24) Pain in right shoulder (12/20/24) Pain in right wrist (12/20/24) Physical Therapy Treatment Note PT-OP-A Visit Information Start: 10/03/24 16:44 Freq: Status: Active Protocol: Document 12/20/24 09:47 [facility] (Rec: 12/20/24 10:44 [facility] [id number]) Out-Patient Physical Therapy Visit Information Visit Information Visit Type Treatment Note Visit Start Time 09:50 Visit Stop Time 10:30 Visit Number 14 Number of FOX RAISER Visits 0 PT-OP-B Current Condition Start: 10/03/24 16:44 Freq: Status: Active Protocol: Document 10/09/24 07:33 [facility] (Rec: 10/09/24 08:22 [facility] [id number]) Current Condition History of Current Condition Onset Date Jun 2024 Current Complaints R shoudler and wrist pain History of Current Condition Pt L knee buckled and fell onto R shoudler and wrist and started having pain in those started being painful. Hx R 2nd digit reconstruction after granade incident. pain hasn't gotten better since this incident and sleeping is difficult. Sees DO in [place]. Prior Treatments and Tests cervical MRI IMPRESSION: Multilevel degenerative disc disease and arthropathy results in severe left and moderate right foraminal stenosis at C3 -4 Xray wrist: IMPRESSION: Mild degenerative changes. PT-OP-C Subjective Start: 10/03/24 16:44 Freq: Status: Active Protocol: Document 12/20/24 09:47 [facility] (Rec: 12/20/24 10:44 [facility] [id number]) OP-PT Subjective Patient Comments Patient Comments Pt reports has been doing wrist strength exercises. did prone exercises yesterday and thinks he shouldn't have PT-OP-J Posture/Palpation/Skin Start: 10/03/24 16:44 Freq: Status: Active Protocol: Document 10/09/24 07:33 [facility] (Rec: 10/09/24 12:37 [facility] [id number]) Posture Evaluation Comments Posture Comments R shoulder elevated, ant tipped, inc kyphosis sand fwd head; elevated 1st rib PT-OP-K Range of Motion Start: 10/03/24 16:44 Freq: Status: Active Protocol: Document 10/09/24 07:33 [facility] (Rec: 10/09/24 08:22 [facility] [id number]) Cervical Spine Range of Motion Cervical Spine Active Degrees Flexion 54 Extension 32 Rotation Left 58 Rotation Right 49 Lateral Flexion Left 22 Lateral Flexion Right 20 Shoulder Goniometric Range of Motion Shoulder Right Active Flexion 144 Extension 52 Abduction 165 External Rotation at 0 degrees Abduction 52 Internal Rotation Behind Back (text) T12 Comments pain abd, flex Left Active Flexion 148 Extension 51 Abduction 178 External Rotation at 0 degrees Abduction 70 Internal Rotation Behind Back (text) T9 Wrist Goniometric Range of Motion Wrist Right Flexion Active (degrees) 54 Extension Active (degrees) 43 Ulnar Deviation Active (degrees) 20 Radial Deviation Active (degrees) 12 Left Flexion Active (degrees) 55 Extension Active (degrees) 54 Ulnar Deviation Active (degrees) 35 Radial Deviation Active (degrees) 19 ROM Limitations Comments pain flex and ulnar deviation PT-OP-L Special Tests Start: 10/03/24 16:44 Freq: Status: Active Protocol: Document 10/11/24 08:16 [facility] (Rec: 10/11/24 12:21 [facility] [id number]) Special Tests Cervical Spine Special Tests tectoral membrane Test Results neg Vertebral Artery Test Results BP 112/60; HR 71; O2 95 Comments neg positional screen, Ausciltation of heart and carotid wNL Transverse Ligament Test Results neg Alar Ligament Test Results neg PT-OP-M Strength Start: 10/03/24 16:44 Freq: Status: Active Protocol: Document 12/10/24 09:09 [facility] (Rec: 12/10/24 11:07 [facility] [id number]) Shoulder Strength Shoulder Manual Muscle Testing Right Flexion 4 Good Extension 5 Normal Abduction (C5) 4- Good- External Rotation 4- Good- Internal Rotation 5 Normal Comments pain flex, ER, abd Elbow/Forearm Strength Elbow and Forearm Manual Muscle Testing Right Flexion (C6) 5 Normal Extension (C7) 5 Normal Pronation 4 Good Supination 4+ Good+ Comments pain w/flex Wrist Strength Wrist Manual Muscle Testing Right Flexion (C7) 4+ Good+ Extension (C6) 4+ Good+ Ulnar Deviation 5 Normal Radial Deviation 4 Good Comments pain radial deviation PT-OP-Q Treatments Start: 10/03/24 16:44 Freq: Status: Active Protocol: Document 12/20/24 09:47 [facility] (Rec: 12/20/24 10:44 [facility] [id number]) Therapeutic Exercises Supine Exercises mini band Side bilateral Resistance level one band Reps/Minutes 15 Comments Habd then full flex w/elbows ext serratus punch Supine Exercise Name chest press Side right Equipment Used 2# Reps/Minutes 2x10 Comments cues no scap elevation Sidelying Exercises ER Side right Resistance 0#,1# Equipment Used towel under arm Reps/Minutes 10ea Comments tactile cues elbow, humeral glide during AROM ABD Side right Reps/Minutes 2x10 Comments cues reach long Standing Exercises plank Standing Exercise Name forearm on wall w/serratus punch Side bilateral Reps/Minutes 10 Manual Therapy Treatment Consent Patient gave verbal consent for manual Yes treatment Soft Tissue Mobilization forearm Body Location R extensors Mobilization Type Sustained Pressure,Other Body Position Supine Joint Mobilizations ribs Comments R 1st caudal c/r GH Comments R inf w/c/r flex wrist Comments AP proximal row and med glides PT-OP-T Assessment and Plan Start: 10/03/24 16:44 Freq: Status: Active Protocol: Document 12/20/24 09:47 [facility] (Rec: 12/20/24 10:44 [facility] [id number]) Physical Therapy Assessment Goals activities Short Term Goal (STG) Pt will be able to sleep w/o distruption d/t R shoulder or wrist pain. 11/08- a lot better. last night did have it waking 12/10-tonight only 1x waking STG Duration 01/07 Penitentiary Goal (LTG) Pt will be able do all reaching and house work and dressing w/o inc pain in R wrist or shoulder 11/08-pain w/jackets but not shirts, reaching and houseowrk difficult 12/10-only hurts dressing if goes too qucikly, reaching still hurts. LTG Duration 02/05 strength Short Term Goal (STG) Pt will be indep w/HEP 11/08- working on improved form 12/10-cues needed STG Duration 01/05 Marketing Support Manager Goal (LTG) Pt will score at least 4+/5 on all BUE MMT and at least 4/5 on EFT to ila improved stability and dec pain 11/08-some progression 12/10-improving LTG Duration 02/18 Quick dash Short Term Goal (STG) Pt will improve quick dash score to no greater than 45 to show improved functional ability. 11/08-59.1 STG Duration achieved to 45 12/10 Penitentiary Goal (LTG) Pt will improve quick dash score to no greater than 7 to show improved functional ability. 12/10- LTG Duration 02/18 Assessment Summary Assessment Pt encouraged to follow up w/ provider to consider ortho referral and/or MRI for wrist and shoulder d/t cont pain. Pt encoruaged to cont exercises but avoid inc pain w/exercises . Physical Therapy Plan Frequency and Duration Frequency of Treatment 2x/Week Duration of treatment (weeks) 10 Plan of Care Start Date 12/10/24 Plan of Care End Date 02/18/25 Next Visit Focus/Plan Next Note Type Treatment Note Next Visit Plan cont scap stability manual: radial n pathway, scap , AC, SC, ribs, thoracic, cervical mobility (STM & jts) & GHJ
--- NOTE | 2024-12-25 09:26 | PT.OTN ---
Current Diagnoses Other chronic pain (12/25/24) Pain in right shoulder (12/25/24) Pain in right wrist (12/25/24) Physical Therapy Treatment Note PT-OP-A Visit Information Start: 10/03/24 16:44 Freq: Status: Active Protocol: Document 12/25/24 08:39 [facility] (Rec: 12/25/24 09:26 [facility] [id number]) Out-Patient Physical Therapy Visit Information Visit Information Visit Type Treatment Note Visit Start Time 08:20 Visit Stop Time 09:00 Visit Number 15 Number of OPTICIAN APPRENTICE DISPENSING Visits 0 PT-OP-B Current Condition Start: 10/03/24 16:44 Freq: Status: Active Protocol: Document 10/09/24 07:33 [facility] (Rec: 10/09/24 08:[id number] Current Condition History of Current Condition Onset Date Jun 2024 Current Complaints R shoudler and wrist pain History of Current Condition Pt L knee buckled and fell onto R shoudler and wrist and started having pain in those started being painful. Hx R 2nd digit reconstruction after granade incident. pain hasn't gotten better since this incident and sleeping is difficult. Sees DO in [place]. Prior Treatments and Tests cervical MRI IMPRESSION: Multilevel degenerative disc disease and arthropathy results in severe left and moderate right foraminal stenosis at C3 -4 Xray wrist: IMPRESSION: Mild degenerative changes. PT-OP-C Subjective Start: 10/03/24 16:44 Freq: Status: Active Protocol: Document 12/25/24 08:39 [facility] (Rec: 12/25/24 09:26 [facility] [id number]) OP-PT Subjective Patient Comments Patient Comments Pt reports he feel slike shoulder is better.he is doing a lot of work on the house which he thinks sometimes flares his shoulder and wrist up PT-OP-J Posture/Palpation/Skin Start: 10/03/24 16:44 Freq: Status: Active Protocol: Document 10/09/24 07:33 [facility] (Rec: 10/09/24 12:37 [facility] [id number]) Posture Evaluation Comments Posture Comments R shoulder elevated, ant tipped, inc kyphosis sand fwd head; elevated 1st rib PT-OP-K Range of Motion Start: 10/03/24 16:44 Freq: Status: Active Protocol: Document 10/09/24 07:33 [facility] (Rec: 10/09/24 08:22 [facility] [id number]) Cervical Spine Range of Motion Cervical Spine Active Degrees Flexion 54 Extension 32 Rotation Left 58 Rotation Right 49 Lateral Flexion Left 22 Lateral Flexion Right 20 Shoulder Goniometric Range of Motion Shoulder Right Active Flexion 144 Extension 52 Abduction 165 External Rotation at 0 degrees Abduction 52 Internal Rotation Behind Back (text) T12 Comments pain abd, flex Left Active Flexion 148 Extension 51 Abduction 178 External Rotation at 0 degrees Abduction 70 Internal Rotation Behind Back (text) T9 Wrist Goniometric Range of Motion Wrist Right Flexion Active (degrees) 54 Extension Active (degrees) 43 Ulnar Deviation Active (degrees) 20 Radial Deviation Active (degrees) 12 Left Flexion Active (degrees) 55 Extension Active (degrees) 54 Ulnar Deviation Active (degrees) 35 Radial Deviation Active (degrees) 19 ROM Limitations Comments pain flex and ulnar deviation PT-OP-L Special Tests Start: 10/03/24 16:44 Freq: Status: Active Protocol: Document 10/11/24 08:16 [facility] (Rec: 10/11/24 12:21 [facility] [id number]) Special Tests Cervical Spine Special Tests tectoral membrane Test Results neg Vertebral Artery Test Results BP 112/60; HR 71; O2 95 Comments neg positional screen, Ausciltation of heart and carotid wNL Transverse Ligament Test Results neg Alar Ligament Test Results neg PT-OP-M Strength Start: 10/03/24 16:44 Freq: Status: Active Protocol: Document 12/10/24 09:09 [facility] (Rec: 12/10/24 11:07 [facility] [id number]) Shoulder Strength Shoulder Manual Muscle Testing Right Flexion 4 Good Extension 5 Normal Abduction (C5) 4- Good- External Rotation 4- Good- Internal Rotation 5 Normal Comments pain flex, ER, abd Elbow/Forearm Strength Elbow and Forearm Manual Muscle Testing Right Flexion (C6) 5 Normal Extension (C7) 5 Normal Pronation 4 Good Supination 4+ Good+ Comments pain w/flex Wrist Strength Wrist Manual Muscle Testing Right Flexion (C7) 4+ Good+ Extension (C6) 4+ Good+ Ulnar Deviation 5 Normal Radial Deviation 4 Good Comments pain radial deviation PT-OP-Q Treatments Start: 10/03/24 16:44 Freq: Status: Active Protocol: Document 12/25/24 08:39 [facility] (Rec: 12/25/24 09:26 [facility] [id number]) Therapeutic Exercises Supine Exercises serratus punch Supine Exercise Name chest press to punch Side right Equipment Used 4# Reps/Minutes x10 Comments cues no scap elevation Prone Exercises AROM Prone Exercise Name Y w/UE off edge of bed Side right Equipment Used 1# Reps/Minutes 10 Sidelying Exercises ER Side right Resistance 1#, 2# Equipment Used towel under arm Reps/Minutes 10ea resistance Comments tactile cues elbow, humeral glide during AROM ABD Side right Equipment Used 0#, 1# Reps/Minutes 10 ea resistance Comments cues reach long Sitting Exercises wrist Sitting Exercise Name 1 radial dev 2. ext 3. flex Equipment Used 1lb, 2# Reps/Minutes 10 ea wt Comments cues control Manual Therapy Treatment Consent Patient gave verbal consent for manual Yes treatment Joint Mobilizations GH Comments R inf w/c/r flex; R post translation c/r and glide w/IR , distraction AC Joint R AC gapping Body Position LSidelying PT-OP-T Assessment and Plan Start: 10/03/24 16:44 Freq: Status: Active Protocol: Document 12/25/24 08:39 [facility] (Rec: 12/25/24 09:26 [facility] [id number]) Physical Therapy Assessment Goals activities Short Term Goal (STG) Pt will be able to sleep w/o distruption d/t R shoulder or wrist pain. 11/08- a lot better. last night did have it waking 12/10-tonight only 1x waking STG Duration 01/07 Doughnut Maker Goal (LTG) Pt will be able do all reaching and house work and dressing w/o inc pain in R wrist or shoulder 11/08-pain w/jackets but not shirts, reaching and houseowrk difficult 12/10-only hurts dressing if goes too qucikly, reaching still hurts. LTG Duration 02/05 strength Short Term Goal (STG) Pt will be indep w/HEP 11/08- working on improved form 12/10-cues needed STG Duration 01/05 Doughnut Maker Goal (LTG) Pt will score at least 4+/5 on all BUE MMT and at least 4/5 on EFT to ila improved stability and dec pain 11/08-some progression 12/10-improving LTG Duration 02/18 Quick dash Short Term Goal (STG) Pt will improve quick dash score to no greater than 45 to show improved functional ability. 11/08-59.1 STG Duration achieved to 45 12/10 Group Home Goal (LTG) Pt will improve quick dash score to no greater than 7 to show improved functional ability. 12/10- LTG Duration 02/18 Assessment Summary Assessment Pt did well with progression of exercises today w/o inc pain. NEeds cues for control occasionally and form. He had improved PROM IR and abd after manual to shoulder. Physical Therapy Plan Frequency and Duration Frequency of Treatment 2x/Week Duration of treatment (weeks) 10 Plan of Care Start Date 12/10/24 Plan of Care End Date 02/18/25 Next Visit Focus/Plan Next Note Type Treatment Note Next Visit Plan cont scap stability manual: radial n pathway, scap , AC, SC, ribs, thoracic, cervical mobility (STM & jts) & GHJ
--- NOTE | 2025-01-10 10:41 | PT.OTN ---
Current Diagnoses Other chronic pain (01/10/25) Pain in right shoulder (01/10/25) Pain in right wrist (01/10/25) Physical Therapy Treatment Note PT-OP-A Visit Information Start: 10/03/24 16:44 Freq: Status: Active Protocol: Document 01/10/25 07:23 [facility] (Rec: 01/10/25 10:41 [facility] [id number]) Out-Patient Physical Therapy Visit Information Visit Information Visit Type Treatment Note Visit Start Time 09:48 Visit Stop Time 10:34 Visit Number 16 Number of TOW BAR DRIVER Visits 1 PT-OP-B Current Condition Start: 10/03/24 16:44 Freq: Status: Active Protocol: Document 10/09/24 07:33 [facility] (Rec: 10/09/24 08:22 [facility] [id number]) Current Condition History of Current Condition Onset Date Jun 2024 Current Complaints R shoudler and wrist pain History of Current Condition Pt L knee buckled and fell onto R shoudler and wrist and started having pain in those started being painful. Hx R 2nd digit reconstruction after granade incident. pain hasn't gotten better since this incident and sleeping is difficult. Sees DO in [place]. Prior Treatments and Tests cervical MRI IMPRESSION: Multilevel degenerative disc disease and arthropathy results in severe left and moderate right foraminal stenosis at C3 -4 Xray wrist: IMPRESSION: Mild degenerative changes. PT-OP-C Subjective Start: 10/03/24 16:44 Freq: Status: Active Protocol: Document 01/10/25 07:23 [facility] (Rec: 01/10/25 10:41 [facility] [id number]) OP-PT Subjective Patient Comments Patient Comments Patient reports Right shoulder pain is 6-7/10 gestures to UT /levator scap, & infra and supria spinatus painful to palpation. PT-OP-J Posture/Palpation/Skin Start: 10/03/24 16:44 Freq: Status: Active Protocol: Document 10/09/24 07:33 [facility] (Rec: 10/09/24 12:37 [facility] [id number]) Posture Evaluation Comments Posture Comments R shoulder elevated, ant tipped, inc kyphosis sand fwd head; elevated 1st rib PT-OP-K Range of Motion Start: 10/03/24 16:44 Freq: Status: Active Protocol: Document 10/09/24 07:33 [facility] (Rec: 10/09/24 08:22 [facility] [id number]) Cervical Spine Range of Motion Cervical Spine Active Degrees Flexion 54 Extension 32 Rotation Left 58 Rotation Right 49 Lateral Flexion Left 22 Lateral Flexion Right 20 Shoulder Goniometric Range of Motion Shoulder Right Active Flexion 144 Extension 52 Abduction 165 External Rotation at 0 degrees Abduction 52 Internal Rotation Behind Back (text) T12 Comments pain abd, flex Left Active Flexion 148 Extension 51 Abduction 178 External Rotation at 0 degrees Abduction 70 Internal Rotation Behind Back (text) T9 Wrist Goniometric Range of Motion Wrist Right Flexion Active (degrees) 54 Extension Active (degrees) 43 Ulnar Deviation Active (degrees) 20 Radial Deviation Active (degrees) 12 Left Flexion Active (degrees) 55 Extension Active (degrees) 54 Ulnar Deviation Active (degrees) 35 Radial Deviation Active (degrees) 19 ROM Limitations Comments pain flex and ulnar deviation PT-OP-L Special Tests Start: 10/03/24 16:44 Freq: Status: Active Protocol: Document 10/11/24 08:16 [facility] (Rec: 10/11/24 12:21 [facility] [id number]) Special Tests Cervical Spine Special Tests tectoral membrane Test Results neg Vertebral Artery Test Results BP 112/60; HR 71; O2 95 Comments neg positional screen, Ausciltation of heart and carotid wNL Transverse Ligament Test Results neg Alar Ligament Test Results neg PT-OP-M Strength Start: 10/03/24 16:44 Freq: Status: Active Protocol: Document 12/10/24 09:09 [facility] (Rec: 12/10/24 11:07 [facility] [id number]) Shoulder Strength Shoulder Manual Muscle Testing Right Flexion 4 Good Extension 5 Normal Abduction (C5) 4- Good- External Rotation 4- Good- Internal Rotation 5 Normal Comments pain flex, ER, abd Elbow/Forearm Strength Elbow and Forearm Manual Muscle Testing Right Flexion (C6) 5 Normal Extension (C7) 5 Normal Pronation 4 Good Supination 4+ Good+ Comments pain w/flex Wrist Strength Wrist Manual Muscle Testing Right Flexion (C7) 4+ Good+ Extension (C6) 4+ Good+ Ulnar Deviation 5 Normal Radial Deviation 4 Good Comments pain radial deviation PT-OP-Q Treatments Start: 10/03/24 16:44 Freq: Status: Active Protocol: Document 01/10/25 07:23 [facility] (Rec: 01/10/25 10:41 AB [id number]) Therapeutic Exercises Supine Exercises mini band Side bilateral Resistance level one band Reps/Minutes 3 Comments not yazan CS rotation Supine Exercise Name on occipital float AROM Side bilateral Reps/Minutes 2 min Comments Verbal cues Sidelying Exercises openbook Side bilateral Reps/Minutes 6 ea Comments post manual Standing Exercises scap punch on wall Standing Exercise Name 90 deg flexion, blue ball Side right Reps/Minutes X 10 Comments verbal and visual cues monitored for pain wall slide on forearms Side bilateral Reps/Minutes X 10 Comments verbal and visual cues Manual Therapy Treatment Consent Patient gave verbal consent for manual Yes treatment Soft Tissue Mobilization inf Body Location R subscap, teres, lat Mobilization Type Sustained Pressure Intensity/Depth Moderate Comments w/flex superior Body Location R scalenes, UT, LT scap Mobilization Type Rolling Intensity/Depth Moderate Body Position L Sidelying post Body Location infra, supra spinatus, periscapular Mobilization Type Rolling,Sustained Pressure, Other Intensity/Depth Moderate Body Position L Sidelying Comments w/scap pattern Joint Mobilizations scapular mobilization Joint Into depression and adduction Grade IV Body Position Sidelying Reps/Duration X 10 each R scapula GH Joint Into add and depression right GH Direction IV Body Position Hooklying Reps/Duration X 10 X 3 AC Joint R AC and SC Direction inf Body Position Hooklying Reps/Duration X 10 each PT-OP-T Assessment and Plan Start: 10/03/24 16:44 Freq: Status: Active Protocol: Document 01/10/25 07:23 [facility] (Rec: 01/10/25 10:41 [facility] [id number]) Physical Therapy Assessment Goals activities Short Term Goal (STG) Pt will be able to sleep w/o distruption d/t R shoulder or wrist pain. 11/08- a lot better. last night did have it waking 12/10-tonight only 1x waking STG Duration 01/07 Wood Lathe Operator Goal (LTG) Pt will be able do all reaching and house work and dressing w/o inc pain in R wrist or shoulder 11/08-pain w/jackets but not shirts, reaching and houseowrk difficult 12/10-only hurts dressing if goes too qucikly, reaching still hurts. LTG Duration 02/05 strength Short Term Goal (STG) Pt will be indep w/HEP 11/08- working on improved form 12/10-cues needed STG Duration 01/05 Longterm Goal (LTG) Pt will score at least 4+/5 on all BUE MMT and at least 4/5 on EFT to ila improved stability and dec pain 11/08-some progression 12/10-improving LTG Duration 02/18 Quick dash Short Term Goal (STG) Pt will improve quick dash score to no greater than 45 to show improved functional ability. 11/08-59.1 STG Duration achieved to 45 12/10 Longterm Goal (LTG) Pt will improve quick dash score to no greater than 7 to show improved functional ability. 12/10- LTG Duration 02/18 Assessment Summary Assessment 150 deg AROM R shoulder flexion end of session, continues to rate pain 6-7/10 end of session. Reports increased pain with attempts of mini band exercises this sessin. Physical Therapy Plan Frequency and Duration Frequency of Treatment 2x/Week Duration of treatment (weeks) 10 Plan of Care Start Date 12/10/24 Plan of Care End Date 02/18/25 Next Visit Focus/Plan Next Note Type Treatment Note Next Visit Plan cont scap stability manual: radial n pathway, scap , AC, SC, ribs, thoracic, cervical mobility (STM & jts) & GHJ
--- NOTE | 2025-01-28 12:22 | PT.OTN ---
Current Diagnoses Other chronic pain (01/28/25) Pain in right shoulder (01/28/25) Pain in right wrist (01/28/25) Physical Therapy Treatment Note PT-OP-A Visit Information Start: 10/03/24 16:44 Freq: Status: Active Protocol: Document 01/28/25 11:36 [facility] (Rec: 01/28/25 12:22 [facility] [id number]) Out-Patient Physical Therapy Visit Information Visit Information Visit Type Progress Note Visit Start Time 11:36 Visit Stop Time 12:15 Visit Number 17 (11/02) Number of [employer] WEBSP[employer] PORTAL DEVELOPER Visits 0 PT-OP-B Current Condition Start: 10/03/24 16:44 Freq: Status: Active Protocol: Document 10/09/24 07:33 [facility] (Rec: 10/09/24 08:22 [facility] [id number]) Current Condition History of Current Condition Onset Date Jun 2024 Current Complaints R shoudler and wrist pain History of Current Condition Pt L knee buckled and fell onto R shoudler and wrist and started having pain in those started being painful. Hx R 2nd digit reconstruction after granade incident. pain hasn't gotten better since this incident and sleeping is difficult. Sees DO in [place]. Prior Treatments and Tests cervical MRI IMPRESSION: Multilevel degenerative disc disease and arthropathy results in severe left and moderate right foraminal stenosis at C3 -4 Xray wrist: IMPRESSION: Mild degenerative changes. PT-OP-C Subjective Start: 10/03/24 16:44 Freq: Status: Active Protocol: Document 01/28/25 11:36 [facility] (Rec: 01/28/25 12:22 [facility] [id number]) OP-PT Subjective Patient Comments Patient Comments pt has MRI scheduled for wrist and shoulder today. Wrist has been intermittent. Shoulder is more of a problem but is stronger. Has been doing more ROM. thumb went completely numb this AM (woke up like that). Patient Reported Progress Improving PT-OP-J Posture/Palpation/Skin Start: 10/03/24 16:44 Freq: Status: Active Protocol: Document 01/28/25 11:36 [facility] (Rec: 01/28/25 12:22 [facility] [id number]) Posture Evaluation [facility] Postural Classification System Elbow Flexion Test 3 PT-OP-K Range of Motion Start: 10/03/24 16:44 Freq: Status: Active Protocol: Document 10/09/24 07:33 [facility] (Rec: 10/09/24 08:22 [facility] [id number]) Cervical Spine Range of Motion Cervical Spine Active Degrees Flexion 54 Extension 32 Rotation Left 58 Rotation Right 49 Lateral Flexion Left 22 Lateral Flexion Right 20 Shoulder Goniometric Range of Motion Shoulder Right Active Flexion 144 Extension 52 Abduction 165 External Rotation at 0 degrees Abduction 52 Internal Rotation Behind Back (text) T12 Comments pain abd, flex Left Active Flexion 148 Extension 51 Abduction 178 External Rotation at 0 degrees Abduction 70 Internal Rotation Behind Back (text) T9 Wrist Goniometric Range of Motion Wrist Right Flexion Active (degrees) 54 Extension Active (degrees) 43 Ulnar Deviation Active (degrees) 20 Radial Deviation Active (degrees) 12 Left Flexion Active (degrees) 55 Extension Active (degrees) 54 Ulnar Deviation Active (degrees) 35 Radial Deviation Active (degrees) 19 ROM Limitations Comments pain flex and ulnar deviation PT-OP-L Special Tests Start: 10/03/24 16:44 Freq: Status: Active Protocol: Document 10/11/24 08:16 [facility] (Rec: 10/11/24 12:21 [facility] [id number]) Special Tests Cervical Spine Special Tests tectoral membrane Test Results neg Vertebral Artery Test Results BP 112/60; HR 71; O2 95 Comments neg positional screen, Ausciltation of heart and carotid wNL Transverse Ligament Test Results neg Alar Ligament Test Results neg PT-OP-M Strength Start: 10/03/24 16:44 Freq: Status: Active Protocol: Document 01/28/25 11:36 [facility] (Rec: 01/28/25 12:22 [facility] [id number]) Shoulder Strength Shoulder Manual Muscle Testing Right Flexion 4- Good- Extension 5 Normal Abduction (C5) 4- Good- External Rotation 4- Good- Internal Rotation 5 Normal Horizontal Abduction 4- Good- Horizontal Adduction 4 Good Comments pain flex, ER, abd, Hadd Elbow/Forearm Strength Elbow and Forearm Manual Muscle Testing Right Flexion (C6) 5 Normal Extension (C7) 5 Normal Pronation 4 Good Supination 5 Normal Comments pain w/pronation especially if gripping Left Flexion (C6) 5 Normal Extension (C7) 5 Normal Pronation 5 Normal Supination 5 Normal Wrist Strength Wrist Manual Muscle Testing Right Flexion (C7) 5 Normal Extension (C6) 5 Normal Ulnar Deviation 5 Normal Radial Deviation 5 Normal Comments mild pain PT-OP-Q Treatments Start: 10/03/24 16:44 Freq: Status: Active Protocol: Document 01/28/25 11:36 [facility] (Rec: 01/28/25 12:22 [facility] [id number]) Therapeutic Exercises Supine Exercises mini band Side bilateral Resistance level one band Reps/Minutes 8 Comments Habd w/flex Prone Exercises AROM Prone Exercise Name 1. Y thumb up 2. T w/palm down 3. 90/90 ER 4. 90 deg Habd row Side right Equipment Used 1. 1 # 2.0# 3. 0# 4. 1# Reps/Minutes 1, 2, 4: 12 reps; 3. x5 stopped d/t pain Comments comfortable range, cues scap Sidelying Exercises ABD Side right Equipment Used 1#, 2# Reps/Minutes 10 ea resistance Comments cues reach long Standing Exercises flex Standing Exercise Name Habd w/flex Side bilateral Resistance L1 Equipment Used mirror Reps/Minutes 12 Comments cues to monitor and avoid scap elevation scap punch on wall Standing Exercise Name 90 deg flexion Side bilateral Reps/Minutes 2x10 Comments max cues for scap positions-VC and tactile Other Exercises isometrics Other Exercise Name BUE MMT and EFT Side bilateral Manual Therapy Treatment Consent Patient gave verbal consent for manual Yes treatment Soft Tissue Mobilization ant Body Location R pec major/minor Mobilization Type Rolling,Sustained Pressure Comments w/ER Joint Mobilizations ribs Comments caudal Rib 1 c/r R, PA R ribs 5-6; AP ribs 4 and 5 thoracic Comments PA T 5 and 6 PT-OP-T Assessment and Plan Start: 10/03/24 16:44 Freq: Status: Active Protocol: Document 01/28/25 11:36 [facility] (Rec: 01/28/25 12:22 [facility] [id number]) Physical Therapy Assessment Goals activities Short Term Goal (STG) Pt will be able to sleep w/o distruption d/t R shoulder or wrist pain. 11/08- a lot better. last night did have it waking 12/10-tonight only 1x waking 01/28-no more than 1x a night STG Duration 02/20 Ski Instructor Goal (LTG) Pt will be able do all reaching and house work and dressing w/o inc pain in R wrist or shoulder 11/08-pain w/jackets but not shirts, reaching and houseowrk difficult 12/10-only hurts dressing if goes too qucikly, reaching still hurts. 01/28-can reach ok, dressing ok, pain w/lifting and w/weird movements LTG Duration 03/11 strength Short Term Goal (STG) Pt will be indep w/HEP 11/08- working on improved form 12/10-cues needed STG Duration achieved advancing as able Long-Term Goal (LTG) Pt will score at least 4+/5 on all BUE MMT and at least 4/5 on EFT to ila improved stability and dec pain 11/08-some progression 12/10-improving 01/28-improvement mostly at wrist LTG Duration 03/11 Quick dash Short Term Goal (STG) Pt will improve quick dash score to no greater than 45 to show improved functional ability. 11/08-59.1 STG Duration achieved to 45 12/10 Ski Instructor Goal (LTG) Pt will improve quick dash score to no greater than 7 to show improved functional ability. 12/10-45 01/28-25 LTG Duration 03/11 Assessment Summary Assessment Pt making progress w/PT w/R wrist> shoulder. He is noting more strength and improved functional ability but still noting pain. He does have MRI scheduled today for both wrist and shoulder. With cues w/ exercises, he has much improved function and ability to do movement and strengthening exercises but requires cues. Cont PT to cont to dec pain and improve function. Physical Therapy Plan Frequency and Duration Frequency of Treatment 2x/Week Duration of treatment (weeks) 6 Plan of Care Start Date 01/28/25 Plan of Care End Date 03/11/25 Therapeutic Interventions Therapeutic Interventions Coordination Training,Home Exercise Program,Joint Mobilizations,Manual Therapy, Neuromuscular Re-education, Patient/Caregiver Education, Self-Care/Home Management,Soft Tissue Mobilization,Taping, Therapeutic Activities, Therapeutic Exercises Modalities Cold Pack/Ice Massage,Electric Stimulation,Hot Packs, Infrared Therapy,Ultrasound Next Visit Focus/Plan Next Note Type Treatment Note Next Visit Plan cont scap stability and work on mechanics w/overhead exercises, work on stabilization of GHJ w/ overhead manual: radial n pathway, scap , AC, SC, ribs, thoracic, cervical mobility (STM & jts) & GHJ
--- NOTE | 2025-01-30 12:20 | PT.OTN ---
Current Diagnoses Other chronic pain (01/30/25) Pain in right shoulder (01/30/25) Pain in right wrist (01/30/25) Physical Therapy Treatment Note PT-OP-A Visit Information Start: 10/03/24 16:44 Freq: Status: Active Protocol: Document 01/30/25 11:37 [facility] (Rec: 01/30/25 12:20 [facility] [id number]) Out-Patient Physical Therapy Visit Information Visit Information Visit Type Treatment Note Visit Start Time 11:37 Visit Stop Time 12:15 Visit Number 18 (12/03) Number of ELEMENTARY EDUCATOR Visits 0 PT-OP-B Current Condition Start: 10/03/24 16:44 Freq: Status: Active Protocol: Document 10/09/24 07:33 [facility] (Rec: 10/09/24 08:22 [facility] [id number]) Current Condition History of Current Condition Onset Date Jun 2024 Current Complaints R shoudler and wrist pain History of Current Condition Pt L knee buckled and fell onto R shoudler and wrist and started having pain in those started being painful. Hx R 2nd digit reconstruction after granade incident. pain hasn't gotten better since this incident and sleeping is difficult. Sees DO in [place]. Prior Treatments and Tests cervical MRI IMPRESSION: Multilevel degenerative disc disease and arthropathy results in severe left and moderate right foraminal stenosis at C3 -4 Xray wrist: IMPRESSION: Mild degenerative changes. PT-OP-C Subjective Start: 10/03/24 16:44 Freq: Status: Active Protocol: Document 01/30/25 11:37 [facility] (Rec: 01/30/25 12:20 [facility] [id number]) OP-PT Subjective Patient Comments Patient Comments Pt reports shoulder and wrist doing okay since last night. PT-OP-J Posture/Palpation/Skin Start: 10/03/24 16:44 Freq: Status: Active Protocol: Document 01/28/25 11:36 [facility] (Rec: 01/28/25 12:22 [facility] [id number]) Posture Evaluation Gabby Postural Classification System Elbow Flexion Test 3 PT-OP-K Range of Motion Start: 10/03/24 16:44 Freq: Status: Active Protocol: Document 10/09/24 07:33 [facility] (Rec: 10/09/24 08:22 [facility] [id number]) Cervical Spine Range of Motion Cervical Spine Active Degrees Flexion 54 Extension 32 Rotation Left 58 Rotation Right 49 Lateral Flexion Left 22 Lateral Flexion Right 20 Shoulder Goniometric Range of Motion Shoulder Right Active Flexion 144 Extension 52 Abduction 165 External Rotation at 0 degrees Abduction 52 Internal Rotation Behind Back (text) T12 Comments pain abd, flex Left Active Flexion 148 Extension 51 Abduction 178 External Rotation at 0 degrees Abduction 70 Internal Rotation Behind Back (text) T9 Wrist Goniometric Range of Motion Wrist Right Flexion Active (degrees) 54 Extension Active (degrees) 43 Ulnar Deviation Active (degrees) 20 Radial Deviation Active (degrees) 12 Left Flexion Active (degrees) 55 Extension Active (degrees) 54 Ulnar Deviation Active (degrees) 35 Radial Deviation Active (degrees) 19 ROM Limitations Comments pain flex and ulnar deviation PT-OP-L Special Tests Start: 10/03/24 16:44 Freq: Status: Active Protocol: Document 10/11/24 08:16 [facility] (Rec: 10/11/24 12:21 [facility] [id number]) Special Tests Cervical Spine Special Tests tectoral membrane Test Results neg Vertebral Artery Test Results BP 112/60; HR 71; O2 95 Comments neg positional screen, Ausciltation of heart and carotid wNL Transverse Ligament Test Results neg Alar Ligament Test Results neg PT-OP-M Strength Start: 10/03/24 16:44 Freq: Status: Active Protocol: Document 01/28/25 11:36 [facility] (Rec: 01/28/25 12:22 [facility] [id number]) Shoulder Strength Shoulder Manual Muscle Testing Right Flexion 4- Good- Extension 5 Normal Abduction (C5) 4- Good- External Rotation 4- Good- Internal Rotation 5 Normal Horizontal Abduction 4- Good- Horizontal Adduction 4 Good Comments pain flex, ER, abd, Hadd Elbow/Forearm Strength Elbow and Forearm Manual Muscle Testing Right Flexion (C6) 5 Normal Extension (C7) 5 Normal Pronation 4 Good Supination 5 Normal Comments pain w/pronation especially if gripping Left Flexion (C6) 5 Normal Extension (C7) 5 Normal Pronation 5 Normal Supination 5 Normal Wrist Strength Wrist Manual Muscle Testing Right Flexion (C7) 5 Normal Extension (C6) 5 Normal Ulnar Deviation 5 Normal Radial Deviation 5 Normal Comments mild pain PT-OP-Q Treatments Start: 10/03/24 16:44 Freq: Status: Active Protocol: Document 01/30/25 11:37 [facility] (Rec: 01/30/25 12:20 [facility] [id number]) Therapeutic Exercises Prone Exercises Ext Side right Equipment Used 4# Reps/Minutes 12 AROM Prone Exercise Name 1. Y thumb up 2. T w/palm down 3. 90 deg Habd row Side right Equipment Used 1 & 3. 1 lb, 2. 0# Reps/Minutes 12 ea Comments comfortable range, cues scap Sidelying Exercises ABD Side right Resistance 2# Equipment Used towel under wrist for start position to dec add at start d /t pain Reps/Minutes 12 Comments cues reach long Sitting Exercises ER Sitting Exercise Name 90/90 Side right Resistance 1# Reps/Minutes 12 Comments cues comfortable range pronation/supination Side right Equipment Used L1, L2 Reps/Minutes 12 ea Comments not to full supination d/t pain Standing Exercises diagonal Standing Exercise Name D2 flex Side right Reps/Minutes 12 Comments attempted w/1lb but pain flex Standing Exercise Name Habd w/flex Side bilateral Resistance L2 Equipment Used mirror Reps/Minutes 12 Comments cues to monitor and avoid scap elevation scap punch on wall Standing Exercise Name 90 deg flexion Side bilateral Reps/Minutes 2x12 Comments max cues for scap positions-VC and tactile ER Side right Equipment Used L2 w/towel under elbow Reps/Minutes 15 Comments cues control Manual Therapy Treatment Consent Patient gave verbal consent for manual Yes treatment Soft Tissue Mobilization ant Body Location R pec major/minor Mobilization Type Rolling,Sustained Pressure Comments w/ER Joint Mobilizations GH Comments post translation c/r; post w/ 90/90 IR c/r PT-OP-T Assessment and Plan Start: 10/03/24 16:44 Freq: Status: Active Protocol: Document 01/30/25 11:37 [facility] (Rec: 01/30/25 12:20 [facility] [id number]) Physical Therapy Assessment Goals activities Short Term Goal (STG) Pt will be able to sleep w/o distruption d/t R shoulder or wrist pain. 11/08- a lot better. last night did have it waking 12/10-tonight only 1x waking 01/28-no more than 1x a night STG Duration 02/20 Content Producer Goal (LTG) Pt will be able do all reaching and house work and dressing w/o inc pain in R wrist or shoulder 11/08-pain w/jackets but not shirts, reaching and houseowrk difficult 12/10-only hurts dressing if goes too qucikly, reaching still hurts. 01/28-can reach ok, dressing ok, pain w/lifting and w/weird movements LTG Duration 03/11 strength Short Term Goal (STG) Pt will be indep w/HEP 11/08- working on improved form 12/10-cues needed STG Duration achieved advancing as able Content Producer Goal (LTG) Pt will score at least 4+/5 on all BUE MMT and at least 4/5 on EFT to ila improved stability and dec pain 11/08-some progression 12/10-improving 01/28-improvement mostly at wrist LTG Duration 03/11 Quick dash Short Term Goal (STG) Pt will improve quick dash score to no greater than 45 to show improved functional ability. 11/08-59.1 STG Duration achieved to 45 12/10 Residential Goal (LTG) Pt will improve quick dash score to no greater than 7 to show improved functional ability. 12/10-45 01/28-25 LTG Duration 03/11 Assessment Summary Assessment Pt had good PROM w/only mild limit w/90/90 that improved w/ manual. He tolerated exercises w/more ROM noted today in prone scaption and HAbd, cues still needed w/HAabd exercises in prone though for form. Improved serratus punch w/2nd set today. Physical Therapy Plan Frequency and Duration Frequency of Treatment 2x/Week Duration of treatment (weeks) 6 Plan of Care Start Date 01/28/25 Plan of Care End Date 03/11/25 Next Visit Focus/Plan Next Note Type Treatment Note Next Visit Plan cont scap stability and work on mechanics w/overhead exercises, work on stabilization of GHJ w/ overhead manual: radial n pathway, scap , AC, SC, ribs, thoracic, cervical mobility (STM & jts) & GHJ
--- NOTE | 2025-03-25 10:22 | PT.OPDS ---
Current Diagnoses Other chronic pain (01/30/25) Pain in right shoulder (01/30/25) Pain in right wrist (01/30/25) Visit Care Team Role Provider Type STELLA Frey Attending Provider Non-Staff Family Provider Primary Care Provider Referring Provider Specialty: Medical Address: [address] [place] [address], [id number] Email: Visit Number Visit Number 18 (12/03) Discharge Summary PT-OP-B Current Condition Start: 10/03/24 16:44 Freq: Status: Active Protocol: Document 10/09/24 07:33 [facility] (Rec: 10/09/24 08:22 [facility] [id number]) Current Condition History of Current Condition Onset Date Jun 2024 Current Complaints R shoudler and wrist pain History of Current Condition Pt L knee buckled and fell onto R shoudler and wrist and started having pain in those started being painful. Hx R 2nd digit reconstruction after granade incident. pain hasn't gotten better since this incident and sleeping is difficult. Sees DO in [place]. Prior Treatments and Tests cervical MRI IMPRESSION: Multilevel degenerative disc disease and arthropathy results in severe left and moderate right foraminal stenosis at C3 -4 Xray wrist: IMPRESSION: Mild degenerative changes. PT-OP-C Subjective Start: 10/03/24 16:44 Freq: Status: Active Protocol: Document 01/30/25 11:37 [facility] (Rec: 01/30/25 12:20 [facility] [id number]) OP-PT Subjective Patient Comments Patient Comments Pt reports shoulder and wrist doing okay since last night. PT-OP-J Posture/Palpation/Skin Start: 10/03/24 16:44 Freq: Status: Active Protocol: Document 01/28/25 11:36 [facility] (Rec: 01/28/25 12:22 [facility] [id number]) Posture Evaluation Gabby Postural Classification System Elbow Flexion Test 3 PT-OP-K Range of Motion Start: 10/03/24 16:44 Freq: Status: Active Protocol: Document 10/09/24 07:33 [facility] (Rec: 10/09/24 08:22 [facility] [id number]) Cervical Spine Range of Motion Cervical Spine Active Degrees Flexion 54 Extension 32 Rotation Left 58 Rotation Right 49 Lateral Flexion Left 22 Lateral Flexion Right 20 Shoulder Goniometric Range of Motion Shoulder Right Active Flexion 144 Extension 52 Abduction 165 External Rotation at 0 degrees Abduction 52 Internal Rotation Behind Back (text) T12 Comments pain abd, flex Left Active Flexion 148 Extension 51 Abduction 178 External Rotation at 0 degrees Abduction 70 Internal Rotation Behind Back (text) T9 Wrist Goniometric Range of Motion Wrist Right Flexion Active (degrees) 54 Extension Active (degrees) 43 Ulnar Deviation Active (degrees) 20 Radial Deviation Active (degrees) 12 Left Flexion Active (degrees) 55 Extension Active (degrees) 54 Ulnar Deviation Active (degrees) 35 Radial Deviation Active (degrees) 19 ROM Limitations Comments pain flex and ulnar deviation PT-OP-L Special Tests Start: 10/03/24 16:44 Freq: Status: Active Protocol: Document 10/11/24 08:16 [facility] (Rec: 10/11/24 12:21 [facility] [id number]) Special Tests Cervical Spine Special Tests tectoral membrane Test Results neg Vertebral Artery Test Results BP 112/60; HR 71; O2 95 Comments neg positional screen, Ausciltation of heart and carotid wNL Transverse Ligament Test Results neg Alar Ligament Test Results neg PT-OP-M Strength Start: 10/03/24 16:44 Freq: Status: Active Protocol: Document 01/28/25 11:36 [facility] (Rec: 01/28/25 12:22 [facility] [id number]) Shoulder Strength Shoulder Manual Muscle Testing Right Flexion 4- Good- Extension 5 Normal Abduction (C5) 4- Good- External Rotation 4- Good- Internal Rotation 5 Normal Horizontal Abduction 4- Good- Horizontal Adduction 4 Good Comments pain flex, ER, abd, Hadd Elbow/Forearm Strength Elbow and Forearm Manual Muscle Testing Right Flexion (C6) 5 Normal Extension (C7) 5 Normal Pronation 4 Good Supination 5 Normal Comments pain w/pronation especially if gripping Left Flexion (C6) 5 Normal Extension (C7) 5 Normal Pronation 5 Normal Supination 5 Normal Wrist Strength Wrist Manual Muscle Testing Right Flexion (C7) 5 Normal Extension (C6) 5 Normal Ulnar Deviation 5 Normal Radial Deviation 5 Normal Comments mild pain PT-OP-T Assessment and Plan Start: 10/03/24 16:44 Freq: Status: Active Protocol: Document 03/25/25 10:21 [facility] (Rec: 03/25/25 10:22 [facility] [id number]) Physical Therapy Assessment Goals activities Short Term Goal (STG) Pt will be able to sleep w/o distruption d/t R shoulder or wrist pain. 11/08- a lot better. last night did have it waking 12/10-tonight only 1x waking 01/28-no more than 1x a night STG Duration 02/20 Half-Way Goal (LTG) Pt will be able do all reaching and house work and dressing w/o inc pain in R wrist or shoulder 11/08-pain w/jackets but not shirts, reaching and houseowrk difficult 12/10-only hurts dressing if goes too qucikly, reaching still hurts. 01/28-can reach ok, dressing ok, pain w/lifting and w/weird movements LTG Duration 03/11 strength Short Term Goal (STG) Pt will be indep w/HEP 11/08- working on improved form 12/10-cues needed STG Duration achieved advancing as able All Purpose Clerk Goal (LTG) Pt will score at least 4+/5 on all BUE MMT and at least 4/5 on EFT to ila improved stability and dec pain 11/08-some progression 12/10-improving 01/28-improvement mostly at wrist LTG Duration 03/11 Quick dash Short Term Goal (STG) Pt will improve quick dash score to no greater than 45 to show improved functional ability. 11/08-59.1 STG Duration achieved to 45 12/10 Half-Way Goal (LTG) Pt will improve quick dash score to no greater than 7 to show improved functional ability. 12/10-45 01/28-25 LTG Duration 03/11 Assessment Summary Assessment Pt made some progress with PT w/wrist and shoulder pain but pain cont after months of PT so encouraged to follow up w/ primary who ordered MRIs. D/t findings in MRI, pt encouraged to see ortho. DC d/t pt decided to hold PT at time until saw ortho. He was indep w/HEP at that time . Physical Therapy Plan Discharge Physical Therapy Discharge Reasons Plateau in Progress
== END 2025-04-08 10:28 | disposition home or self-care (01) ==
LOC: PHYS 11:30
PROVIDERS: Family Provider Nurse Practitioner Family; PCP Nurse Practitioner Family; Referring Provider Nurse Practitioner Family; Visit Provider Nurse Practitioner Family
DX: M25.511 Pain in right shoulder (principal); G89.29 Other chronic pain; M25.531 Pain in right wrist
CPT/HCPCS: 97110; 97140; 97162; 97535

== ENCOUNTER → 2025-03-14 13:06 | Outpatient (CLI) | payer MEDICARE, BC, SELFPAY ==
--- NOTE | 2025-03-14 13:09 | DI.MRI.S_ITS ---
PROCEDURE: MR FOOT RT WO CON INDICATIONS: Rt foot pain TECHNIQUE: Multiphasic, multisequence MRI of the forefoot was performed, without intravenous contrast administration. COMPARISON: None. FINDINGS: Image quality: Excellent. Bones and joints: Mild midfoot and forefoot joint osteoarthritic changes are seen with joint space narrowing, subchondral sclerosis. No acute fracture or dislocation. Bipartite lateral sesamoid of 1st metatarsal head is seen. No suspicious intraosseous lesion. No evidence of metatarsal stress fractures. Soft tissues: The visualized plantar foot muscles demonstrate normal signal and bulk. Visualized flexor and extensor tendons appear intact, without tenosynovitis. The distal insertions of the peroneus brevis and longus tendons appear intact. The principal Lisfranc ligament appears intact. No soft tissue ganglion cysts or bursal fluid collections. Sagittal images demonstrate no evidence for plantar plate tears in 2nd through 5th toes. Low-grade partial-thickness tear involving medial sesamoid phalangeal ligament of 1st MTP joint suggestive of low-grade turf toe injury. IMPRESSION: 1. Mild midfoot and forefoot joint osteoarthritis. No fracture or dislocation. Bipartite lateral sesamoid of 1st metatarsal head. 2. Suggestion of low-grade partial-thickness tear involving medial sesamoid phalangeal ligament of 1st MTP joint concerning for low-grade turf toe injury. 3. Extensor and flexor tendons are intact. No gross plantar foot muscle signal abnormalities. 4. No definite plantar plate tear in seen in the 2nd through 5th toes. Dictated by: Carlos Muñiz M.D. on 03/14/2025 at 16:37 Approved by: Carlos Muñiz M.D. on 03/14/2025 at 16:52
== END ==
PROVIDERS: Family Provider Nurse Practitioner Family; PCP Nurse Practitioner Family; Referring Provider Nurse Practitioner Family; Visit Provider Nurse Practitioner Family
DX: S93.521A Sprain of metatarsophalangeal joint of right great toe, initial encounter (principal); M19.071 Primary osteoarthritis, right ankle and foot; M79.671 Pain in right foot; R10.84 Generalized abdominal pain; X58.XXXA Exposure to other specified factors, initial encounter
CPT/HCPCS: 73718

== ENCOUNTER → 2025-04-02 09:18 | Outpatient (CLI) | payer MEDICARE, BC, SELFPAY ==
--- NOTE | 2025-04-02 | DI.US.S_ITS ---
PROCEDURE: US ABDOMEN COMPLETE INDICATIONS: PAIN/NAUSEA. ?HERNIA ?DIASTASIS RECTI ?AORTA PATH TECHNIQUE: Real-time scanning was performed of the abdominal and retroperitoneal organs, with image documentation. COMPARISON: None. FINDINGS: Liver: Liver is normal in size and homogeneous in echotexture. Liver is diffusely echogenic. Gallbladder: Gallbladder is sonographically normal. No gallstones. No gallbladder wall thickening. No pericholecystic fluid. No sonographic Dickinson sign. Biliary ducts: Intrahepatic bile ducts are non-dilated. Extrahepatic bile duct caliber measures 4.0 mm. Normal is 6-7 mm or less in diameter, or 10 mm or less post-cholecystectomy. Pancreas: Visualized portions of the pancreas are sonographically normal. Spleen: Spleen is normal in size and homogeneous in echotexture. Kidneys: Kidneys are normal in size and echotexture. Right kidney measures 11.0 cm long; left kidney measures 11.6 cm long. No hydronephrosis or nephrolithiasis. No solid masses. Aorta: Distal abdominal aorta is normal in caliber at less than 3 cm. Proximal mid segments of the abdominal aorta are not visualized due to bowel gas and cannot be evaluated Iliacs: Proximal common iliac arteries are normal in caliber at less than 2.5 cm. IVC: Intrahepatic inferior vena cava is patent. Miscellaneous: No free abdominal fluid. IMPRESSION: Echogenic liver. Finding typically represents fatty infiltration; however, finding is nonspecific and correlation with clinical and laboratory findings is recommended to exclude other etiologies including hepatic cirrhosis. Dictated by: Mary Alice Gamble MD, PhD on 04/02/2025 at 10:57 Approved by: Mary Alice Gamble MD, PhD on 04/02/2025 at 10:58
== END ==
PROVIDERS: Family Provider Nurse Practitioner Family; PCP Nurse Practitioner Family; Referring Provider Nurse Practitioner Family; Visit Provider Nurse Practitioner Family
DX: R10.84 Generalized abdominal pain (principal)
CPT/HCPCS: 76700

== ENCOUNTER 2025-05-15 13:45 | Outpatient (RCR) | payer OTHER, SELFPAY ==
--- NOTE | 2024-12-24 16:31 | PT.OIE ---
Current Diagnoses Bilateral primary osteoarthritis of knee (12/24/24) Visit Care Team Role Provider Type STELLA Frey Family Provider Non-Staff Primary Care Provider Specialty: Medical Address: [address] [place] [address], [place], [address] Email: Blas Paez MD Attending Provider Non-Staff Referring Provider Specialty: Orthopedic Surgery Address: [address] [place] [address], [id number] Email: Physical Therapy Initial Evaluation PT-OP-A Visit Information Start: 12/20/24 17:58 Freq: Status: Active Protocol: Document 12/24/24 13:48 [facility] (Rec: 12/24/24 14:35 [facility] [id number]) Out-Patient Physical Therapy Visit Information Visit Information Visit Type Initial Evaluation Visit Start Time 13:55 Visit Stop Time 14:35 Visit Number 1 Number of SENIOR REVENUE ACCOUNTANT Visits 0 PT-OP-B Current Condition Start: 12/20/24 17:58 Freq: Status: Active Protocol: Document 12/24/24 13:48 [facility] (Rec: 12/24/24 14:35 [facility] [id number]) Current Condition History of Current Condition Onset Date chronic Current Complaints B knee pain History of Current Condition Pt had R knee blew out when working and L knee was taking brunt of all WB activities. Had sx in 2017 and ortho found that d/t this had lack of cartilage in knee and bone on bone. Had surgery on it in 2005 (meniscectomy). L knee gave out on him in May and he fell injuring his shoulder R and wrist. When L knee gave out, R didn't hold him. Awaiting PT to see how R knee does. He had TKA about 7 years with cont pain although he regained his ROM. Wants to push out knee surgery from January d/t having R shoulder surgery. Kenneth wakes him at nightmult times. Has been having back pain that worse for months likely February or March Treatment Goals Patient/Caregiver Goals strengthen knees prior to L TKA PT-OP-C Subjective Start: 12/20/24 17:58 Freq: Status: Active Protocol: Document 12/24/24 13:48 [facility] (Rec: 12/24/24 14:35 [id number]-PT Pain Assessment Location B knee Pain Location Details B med knee, med HS Description Burning Radiating Location L lat knee to lat lower leg Pain Aggravating Factors Standing,Stair Climbing, Bending Other Pain Aggravating Factors wakes at night L, sit<>stand Pain Alleviating Factors Heat PT-OP-D Balance Start: 12/20/24 17:58 Freq: Status: Active Protocol: Document 12/24/24 13:48 [facility] (Rec: 12/24/24 14:35 [place] [id number]) Balance Tests Single Limb Standing Single Limb- Right 8 sec Single Limb- Left 18 sec PT-OP-G Mobility & Gait Start: 12/20/24 17:58 Freq: Status: Active Protocol: Document 12/24/24 13:48 [facility] (Rec: 12/24/24 14:35 [id number] OP Gait Assessment Comments Gait Comments dec stance time LLE , ddec push off B PT-OP-K Range of Motion Start: 12/20/24 17:58 Freq: Status: Active Protocol: Document 12/24/24 13:48 [facility] (Rec: 12/24/24 14:35 [id number] Knee Goniometric Range of Motion Knee Right Flexion Active (degrees) 103 Extension Active (degrees) 7 Comments pain Left Flexion Active (degrees) 99 Extension Active (degrees) 11 Comments pain PT-OP-L Special Tests Start: 12/20/24 17:58 Freq: Status: Active Protocol: Document 12/24/24 13:48 [facility] (Rec: 12/24/24 14:35 [id number] Special Tests Knee Special Tests Guerrero Comments B RF and quad tightness SLR Comments WNL PT-OP-M Strength Start: 12/20/24 17:58 Freq: Status: Active Protocol: Document 12/24/24 13:48 [facility] (Rec: 12/24/24 14:35 [id number] Hip Strength Hip Manual Muscle Testing Right Flexion (L2) 4- Good- Extension (S1) 4- Good- Abduction 4+ Good+ Adduction 4 Good External Rotation 4- Good- Internal Rotation 4+ Good+ Left Flexion (L2) 3+ Fair+ Extension (S1) 3+ Fair+ Abduction 3+ Fair+ Adduction 3+ Fair+ External Rotation 4- Good- Internal Rotation 4- Good- Comments pain knee hip flex and ER Knee Strength Knee Manual Muscle Testing Right Flexion (S2) 4 Good Extension (L3) 4+ Good+ Left Flexion (S2) 4- Good- Extension (L3) 4- Good- Comments pain knee w/flex Ankle/Foot Strength Ankle and Foot Manual Muscle Testing Right Dorsiflexion (L4) 5 Normal Plantarflexion (S1) 5 Normal Comments 20 heel raises Left Dorsiflexion (L4) 5 Normal Plantarflexion (S1) 4+ Good+ Comments 16 heel raises with less range w/reps-pain lat lower leg PT-OP-Q Treatments Start: 12/20/24 17:58 Freq: Status: Active Protocol: Document 12/24/24 13:48 [facility] (Rec: 12/24/24 14:35 [facility] [id number]) Self-Care/Home Management Treatment Education Other Education 8 min: discussed w/pt importance fo ROM for both knees and quad tightness likely part of this. Encouraged guerrero test stretching; edu that L is much weakner than R at this time so improving strength for more stability will be helpful for recovery froms urgery and prevention of further giving out of RLE PT-OP-T Assessment and Plan Start: 12/20/24 17:58 Freq: Status: Active Protocol: Document 12/24/24 13:48 [facility] (Rec: 12/24/24 14:35 [facility] [id number]) Physical Therapy Assessment Rehab Potential Rehabilitation Potential Good Evaluation Complexity Number of Personal Factors/Comorbidities 3 or More Number of Body Systems Impaired 4 or More Clinical Presentation at Evaluation Evolving Impairments Impairments Activity Tolerance,Balance, Functional Activities, Functional Mobility,Gait,Pain, Posture,ROM,Soft Tissue Mobility,Strength,Transfers Goals activities Short Term Goal (STG) Pt will be able to do sit <> stand w/o inc pain STG Duration 02/05 Apprentice Technician Goal (LTG) Pt will be able to do stairs w /pain no greater than 2/10 and sleep through the night w/o inc pain B knees LTG Duration 03/18 ROM Short Term Goal (STG) Pt will improve to at least 110 deg flex B STG Duration 02/05 Residential Goal (LTG) Pt will have at least 0-120 deg ROM on R knee and at least 4-110 on L knee to allow gor improved gait pattern and stair ability LTG Duration 03/18 strength Short Term Goal (STG) Pt will be indep w/HEP STG Duration 02/16 Residential Goal (LTG) Pt will score at least 4+/5 on all BLE MMT to show improved strength and stability in order to be able to typical daily activities w/less B knee pain LTG Duration 03/18 Assessment Summary Assessment Pt presents w/B knee pain w/ severe L knee OA and hx of R TKA 7 years ago w/recent dec ROM B and weakness w/instances of giving out. He does have hx of back pain that likely factors into his B knee stability also. His ROM deficits limit his ability to have functional gait and stairs ability. He would benefit from skilled PT to improve mobility, strength and mechanics in order to allow more painfree functional activity. Physical Therapy Plan Frequency and Duration Frequency of Treatment 2x/Week Duration of treatment (weeks) 12 Plan of Care Start Date 12/24/24 Plan of Care End Date 03/18/25 Therapeutic Interventions Therapeutic Interventions Balance Training,Gait Training ,Home Exercise Program,Joint Mobilizations,Manual Therapy, Neuromuscular Re-education, Patient/Caregiver Education, Self-Care/Home Management,Soft Tissue Mobilization,Taping, Therapeutic Activities, Therapeutic Exercises Modalities Cold Pack/Ice Massage,Electric Stimulation,Hot Packs, Infrared Therapy,Ultrasound Next Visit Focus/Plan Next Note Type Treatment Note Next Visit Plan self STM, heel slides, quad sets to towel, attempt wall squat mini, leg press manual to mm around LE and jt mobs to knees B
--- NOTE | 2024-12-24 16:32 | PT.OPPOC ---
Physical, Occupational & Speech Therapy At [facility] Current Diagnoses Bilateral primary osteoarthritis of knee (12/24/24) Visit Care Team Role Provider Type STELLA Frey Family Provider Non-Staff Primary Care Provider Specialty: Medical Address: [address] [place] [address], [address] Email: Blas Paez MD Attending Provider Non-Staff Referring Provider Specialty: Orthopedic Surgery Address: [address] [place] [address], [id number] Email: Plan Of Care PT-OP-B Current Condition Start: 12/20/24 17:58 Freq: Status: Active Protocol: Document 12/24/24 13:48 [facility] (Rec: 12/24/24 14:35 [facility] [id number]) Current Condition History of Current Condition Onset Date chronic Current Complaints B knee pain History of Current Condition Pt had R knee blew out when working and L knee was taking brunt of all WB activities. Had sx in 2017 and ortho found that d/t this had lack of cartilage in knee and bone on bone. Had surgery on it in 2005 (meniscectomy). L knee gave out on him in May and he fell injuring his shoulder R and wrist. When L knee gave out, R didn't hold him. Awaiting PT to see how R knee does. He had TKA about 7 years with cont pain although he regained his ROM. Wants to push out knee surgery from January d/t having R shoulder surgery. Lknedaryl wakes him at nightmult times. Has been having back pain that worse for months likely February or March Treatment Goals Patient/Caregiver Goals strengthen knees prior to L TKA PT-OP-T Assessment and Plan Start: 12/20/24 17:58 Freq: Status: Active Protocol: Document 12/24/24 13:48 [facility] (Rec: 12/24/24 14:35 [facility] [id number]) Physical Therapy Assessment Rehab Potential Rehabilitation Potential Good Evaluation Complexity Number of Personal Factors/Comorbidities 3 or More Number of Body Systems Impaired 4 or More Clinical Presentation at Evaluation Evolving Impairments Impairments Activity Tolerance,Balance, Functional Activities, Functional Mobility,Gait,Pain, Posture,ROM,Soft Tissue Mobility,Strength,Transfers Goals activities Short Term Goal (STG) Pt will be able to do sit <> stand w/o inc pain STG Duration 02/05 Architecture Internship Goal (LTG) Pt will be able to do stairs w /pain no greater than 2/10 and sleep through the night w/o inc pain B knees LTG Duration 03/18 ROM Short Term Goal (STG) Pt will improve to at least 110 deg flex B STG Duration 02/05 Shelter Goal (LTG) Pt will have at least 0-120 deg ROM on R knee and at least 4-110 on L knee to allow gor improved gait pattern and stair ability LTG Duration 03/18 strength Short Term Goal (STG) Pt will be indep w/HEP STG Duration 02/16 Shelter Goal (LTG) Pt will score at least 4+/5 on all BLE MMT to show improved strength and stability in order to be able to typical daily activities w/less B knee pain LTG Duration 03/18 Assessment Summary Assessment Pt presents w/B knee pain w/ severe L knee OA and hx of R TKA 7 years ago w/recent sep ROM B and weakness w/instances of giving out. He does have hx of back pain that likely factors into his B knee stability also. His ROM deficits limit his ability to have functional gait and stairs ability. He would benefit from skilled PT to improve mobility, strength and mechanics in order to allow more painfree functional activity. Physical Therapy Plan Frequency and Duration Frequency of Treatment 2x/Week Duration of treatment (weeks) 12 Plan of Care Start Date 12/24/24 Plan of Care End Date 03/18/25 Therapeutic Interventions Therapeutic Interventions Balance Training,Gait Training ,Home Exercise Program,Joint Mobilizations,Manual Therapy, Neuromuscular Re-education, Patient/Caregiver Education, Self-Care/Home Management,Soft Tissue Mobilization,Taping, Therapeutic Activities, Therapeutic Exercises Modalities Cold Pack/Ice Massage,Electric Stimulation,Hot Packs, Infrared Therapy,Ultrasound Next Visit Focus/Plan Next Note Type Treatment Note Next Visit Plan self STM, heel slides, quad sets to towel, attempt wall squat mini, leg press manual to mm around LE and jt mobs to knees B Plan of Care Dates Plan of Care Start Date 12/24/24 Plan of Care End Date 03/18/25 Electronically Signed by: Lety Pierre, PT 12/25/24 1554 If you are in agreement with this Plan of Care, please return a signed and dated copy. I have reviewed this Plan of Care and certify that the skilled therapy services above are required to meet the patient?s needs. Physician Signature Date Printed Name and Credentials Clinical Instructor Signature Printed Name and Credentials
--- NOTE | 2024-12-27 11:35 | PT.OTN ---
Current Diagnoses Bilateral primary osteoarthritis of knee (12/27/24) Physical Therapy Treatment Note PT-OP-A Visit Information Start: 12/20/24 17:58 Freq: Status: Active Protocol: Document 12/27/24 11:22 [facility] (Rec: 12/27/24 11:35 [facility] [id number]) Out-Patient Physical Therapy Visit Information Visit Information Visit Type Treatment Note Visit Start Time 10:50 Visit Stop Time 11:30 Visit Number 2 Number of BRUSH MACHINE SETTER Visits 0 PT-OP-B Current Condition Start: 12/20/24 17:58 Freq: Status: Active Protocol: Document 12/24/24 13:48 [facility] (Rec: 12/24/24 14:35 [facility] [id number]) Current Condition History of Current Condition Onset Date chronic Current Complaints B knee pain History of Current Condition Pt had R knee blew out when working and L knee was taking brunt of all WB activities. Had sx in 2017 and ortho found that d/t this had lack of cartilage in knee and bone on bone. Had surgery on it in 2005 (meniscectomy). L knee gave out on him in May and he fell injuring his shoulder R and wrist. When L knee gave out, R didn't hold him. Awaiting PT to see how R knee does. He had TKA about 7 years with cont pain although he regained his ROM. Wants to push out knee surgery from January d/t having R shoulder surgery. Kenneth wakes him at nightmult times. Has been having back pain that worse for months likely February or March Treatment Goals Patient/Caregiver Goals strengthen knees prior to L TKA PT-OP-C Subjective Start: 12/20/24 17:58 Freq: Status: Active Protocol: Document 12/27/24 11:22 [facility] (Rec: 12/27/24 11:35 [facility] [id number]) OP-PT Subjective Patient Comments Patient Comments Pt has been doing stretch off the EOB PT-OP-D Balance Start: 12/20/24 17:58 Freq: Status: Active Protocol: Document 12/24/24 13:48 [facility] (Rec: 12/24/24 14:35 [facility] [id number]) Balance Tests Single Limb Standing Single Limb- Right 8 sec Single Limb- Left 18 sec PT-OP-G Mobility & Gait Start: 12/20/24 17:58 Freq: Status: Active Protocol: Document 12/24/24 13:48 [facility] (Rec: 12/24/24 14:35 [facility] [id number]) OP Gait Assessment Comments Gait Comments dec stance time LLE , ddec push off B PT-OP-K Range of Motion Start: 12/20/24 17:58 Freq: Status: Active Protocol: Document 12/24/24 13:48 [facility] (Rec: 12/24/24 14:35 [facility] [id number]) Knee Goniometric Range of Motion Knee Right Flexion Active (degrees) 103 Extension Active (degrees) 7 Comments pain Left Flexion Active (degrees) 99 Extension Active (degrees) 11 Comments pain PT-OP-L Special Tests Start: 12/20/24 17:58 Freq: Status: Active Protocol: Document 12/24/24 13:48 [facility] (Rec: 12/24/24 14:35 [id number] Special Tests Knee Special Tests Guerrero Comments B RF and quad tightness SLR Comments WNL PT-OP-M Strength Start: 12/20/24 17:58 Freq: Status: Active Protocol: Document 12/24/24 13:48 [facility] (Rec: 12/24/24 14:35 [facility] [id number]) Hip Strength Hip Manual Muscle Testing Right Flexion (L2) 4- Good- Extension (S1) 4- Good- Abduction 4+ Good+ Adduction 4 Good External Rotation 4- Good- Internal Rotation 4+ Good+ Left Flexion (L2) 3+ Fair+ Extension (S1) 3+ Fair+ Abduction 3+ Fair+ Adduction 3+ Fair+ External Rotation 4- Good- Internal Rotation 4- Good- Comments pain knee hip flex and ER Knee Strength Knee Manual Muscle Testing Right Flexion (S2) 4 Good Extension (L3) 4+ Good+ Left Flexion (S2) 4- Good- Extension (L3) 4- Good- Comments pain knee w/flex Ankle/Foot Strength Ankle and Foot Manual Muscle Testing Right Dorsiflexion (L4) 5 Normal Plantarflexion (S1) 5 Normal Comments 20 heel raises Left Dorsiflexion (L4) 5 Normal Plantarflexion (S1) 4+ Good+ Comments 16 heel raises with less range w/reps-pain lat lower leg PT-OP-Q Treatments Start: 12/20/24 17:58 Freq: Status: Active Protocol: Document 12/27/24 11:22 [facility] (Rec: 12/27/24 11:35 [facility] [id number]) Therapeutic Exercises Supine Exercises quad sets Side bilateral Reps/Minutes 5 sec x10 ea Comments individually heel slides Side bilateral Reps/Minutes 5sec x10 Comments individually Standing Exercises squat Standing Exercise Name wall Side bilateral Equipment Used ball Reps/Minutes 12 Comments cues mini comfortable range Manual Therapy Treatment Consent Patient gave verbal consent for manual Yes treatment Soft Tissue Mobilization Quad Body Location B lat Mobilization Type Rolling Intensity/Depth Moderate Joint Mobilizations patellofemoral Joint B Direction sup, med, inf tibfib Joint proximal Comments B PA w/APs ; L AP w/anlke pumps tibiofemoral Joint AP L w/IR and PA B w/APs PT-OP-T Assessment and Plan Start: 12/20/24 17:58 Freq: Status: Active Protocol: Document 12/27/24 11:22 [facility] (Rec: 12/27/24 11:35 [facility] [id number]) Physical Therapy Assessment Goals activities Short Term Goal (STG) Pt will be able to do sit <> stand w/o inc pain STG Duration 02/05 Retirement Goal (LTG) Pt will be able to do stairs w /pain no greater than 2/10 and sleep through the night w/o inc pain B knees LTG Duration 03/18 ROM Short Term Goal (STG) Pt will improve to at least 110 deg flex B STG Duration 02/05 Stone Carver Goal (LTG) Pt will have at least 0-120 deg ROM on R knee and at least 4-110 on L knee to allow gor improved gait pattern and stair ability LTG Duration 03/18 strength Short Term Goal (STG) Pt will be indep w/HEP STG Duration 02/16 Retirement Goal (LTG) Pt will score at least 4+/5 on all BLE MMT to show improved strength and stability in order to be able to typical daily activities w/less B knee pain LTG Duration 03/18 Assessment Summary Assessment Improved R flex to 109 after manual and improved ext ot lacking only 4 deg B. he did well with exercises w/cues comfortable range. Pt reports R knee felt better after manual Physical Therapy Plan Frequency and Duration Frequency of Treatment 2x/Week Duration of treatment (weeks) 12 Plan of Care Start Date 12/24/24 Plan of Care End Date 03/18/25 Next Visit Focus/Plan Next Note Type Treatment Note Next Visit Plan advance ROM and strength comfortable; self STM, heel slides, quad sets to towel, attempt wall squat mini, leg press manual to mm around LE and jt mobs to knees B
--- NOTE | 2025-01-01 11:45 | PT.OTN ---
Current Diagnoses Bilateral primary osteoarthritis of knee (01/01/25) Physical Therapy Treatment Note PT-OP-A Visit Information Start: 12/20/24 17:58 Freq: Status: Active Protocol: Document 01/01/25 09:47 [facility] (Rec: 01/01/25 11:45 [facility] [id number]) Out-Patient Physical Therapy Visit Information Visit Information Visit Type Treatment Note Visit Start Time 09:53 Visit Stop Time 10:31 Visit Number 3 Number of HARVESTING MANAGER Visits 0 PT-OP-B Current Condition Start: 12/20/24 17:58 Freq: Status: Active Protocol: Document 12/24/24 13:48 [facility] (Rec: 12/24/24 14:35 [facility] [id number]) Current Condition History of Current Condition Onset Date chronic Current Complaints B knee pain History of Current Condition Pt had R knee blew out when working and L knee was taking brunt of all WB activities. Had sx in 2017 and ortho found that d/t this had lack of cartilage in knee and bone on bone. Had surgery on it in 2005 (meniscectomy). L knee gave out on him in May and he fell injuring his shoulder R and wrist. When L knee gave out, R didn't hold him. Awaiting PT to see how R knee does. He had TKA about 7 years with cont pain although he regained his ROM. Wants to push out knee surgery from January d/t having R shoulder surgery. Kenneth wakes him at nightmult times. Has been having back pain that worse for months likely February or March Treatment Goals Patient/Caregiver Goals strengthen knees prior to L TKA PT-OP-C Subjective Start: 12/20/24 17:58 Freq: Status: Active Protocol: Document 01/01/25 09:47 [facility] (Rec: 01/01/25 11:45 [facility] [id number]) OP-PT Subjective Patient Comments Patient Comments Doing exercises PT-OP-D Balance Start: 12/20/24 17:58 Freq: Status: Active Protocol: Document 12/24/24 13:48 [facility] (Rec: 12/24/24 14:35 [facility] [id number]) Balance Tests Single Limb Standing Single Limb- Right 8 sec Single Limb- Left 18 sec PT-OP-G Mobility & Gait Start: 12/20/24 17:58 Freq: Status: Active Protocol: Document 12/24/24 13:48 [facility] (Rec: 12/24/24 14:35 [id number] OP Gait Assessment Comments Gait Comments dec stance time LLE , ddec push off B PT-OP-K Range of Motion Start: 12/20/24 17:58 Freq: Status: Active Protocol: Document 12/24/24 13:48 [facility] (Rec: 12/24/24 14:35 [facility] [id number]) Knee Goniometric Range of Motion Knee Right Flexion Active (degrees) 103 Extension Active (degrees) 7 Comments pain Left Flexion Active (degrees) 99 Extension Active (degrees) 11 Comments pain PT-OP-L Special Tests Start: 12/20/24 17:58 Freq: Status: Active Protocol: Document 12/24/24 13:48 [facility] (Rec: 12/24/24 14:35 [id number] Special Tests Knee Special Tests Guerrero Comments B RF and quad tightness SLR Comments WNL PT-OP-M Strength Start: 12/20/24 17:58 Freq: Status: Active Protocol: Document 12/24/24 13:48 [facility] (Rec: 12/24/24 14:35 [id number]) Hip Strength Hip Manual Muscle Testing Right Flexion (L2) 4- Good- Extension (S1) 4- Good- Abduction 4+ Good+ Adduction 4 Good External Rotation 4- Good- Internal Rotation 4+ Good+ Left Flexion (L2) 3+ Fair+ Extension (S1) 3+ Fair+ Abduction 3+ Fair+ Adduction 3+ Fair+ External Rotation 4- Good- Internal Rotation 4- Good- Comments pain knee hip flex and ER Knee Strength Knee Manual Muscle Testing Right Flexion (S2) 4 Good Extension (L3) 4+ Good+ Left Flexion (S2) 4- Good- Extension (L3) 4- Good- Comments pain knee w/flex Ankle/Foot Strength Ankle and Foot Manual Muscle Testing Right Dorsiflexion (L4) 5 Normal Plantarflexion (S1) 5 Normal Comments 20 heel raises Left Dorsiflexion (L4) 5 Normal Plantarflexion (S1) 4+ Good+ Comments 16 heel raises with less range w/reps-pain lat lower leg PT-OP-Q Treatments Start: 12/20/24 17:58 Freq: Status: Active Protocol: Document 01/01/25 09:47 [facility] (Rec: 01/01/25 11:45 [facility] [id number]) Therapeutic Exercises Supine Exercises quad sets Side bilateral Reps/Minutes 5 sec x8 ea Comments individually heel slides Side bilateral Reps/Minutes 5sec x4 Comments individually Standing Exercises squat Standing Exercise Name wall Side bilateral Equipment Used ball Reps/Minutes 15 Comments cues mini comfortable range Manual Therapy Treatment Consent Patient gave verbal consent for manual Yes treatment Soft Tissue Mobilization Quad Body Location L>R lat Mobilization Type Rolling Intensity/Depth Moderate Body Position Hooklying Joint Mobilizations patellofemoral Joint B Direction sup, med, inf tibfib Joint proximal Comments B PA w/APs tibiofemoral Joint B PA w/APs PT-OP-T Assessment and Plan Start: 12/20/24 17:58 Freq: Status: Active Protocol: Document 01/01/25 09:47 [facility] (Rec: 01/01/25 11:45 [facility] [id number]) Physical Therapy Assessment Goals activities Short Term Goal (STG) Pt will be able to do sit <> stand w/o inc pain STG Duration 02/05 Digital Pre Press Operator Goal (LTG) Pt will be able to do stairs w /pain no greater than 2/10 and sleep through the night w/o inc pain B knees LTG Duration 03/18 ROM Short Term Goal (STG) Pt will improve to at least 110 deg flex B STG Duration 02/05 Digital Pre Press Operator Goal (LTG) Pt will have at least 0-120 deg ROM on R knee and at least 4-110 on L knee to allow gor improved gait pattern and stair ability LTG Duration 03/18 strength Short Term Goal (STG) Pt will be indep w/HEP STG Duration 02/16 Digital Pre Press Operator Goal (LTG) Pt will score at least 4+/5 on all BLE MMT to show improved strength and stability in order to be able to typical daily activities w/less B knee pain LTG Duration 03/18 Assessment Summary Assessment Pt had 113 R flex after manual . He did well with exercises w /improved range today w/wall squats. Physical Therapy Plan Frequency and Duration Frequency of Treatment 2x/Week Duration of treatment (weeks) 12 Plan of Care Start Date 12/24/24 Plan of Care End Date 03/18/25 Next Visit Focus/Plan Next Note Type Treatment Note Next Visit Plan advance ROM and strength comfortable; self STM,leg press, try SAQ, LAQ and SLR, HS curls manual to mm around LE and jt mobs to knees B
--- NOTE | 2025-01-08 17:43 | PT.OTN ---
Current Diagnoses Bilateral primary osteoarthritis of knee (01/08/25) Physical Therapy Treatment Note PT-OP-A Visit Information Start: 12/20/24 17:58 Freq: Status: Active Protocol: Document 01/08/25 13:53 [facility] (Rec: 01/08/25 17:42 [facility] [id number]) Out-Patient Physical Therapy Visit Information Visit Information Visit Type Treatment Note Visit Start Time 13:52 Visit Stop Time 14:31 Visit Number 4 Number of RISK ASSESSMENT CONSULTANT Visits 0 PT-OP-B Current Condition Start: 12/20/24 17:58 Freq: Status: Active Protocol: Document 12/24/24 13:48 [facility] (Rec: 12/24/24 14:35 [facility] [id number]) Current Condition History of Current Condition Onset Date chronic Current Complaints B knee pain History of Current Condition Pt had R knee blew out when working and L knee was taking brunt of all WB activities. Had sx in 2017 and ortho found that d/t this had lack of cartilage in knee and bone on bone. Had surgery on it in 2005 (meniscectomy). L knee gave out on him in May and he fell injuring his shoulder R and wrist. When L knee gave out, R didn't hold him. Awaiting PT to see how R knee does. He had TKA about 7 years with cont pain although he regained his ROM. Wants to push out knee surgery from January d/t having R shoulder surgery. Kenneth wakes him at nightmult times. Has been having back pain that worse for months likely February or March Treatment Goals Patient/Caregiver Goals strengthen knees prior to L TKA PT-OP-C Subjective Start: 12/20/24 17:58 Freq: Status: Active Protocol: Document 01/08/25 13:53 [facility] (Rec: 01/08/25 17:42 [facility] [id number]) OP-PT Subjective Patient Comments Patient Comments hasn't gotten exercises in as much since had surgery. Sees ortho tuesday PT-OP-D Balance Start: 12/20/24 17:58 Freq: Status: Active Protocol: Document 12/24/24 13:48 [facility] (Rec: 12/24/24 14:35 [facility] [id number]) Balance Tests Single Limb Standing Single Limb- Right 8 sec Single Limb- Left 18 sec PT-OP-G Mobility & Gait Start: 12/20/24 17:58 Freq: Status: Active Protocol: Document 12/24/24 13:48 [facility] (Rec: 12/24/24 14:35 [id number] OP Gait Assessment Comments Gait Comments dec stance time LLE , ddec push off B PT-OP-K Range of Motion Start: 12/20/24 17:58 Freq: Status: Active Protocol: Document 12/24/24 13:48 [facility] (Rec: 12/24/24 14:35 [id number] Knee Goniometric Range of Motion Knee Right Flexion Active (degrees) 103 Extension Active (degrees) 7 Comments pain Left Flexion Active (degrees) 99 Extension Active (degrees) 11 Comments pain PT-OP-L Special Tests Start: 12/20/24 17:58 Freq: Status: Active Protocol: Document 12/24/24 13:48 [facility] (Rec: 12/24/24 14:35 [facility] [id number]) Special Tests Knee Special Tests Guerrero Comments B RF and quad tightness SLR Comments WNL PT-OP-M Strength Start: 12/20/24 17:58 Freq: Status: Active Protocol: Document 12/24/24 13:48 [facility] (Rec: 12/24/24 14:35 [id number] Hip Strength Hip Manual Muscle Testing Right Flexion (L2) 4- Good- Extension (S1) 4- Good- Abduction 4+ Good+ Adduction 4 Good External Rotation 4- Good- Internal Rotation 4+ Good+ Left Flexion (L2) 3+ Fair+ Extension (S1) 3+ Fair+ Abduction 3+ Fair+ Adduction 3+ Fair+ External Rotation 4- Good- Internal Rotation 4- Good- Comments pain knee hip flex and ER Knee Strength Knee Manual Muscle Testing Right Flexion (S2) 4 Good Extension (L3) 4+ Good+ Left Flexion (S2) 4- Good- Extension (L3) 4- Good- Comments pain knee w/flex Ankle/Foot Strength Ankle and Foot Manual Muscle Testing Right Dorsiflexion (L4) 5 Normal Plantarflexion (S1) 5 Normal Comments 20 heel raises Left Dorsiflexion (L4) 5 Normal Plantarflexion (S1) 4+ Good+ Comments 16 heel raises with less range w/reps-pain lat lower leg PT-OP-Q Treatments Start: 12/20/24 17:58 Freq: Status: Active Protocol: Document 01/08/25 13:53 [facility] (Rec: 01/08/25 17:42 [facility] [id number]) Gym Equipment Shuttle Rebound december Reps/Duration 10 B Therapeutic Exercises Supine Exercises SAQ Side bilateral Resistance 2# Equipment Used bolster Reps/Minutes 3 sec x12 bridge Supine Exercise Name DL feet on ball Side bilateral Reps/Minutes 15 Comments cues control down Sidelying Exercises clamshell Side bilateral Equipment Used L2 Reps/Minutes 15 ea Standing Exercises sidestep Side bilateral Equipment Used L2 at ankles Reps/Minutes 20ft ea step down Standing Exercise Name lat Side bilateral Equipment Used 4 in step L, 6 in R Reps/Minutes 12 Comments cues butt back and control Manual Therapy Treatment Consent Patient gave verbal consent for manual Yes treatment Soft Tissue Mobilization Quad Body Location L lat and ITB Mobilization Type Rolling Intensity/Depth Moderate Body Position Hooklying Comments manual and cupping Joint Mobilizations patellofemoral Joint R Direction sup, med, inf tibiofemoral Comments R PA tibia and femur w/APs PT-OP-T Assessment and Plan Start: 12/20/24 17:58 Freq: Status: Active Protocol: Document 01/08/25 13:53 [facility] (Rec: 01/08/25 17:42 [facility] [id number]) Physical Therapy Assessment Goals activities Short Term Goal (STG) Pt will be able to do sit <> stand w/o inc pain STG Duration 02/05 Mcc Goal (LTG) Pt will be able to do stairs w /pain no greater than 2/10 and sleep through the night w/o inc pain B knees LTG Duration 03/18 ROM Short Term Goal (STG) Pt will improve to at least 110 deg flex B STG Duration 02/05 Mcc Goal (LTG) Pt will have at least 0-120 deg ROM on R knee and at least 4-110 on L knee to allow gor improved gait pattern and stair ability LTG Duration 03/18 strength Short Term Goal (STG) Pt will be indep w/HEP STG Duration 02/16 Software Development Leader Goal (LTG) Pt will score at least 4+/5 on all BLE MMT to show improved strength and stability in order to be able to typical daily activities w/less B knee pain LTG Duration 03/18 Assessment Summary Assessment Pt had 114 deg flex on R after manual and full knee ext today. He tolerated progression of exercises today w/cues for form needed. Did note later dec pain w/flex of knee Physical Therapy Plan Frequency and Duration Frequency of Treatment 2x/Week Duration of treatment (weeks) 12 Plan of Care Start Date 12/24/24 Plan of Care End Date 03/18/25 Next Visit Focus/Plan Next Note Type Treatment Note Next Visit Plan advance ROM and strength comfortable; self STM,leg press, try SAQ, LAQ and SLR, HS curls manual to mm around LE and jt mobs to knees B
--- NOTE | 2025-01-15 17:08 | PT.OTN ---
Current Diagnoses Bilateral primary osteoarthritis of knee (01/15/25) Physical Therapy Treatment Note PT-OP-A Visit Information Start: 12/20/24 17:58 Freq: Status: Active Protocol: Document 01/15/25 10:49 [facility] (Rec: 01/15/25 11:37 [facility] [id number]) Out-Patient Physical Therapy Visit Information Visit Information Visit Type Treatment Note Visit Start Time 10:50 Visit Stop Time 11:35 Visit Number 5 Number of COMPUTING ARCHITECT Visits 1 PT-OP-B Current Condition Start: 12/20/24 17:58 Freq: Status: Active Protocol: Document 12/24/24 13:48 [facility] (Rec: 12/24/24 14:35 [facility] [id number]) Current Condition History of Current Condition Onset Date chronic Current Complaints B knee pain History of Current Condition Pt had R knee blew out when working and L knee was taking brunt of all WB activities. Had sx in 2017 and ortho found that d/t this had lack of cartilage in knee and bone on bone. Had surgery on it in 2005 (meniscectomy). L knee gave out on him in May and he fell injuring his shoulder R and wrist. When L knee gave out, R didn't hold him. Awaiting PT to see how R knee does. He had TKA about 7 years with cont pain although he regained his ROM. Wants to push out knee surgery from January d/t having R shoulder surgery. Kenneth wakes him at nightmult times. Has been having back pain that worse for months likely February or March Treatment Goals Patient/Caregiver Goals strengthen knees prior to L TKA PT-OP-C Subjective Start: 12/20/24 17:58 Freq: Status: Active Protocol: Document 01/15/25 10:49 [facility] (Rec: 01/15/25 11:37 [facility] [id number]) OP-PT Subjective Patient Comments Patient Comments Ranulfo reports 9/10 L knee pain and 5/10 on the R. R worsens with wall squats to 6-7/10 even if mindful of not going too deep. He's concerned he may have another hernia, and has had two prior. PT-OP-D Balance Start: 12/20/24 17:58 Freq: Status: Active Protocol: Document 12/24/24 13:48 [facility] (Rec: 12/24/24 14:35 [id number] Balance Tests Single Limb Standing Single Limb- Right 8 sec Single Limb- Left 18 sec PT-OP-G Mobility & Gait Start: 12/20/24 17:58 Freq: Status: Active Protocol: Document 12/24/24 13:48 [facility] (Rec: 12/24/24 14:35 [id number] OP Gait Assessment Comments Gait Comments dec stance time LLE , ddec push off B PT-OP-K Range of Motion Start: 12/20/24 17:58 Freq: Status: Active Protocol: Document 12/24/24 13:48 [facility] (Rec: 12/24/24 14:35 [id number] Knee Goniometric Range of Motion Knee Right Flexion Active (degrees) 103 Extension Active (degrees) 7 Comments pain Left Flexion Active (degrees) 99 Extension Active (degrees) 11 Comments pain PT-OP-L Special Tests Start: 12/20/24 17:58 Freq: Status: Active Protocol: Document 12/24/24 13:48 [facility] (Rec: 12/24/24 14:35 [id number] Special Tests Knee Special Tests Guerrero Comments B RF and quad tightness SLR Comments WNL PT-OP-M Strength Start: 12/20/24 17:58 Freq: Status: Active Protocol: Document 12/24/24 13:48 [facility] (Rec: 12/24/24 14:35 [id number] Hip Strength Hip Manual Muscle Testing Right Flexion (L2) 4- Good- Extension (S1) 4- Good- Abduction 4+ Good+ Adduction 4 Good External Rotation 4- Good- Internal Rotation 4+ Good+ Left Flexion (L2) 3+ Fair+ Extension (S1) 3+ Fair+ Abduction 3+ Fair+ Adduction 3+ Fair+ External Rotation 4- Good- Internal Rotation 4- Good- Comments pain knee hip flex and ER Knee Strength Knee Manual Muscle Testing Right Flexion (S2) 4 Good Extension (L3) 4+ Good+ Left Flexion (S2) 4- Good- Extension (L3) 4- Good- Comments pain knee w/flex Ankle/Foot Strength Ankle and Foot Manual Muscle Testing Right Dorsiflexion (L4) 5 Normal Plantarflexion (S1) 5 Normal Comments 20 heel raises Left Dorsiflexion (L4) 5 Normal Plantarflexion (S1) 4+ Good+ Comments 16 heel raises with less range w/reps-pain lat lower leg PT-OP-Q Treatments Start: 12/20/24 17:58 Freq: Status: Active Protocol: Document 01/15/25 10:49 [facility] (Rec: 01/15/25 11:37 [facility] [id number]) Gym Equipment Shuttle Recovery calf stretch Details 60 ea B Resistance 50# Shuttle Recovery Platform Stable Reps/Time neutral, toes in Bilateral Squats Shuttle Recovery Platform Stable Reps/Time 62# 15x2, L knee pain 8-9/10 Unilateral Squats Shuttle Recovery Platform Stable Reps/Time L 37# 3x15 reps, R 37#x15, 50# 2x15 reps Therapeutic Exercises Supine Exercises hip flexor stretch Supine Exercise Name HEP verbal review. quad sets Side bilateral Reps/Minutes 5 sec (2 breathcycles) x10 ea Comments individually heel slides Supine Exercise Name HEP Verbal review Side bilateral Reps/Minutes 5sec x4 Comments individually Standing Exercises step down Standing Exercise Name lat -pt declines today d/t L knee pain Side bilateral Equipment Used 4 in step L, 6 in R Reps/Minutes 12 Comments cues butt back and control squat Standing Exercise Name wall Side bilateral Equipment Used ball Reps/Minutes 15 Comments cues mini comfortable range PT-OP-R Modalities Start: 12/20/24 17:58 Freq: Status: Active Protocol: Document 01/15/25 10:49 [facility] (Rec: 01/15/25 11:37 [facility] [id number]) Hot Pack/Cold Pack Treatment Cold Pack Location L ant knee Patient Position Hooklying Patient Tolerance Good Comments 8', LEs on bolster PT-OP-T Assessment and Plan Start: 12/20/24 17:58 Freq: Status: Active Protocol: Document 01/15/25 10:49 [facility] (Rec: 01/15/25 11:37 [facility] [id number]) Physical Therapy Assessment Goals activities Short Term Goal (STG) Pt will be able to do sit <> stand w/o inc pain STG Duration 02/05 Batch Plant Operator Goal (LTG) Pt will be able to do stairs w /pain no greater than 2/10 and sleep through the night w/o inc pain B knees LTG Duration 03/18 ROM Short Term Goal (STG) Pt will improve to at least 110 deg flex B STG Duration 02/05 Alf Goal (LTG) Pt will have at least 0-120 deg ROM on R knee and at least 4-110 on L knee to allow gor improved gait pattern and stair ability LTG Duration 03/18 strength Short Term Goal (STG) Pt will be indep w/HEP STG Duration 02/16 Alf Goal (LTG) Pt will score at least 4+/5 on all BLE MMT to show improved strength and stability in order to be able to typical daily activities w/less B knee pain LTG Duration 03/18 Assessment Summary Assessment Ranulfo presents with L knee pain 9/10 which improves to 5/10 end of session and R knee pain 5/10 today unchanged. He requires education and cues for maintaining painfree range and no breathholding, particularly with calf stretching. Ranulfo's L knee ROM observably improves w/ repetition and cueing for foot placement on Shuttle Recovery , and L knee pain improves slightly following. Physical Therapy Plan Frequency and Duration Frequency of Treatment 2x/Week Duration of treatment (weeks) 12 Plan of Care Start Date 12/24/24 Plan of Care End Date 03/18/25 Therapeutic Interventions Therapeutic Interventions Balance Training,Gait Training ,Home Exercise Program,Joint Mobilizations,Manual Therapy, Neuromuscular Re-education, Patient/Caregiver Education, Self-Care/Home Management,Soft Tissue Mobilization,Taping, Therapeutic Activities, Therapeutic Exercises Modalities Cold Pack/Ice Massage,Electric Stimulation,Hot Packs, Infrared Therapy,Ultrasound Next Visit Focus/Plan Next Note Type Treatment Note Next Visit Plan advance ROM and strength comfortable; self STM,leg press, try SAQ, LAQ and SLR, HS curls manual to mm around LE and jt mobs to knees B
--- NOTE | 2025-01-17 15:07 | PT.OTN ---
Current Diagnoses Bilateral primary osteoarthritis of knee (01/17/25) Physical Therapy Treatment Note PT-OP-A Visit Information Start: 12/20/24 17:58 Freq: Status: Active Protocol: Document 01/17/25 07:25 AB (Rec: 01/17/25 09:04 AB [id number]) Out-Patient Physical Therapy Visit Information Visit Information Visit Type Treatment Note Visit Note Access Code: [email or web address] Visit Start Time 08:21 Visit Stop Time 09:00 Visit Number 6 Number of GEOTHERMAL OPERATIONS MANAGER Visits 2 PT-OP-B Current Condition Start: 12/20/24 17:58 Freq: Status: Active Protocol: Document 12/24/24 13:48 [facility] (Rec: 12/24/24 14:35 [facility] [id number]) Current Condition History of Current Condition Onset Date chronic Current Complaints B knee pain History of Current Condition Pt had R knee blew out when working and L knee was taking brunt of all WB activities. Had sx in 2017 and ortho found that d/t this had lack of cartilage in knee and bone on bone. Had surgery on it in 2005 (meniscectomy). L knee gave out on him in May and he fell injuring his shoulder R and wrist. When L knee gave out, R didn't hold him. Awaiting PT to see how R knee does. He had TKA about 7 years with cont pain although he regained his ROM. Wants to push out knee surgery from January d/t having R shoulder surgery. Kenneth wakes him at nightmult times. Has been having back pain that worse for months likely February or March Treatment Goals Patient/Caregiver Goals strengthen knees prior to L TKA PT-OP-C Subjective Start: 12/20/24 17:58 Freq: Status: Active Protocol: Document 01/17/25 07:25 AB (Rec: 01/17/25 09:04 AB [id number]) OP-PT Subjective Patient Comments Patient Comments Ranulfo reports he is sore, was too sore to do HEP exercises. Patient reports he felt the Recovery Shuttle was useful. Ranulfo rates L knee pain 8/10 R knee pain 6/10 start of session. L knee lacking 18 deg ext to 102 deg flexion start of session. PT-OP-D Balance Start: 12/20/24 17:58 Freq: Status: Active Protocol: Document 12/24/24 13:48 [facility] (Rec: 12/24/24 14:35 [facility] [id number]) Balance Tests Single Limb Standing Single Limb- Right 8 sec Single Limb- Left 18 sec PT-OP-G Mobility & Gait Start: 12/20/24 17:58 Freq: Status: Active Protocol: Document 12/24/24 13:48 [facility] (Rec: 12/24/24 14:35 [id number] OP Gait Assessment Comments Gait Comments dec stance time LLE , ddec push off B PT-OP-K Range of Motion Start: 12/20/24 17:58 Freq: Status: Active Protocol: Document 12/24/24 13:48 [facility] (Rec: 12/24/24 14:35 [id number] Knee Goniometric Range of Motion Knee Right Flexion Active (degrees) 103 Extension Active (degrees) 7 Comments pain Left Flexion Active (degrees) 99 Extension Active (degrees) 11 Comments pain PT-OP-L Special Tests Start: 12/20/24 17:58 Freq: Status: Active Protocol: Document 12/24/24 13:48 [facility] (Rec: 12/24/24 14:35 [id number] Special Tests Knee Special Tests Guerrero Comments B RF and quad tightness SLR Comments WNL PT-OP-M Strength Start: 12/20/24 17:58 Freq: Status: Active Protocol: Document 12/24/24 13:48 [facility] (Rec: 12/24/24 14:35 [facility] [id number]) Hip Strength Hip Manual Muscle Testing Right Flexion (L2) 4- Good- Extension (S1) 4- Good- Abduction 4+ Good+ Adduction 4 Good External Rotation 4- Good- Internal Rotation 4+ Good+ Left Flexion (L2) 3+ Fair+ Extension (S1) 3+ Fair+ Abduction 3+ Fair+ Adduction 3+ Fair+ External Rotation 4- Good- Internal Rotation 4- Good- Comments pain knee hip flex and ER Knee Strength Knee Manual Muscle Testing Right Flexion (S2) 4 Good Extension (L3) 4+ Good+ Left Flexion (S2) 4- Good- Extension (L3) 4- Good- Comments pain knee w/flex Ankle/Foot Strength Ankle and Foot Manual Muscle Testing Right Dorsiflexion (L4) 5 Normal Plantarflexion (S1) 5 Normal Comments 20 heel raises Left Dorsiflexion (L4) 5 Normal Plantarflexion (S1) 4+ Good+ Comments 16 heel raises with less range w/reps-pain lat lower leg PT-OP-Q Treatments Start: 12/20/24 17:58 Freq: Status: Active Protocol: Document 01/17/25 07:25 AB (Rec: 01/17/25 09:04 AB [id number]) Gym Equipment Shuttle Recovery Bilateral Squats Shuttle Recovery Platform Stable Reps/Time 62# 15x2 and X 20 Unilateral Squats Shuttle Recovery Platform Stable Reps/Time L 37# X15 R 50# 15x reps Therapeutic Exercises Supine Exercises hamstring stretch Supine Exercise Name HEP Side bilateral Reps/Minutes 60 sec X 2 each LE Comments verbal cues hip flexor stretch Supine Exercise Name HEP verbal review. Side bilateral Reps/Minutes 60 sec Comments post manual, with AROM knee flexion Sitting Exercises long arc quad Sitting Exercise Name without band and with level one band Side left Resistance level one band Reps/Minutes X 15 without band X 15 with band Comments verbal cues Manual Therapy Treatment Consent Patient gave verbal consent for manual Yes treatment Soft Tissue Mobilization Quad Body Location quad and HS Mobilization Type Cross-Friction,Rolling Intensity/Depth Moderate Body Position Supine Joint Mobilizations patellofemoral Joint Bilat sup, inf med lat CW and CCW Grade II Body Position Supine Reps/Duration X10 each each Le Comments II R III L tibfib Joint PA and AP Reps/Duration X10 X 3 Comments II R III L Self-Care/Home Management Treatment Education Other Education Patient ed to use massage gun to quad and hamstring prior to stretches, and upwrard strokes manually to sides of knee. PT-OP-R Modalities Start: 12/20/24 17:58 Freq: Status: Active Protocol: Document 01/15/25 10:49 NBM (Rec: 01/15/25 11:37 NBM [id number]) Hot Pack/Cold Pack Treatment Cold Pack Location L ant knee Patient Position Hooklying Patient Tolerance Good Comments 8', LEs on bolster PT-OP-T Assessment and Plan Start: 12/20/24 17:58 Freq: Status: Active Protocol: Document 01/17/25 07:25 AB (Rec: 01/17/25 09:04 AB [id number]) Physical Therapy Assessment Goals activities Short Term Goal (STG) Pt will be able to do sit <> stand w/o inc pain STG Duration 4/15 Unscrambler Goal (LTG) Pt will be able to do stairs w /pain no greater than 2/10 and sleep through the night w/o inc pain B knees LTG Duration 03/18 ROM Short Term Goal (STG) Pt will improve to at least 110 deg flex B STG Duration 02/05 Unscrambler Goal (LTG) Pt will have at least 0-120 deg ROM on R knee and at least 4-110 on L knee to allow gor improved gait pattern and stair ability LTG Duration 03/18 strength Short Term Goal (STG) Pt will be indep w/HEP STG Duration 02/16 Nursing Home Goal (LTG) Pt will score at least 4+/5 on all BLE MMT to show improved strength and stability in order to be able to typical daily activities w/less B knee pain LTG Duration 03/18 Assessment Summary Assessment lacking 16 deg ext L knee measured using Shuttle recovery( leg press ). Ranulfo rates L knee pain 5/ end of session. Physical Therapy Plan Frequency and Duration Frequency of Treatment 2x/Week Duration of treatment (weeks) 12 Plan of Care Start Date 12/24/24 Plan of Care End Date 03/18/25 Next Visit Focus/Plan Next Note Type Treatment Note Next Visit Plan advance ROM and strength comfortable; self STM,leg press, try SAQ, LAQ and SLR, HS curls manual to mm around LE and jt mobs to knees B
--- NOTE | 2025-01-23 12:29 | PT.OTN ---
Current Diagnoses Bilateral primary osteoarthritis of knee (01/23/25) Physical Therapy Treatment Note PT-OP-A Visit Information Start: 12/20/24 17:58 Freq: Status: Active Protocol: Document 01/23/25 11:16 NBM (Rec: 01/23/25 12:27 [facility] [id number]) Out-Patient Physical Therapy Visit Information Visit Information Visit Type Treatment Note Visit Note Access Code: [email or web address] Visit Start Time 11:07 Visit Stop Time 11:52 Visit Number 7 Number of HARDWARE TRAINER Visits 3 PT-OP-B Current Condition Start: 12/20/24 17:58 Freq: Status: Active Protocol: Document 12/24/24 13:48 [facility] (Rec: 12/24/24 14:35 [facility] [id number]) Current Condition History of Current Condition Onset Date chronic Current Complaints B knee pain History of Current Condition Pt had R knee blew out when working and L knee was taking brunt of all WB activities. Had sx in 2017 and ortho found that d/t this had lack of cartilage in knee and bone on bone. Had surgery on it in 2005 (meniscectomy). L knee gave out on him in May and he fell injuring his shoulder R and wrist. When L knee gave out, R didn't hold him. Awaiting PT to see how R knee does. He had TKA about 7 years with cont pain although he regained his ROM. Wants to push out knee surgery from January d/t having R shoulder surgery. Kenneth wakes him at nightmult times. Has been having back pain that worse for months likely February or March Treatment Goals Patient/Caregiver Goals strengthen knees prior to L TKA PT-OP-C Subjective Start: 12/20/24 17:58 Freq: Status: Active Protocol: Document 01/23/25 11:16 NBM (Rec: 01/23/25 12:27 [facility] [id number]) OP-PT Subjective Patient Comments Patient Comments Pt met with surgeon last week and is anticipating L total knee replacement in February or March. Surgeon is glad he is getting PT prior to surgery. L knee pain is less biting and more fatigue. He is noticing more range of motion and is now able to put L ankle on R thigh to put socks on. Current L knee pain 05/02. PT-OP-D Balance Start: 12/20/24 17:58 Freq: Status: Active Protocol: Document 12/24/24 13:48 [facility] (Rec: 12/24/24 14:35 [facility] [id number]) Balance Tests Single Limb Standing Single Limb- Right 8 sec Single Limb- Left 18 sec PT-OP-G Mobility & Gait Start: 12/20/24 17:58 Freq: Status: Active Protocol: Document 12/24/24 13:48 [facility] (Rec: 12/24/24 14:35 [id number]) OP Gait Assessment Comments Gait Comments dec stance time LLE , ddec push off B PT-OP-K Range of Motion Start: 12/20/24 17:58 Freq: Status: Active Protocol: Document 12/24/24 13:48 [facility] (Rec: 12/24/24 14:35 [facility] [id number]) Knee Goniometric Range of Motion Knee Right Flexion Active (degrees) 103 Extension Active (degrees) 7 Comments pain Left Flexion Active (degrees) 99 Extension Active (degrees) 11 Comments pain PT-OP-L Special Tests Start: 12/20/24 17:58 Freq: Status: Active Protocol: Document 12/24/24 13:48 [facility] (Rec: 12/24/24 14:35 [id number]) Special Tests Knee Special Tests Guerrero Comments B RF and quad tightness SLR Comments WNL PT-OP-M Strength Start: 12/20/24 17:58 Freq: Status: Active Protocol: Document 12/24/24 13:48 [facility] (Rec: 12/24/24 14:35 [id number]) Hip Strength Hip Manual Muscle Testing Right Flexion (L2) 4- Good- Extension (S1) 4- Good- Abduction 4+ Good+ Adduction 4 Good External Rotation 4- Good- Internal Rotation 4+ Good+ Left Flexion (L2) 3+ Fair+ Extension (S1) 3+ Fair+ Abduction 3+ Fair+ Adduction 3+ Fair+ External Rotation 4- Good- Internal Rotation 4- Good- Comments pain knee hip flex and ER Knee Strength Knee Manual Muscle Testing Right Flexion (S2) 4 Good Extension (L3) 4+ Good+ Left Flexion (S2) 4- Good- Extension (L3) 4- Good- Comments pain knee w/flex Ankle/Foot Strength Ankle and Foot Manual Muscle Testing Right Dorsiflexion (L4) 5 Normal Plantarflexion (S1) 5 Normal Comments 20 heel raises Left Dorsiflexion (L4) 5 Normal Plantarflexion (S1) 4+ Good+ Comments 16 heel raises with less range w/reps-pain lat lower leg PT-OP-Q Treatments Start: 12/20/24 17:58 Freq: Status: Active Protocol: Document 01/23/25 11:16 NBM (Rec: 01/23/25 12:27 [facility] [id number]) Gym Equipment Shuttle Recovery calf stretch Details 60 ea B Resistance 50# Shuttle Recovery Platform Stable Reps/Time neutral, toes in Bilateral Squats Shuttle Recovery Platform Stable Reps/Time 62# 10x2 and X 20 Unilateral Squats Shuttle Recovery Platform Stable Reps/Time L 37# X15 R 50# 15x reps Therapeutic Exercises Supine Exercises hamstring curls Supine Exercise Name 1. HS curls 2. w/ resistance Side bilateral Resistance Lvl 1 tb Equipment Used 65 cm therapy ball Reps/Minutes x15 ea Comments vc LE alignment, no change in baseline pain 7/10 hamstring stretch Supine Exercise Name combined w/ hip flexor stretch (guerrero) Side bilateral Equipment Used HS: pressing into clasped hands behind knee Reps/Minutes 2x60s ea Comments positive feedback hip flexor stretch Supine Exercise Name HEP verbal review. Side bilateral Reps/Minutes 60 sec Comments post manual, with AROM knee flexion Manual Therapy Treatment Consent Patient gave verbal consent for manual Yes treatment Joint Mobilizations patellofemoral Joint Bilat sup, inf med lat CW and CCW Grade II Body Position Supine Reps/Duration X10 each Le Self-Care/Home Management Treatment Education Other Education Edu to pt re: use of ice for pain management, can use in car as well. PT-OP-R Modalities Start: 12/20/24 17:58 Freq: Status: Active Protocol: Document 01/23/25 11:16 NBM (Rec: 01/23/25 12:27 [facility] [id number]) Hot Pack/Cold Pack Treatment Cold Pack Location B ant knee Patient Position Hooklying Patient Tolerance Good Comments 10', LEs on bolster. Ice does help the pain. PT-OP-T Assessment and Plan Start: 12/20/24 17:58 Freq: Status: Active Protocol: Document 01/23/25 11:16 NBM (Rec: 01/23/25 12:27 [facility] [id number]) Physical Therapy Assessment Goals activities Short Term Goal (STG) Pt will be able to do sit <> stand w/o inc pain STG Duration 02/05 Jail Goal (LTG) Pt will be able to do stairs w /pain no greater than 2/10 and sleep through the night w/o inc pain B knees LTG Duration 03/18 ROM Short Term Goal (STG) Pt will improve to at least 110 deg flex B STG Duration 02/05 Social Work Administrator Goal (LTG) Pt will have at least 0-120 deg ROM on R knee and at least 4-110 on L knee to allow gor improved gait pattern and stair ability LTG Duration 03/18 strength Short Term Goal (STG) Pt will be indep w/HEP STG Duration 02/16 Jail Goal (LTG) Pt will score at least 4+/5 on all BLE MMT to show improved strength and stability in order to be able to typical daily activities w/less B knee pain LTG Duration 03/18 Assessment Summary Assessment L knee extension range observably improves about 5-10 degrees on shuttle leg press machine. Edu to pt re: use of ice for pain management including in car, and cryotherapy is applied to knee B. Pt reports L knee pain improves from start of session 05/02 to 03/02 end of session. Pt is provided appt list handout. Physical Therapy Plan Frequency and Duration Frequency of Treatment 2x/Week Duration of treatment (weeks) 12 Plan of Care Start Date 12/24/24 Plan of Care End Date 03/18/25 Therapeutic Interventions Therapeutic Interventions Balance Training,Gait Training ,Home Exercise Program,Joint Mobilizations,Manual Therapy, Neuromuscular Re-education, Patient/Caregiver Education, Self-Care/Home Management,Soft Tissue Mobilization,Taping, Therapeutic Activities, Therapeutic Exercises Modalities Cold Pack/Ice Massage,Electric Stimulation,Hot Packs, Infrared Therapy,Ultrasound Next Visit Focus/Plan Next Note Type Treatment Note Next Visit Plan advance ROM and strength comfortable; self STM,leg press, try SAQ, LAQ and SLR, HS curls manual to mm around LE and jt mobs to knees B
--- NOTE | 2025-01-25 13:40 | PT.OTN ---
Current Diagnoses Bilateral primary osteoarthritis of knee (01/25/25) Physical Therapy Treatment Note PT-OP-A Visit Information Start: 12/20/24 17:58 Freq: Status: Active Protocol: Document 01/25/25 10:50 NBM (Rec: 01/25/25 11:35 [facility] [id number]) Out-Patient Physical Therapy Visit Information Visit Information Visit Type Treatment Note Visit Start Time 10:50 Visit Stop Time 11:35 Visit Number 8 Number of ROADWAY DESIGNER Visits 4 PT-OP-B Current Condition Start: 12/20/24 17:58 Freq: Status: Active Protocol: Document 12/24/24 13:48 [facility] (Rec: 12/24/24 14:35 [facility] [id number]) Current Condition History of Current Condition Onset Date chronic Current Complaints B knee pain History of Current Condition Pt had R knee blew out when working and L knee was taking brunt of all WB activities. Had sx in 2017 and ortho found that d/t this had lack of cartilage in knee and bone on bone. Had surgery on it in 2005 (meniscectomy). L knee gave out on him in May and he fell injuring his shoulder R and wrist. When L knee gave out, R didn't hold him. Awaiting PT to see how R knee does. He had TKA about 7 years with cont pain although he regained his ROM. Wants to push out knee surgery from January d/t having R shoulder surgery. Kenneth wakes him at nightmult times. Has been having back pain that worse for months likely February or March Treatment Goals Patient/Caregiver Goals strengthen knees prior to L TKA PT-OP-C Subjective Start: 12/20/24 17:58 Freq: Status: Active Protocol: Document 01/25/25 10:50 NBM (Rec: 01/25/25 11:35 [facility] [id number]) OP-PT Subjective Patient Comments Patient Comments Ranulfo reports good sore after last session, did not overdo it. L knee pain is curently 7/ 10. R knee pain is 5-6/10 at rest but is 8-9/10 when bent as with stairs and is feeling more fatigued and sore today. He is looking into an ice band for icing in the car because ice helps the pain. PT-OP-D Balance Start: 12/20/24 17:58 Freq: Status: Active Protocol: Document 12/24/24 13:48 [facility] (Rec: 12/24/24 14:35 [id number] Balance Tests Single Limb Standing Single Limb- Right 8 sec Single Limb- Left 18 sec PT-OP-G Mobility & Gait Start: 12/20/24 17:58 Freq: Status: Active Protocol: Document 12/24/24 13:48 [facility] (Rec: 12/24/24 14:35 [place] [id number]) OP Gait Assessment Comments Gait Comments dec stance time LLE , ddec push off B PT-OP-K Range of Motion Start: 12/20/24 17:58 Freq: Status: Active Protocol: Document 12/24/24 13:48 [facility] (Rec: 12/24/24 14:35 [id number] Knee Goniometric Range of Motion Knee Right Flexion Active (degrees) 103 Extension Active (degrees) 7 Comments pain Left Flexion Active (degrees) 99 Extension Active (degrees) 11 Comments pain PT-OP-L Special Tests Start: 12/20/24 17:58 Freq: Status: Active Protocol: Document 12/24/24 13:48 [facility] (Rec: 12/24/24 14:35 [id number] Special Tests Knee Special Tests Guerrero Comments B RF and quad tightness SLR Comments WNL PT-OP-M Strength Start: 12/20/24 17:58 Freq: Status: Active Protocol: Document 12/24/24 13:48 [facility] (Rec: 12/24/24 14:35 [id number] Hip Strength Hip Manual Muscle Testing Right Flexion (L2) 4- Good- Extension (S1) 4- Good- Abduction 4+ Good+ Adduction 4 Good External Rotation 4- Good- Internal Rotation 4+ Good+ Left Flexion (L2) 3+ Fair+ Extension (S1) 3+ Fair+ Abduction 3+ Fair+ Adduction 3+ Fair+ External Rotation 4- Good- Internal Rotation 4- Good- Comments pain knee hip flex and ER Knee Strength Knee Manual Muscle Testing Right Flexion (S2) 4 Good Extension (L3) 4+ Good+ Left Flexion (S2) 4- Good- Extension (L3) 4- Good- Comments pain knee w/flex Ankle/Foot Strength Ankle and Foot Manual Muscle Testing Right Dorsiflexion (L4) 5 Normal Plantarflexion (S1) 5 Normal Comments 20 heel raises Left Dorsiflexion (L4) 5 Normal Plantarflexion (S1) 4+ Good+ Comments 16 heel raises with less range w/reps-pain lat lower leg PT-OP-Q Treatments Start: 12/20/24 17:58 Freq: Status: Active Protocol: Document 01/25/25 10:50 NBM (Rec: 01/25/25 11:35 NBM [id number]) Gym Equipment Shuttle Recovery calf stretch Details 60 ea B Resistance 50# Shuttle Recovery Platform Stable Reps/Time neutral, toes in Bilateral Squats Shuttle Recovery Platform Stable Reps/Time 62# 10x2 and X 20 Unilateral Squats Shuttle Recovery Platform Stable Reps/Time L 37# X15 R 50# 15x reps Therapeutic Exercises Supine Exercises SLR Supine Exercise Name staight leg raise - added to HEP Side bilateral Reps/Minutes x12 ea Comments cues for knee extension and breath throughout SAQ Side bilateral Resistance 2# Equipment Used bolster Reps/Minutes 5 sec x10 Comments cues for DF through range which improves L patellar pain . Standing Exercises TKE Standing Exercise Name terminal knee extension Side bilateral Resistance Lvl 3 Tb Equipment Used anchored at lobby stairs just above knee Reps/Minutes x15, 10 x5 hold PT-OP-R Modalities Start: 12/20/24 17:58 Freq: Status: Active Protocol: Document 01/25/25 10:50 NBM (Rec: 01/25/25 11:35 NBM [id number]) Hot Pack/Cold Pack Treatment Cold Pack Location B ant knee Patient Position Hooklying Patient Tolerance Good Comments 10', LEs on bolster. PT-OP-T Assessment and Plan Start: 12/20/24 17:58 Freq: Status: Active Protocol: Document 01/25/25 10:50 NBM (Rec: 01/25/25 11:35 [facility] [id number]) Physical Therapy Assessment Goals activities Short Term Goal (STG) Pt will be able to do sit <> stand w/o inc pain STG Duration 02/05 Penitentiary Goal (LTG) Pt will be able to do stairs w /pain no greater than 2/10 and sleep through the night w/o inc pain B knees LTG Duration 03/18 ROM Short Term Goal (STG) Pt will improve to at least 110 deg flex B STG Duration 02/05 Penitentiary Goal (LTG) Pt will have at least 0-120 deg ROM on R knee and at least 4-110 on L knee to allow gor improved gait pattern and stair ability LTG Duration 03/18 strength Short Term Goal (STG) Pt will be indep w/HEP STG Duration 02/16 Penitentiary Goal (LTG) Pt will score at least 4+/5 on all BLE MMT to show improved strength and stability in order to be able to typical daily activities w/less B knee pain LTG Duration 03/18 Assessment Summary Assessment Ranulfo presents with 7/10 L knee pain which improves to 5-6/10 following TKE and SLR, and increases to 7/10 with resisted SAQ, then improves following cryotherapy to 6-7/ 10 w/ ambulation end of session. R knee pain is unchanged 5-6/10 throughout session. Treatment focus on knee strengthening and pt requires cues for maintaining knee extension throughout straight leg raise and for eccentric control with short arc quad. Occasional cues needed for breathwork. Resisted SAQ progressed from 3 second hold to 5 second hold. Cues for dorsiflexion improves L patellar pain w/ L SLR. SLR added to HEP - HO declined. Physical Therapy Plan Frequency and Duration Frequency of Treatment 2x/Week Duration of treatment (weeks) 12 Plan of Care Start Date 12/24/24 Plan of Care End Date 03/18/25 Therapeutic Interventions Therapeutic Interventions Balance Training,Gait Training ,Home Exercise Program,Joint Mobilizations,Manual Therapy, Neuromuscular Re-education, Patient/Caregiver Education, Self-Care/Home Management,Soft Tissue Mobilization,Taping, Therapeutic Activities, Therapeutic Exercises Modalities Cold Pack/Ice Massage,Electric Stimulation,Hot Packs, Infrared Therapy,Ultrasound Next Visit Focus/Plan Next Note Type Treatment Note Next Visit Plan advance ROM and strength comfortable; self STM,leg press, SAQ, LAQ and SLR, HS curls manual to mm around LE and jt mobs to knees B
--- NOTE | 2025-01-28 11:35 | PT.OTN ---
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 Had sx in 2017 and ortho found that d/t this had lack of cartilage in knee and bone on bone. Had surgery on it in 2005 (meniscectomy). L knee gave out on him in May and he fell injuring his shoulder R and wrist. When L knee gave out, R didn't hold him. Awaiting PT to see how R knee does. He had TKA about 7 years with cont pain although he regained his ROM. Wants to push out knee surgery from January d/t having R shoulder surgery. Kenneth wakes him at nightmult times. Has been having back pain that worse for months likely February or March Treatment Goals Patient/Caregiver Goals strengthen knees prior to L TKA PT-OP-C Subjective Start: 12/20/24 17:58 Freq: Status: Active Protocol: Document 01/28/25 10:51 [facility] (Rec: 01/28/25 11:35 [facility] [id number]) OP-PT Subjective Patient Comments Patient Comments Feels tighter today. feels like got good ext last week but paid for it. did try to do recip down stairs w/some pain Patient Reported Progress Improving PT-OP-D Balance Start: 12/20/24 17:58 Freq: Status: Active Protocol: Document 12/24/24 13:48 [facility] (Rec: 12/24/24 14:35 [facility] [id number]) Balance Tests Single Limb Standing Single Limb- Right 8 sec Single Limb- Left 18 sec PT-OP-G Mobility & Gait Start: 12/20/24 17:58 Freq: Status: Active Protocol: Document 12/24/24 13:48 [id number] OP Gait Assessment Comments Gait Comments dec stance time LLE , ddec push off B PT-OP-K Range of Motion Start: 12/20/24 17:58 Freq: Status: Active Protocol: Document 01/28/25 10:51 [facility] (Rec: 01/28/25 [id number] Knee Goniometric Range of Motion Knee Right Flexion Active (degrees) 110 Extension Active (degrees) 3 Comments pain Left Flexion Active (degrees) 97 Extension Active (degrees) 9 Comments pain PT-OP-L Special Tests Start: 12/20/24 17:58 Freq: Status: Active Protocol: Document 12/24/24 13:48 [facility] (Rec: 12/24/24 14:[id number] Special Tests Knee Special Tests Guerrero Comments B RF and quad tightness SLR Comments WNL PT-OP-M Strength Start: 12/20/24 17:58 Freq: Status: Active Protocol: Document 01/28/25 10:51 [facility] (Rec: 01/28/25 11:35 [place] [id number]) Hip Strength Hip Manual Muscle Testing Right Flexion (L2) 4- Good- Extension (S1) 4+ Good+ Abduction 4+ Good+ Adduction 4+ Good+ External Rotation 4+ Good+ Internal Rotation 4+ Good+ Left Flexion (L2) 4 Good Extension (S1) 4+ Good+ Abduction 4 Good Adduction 4 Good External Rotation 4- Good- Internal Rotation 4 Good Comments pain knee w/ ER Knee Strength Knee Manual Muscle Testing Right Flexion (S2) 4+ Good+ Extension (L3) 5 Normal Left Flexion (S2) 4 Good Extension (L3) 4+ Good+ Comments pain knee w/flex Ankle/Foot Strength Ankle and Foot Manual Muscle Testing Right Dorsiflexion (L4) 5 Normal Plantarflexion (S1) 5 Normal Comments 20 heel raises Left Dorsiflexion (L4) 5 Normal Plantarflexion (S1) 4+ Good+ Comments 20 heel raises (more difficult and less range) PT-OP-Q Treatments Start: 12/20/24 17:58 Freq: Status: Active Protocol: Document 01/28/25 10:51 [facility] (Rec: 01/28/25 11:35 [facility] [id number]) Therapeutic Exercises Standing Exercises TKE Standing Exercise Name terminal knee extension Side bilateral Resistance Lvl 3 Tb Equipment Used anchored at clinic stairs just above knee Reps/Minutes 10 reps squat Side bilateral Equipment Used hands on counter Reps/Minutes 12 Comments cues comfortable range ,butt back Other Exercises isometrics Other Exercise Name BLE MMT and ROM Manual Therapy Treatment Consent Patient gave verbal consent for manual Yes treatment Soft Tissue Mobilization post Body Location R HS, calf Mobilization Type Rolling Intensity/Depth Moderate Body Position Hooklying Joint Mobilizations patellofemoral Joint Bilat sup, inf med lat CW and CCW Grade II Body Position Supine Reps/Duration X10 each Le tibfib Joint R Comments PA c/r R tibiofemoral Body Position Hooklying Comments AP tibia c/r; PA femur and tibia ea w/APs PT-OP-R Modalities Start: 12/20/24 17:58 Freq: Status: Active Protocol: Document 01/25/25 10:50 [facility] (Rec: 01/25/25 11:35 [facility] [id number]) Hot Pack/Cold Pack Treatment Cold Pack Location B ant knee Patient Position Hooklying Patient Tolerance Good Comments 10', LEs on bolster. PT-OP-T Assessment and Plan Start: 12/20/24 17:58 Freq: Status: Active Protocol: Document 01/28/25 10:51 [facility] (Rec: 01/28/25 11:35 [facility] [id number]) Physical Therapy Assessment Goals activities Short Term Goal (STG) Pt will be able to do sit <> stand w/o inc pain 4/7-R knee no pain, L knee pain w/this STG Duration 02/05 Master Plumber Goal (LTG) Pt will be able to do stairs w /pain no greater than 2/10 and sleep through the night w/o inc pain B knees 4/7-only L knee waking pt at night 2-3x/night, no pain down stairs recip R, L 6/10 LTG Duration 03/18 ROM Short Term Goal (STG) Pt will improve to at least 110 deg flex B /7-achieved R, L still imited STG Duration 02/05 Retirement Goal (LTG) Pt will have at least 0-120 deg ROM on R knee and at least 4-110 on L knee to allow gor improved gait pattern and stair ability LTG Duration 03/18 strength Short Term Goal (STG) Pt will be indep w/HEP STG Duration achieved advancing as able Retirement Goal (LTG) Pt will score at least 4+/5 on all BLE MMT to show improved strength and stability in order to be able to typical daily activities w/less B knee pain 01/28-impring LTG Duration 03/18 Assessment Summary Assessment Had 0-114 ROM on R knee after manual treatment. Making good progress w/R knee ROM overall but less changes w/L knee ROM but improved function. Able to now go down stairs reciprocal and do partial squats. Cont PT to improve function by improving ROM and strength and dec pain. L knee limits >R at this time. Physical Therapy Plan Frequency and Duration Frequency of Treatment 2x/Week Duration of treatment (weeks) 12 Plan of Care Start Date 12/24/24 Plan of Care End Date 03/18/25 Next Visit Focus/Plan Next Note Type Treatment Note
--- NOTE | 2025-01-30 11:36 | PT.OTN ---
Current Diagnoses Bilateral primary osteoarthritis of knee (01/30/25) Physical Therapy Treatment Note PT-OP-A Visit Information Start: 12/20/24 17:58 Freq: Status: Active Protocol: Document 01/30/25 10:49 [facility] (Rec: 01/30/25 11:36 [facility] [id number]) Out-Patient Physical Therapy Visit Information Visit Information Visit Type Treatment Note Visit Start Time 10:50 Visit Stop Time 11:30 Visit Number 10 (2/10) Number of NUCLEAR SCIENTIST Visits 0 PT-OP-B Current Condition Start: 12/20/24 17:58 Freq: Status: Active Protocol: Document 12/24/24 13:48 [facility] (Rec: 12/24/24 14:35 [facility] [id number]) Current Condition History of Current Condition Onset Date chronic Current Complaints B knee pain History of Current Condition Pt had R knee blew out when working and L knee was taking brunt of all WB activities. Had sx in 2017 and ortho found that d/t this had lack of cartilage in knee and bone on bone. Had surgery on it in 2005 (meniscectomy). L knee gave out on him in May and he fell injuring his shoulder R and wrist. When L knee gave out, R didn't hold him. Awaiting PT to see how R knee does. He had TKA about 7 years with cont pain although he regained his ROM. Wants to push out knee surgery from January d/t having R shoulder surgery. Kenneth wakes him at nightmult times. Has been having back pain that worse for months likely February or March Treatment Goals Patient/Caregiver Goals strengthen knees prior to L TKA PT-OP-C Subjective Start: 12/20/24 17:58 Freq: Status: Active Protocol: Document 01/30/25 10:49 [facility] (Rec: 01/30/25 11:36 [facility] [id number]) OP-PT Subjective Patient Comments Patient Comments Pt reports L knee was stiff and sore after last session. PT-OP-D Balance Start: 12/20/24 17:58 Freq: Status: Active Protocol: Document 12/24/24 13:48 [facility] (Rec: 12/24/24 14:35 [facility] [id number]) Balance Tests Single Limb Standing Single Limb- Right 8 sec Single Limb- Left 18 sec PT-OP-G Mobility & Gait Start: 12/20/24 17:58 Freq: Status: Active Protocol: Document 12/24/24 13:48 [facility] (Rec: 12/24/24 14:35 [facility] [id number]) OP Gait Assessment Comments Gait Comments dec stance time LLE , ddec push off B PT-OP-K Range of Motion Start: 12/20/24 17:58 Freq: Status: Active Protocol: Document 01/28/25 10:51 [facility] (Rec: 01/28/25 11:35 [id number] Knee Goniometric Range of Motion Knee Right Flexion Active (degrees) 110 Extension Active (degrees) 3 Comments pain Left Flexion Active (degrees) 97 Extension Active (degrees) 9 Comments pain PT-OP-L Special Tests Start: 12/20/24 17:58 Freq: Status: Active Protocol: Document 12/24/24 13:48 [facility] (Rec: 12/24/24 14:35 [facility] [id number]) Special Tests Knee Special Tests Guerrero Comments B RF and quad tightness SLR Comments WNL PT-OP-M Strength Start: 12/20/24 17:58 Freq: Status: Active Protocol: Document 01/28/25 10:51 [facility] (Rec: 01/28/25 11:35 [facility] [id number]) Hip Strength Hip Manual Muscle Testing Right Flexion (L2) 4- Good- Extension (S1) 4+ Good+ Abduction 4+ Good+ Adduction 4+ Good+ External Rotation 4+ Good+ Internal Rotation 4+ Good+ Left Flexion (L2) 4 Good Extension (S1) 4+ Good+ Abduction 4 Good Adduction 4 Good External Rotation 4- Good- Internal Rotation 4 Good Comments pain knee w/ ER Knee Strength Knee Manual Muscle Testing Right Flexion (S2) 4+ Good+ Extension (L3) 5 Normal Left Flexion (S2) 4 Good Extension (L3) 4+ Good+ Comments pain knee w/flex Ankle/Foot Strength Ankle and Foot Manual Muscle Testing Right Dorsiflexion (L4) 5 Normal Plantarflexion (S1) 5 Normal Comments 20 heel raises Left Dorsiflexion (L4) 5 Normal Plantarflexion (S1) 4+ Good+ Comments 20 heel raises (more difficult and less range) PT-OP-Q Treatments Start: 12/20/24 17:58 Freq: Status: Active Protocol: Document 01/30/25 10:49 [facility] (Rec: 01/30/25 11:36 [facility] [id number]) Gym Equipment Shuttle Recovery Bilateral Squats Details PT helping track L patella Resistance 75# (2 navy, 1 teal) Shuttle Recovery Platform Stable Reps/Time 15 Therapeutic Exercises Standing Exercises arch lift Side bilateral Reps/Minutes 20 Comments cues no big toe lift stretch Standing Exercise Name gastroc calf stretch Side bilateral Reps/Minutes 1 min lunge Standing Exercise Name mini Side bilateral Equipment Used bar prn Reps/Minutes 10 step up Side bilateral Equipment Used 6 in to SLS Reps/Minutes 2x10 ea step down Standing Exercise Name lat Side bilateral Equipment Used 4 in step L, 6 in R Reps/Minutes 12 ea Comments cues butt back and control Manual Therapy Treatment Consent Patient gave verbal consent for manual Yes treatment Soft Tissue Mobilization Quad Body Location quad and HS B Mobilization Type Cross-Friction,Rolling Intensity/Depth Moderate Body Position Supine Joint Mobilizations patellofemoral Joint B sup, med, inf tibiofemoral Comments PA femur and tibia B PT-OP-R Modalities Start: 12/20/24 17:58 Freq: Status: Active Protocol: Document 01/25/25 10:50 [facility] (Rec: 01/25/25 11:35 [facility] [id number]) Hot Pack/Cold Pack Treatment Cold Pack Location B ant knee Patient Position Hooklying Patient Tolerance Good Comments 10', LEs on bolster. PT-OP-T Assessment and Plan Start: 12/20/24 17:58 Freq: Status: Active Protocol: Document 01/30/25 10:49 [facility] (Rec: 01/30/25 11:36 [facility] [id number]) Physical Therapy Assessment Goals activities Short Term Goal (STG) Pt will be able to do sit <> stand w/o inc pain 4/7-R knee no pain, L knee pain w/this STG Duration 02/05 Tree Thinner Goal (LTG) Pt will be able to do stairs w /pain no greater than 2/10 and sleep through the night w/o inc pain B knees 4/7-only L knee waking pt at night 2-3x/night, no pain down stairs recip R, L 6/10 LTG Duration 03/18 ROM Short Term Goal (STG) Pt will improve to at least 110 deg flex B 4/7-achieved R, L still imited STG Duration 4/15 Tree Thinner Goal (LTG) Pt will have at least 0-120 deg ROM on R knee and at least 4-110 on L knee to allow gor improved gait pattern and stair ability LTG Duration 03/18 strength Short Term Goal (STG) Pt will be indep w/HEP STG Duration achieved advancing as able Tree Thinner Goal (LTG) Pt will score at least 4+/5 on all BLE MMT to show improved strength and stability in order to be able to typical daily activities w/less B knee pain 01/28-impring LTG Duration 03/18 Assessment Summary Assessment Pt had 0-106 o R knee at start of session and improved to 111. He cont to have significantly dec ROM L>R knee . Tolerated advanced strengthening today w/o pain when cued for comfortable range and form. Physical Therapy Plan Frequency and Duration Frequency of Treatment 2x/Week Duration of treatment (weeks) 12 Plan of Care Start Date 12/24/24 Plan of Care End Date 03/18/25 Therapeutic Interventions Therapeutic Interventions Balance Training,Gait Training ,Home Exercise Program,Joint Mobilizations,Manual Therapy, Neuromuscular Re-education, Patient/Caregiver Education, Self-Care/Home Management,Soft Tissue Mobilization,Taping, Therapeutic Activities, Therapeutic Exercises Modalities Cold Pack/Ice Massage,Electric Stimulation,Hot Packs, Infrared Therapy,Ultrasound Next Visit Focus/Plan Next Note Type Treatment Note Next Visit Plan cont to advance strength of quads and HS and hips; manual to improve ROM-focus R
--- NOTE | 2025-02-06 11:41 | PT.OTN ---
Current Diagnoses Bilateral primary osteoarthritis of knee (02/06/25) Physical Therapy Treatment Note PT-OP-A Visit Information Start: 12/20/24 17:58 Freq: Status: Active Protocol: Document 02/06/25 10:46 [facility] (Rec: 02/06/25 11:41 [facility] [id number]) Out-Patient Physical Therapy Visit Information Visit Information Visit Type Treatment Note Visit Start Time 10:48 Visit Stop Time 11:30 Visit Number 11 Number of ENDODONTIC ASSISTANT Visits 0 PT-OP-B Current Condition Start: 12/20/24 17:58 Freq: Status: Active Protocol: Document 12/24/24 13:48 [facility] (Rec: 12/24/24 14:35 [facility] [id number]) Current Condition History of Current Condition Onset Date chronic Current Complaints B knee pain History of Current Condition Pt had R knee blew out when working and L knee was taking brunt of all WB activities. Had sx in 2017 and ortho found that d/t this had lack of cartilage in knee and bone on bone. Had surgery on it in 2005 (meniscectomy). L knee gave out on him in May and he fell injuring his shoulder R and wrist. When L knee gave out, R didn't hold him. Awaiting PT to see how R knee does. He had TKA about 7 years with cont pain although he regained his ROM. Wants to push out knee surgery from January d/t having R shoulder surgery. Kenneth wakes him at nightmult times. Has been having back pain that worse for months likely February or March Treatment Goals Patient/Caregiver Goals strengthen knees prior to L TKA PT-OP-C Subjective Start: 12/20/24 17:58 Freq: Status: Active Protocol: Document 02/06/25 10:46 [facility] (Rec: 02/06/25 11:41 [facility] [id number]) OP-PT Subjective Patient Comments Patient Comments Still has no surgery date. PT-OP-D Balance Start: 12/20/24 17:58 Freq: Status: Active Protocol: Document 12/24/24 13:48 [facility] (Rec: 12/24/24 14:35 [facility] [id number]) Balance Tests Single Limb Standing Single Limb- Right 8 sec Single Limb- Left 18 sec PT-OP-G Mobility & Gait Start: 12/20/24 17:58 Freq: Status: Active Protocol: Document 12/24/24 13:48 [facility]24/24 [id number] Gait Assessment Comments Gait Comments dec stance time LLE , ddec push off B PT-OP-K Range of Motion Start: 12/20/24 17:58 Freq: Status: Active Protocol: Document 01/28/25 10:51 [facility] (Rec: 01/28/25 11:[id number] Knee Goniometric Range of Motion Knee Right Flexion Active (degrees) 110 Extension Active (degrees) 3 Comments pain Left Flexion Active (degrees) 97 Extension Active (degrees) 9 Comments pain PT-OP-L Special Tests Start: 12/20/24 17:58 Freq: Status: Active Protocol: Document 12/24/24 13:48 [facility] (Rec: 12/24/24 14:[id number] Special Tests Knee Special Tests Guerrero Comments B RF and quad tightness SLR Comments WNL PT-OP-M Strength Start: 12/20/24 17:58 Freq: Status: Active Protocol: Document 01/28/25 10:51 [facility] (Rec: 01/28/25 11:[id number] Hip Strength Hip Manual Muscle Testing Right Flexion (L2) 4- Good- Extension (S1) 4+ Good+ Abduction 4+ Good+ Adduction 4+ Good+ External Rotation 4+ Good+ Internal Rotation 4+ Good+ Left Flexion (L2) 4 Good Extension (S1) 4+ Good+ Abduction 4 Good Adduction 4 Good External Rotation 4- Good- Internal Rotation 4 Good Comments pain knee w/ ER Knee Strength Knee Manual Muscle Testing Right Flexion (S2) 4+ Good+ Extension (L3) 5 Normal Left Flexion (S2) 4 Good Extension (L3) 4+ Good+ Comments pain knee w/flex Ankle/Foot Strength Ankle and Foot Manual Muscle Testing Right Dorsiflexion (L4) 5 Normal Plantarflexion (S1) 5 Normal Comments 20 heel raises Left Dorsiflexion (L4) 5 Normal Plantarflexion (S1) 4+ Good+ Comments 20 heel raises (more difficult and less range) PT-OP-Q Treatments Start: 12/20/24 17:58 Freq: Status: Active Protocol: Document 02/06/25 10:46 [facility] (Rec: 02/06/25 11:41 [facility] [id number]) Therapeutic Exercises Supine Exercises bridge Supine Exercise Name 1. DL bridge 2. SL bridge (opp knee to chest) Side bilateral Reps/Minutes 10 ea Standing Exercises arch lift Side bilateral Reps/Minutes 20 Comments cues no big toe lift stretch Standing Exercise Name gastroc calf stretch Side bilateral Reps/Minutes 1 min lunge Standing Exercise Name 1. mini fwd 2. lat Side bilateral Equipment Used bar prn Reps/Minutes 10 ea Comments cues butt back Manual Therapy Treatment Consent Patient gave verbal consent for manual Yes treatment Soft Tissue Mobilization post Body Location B HS, calf Mobilization Type Rolling Intensity/Depth Moderate Body Position Hooklying Comments w/knee flex Quad Body Location quad B Mobilization Type Rolling Intensity/Depth Moderate Body Position Supine Joint Mobilizations patellofemoral Joint B sup, med, inf tibiofemoral Comments PA femur and tibia R PT-OP-R Modalities Start: 12/20/24 17:58 Freq: Status: Active Protocol: Document 01/25/25 10:50 [facility] (Rec: 01/25/25 11:35 [facility] [id number]) Hot Pack/Cold Pack Treatment Cold Pack Location B ant knee Patient Position Hooklying Patient Tolerance Good Comments 10', LEs on bolster. PT-OP-T Assessment and Plan Start: 12/20/24 17:58 Freq: Status: Active Protocol: Document 02/06/25 10:46 [facility] (Rec: 02/06/25 11:41 [facility] [id number]) Physical Therapy Assessment Goals activities Short Term Goal (STG) Pt will be able to do sit <> stand w/o inc pain 01/28-R knee no pain, L knee pain w/this STG Duration 02/05 Assisted Goal (LTG) Pt will be able to do stairs w /pain no greater than 2/10 and sleep through the night w/o inc pain B knees 01/28-only L knee waking pt at night 2-3x/night, no pain down stairs recip R, L 6/10 LTG Duration 03/18 ROM Short Term Goal (STG) Pt will improve to at least 110 deg flex B 01/28-achieved R, L still imited STG Duration 02/05 Assisted Goal (LTG) Pt will have at least 0-120 deg ROM on R knee and at least 4-110 on L knee to allow gor improved gait pattern and stair ability LTG Duration 03/18 strength Short Term Goal (STG) Pt will be indep w/HEP STG Duration achieved advancing as able Assisted Goal (LTG) Pt will score at least 4+/5 on all BLE MMT to show improved strength and stability in order to be able to typical daily activities w/less B knee pain 01/28-impring LTG Duration 03/18 Assessment Summary Assessment Pt was able to tolerate progression of exercises today but does need cues when lunging. He is encouraged to to work oncont to lift arch. Physical Therapy Plan Frequency and Duration Frequency of Treatment 2x/Week Duration of treatment (weeks) 12 Plan of Care Start Date 12/24/24 Plan of Care End Date 03/18/25 Next Visit Focus/Plan Next Note Type Treatment Note Next Visit Plan cont to advance strength of quads and HS and hips; manual to improve ROM-focus R
--- NOTE | 2025-02-13 13:48 | PT.OTN ---
Current Diagnoses Bilateral primary osteoarthritis of knee (02/13/25) Physical Therapy Treatment Note PT-OP-A Visit Information Start: 12/20/24 17:58 Freq: Status: Active Protocol: Document 02/13/25 13:02 [facility] (Rec: 02/13/25 13:48 [facility] [id number]) Out-Patient Physical Therapy Visit Information Visit Information Visit Type Treatment Note Visit Start Time 13:05 Visit Stop Time 13:45 Visit Number 12 Number of FLEA MARKET SELLER Visits 0 PT-OP-B Current Condition Start: 12/20/24 17:58 Freq: Status: Active Protocol: Document 12/24/24 13:48 [facility] (Rec: 12/24/24 14:35 [facility] [id number]) Current Condition History of Current Condition Onset Date chronic Current Complaints B knee pain History of Current Condition Pt had R knee blew out when working and L knee was taking brunt of all WB activities. Had sx in 2017 and ortho found that d/t this had lack of cartilage in knee and bone on bone. Had surgery on it in 2005 (meniscectomy). L knee gave out on him in May and he fell injuring his shoulder R and wrist. When L knee gave out, R didn't hold him. Awaiting PT to see how R knee does. He had TKA about 7 years with cont pain although he regained his ROM. Wants to push out knee surgery from January d/t having R shoulder surgery. Kenneth wakes him at nightmult times. Has been having back pain that worse for months likely February or March Treatment Goals Patient/Caregiver Goals strengthen knees prior to L TKA PT-OP-C Subjective Start: 12/20/24 17:58 Freq: Status: Active Protocol: Document 02/13/25 13:02 [facility] (Rec: 02/13/25 13:48 [facility] [id number]) OP-PT Subjective Patient Comments Patient Comments Pt reports he feels like the tape really helps PT-OP-D Balance Start: 12/20/24 17:58 Freq: Status: Active Protocol: Document 12/24/24 13:48 [facility] (Rec: 12/24/24 14:35 [facility] [id number]) Balance Tests Single Limb Standing Single Limb- Right 8 sec Single Limb- Left 18 sec PT-OP-G Mobility & Gait Start: 12/20/24 17:58 Freq: Status: Active Protocol: Document 12/24/24 13:48 [facility] (Rec: 12/24/24 14:35 [id number] OP Gait Assessment Comments Gait Comments dec stance time LLE , ddec push off B PT-OP-K Range of Motion Start: 12/20/24 17:58 Freq: Status: Active Protocol: Document 01/28/25 10:51 [facility] (Rec: 01/28/25 11:35 [place] [id number]) Knee Goniometric Range of Motion Knee Right Flexion Active (degrees) 110 Extension Active (degrees) 3 Comments pain Left Flexion Active (degrees) 97 Extension Active (degrees) 9 Comments pain PT-OP-L Special Tests Start: 12/20/24 17:58 Freq: Status: Active Protocol: Document 12/24/24 13:48 [facility] (Rec: 12/24/24 14:35 [place] [id number]) Special Tests Knee Special Tests Guerrero Comments B RF and quad tightness SLR Comments WNL PT-OP-M Strength Start: 12/20/24 17:58 Freq: Status: Active Protocol: Document 01/28/25 10:51 [facility] (Rec: 01/28/25 11:35 [id number]) Hip Strength Hip Manual Muscle Testing Right Flexion (L2) 4- Good- Extension (S1) 4+ Good+ Abduction 4+ Good+ Adduction 4+ Good+ External Rotation 4+ Good+ Internal Rotation 4+ Good+ Left Flexion (L2) 4 Good Extension (S1) 4+ Good+ Abduction 4 Good Adduction 4 Good External Rotation 4- Good- Internal Rotation 4 Good Comments pain knee w/ ER Knee Strength Knee Manual Muscle Testing Right Flexion (S2) 4+ Good+ Extension (L3) 5 Normal Left Flexion (S2) 4 Good Extension (L3) 4+ Good+ Comments pain knee w/flex Ankle/Foot Strength Ankle and Foot Manual Muscle Testing Right Dorsiflexion (L4) 5 Normal Plantarflexion (S1) 5 Normal Comments 20 heel raises Left Dorsiflexion (L4) 5 Normal Plantarflexion (S1) 4+ Good+ Comments 20 heel raises (more difficult and less range) PT-OP-Q Treatments Start: 12/20/24 17:58 Freq: Status: Active Protocol: Document 02/13/25 13:02 [facility] (Rec: 02/13/25 13:48 [id number]) Gym Equipment Therapeutic Ball 1 Exercise Details DL Ball Size/Color 65 cm ball Comments 1. bridge w/knees ext x15 2. bridge w/HS curl x10 Therapeutic Exercises Supine Exercises heel slides Supine Exercise Name w/APs Side right Reps/Minutes 10 Standing Exercises lunge Standing Exercise Name 1. mini fwd split squat 2. lat Side bilateral Equipment Used bar prn Reps/Minutes 10 ea Comments cues butt back step up Standing Exercise Name 1. fwd 2. lat Side bilateral Equipment Used 6 in to SLS Reps/Minutes x12 ea step down Standing Exercise Name fwd Side bilateral Equipment Used 4 in Reps/Minutes 5 PT-OP-R Modalities Start: 12/20/24 17:58 Freq: Status: Active Protocol: Document 01/25/25 10:50 [facility] (Rec: 01/25/25 11:35 [facility] [id number]) Hot Pack/Cold Pack Treatment Cold Pack Location B ant knee Patient Position Hooklying Patient Tolerance Good Comments 10', LEs on bolster. PT-OP-T Assessment and Plan Start: 12/20/24 17:58 Freq: Status: Active Protocol: Document 02/13/25 13:02 [facility] (Rec: 02/13/25 13:48 [facility] [id number]) Physical Therapy Assessment Goals activities Short Term Goal (STG) Pt will be able to do sit <> stand w/o inc pain 47-R knee no pain, L knee pain w/this STG Duration 02/05 Halfway Goal (LTG) Pt will be able to do stairs w /pain no greater than 2/10 and sleep through the night w/o inc pain B knees 4/7-only L knee waking pt at night 2-3x/night, no pain down stairs recip R, L 6/10 LTG Duration 03/18 ROM Short Term Goal (STG) Pt will improve to at least 110 deg flex B 4/7-achieved R, L still imited STG Duration 02/05 Halfway Goal (LTG) Pt will have at least 0-120 deg ROM on R knee and at least 4-110 on L knee to allow gor improved gait pattern and stair ability LTG Duration 03/18 strength Short Term Goal (STG) Pt will be indep w/HEP STG Duration achieved advancing as able Halfway Goal (LTG) Pt will score at least 4+/5 on all BLE MMT to show improved strength and stability in order to be able to typical daily activities w/less B knee pain 01/28-impring LTG Duration 03/18 Assessment Summary Assessment Pt did well with exercises but cues still needed for form. He had 112 deg flex after manual today. Encouraged to work on heel slides at home Physical Therapy Plan Frequency and Duration Frequency of Treatment 2x/Week Duration of treatment (weeks) 12 Plan of Care Start Date 12/24/24 Plan of Care End Date 03/18/25 Next Visit Focus/Plan Next Note Type Treatment Note Next Visit Plan cont to advance strength of quads and HS and hips; manual to improve ROM-focus R
--- NOTE | 2025-02-20 11:02 | PT.OTN ---
Current Diagnoses Bilateral primary osteoarthritis of knee (02/20/25) Physical Therapy Treatment Note PT-OP-A Visit Information Start: 12/20/24 17:58 Freq: Status: Active Protocol: Document 02/20/25 09:46 [facility] (Rec: 02/20/25 11:00 AB Laptop) Out-Patient Physical Therapy Visit Information Visit Information Visit Type Treatment Note Visit Start Time 09:48 Visit Stop Time 10:32 Visit Number 44 Number of MARKETING DIRECTOR Visits 1 PT-OP-B Current Condition Start: 12/20/24 17:58 Freq: Status: Active Protocol: Document 12/24/24 13:48 [facility] (Rec: 12/24/24 14:35 [facility] [id number]) Current Condition History of Current Condition Onset Date chronic Current Complaints B knee pain History of Current Condition Pt had R knee blew out when working and L knee was taking brunt of all WB activities. Had sx in 2017 and ortho found that d/t this had lack of cartilage in knee and bone on bone. Had surgery on it in 2005 (meniscectomy). L knee gave out on him in May and he fell injuring his shoulder R and wrist. When L knee gave out, R didn't hold him. Awaiting PT to see how R knee does. He had TKA about 7 years with cont pain although he regained his ROM. Wants to push out knee surgery from January d/t having R shoulder surgery. Kenneth wakes him at nightmult times. Has been having back pain that worse for months likely February or March Treatment Goals Patient/Caregiver Goals strengthen knees prior to L TKA PT-OP-C Subjective Start: 12/20/24 17:58 Freq: Status: Active Protocol: Document 02/20/25 09:46 [facility] (Rec: 02/20/25 11:00 AB Laptop) OP-PT Subjective Patient Comments Patient Comments Patient reports the left knee is not better, but did get more ROM. Patient reports Right knee gains ROM, but looses. PT-OP-D Balance Start: 12/20/24 17:58 Freq: Status: Active Protocol: Document 12/24/24 13:48 [facility] (Rec: 12/24/24 14:35 [facility] [id number]) Balance Tests Single Limb Standing Single Limb- Right 8 sec Single Limb- Left 18 sec PT-OP-G Mobility & Gait Start: 12/20/24 17:58 Freq: Status: Active Protocol: Document 12/24/24 13:48 [facility] (Rec: 12/24/24 14:35 [id number] OP Gait Assessment Comments Gait Comments dec stance time LLE , ddec push off B PT-OP-K Range of Motion Start: 12/20/24 17:58 Freq: Status: Active Protocol: Document 01/28/25 10:51 [facility] (Rec: 01/28/25 11:35 [id number][facility] Knee Goniometric Range of Motion Knee Right Flexion Active (degrees) 110 Extension Active (degrees) 3 Comments pain Left Flexion Active (degrees) 97 Extension Active (degrees) 9 Comments pain PT-OP-L Special Tests Start: 12/20/24 17:58 Freq: Status: Active Protocol: Document 12/24/24 13:48 [facility] (Rec: 12/24/24 14:35 [id number][facility] Special Tests Knee Special Tests Guerrero Comments B RF and quad tightness SLR Comments WNL PT-OP-M Strength Start: 12/20/24 17:58 Freq: Status: Active Protocol: Document 01/28/25 10:51 [facility] (Rec: 01/28/25 11:35 [id number]) Hip Strength Hip Manual Muscle Testing Right Flexion (L2) 4- Good- Extension (S1) 4+ Good+ Abduction 4+ Good+ Adduction 4+ Good+ External Rotation 4+ Good+ Internal Rotation 4+ Good+ Left Flexion (L2) 4 Good Extension (S1) 4+ Good+ Abduction 4 Good Adduction 4 Good External Rotation 4- Good- Internal Rotation 4 Good Comments pain knee w/ ER Knee Strength Knee Manual Muscle Testing Right Flexion (S2) 4+ Good+ Extension (L3) 5 Normal Left Flexion (S2) 4 Good Extension (L3) 4+ Good+ Comments pain knee w/flex Ankle/Foot Strength Ankle and Foot Manual Muscle Testing Right Dorsiflexion (L4) 5 Normal Plantarflexion (S1) 5 Normal Comments 20 heel raises Left Dorsiflexion (L4) 5 Normal Plantarflexion (S1) 4+ Good+ Comments 20 heel raises (more difficult and less range) PT-OP-Q Treatments Start: 12/20/24 17:58 Freq: Status: Active Protocol: Document 02/20/25 09:46 [facility] (Rec: 02/20/25 11:00 AB Laptop) Therapeutic Exercises Supine Exercises hip flexor stretch Supine Exercise Name HEP verbal review. Side bilateral Reps/Minutes 60 sec X 2 each LE Comments post manual, with AROM knee flexion Standing Exercises stretch Standing Exercise Name gastroc calf stretch Side bilateral Reps/Minutes 1 min each step down Standing Exercise Name step up step back fwd Side bilateral Equipment Used 4 inch step Reps/Minutes X 15 Comments monitored for increased pain squat Standing Exercise Name Patient initiates a very quad dominat squat holding stair rails Reps/Minutes mini squat with UE use X 4 Comments verbal and visual cues for hip hinge dec quad dom pattern Manual Therapy Treatment Consent Patient gave verbal consent for manual Yes treatment Soft Tissue Mobilization post Body Location B HS, fibular area Mobilization Type Cross-Friction,Myofascial Release,Rolling Intensity/Depth Moderate Body Position Hooklying Comments w/knee fle Quad Body Location quad B Mobilization Type Cross-Friction,Myofascial Release,Rolling Intensity/Depth Moderate Body Position Supine Joint Mobilizations TC joints bilaterally Joint AP TC MWM mobs Direction III Reps/Duration 3X10 each LE patellofemoral Joint B sup, med, inf, CW and CCW tibfib Joint bilat Comments AP and PA distally III tibiofemoral Comments PA femur and tibia bilat III and AP Taping bilateral knees Body Location infrapatella 50 5 med and lateral to patella superiorly Type of Tape Kinesio Tape Skin Inspection WNL PT-OP-R Modalities Start: 12/20/24 17:58 Freq: Status: Active Protocol: Document 01/25/25 10:50 [facility] (Rec: 01/25/25 11:35 [facility] [id number]) Hot Pack/Cold Pack Treatment Cold Pack Location B ant knee Patient Position Hooklying Patient Tolerance Good Comments 10', LEs on bolster. PT-OP-T Assessment and Plan Start: 12/20/24 17:58 Freq: Status: Active Protocol: Document 02/20/25 09:46 [facility] (Rec: 02/20/25 11:00 AB Laptop) Physical Therapy Assessment Goals activities Short Term Goal (STG) Pt will be able to do sit <> stand w/o inc pain 01/28-R knee no pain, L knee pain w/this STG Duration 02/05 Jail Goal (LTG) Pt will be able to do stairs w /pain no greater than 2/10 and sleep through the night w/o inc pain B knees 01/28-only L knee waking pt at night 2-3x/night, no pain down stairs recip R, L 6/10 LTG Duration 03/18 ROM Short Term Goal (STG) Pt will improve to at least 110 deg flex B 01/28-achieved R, L still imited STG Duration 02/05 Photograph Finisher Goal (LTG) Pt will have at least 0-120 deg ROM on R knee and at least 4-110 on L knee to allow gor improved gait pattern and stair ability LTG Duration 03/18 strength Short Term Goal (STG) Pt will be indep w/HEP STG Duration achieved advancing as able Jail Goal (LTG) Pt will score at least 4+/5 on all BLE MMT to show improved strength and stability in order to be able to typical daily activities w/less B knee pain 01/28-impring LTG Duration 03/18 Assessment Summary Assessment 116 deg right knee flexion AROM post manual. bilateral knee pain with sit to stand 6- 7/10 from lower seat height end of session compared to 7 -8/10 pain sit to stand from a raised seat height start of session. Good yazan to 4 inch step ups reporting no increase in pain. Physical Therapy Plan Frequency and Duration Frequency of Treatment 2x/Week Duration of treatment (weeks) 12 Plan of Care Start Date 12/24/24 Plan of Care End Date 03/18/25 Next Visit Focus/Plan Next Note Type Treatment Note Next Visit Plan cont to advance strength of quads and HS and hips; manual to improve ROM-focus R possibly sidelying knee flexion and extension with and without band to increase ROM.
--- NOTE | 2025-02-20 11:02 | PT.OTN ---
Current Diagnoses Bilateral primary osteoarthritis of knee (02/20/25) Physical Therapy Treatment Note PT-OP-A Visit Information Start: 12/20/24 17:58 Freq: Status: Active Protocol: Document 02/20/25 09:46 [facility] (Rec: 02/20/25 11:00 AB Laptop) Out-Patient Physical Therapy Visit Information Visit Information Visit Type Treatment Note Visit Start Time 09:48 Visit Stop Time 10:32 Visit Number 44 Number of EAR NOSE THROAT PHYSICIAN Visits 1 PT-OP-B Current Condition Start: 12/20/24 17:58 Freq: Status: Active Protocol: Document 12/24/24 13:48 [facility] (Rec: 12/24/24 14:35 [facility] [id number]) Current Condition History of Current Condition Onset Date chronic Current Complaints B knee pain History of Current Condition Pt had R knee blew out when working and L knee was taking brunt of all WB activities. Had sx in 2017 and ortho found that d/t this had lack of cartilage in knee and bone on bone. Had surgery on it in 2005 (meniscectomy). L knee gave out on him in May and he fell injuring his shoulder R and wrist. When L knee gave out, R didn't hold him. Awaiting PT to see how R knee does. He had TKA about 7 years with cont pain although he regained his ROM. Wants to push out knee surgery from January d/t having R shoulder surgery. Kenneth wakes him at nightmult times. Has been having back pain that worse for months likely February or March Treatment Goals Patient/Caregiver Goals strengthen knees prior to L TKA PT-OP-C Subjective Start: 12/20/24 17:58 Freq: Status: Active Protocol: Document 02/20/25 09:46 AB (Rec: 02/20/25 11:00 AB Laptop) OP-PT Subjective Patient Comments Patient Comments Patient reports the left knee is not better, but did get more ROM. Patient reports Right knee gains ROM, but looses. PT-OP-D Balance Start: 12/20/24 17:58 Freq: Status: Active Protocol: Document 12/24/24 13:48 [facility] (Rec: 12/24/24 14:35 [facility] [id number]) Balance Tests Single Limb Standing Single Limb- Right 8 sec Single Limb- Left 18 sec PT-OP-G Mobility & Gait Start: 12/20/24 17:58 Freq: Status: Active Protocol: Document 12/24/24 13:48 [facility] (Rec: 12/24/24 14:35 [id number]) OP Gait Assessment Comments Gait Comments dec stance time LLE , ddec push off B PT-OP-K Range of Motion Start: 12/20/24 17:58 Freq: Status: Active Protocol: Document 01/28/25 10:51 [facility] (Rec: 01/28/25 11:35 [id number]) Knee Goniometric Range of Motion Knee Right Flexion Active (degrees) 110 Extension Active (degrees) 3 Comments pain Left Flexion Active (degrees) 97 Extension Active (degrees) 9 Comments pain PT-OP-L Special Tests Start: 12/20/24 17:58 Freq: Status: Active Protocol: Document 12/24/24 13:48 [facility] (Rec: 12/24/24 14:35 [id number]) Special Tests Knee Special Tests Guerrero Comments B RF and quad tightness SLR Comments WNL PT-OP-M Strength Start: 12/20/24 17:58 Freq: Status: Active Protocol: Document 01/28/25 10:51 [facility] (Rec: 01/28/25 11:35 [id number]) Hip Strength Hip Manual Muscle Testing Right Flexion (L2) 4- Good- Extension (S1) 4+ Good+ Abduction 4+ Good+ Adduction 4+ Good+ External Rotation 4+ Good+ Internal Rotation 4+ Good+ Left Flexion (L2) 4 Good Extension (S1) 4+ Good+ Abduction 4 Good Adduction 4 Good External Rotation 4- Good- Internal Rotation 4 Good Comments pain knee w/ ER Knee Strength Knee Manual Muscle Testing Right Flexion (S2) 4+ Good+ Extension (L3) 5 Normal Left Flexion (S2) 4 Good Extension (L3) 4+ Good+ Comments pain knee w/flex Ankle/Foot Strength Ankle and Foot Manual Muscle Testing Right Dorsiflexion (L4) 5 Normal Plantarflexion (S1) 5 Normal Comments 20 heel raises Left Dorsiflexion (L4) 5 Normal Plantarflexion (S1) 4+ Good+ Comments 20 heel raises (more difficult and less range) PT-OP-Q Treatments Start: 12/20/24 17:58 Freq: Status: Active Protocol: Document 02/20/25 09:46 AB (Rec: 02/20/25 11:00 AB Laptop) Therapeutic Exercises Supine Exercises hip flexor stretch Supine Exercise Name HEP verbal review. Side bilateral Reps/Minutes 60 sec X 2 each LE Comments post manual, with AROM knee flexion Standing Exercises stretch Standing Exercise Name gastroc calf stretch Side bilateral Reps/Minutes 1 min each step down Standing Exercise Name step up step back fwd Side bilateral Equipment Used 4 inch step Reps/Minutes X 15 Comments monitored for increased pain squat Standing Exercise Name Patient initiates a very quad dominat squat holding stair rails Reps/Minutes mini squat with UE use X 4 Comments verbal and visual cues for hip hinge dec quad dom pattern Manual Therapy Treatment Consent Patient gave verbal consent for manual Yes treatment Soft Tissue Mobilization post Body Location B HS, fibular area Mobilization Type Cross-Friction,Myofascial Release,Rolling Intensity/Depth Moderate Body Position Hooklying Comments w/knee fle Quad Body Location quad B Mobilization Type Cross-Friction,Myofascial Release,Rolling Intensity/Depth Moderate Body Position Supine Joint Mobilizations TC joints bilaterally Joint AP TC MWM mobs Direction III Reps/Duration 3X10 each LE patellofemoral Joint B sup, med, inf, CW and CCW tibfib Joint bilat Comments AP and PA distally III tibiofemoral Comments PA femur and tibia bilat III and AP Taping bilateral knees Body Location infrapatella 50 5 med and lateral to patella superiorly Type of Tape Kinesio Tape Skin Inspection WNL PT-OP-R Modalities Start: 12/20/24 17:58 Freq: Status: Active Protocol: Document 01/25/25 10:50 [facility] (Rec: 01/25/25 11:35 [facility] [id number]) Hot Pack/Cold Pack Treatment Cold Pack Location B ant knee Patient Position Hooklying Patient Tolerance Good Comments 10', LEs on bolster. PT-OP-T Assessment and Plan Start: 12/20/24 17:58 Freq: Status: Active Protocol: Document 02/20/25 09:46 AB (Rec: 02/20/25 11:00 AB Laptop) Physical Therapy Assessment Goals activities Short Term Goal (STG) Pt will be able to do sit <> stand w/o inc pain 01/28-R knee no pain, L knee pain w/this STG Duration 02/05 [facility] Goal (LTG) Pt will be able to do stairs w /pain no greater than 2/10 and sleep through the night w/o inc pain B knees 01/28-only L knee waking pt at night 2-3x/night, no pain down stairs recip R, L 6/10 LTG Duration 03/18 ROM Short Term Goal (STG) Pt will improve to at least 110 deg flex B 01/28-achieved R, L still imited STG Duration 02/05 Production Manufacturing Worker Goal (LTG) Pt will have at least 0-120 deg ROM on R knee and at least 4-110 on L knee to allow gor improved gait pattern and stair ability LTG Duration 03/18 strength Short Term Goal (STG) Pt will be indep w/HEP STG Duration achieved advancing as able [facility] Goal (LTG) Pt will score at least 4+/5 on all BLE MMT to show improved strength and stability in order to be able to typical daily activities w/less B knee pain 01/28-impring LTG Duration 03/18 Assessment Summary Assessment 116 deg right knee flexion AROM post manual. bilateral knee pain with sit to stand 6- 7/10 from lower seat height end of session compared to 7 -8/10 pain sit to stand from a raised seat height start of session. Good yazan to 4 inch step ups reporting no increase in pain. Physical Therapy Plan Frequency and Duration Frequency of Treatment 2x/Week Duration of treatment (weeks) 12 Plan of Care Start Date 12/24/24 Plan of Care End Date 03/18/25 Next Visit Focus/Plan Next Note Type Treatment Note Next Visit Plan cont to advance strength of quads and HS and hips; manual to improve ROM-focus R possibly sidelying knee flexion and extension with and without band to increase ROM.
--- NOTE | 2025-02-27 12:36 | PT.OTN ---
Current Diagnoses Bilateral primary osteoarthritis of knee (02/27/25) Physical Therapy Treatment Note PT-OP-A Visit Information Start: 12/20/24 17:58 Freq: Status: Active Protocol: Document 02/27/25 10:37 NBM (Rec: 02/27/25 12:44 NBM Laptop) Out-Patient Physical Therapy Visit Information Visit Information Visit Type Treatment Note Visit Start Time 11:38 Visit Stop Time 12:38 Visit Number 14 (04/02) Number of BEVERAGE INSPECTION MACHINE TENDER Visits 2 PT-OP-B Current Condition Start: 12/20/24 17:58 Freq: Status: Active Protocol: Document 12/24/24 13:48 [facility] (Rec: 12/24/24 14:35 [facility] [id number]) Current Condition History of Current Condition Onset Date chronic Current Complaints B knee pain History of Current Condition Pt had R knee blew out when working and L knee was taking brunt of all WB activities. Had sx in 2017 and ortho found that d/t this had lack of cartilage in knee and bone on bone. Had surgery on it in 2005 (meniscectomy). L knee gave out on him in May and he fell injuring his shoulder R and wrist. When L knee gave out, R didn't hold him. Awaiting PT to see how R knee does. He had TKA about 7 years with cont pain although he regained his ROM. Wants to push out knee surgery from January d/t having R shoulder surgery. Kenneth wakes him at nightmult times. Has been having back pain that worse for months likely February or March Treatment Goals Patient/Caregiver Goals strengthen knees prior to L TKA PT-OP-C Subjective Start: 12/20/24 17:58 Freq: Status: Active Protocol: Document 02/27/25 10:37 NBM (Rec: 02/27/25 12:44 NBM Laptop) OP-PT Subjective Patient Comments Patient Comments Ranulfo reports both of his knees are very painful 8-910 and he's been using both ice and warm soak for pain management. This morning he did heat. It' s been really painful since last week especially night. He's going down stairs sideways due to pain and still no surgery date. He's not sure why it's worse, maybe more stairs lately. Painful with walking and standing just walking from clinic. He's been sitting stretching his ankles and calves. I think I may be having problems with plantar fasciitis. KT tape does help, which was taken off last night. Patient Reported Progress Worse PT-OP-D Balance Start: 12/20/24 17:58 Freq: Status: Active Protocol: Document 12/24/24 13:48 [facility] (Rec: 12/24/24 14:35 [id number] Balance Tests Single Limb Standing Single Limb- Right 8 sec Single Limb- Left 18 sec PT-OP-G Mobility & Gait Start: 12/20/24 17:58 Freq: Status: Active Protocol: Document 12/24/24 13:48 [facility] (Rec: 12/24/24 14:35 [id number] OP Gait Assessment Comments Gait Comments dec stance time LLE , ddec push off B PT-OP-K Range of Motion Start: 12/20/24 17:58 Freq: Status: Active Protocol: Document 01/28/25 10:51 [facility] (Rec: 01/28/25 11:35 [id number]) Knee Goniometric Range of Motion Knee Right Flexion Active (degrees) 110 Extension Active (degrees) 3 Comments pain Left Flexion Active (degrees) 97 Extension Active (degrees) 9 Comments pain PT-OP-L Special Tests Start: 12/20/24 17:58 Freq: Status: Active Protocol: Document 12/24/24 13:48 [facility] (Rec: 12/24/24 14:35 [facility] [id number]) Special Tests Knee Special Tests Guerrero Comments B RF and quad tightness SLR Comments WNL PT-OP-M Strength Start: 12/20/24 17:58 Freq: Status: Active Protocol: Document 01/28/25 10:51 [facility] (Rec: 01/28/25 11:35 [facility] [id number]) Hip Strength Hip Manual Muscle Testing Right Flexion (L2) 4- Good- Extension (S1) 4+ Good+ Abduction 4+ Good+ Adduction 4+ Good+ External Rotation 4+ Good+ Internal Rotation 4+ Good+ Left Flexion (L2) 4 Good Extension (S1) 4+ Good+ Abduction 4 Good Adduction 4 Good External Rotation 4- Good- Internal Rotation 4 Good Comments pain knee w/ ER Knee Strength Knee Manual Muscle Testing Right Flexion (S2) 4+ Good+ Extension (L3) 5 Normal Left Flexion (S2) 4 Good Extension (L3) 4+ Good+ Comments pain knee w/flex Ankle/Foot Strength Ankle and Foot Manual Muscle Testing Right Dorsiflexion (L4) 5 Normal Plantarflexion (S1) 5 Normal Comments 20 heel raises Left Dorsiflexion (L4) 5 Normal Plantarflexion (S1) 4+ Good+ Comments 20 heel raises (more difficult and less range) PT-OP-Q Treatments Start: 12/20/24 17:58 Freq: Status: Active Protocol: Document 02/27/25 10:37 NBM (Rec: 02/27/25 12:44 NBM Laptop) Therapeutic Exercises Supine Exercises heel slides Supine Exercise Name w/APs Side bilateral Reps/Minutes x5 R, x3 L Comments R AROM 115 D, L AROM 90 D, pain-limited bilaterally. Gait Training Gait Activity SPC Description SPC in LUE 2-pt step through pattern Level of Assistance SBA Surface firm Distance/Duration 60 ft Treatment Focus Sequencing Comments Height adjustment. Initial cues for patterning, pt demo's improved performance with repetition. Manual Therapy Treatment Consent Patient gave verbal consent for manual Yes treatment Soft Tissue Mobilization post Body Location B calves, fibular area Mobilization Type Cross-Friction,Myofascial Release,Rolling Intensity/Depth Moderate Body Position Hooklying Comments w/knee flex L lateral gastroc head focus. Quad Body Location quad B Mobilization Type Cross-Friction,Myofascial Release,Rolling Intensity/Depth Moderate Body Position Supine, hooklying Comments distal quad focus. Joint Mobilizations patellofemoral Joint B sup, med, inf, CW and CCW Taping bilateral knees Body Location infrapatella 50% med and lateral to patella superiorly Treatment Focus intact Type of Tape Kinesio Tape Skin Inspection WNL Self-Care/Home Management Treatment Education Patient Education Pain Management,Safety Other Education -Per discussion with evaluating PT and pt, pt is instructed to notify PCP of change of condition in R foot/ ankle pain and swelling and/or urgent care, and pt plans to stop by surgeon's office regarding knee pain and scheduling L knee surgery. -Edu to pt re: use of cryotherapy in car including frozen vegetables in ziploc bag held in place with loosely applied alayna wrap. PT-OP-R Modalities Start: 12/20/24 17:58 Freq: Status: Active Protocol: Document 02/27/25 10:37 NBM (Rec: 02/27/25 12:44 NBM Laptop) Hot Pack/Cold Pack Treatment Cold Pack Location B ant/post knee Patient Position Hooklying Patient Tolerance Good Comments 10', LEs on bolster. PT-OP-T Assessment and Plan Start: 12/20/24 17:58 Freq: Status: Active Protocol: Document 02/27/25 10:37 NBM (Rec: 02/27/25 12:44 NB Laptop) Physical Therapy Assessment Assessment Summary Assessment Ranulfo presents with 8-9/10 B knee pain today which improves to 8/10 end of session. Per discussion with evaluating PT and pt no weightbearing activity today, treatment focus on ROM of R knee, manual therapy, and strengthening in non-weightbearing; pt instructed to notify PCP of change of condition in R foot/ ankle pain and swelling and/or urgent care, and plans to stop by surgeon's office regarding knee pain and scheduling L knee plan. Knee flexion AROM measured in supine today 115 degrees R, 90 degrees L, both pain-limited. Palpable tension noted particularly in distal quads bilaterally and L lateral head of Gastrocnemius m. Pt is instructed in 2-pt gait training with SPC in LUE w/ focus on sequencing. KT tape applied to knees B and cryotherapy used end of session. Physical Therapy Plan Frequency and Duration Frequency of Treatment 2x/Week Duration of treatment (weeks) 12 Plan of Care Start Date 12/24/24 Plan of Care End Date 03/18/25 Therapeutic Interventions Therapeutic Interventions Balance Training,Gait Training ,Home Exercise Program,Joint Mobilizations,Manual Therapy, Neuromuscular Re-education, Patient/Caregiver Education, Self-Care/Home Management,Soft Tissue Mobilization,Taping, Therapeutic Activities, Therapeutic Exercises Modalities Cold Pack/Ice Massage,Electric Stimulation,Hot Packs, Infrared Therapy,Ultrasound Next Visit Focus/Plan Next Note Type Treatment Note Next Visit Plan No weightbearing. Continue gait training with SPC (sit to stand, stairs). As tolerated: cont to advance strength of quads and HS and hips; manual to improve ROM-focus R possibly sidelying knee flexion and extension with and without band to increase ROM.
--- NOTE | 2025-03-06 12:02 | PT.OTN ---
Current Diagnoses Bilateral primary osteoarthritis of knee (03/06/25) Physical Therapy Treatment Note PT-OP-A Visit Information Start: 12/20/24 17:58 Freq: Status: Active Protocol: Document 03/06/25 10:52 [facility] (Rec: 03/06/25 12:01 [facility] [id number]) Out-Patient Physical Therapy Visit Information Visit Information Visit Type Progress Note Visit Start Time 10:49 Visit Stop Time 11:40 Visit Number 15 (11/02) Number of DECORATOR HAND Visits 0 PT-OP-B Current Condition Start: 12/20/24 17:58 Freq: Status: Active Protocol: Document 12/24/24 13:48 [facility] (Rec: 12/24/24 14:35 [facility] [id number]) Current Condition History of Current Condition Onset Date chronic Current Complaints B knee pain History of Current Condition Pt had R knee blew out when working and L knee was taking brunt of all WB activities. Had sx in 2017 and ortho found that d/t this had lack of cartilage in knee and bone on bone. Had surgery on it in 2005 (meniscectomy). L knee gave out on him in May and he fell injuring his shoulder R and wrist. When L knee gave out, R didn't hold him. Awaiting PT to see how R knee does. He had TKA about 7 years with cont pain although he regained his ROM. Wants to push out knee surgery from January d/t having R shoulder surgery. Kenneth wakes him at nightmult times. Has been having back pain that worse for months likely February or March Treatment Goals Patient/Caregiver Goals strengthen knees prior to L TKA PT-OP-C Subjective Start: 12/20/24 17:58 Freq: Status: Active Protocol: Document 03/06/25 10:52 [facility] (Rec: 03/06/25 12:01 [facility] [id number]) OP-PT Subjective Patient Comments Patient Comments Pt reports R foot is still irritated . Saw a doctor at [facility] who got xray and that was ok. Pt to see primary when she gets back tuesday and will ask about MRI and/or podiatry referral. PT-OP-D Balance Start: 12/20/24 17:58 Freq: Status: Active Protocol: Document 12/24/24 13:48 [facility] (Rec: 12/24/24 14:35 [facility] [id number]) Balance Tests Single Limb Standing Single Limb- Right 8 sec Single Limb- Left 18 sec PT-OP-G Mobility & Gait Start: 12/20/24 17:58 Freq: Status: Active Protocol: Document 12/24/24 13:48 [facility] (Rec: 12/24/24 14:35 [facility] [id number]) OP Gait Assessment Comments Gait Comments dec stance time LLE , ddec push off B PT-OP-K Range of Motion Start: 12/20/24 17:58 Freq: Status: Active Protocol: Document 03/06/25 10:52 [facility] (Rec: 03/06/25 12:01 [facility] [id number]) Knee Goniometric Range of Motion Knee Right Flexion Active (degrees) 109 Hyper-Extension Active 3 Comments pain Left Flexion Active (degrees) 100 Extension Active (degrees) 3 Comments pain PT-OP-L Special Tests Start: 12/20/24 17:58 Freq: Status: Active Protocol: Document 12/24/24 13:48 [facility] (Rec: 12/24/24 14:35 [facility] [id number]) Special Tests Knee Special Tests Guerrero Comments B RF and quad tightness SLR Comments WNL PT-OP-M Strength Start: 12/20/24 17:58 Freq: Status: Active Protocol: Document 03/06/25 10:52 [facility] (Rec: 03/06/25 12:01 [facility] [id number]) Hip Strength Hip Manual Muscle Testing Right Flexion (L2) 4+ Good+ Extension (S1) 5 Normal Abduction 4+ Good+ Adduction 5 Normal External Rotation 4+ Good+ Internal Rotation 5 Normal Comments PT student tested MMT Left Flexion (L2) 5 Normal Extension (S1) 4+ Good+ Abduction 4 Good Adduction 5 Normal External Rotation 5 Normal Internal Rotation 5 Normal Comments pain knee w/ IR Knee Strength Knee Manual Muscle Testing Right Flexion (S2) 4+ Good+ Extension (L3) 5 Normal Left Flexion (S2) 4+ Good+ Extension (L3) 5 Normal Comments pain knee w/flex B Ankle/Foot Strength Ankle and Foot Manual Muscle Testing Right Comments not tested d/t pain in foot limiting PT-OP-Q Treatments Start: 12/20/24 17:58 Freq: Status: Active Protocol: Document 03/06/25 10:52 [facility] (Rec: 03/06/25 12:01 [facility] [id number]) Gym Equipment Therapeutic Ball 1 Ball Size/Color 55cm Reps/Duration 2x5 Comments bridge w/HS curl w/cues for breathing and motion Therapeutic Exercises Supine Exercises SLR Supine Exercise Name into mobilization strap about 8 in off Side bilateral Reps/Minutes 10 sec x12 B hamstring stretch Side bilateral Reps/Minutes 2x60s ea Comments positive feedback hip flexor stretch Side bilateral Reps/Minutes 60 sec X 2 each LE Comments post manual, with AROM knee flexion Sidelying Exercises hip abd Side bilateral Reps/Minutes 10 Comments cues for no rolling back Manual Therapy Treatment Consent Patient gave verbal consent for manual Yes treatment Taping bilateral knees Body Location I strip around patella Type of Tape Kinesio Tape Skin Inspection WNL PT-OP-R Modalities Start: 12/20/24 17:58 Freq: Status: Active Protocol: Document 03/06/25 10:52 [facility] (Rec: 03/06/25 12:01 [facility] [id number]) Hot Pack/Cold Pack Treatment Cold Pack Location B ant/post knee Patient Position Hooklying Patient Tolerance Good Comments 10', LEs on bolster. PT-OP-T Assessment and Plan Start: 12/20/24 17:58 Freq: Status: Active Protocol: Document 03/06/25 10:52 [facility] (Rec: 03/06/25 12:01 [facility] [id number]) Physical Therapy Assessment Goals activities Short Term Goal (STG) Pt will be able to do sit <> stand w/o inc pain 01/28-R knee no pain, L knee pain w/this 03/06-pain w/this STG Duration 03/24 Custodial Goal (LTG) Pt will be able to do stairs w /pain no greater than 2/10 and sleep through the night w/o inc pain B knees 01/28-only L knee waking pt at night 2-3x/night, no pain down stairs recip R, L 603/06-R foot limiting him more. pain in L especially w/stairs LTG Duration 04/23 ROM Short Term Goal (STG) Pt will improve to at least 110 deg flex B 01/28-achieved R, L still limited 03/06-R 109, L 100 STG Duration 03/28 Custodial Goal (LTG) Pt will have at least 0-120 deg ROM on R knee and at least 4-110 on L knee to allow gor improved gait pattern and stair ability 03/06-slowly improving LTG Duration 05/01 strength Short Term Goal (STG) Pt will be indep w/HEP STG Duration achieved advancing as able Director Speech And Hearing Goal (LTG) Pt will score at least 4+/5 on all BLE MMT to show improved strength and stability in order to be able to typical daily activities w/less B knee pain 01/28-impring 03/06-mostly achieved w/ LTG Duration 04/06 Assessment Summary Assessment Pt is making progress w/PT with good improvements in strength and ROM overall. He has been limited recently d/t R foot pain that is causing gait deviations. He did well with NWB treatment today w/ cues for form w/o inc pain. HS curls were difficult for pt and did cause cramping. Reminded pt importance of HEP. Physical Therapy Plan Frequency and Duration Frequency of Treatment 1x/Week Duration of treatment (weeks) 8 Plan of Care Start Date 03/06/25 Plan of Care End Date 05/01/25 Therapeutic Interventions Therapeutic Interventions Balance Training,Gait Training ,Home Exercise Program,Joint Mobilizations,Manual Therapy, Neuromuscular Re-education, Patient/Caregiver Education, Self-Care/Home Management,Soft Tissue Mobilization,Taping, Therapeutic Activities, Therapeutic Exercises Modalities Cold Pack/Ice Massage,Electric Stimulation,Hot Packs, Infrared Therapy,Ultrasound Next Visit Focus/Plan Next Note Type Treatment Note Next Visit Plan cont NWB activities d/t foot pain flare up; focus on B knee ROM and strength-glute, HS, quad strength focus, manual for ROM
--- NOTE | 2025-03-07 17:54 | PT.OPPN ---
Current Diagnoses Bilateral primary osteoarthritis of knee (03/06/25) Physical Therapy Progress Note PT-OP-A Visit Information Start: 12/20/24 17:58 Freq: Status: Active Protocol: Document 03/06/25 10:52 [facility] (Rec: 03/06/25 12:01 [facility] [id number]) Out-Patient Physical Therapy Visit Information Visit Information Visit Type Progress Note Visit Start Time 10:49 Visit Stop Time 11:40 Visit Number 15 (11/02) Number of DIGITAL MARKETING SPECIALIST Visits 0 PT-OP-B Current Condition Start: 12/20/24 17:58 Freq: Status: Active Protocol: Document 12/24/24 13:48 [facility] (Rec: 12/24/24 14:35 [facility] [id number]) Current Condition History of Current Condition Onset Date chronic Current Complaints B knee pain History of Current Condition Pt had R knee blew out when working and L knee was taking brunt of all WB activities. Had sx in 2017 and ortho found that d/t this had lack of cartilage in knee and bone on bone. Had surgery on it in 2005 (meniscectomy). L knee gave out on him in May and he fell injuring his shoulder R and wrist. When L knee gave out, R didn't hold him. Awaiting PT to see how R knee does. He had TKA about 7 years with cont pain although he regained his ROM. Wants to push out knee surgery from January d/t having R shoulder surgery. Kenneth wakes him at nightmult times. Has been having back pain that worse for months likely February or March Treatment Goals Patient/Caregiver Goals strengthen knees prior to L TKA PT-OP-C Subjective Start: 12/20/24 17:58 Freq: Status: Active Protocol: Document 03/06/25 10:52 [facility] (Rec: 03/06/25 12:01 [facility] [id number]) OP-PT Subjective Patient Comments Patient Comments Pt reports R foot is still irritated . Saw a doctor at [facility] who got xray and that was ok. Pt to see primary when she gets back tuesday and will ask about MRI and/or podiatry referral. PT-OP-D Balance Start: 12/20/24 17:58 Freq: Status: Active Protocol: Document 12/24/24 13:48 [facility] (Rec: 12/24/24 14:35 [facility] [id number]) Balance Tests Single Limb Standing Single Limb- Right 8 sec Single Limb- Left 18 sec PT-OP-G Mobility & Gait Start: 12/20/24 17:58 Freq: Status: Active Protocol: Document 12/24/24 13:48 [facility] (Rec: 12/24/24 14:35 [facility] [id number]) OP Gait Assessment Comments Gait Comments dec stance time LLE , ddec push off B PT-OP-K Range of Motion Start: 12/20/24 17:58 Freq: Status: Active Protocol: Document 03/06/25 10:52 [facility] (Rec: 03/06/25 12:01 [facility] [id number]) Knee Goniometric Range of Motion Knee Measured in Degrees Right Flexion Active (degrees) 109 Hyper-Extension Active 3 Comments pain Left Flexion Active (degrees) 100 Extension Active (degrees) 3 Comments pain PT-OP-L Special Tests Start: 12/20/24 17:58 Freq: Status: Active Protocol: Document 12/24/24 13:48 [facility] (Rec: 12/24/24 14:35 [facility] [id number]) Special Tests Knee Special Tests Guerrero Comments B RF and quad tightness SLR Comments WNL PT-OP-M Strength Start: 12/20/24 17:58 Freq: Status: Active Protocol: Document 03/06/25 10:52 [facility] (Rec: 03/06/25 12:01 [facility] [id number]) Hip Strength Hip Manual Muscle Testing Right Flexion (L2) 4+ Good+ Extension (S1) 5 Normal Abduction 4+ Good+ Adduction 5 Normal External Rotation 4+ Good+ Internal Rotation 5 Normal Comments PT student tested MMT Left Flexion (L2) 5 Normal Extension (S1) 4+ Good+ Abduction 4 Good Adduction 5 Normal External Rotation 5 Normal Internal Rotation 5 Normal Comments pain knee w/ IR Knee Strength Knee Manual Muscle Testing Right Flexion (S2) 4+ Good+ Extension (L3) 5 Normal Left Flexion (S2) 4+ Good+ Extension (L3) 5 Normal Comments pain knee w/flex B Ankle/Foot Strength Ankle and Foot Manual Muscle Testing Right Comments not tested d/t pain in foot limiting PT-OP-T Assessment and Plan Start: 12/20/24 17:58 Freq: Status: Active Protocol: Document 03/06/25 10:52 [facility] (Rec: 03/06/25 12:01 [facility] [id number]) Physical Therapy Assessment Goals activities Short Term Goal (STG) Pt will be able to do sit <> stand w/o inc pain 01/28-R knee no pain, L knee pain w/this 03/06-pain w/this STG Duration 03/24 [facility] Goal (LTG) Pt will be able to do stairs w /pain no greater than 2/10 and sleep through the night w/o inc pain B knees 01/28-only L knee waking pt at night 2-3x/night, no pain down stairs recip R, L 04/02 03/06-R foot limiting him more. pain in L especially w/stairs LTG Duration 04/23 ROM Short Term Goal (STG) Pt will improve to at least 110 deg flex B 01/28-achieved R, L still limited 03/06-R 109, L 100 STG Duration 03/28 [facility] Goal (LTG) Pt will have at least 0-120 deg ROM on R knee and at least 4-110 on L knee to allow gor improved gait pattern and stair ability 03/06-slowly improving LTG Duration 05/01 strength Short Term Goal (STG) Pt will be indep w/HEP STG Duration achieved advancing as able Matcher Goal (LTG) Pt will score at least 4+/5 on all BLE MMT to show improved strength and stability in order to be able to typical daily activities w/less B knee pain 01/28-impring 03/06-mostly achieved w/ LTG Duration 04/06 Assessment Summary Assessment Pt is making progress w/PT with good improvements in strength and ROM overall. He has been limited recently d/t R foot pain that is causing gait deviations. He did well with NWB treatment today w/ cues for form w/o inc pain. HS curls were difficult for pt and did cause cramping. Reminded pt importance of HEP. Physical Therapy Plan Frequency and Duration Frequency of Treatment 1x/Week Duration of treatment (weeks) 8 Plan of Care Start Date 03/06/25 Plan of Care End Date 05/01/25 Therapeutic Interventions Therapeutic Interventions Balance Training,Gait Training ,Home Exercise Program,Joint Mobilizations,Manual Therapy, Neuromuscular Re-education, Patient/Caregiver Education, Self-Care/Home Management,Soft Tissue Mobilization,Taping, Therapeutic Activities, Therapeutic Exercises Modalities Cold Pack/Ice Massage,Electric Stimulation,Hot Packs, Infrared Therapy,Ultrasound Next Visit Focus/Plan Next Note Type Treatment Note Next Visit Plan cont NWB activities d/t foot pain flare up; focus on B knee ROM and strength-glute, HS, quad strength focus, manual for ROM
--- NOTE | 2025-03-26 17:00 | PT.OTN ---
Current Diagnoses Bilateral primary osteoarthritis of knee (03/26/25) Physical Therapy Treatment Note PT-OP-A Visit Information Start: 12/20/24 17:58 Freq: Status: Active Protocol: Document 03/26/25 18:06 GG (Rec: 03/26/25 18:19 GG Laptop) Out-Patient Physical Therapy Visit Information Visit Information Visit Type Treatment Note Visit Note Pt arrived late. 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 Had sx in 2017 and ortho found that d/t this had lack of cartilage in knee and bone on bone. Had surgery on it in 2005 ( meniscectomy). L knee gave out on him in May and he fell injuring his shoulder R and wrist. When L knee gave out, R didn't hold him. Awaiting PT to see how R knee does. He had TKA about 7 years with cont pain although he regained his ROM. Wants to push out knee surgery from January d/t having R shoulder surgery. Kenneth wakes him at nightmult times. Has been having back pain that worse for months likely February or March Treatment Goals Patient/Caregiver strengthen knees prior to L TKA Goals PT-OP-C Subjective Start: 12/20/24 17:58 Freq: Status: Active Protocol: Document 03/26/25 18:06 GG (Rec: 03/26/25 18:19 GG Laptop) OP-PT Subjective Patient Comments Patient Comments Pt reports R foot still irritated but less swollen. Knees cont to be painful, but he manages and keeps up w / activities. PT-OP-D Balance Start: 12/20/24 17:58 Freq: Status: Active Protocol: Document 12/24/24 13:48 [facility] (Rec: 12/24/24 14:35 [facility] [id number]) Balance Tests Single Limb Standing Single Limb- Right 8 sec Single Limb- Left 18 sec PT-OP-G Mobility & Gait Start: 12/20/24 17:58 Freq: Status: Active Protocol: Document 12/24/24 13:48 [id number] Gait Assessment Comments Gait Comments dec stance time LLE , ddec push off B PT-OP-K Range of Motion Start: 12/20/24 17:58 Freq: Status: Active Protocol: Document 03/06/25 10:52 [facility] (Rec: 03/06/25 12:01 [id number] Knee Goniometric Range of Motion Knee Right Flexion Active ( 109 degrees) Hyper-Extension 3 Active Comments pain Left Flexion Active ( 100 degrees) Extension Active ( 3 degrees) Comments pain PT-OP-L Special Tests Start: 12/20/24 17:58 Freq: Status: Active Protocol: Document 12/24/24 13:48 [facility] (Rec: 12/24/24 14:35 [id number] Special Tests Knee Special Tests Guerrero Comments B RF and quad tightness SLR Comments WNL PT-OP-M Strength Start: 12/20/24 17:58 Freq: Status: Active Protocol: Document 03/06/25 10:52 [facility] (Rec: 03/06/25 12:01 [id number]) Hip Strength Hip Manual Muscle Testing Right Flexion (L2) 4+ Good+ Extension (S1) 5 Normal Abduction 4+ Good+ Adduction 5 Normal External Rotation 4+ Good+ Internal Rotation 5 Normal Comments PT student tested MMT Left Flexion (L2) 5 Normal Extension (S1) 4+ Good+ Abduction 4 Good Adduction 5 Normal External Rotation 5 Normal Internal Rotation 5 Normal Comments pain knee w/ IR Knee Strength Knee Manual Muscle Testing Right Flexion (S2) 4+ Good+ Extension (L3) 5 Normal Left Flexion (S2) 4+ Good+ Extension (L3) 5 Normal Comments pain knee w/flex B Ankle/Foot Strength Ankle and Foot Manual Muscle Testing Right Comments not tested d/t pain in foot limiting PT-OP-Q Treatments Start: 12/20/24 17:58 Freq: Status: Active Protocol: Document 03/26/25 18:06 [facility] (Rec: 03/26/25 18:19 GG Laptop) Therapeutic Exercises Supine Exercises hamstring curls Supine Exercise Name bridge with curl Equipment Used 55 cm ball Reps/Minutes 15x Sidelying Exercises hip abd Side bilateral Reps/Minutes 15 Comments cues for no rolling back clamshell Side bilateral Equipment Used L3 Reps/Minutes 15 ea Comments cues for no rolling back Standing Exercises squat Standing Exercise 1. STS low table 2. STS taps at high table 3. squats Name Reps/Minutes 10x each PT-OP-R Modalities Start: 12/20/24 17:58 Freq: Status: Active Protocol: Document 03/06/25 10:52 [facility] (Rec: 03/06/25 12:01 [facility] [id number]) Hot Pack/Cold Pack Treatment Cold Pack Location B ant/post knee Patient Position Hooklying Patient Tolerance Good Comments 10', LEs on bolster. PT-OP-T Assessment and Plan Start: 12/20/24 17:58 Freq: Status: Active Protocol: Document 03/26/25 18:06 GG (Rec: 03/26/25 18:19 GG Laptop) Physical Therapy Assessment Goals activities Short Term Goal (STG Pt will be able to do sit <>stand w/o inc pain ) 01/28-R knee no pain, L knee pain w/this 03/06-pain w/this STG Duration 03/24 Group Home Goal (LTG) Pt will be able to do stairs w/pain no greater than 2/ 10 and sleep through the night w/o inc pain B knees 01/28-only L knee waking pt at night 2-3x/night, no pain down stairs recip R, L 6/10 03/06-R foot limiting him more. pain in L especially w/ stairs LTG Duration 04/23 ROM Short Term Goal (STG Pt will improve to at least 110 deg flex B ) 01/28-achieved R, L still limited 03/06-R 109, L 100 STG Duration 03/28 Group Home Goal (LTG) Pt will have at least 0-120 deg ROM on R knee and at least 4-110 on L knee to allow gor improved gait pattern and stair ability 03/06-slowly improving LTG Duration 05/01 strength Short Term Goal (STG Pt will be indep w/HEP ) STG Duration achieved advancing as able Production Truck Driver Goal (LTG) Pt will score at least 4+/5 on all BLE MMT to show improved strength and stability in order to be able to typical daily activities w/less B knee pain 01/28-impring 03/06-mostly achieved w/ LTG Duration 04/06 Assessment Summary Assessment Pt is making some progress in regards to LE strength, but the foot and knee pain has led to some limitations in activity tolerance in standing. Pt cont to tolerate NWB exercises well and requires minor cueing to avoid rolling hips back during clamshells and hip ABD. Physical Therapy Plan Frequency and Duration Frequency of 1x/Week Treatment Duration of 8 treatment (weeks) Plan of Care Start 03/06/25 Date Plan of Care End 05/01/25 Date Therapeutic Interventions Therapeutic Balance Training,Gait Training,Home Exercise Program, Interventions Joint Mobilizations,Manual Therapy,Neuromuscular Re- education,Patient/Caregiver Education,Self-Care/Home Management,Soft Tissue Mobilization,Taping,Therapeutic Activities,Therapeutic Exercises Modalities Cold Pack/Ice Massage,Electric Stimulation,Hot Packs, Infrared Therapy,Ultrasound Next Visit Focus/Plan Next Note Type Progress Note Next Visit Plan add to HEP for hip/knee exercises to do at home (two more visits until d/c)
--- NOTE | 2025-04-23 17:42 | PT.OPPOC ---
Physical, Occupational & Speech Therapy At [facility] Current Diagnoses Bilateral primary osteoarthritis of knee (04/23/25) Visit Care Team Role Provider Type STELLA Frey Family Provider Non-Staff Primary Care Provider Specialty: Medical Address: [address] [place] [address], [place], [address] Email: Blas Paez MD Attending Provider Non-Staff Referring Provider Specialty: Orthopedic Surgery Address: [address] [place] [address], [id number] Email: Plan Of Care PT-OP-B Current Condition Start: 12/20/24 17:58 Freq: Status: Active Protocol: Document 12/24/24 13:48 [facility] (Rec: 12/24/24 14:35 [facility] [id number]) Current Condition History of Current Condition Onset Date chronic Current Complaints B knee pain History of Current Pt had R knee blew out when working and L knee was Condition taking brunt of all WB activities. Had sx in 2017 and ortho found that d/t this had lack of cartilage in knee and bone on bone. Had surgery on it in 2005 ( meniscectomy). L knee gave out on him in May and he fell injuring his shoulder R and wrist. When L knee gave out, R didn't hold him. Awaiting PT to see how R knee does. He had TKA about 7 years with cont pain although he regained his ROM. Wants to push out knee surgery from January d/t having R shoulder surgery. Rejinedaryl wakes him at nightmult times. Has been having back pain that worse for months likely February or March Treatment Goals Patient/Caregiver strengthen knees prior to L TKA Goals PT-OP-T Assessment and Plan Start: 12/20/24 17:58 Freq: Status: Active Protocol: Document 04/23/25 09:06 GG (Rec: 04/23/25 10:08 GG [id number]) Physical Therapy Assessment Goals activities Short Term Goal (STG Pt will be able to do sit <>stand w/o inc pain ) 01/28-R knee no pain, L knee pain w/this 03/06-pain w/this 04/23 - slight pain but pt says it feels stronger STG Duration 03/24 Shelter Goal (LTG) Pt will be able to do stairs w/pain no greater than 2/ 10 and sleep through the night w/o inc pain B knees 01/28-only L knee waking pt at night 2-3x/night, no pain down stairs recip R, L 04/02 03/06-R foot limiting him more. pain in L especially w/ stairs 04/23 - can do reciprocal w/ railing, typically does step to descending, recip ascending. wakes up d/t L knee pain, when he moves positions LTG Duration 04/23 ROM Short Term Goal (STG Pt will improve to at least 110 deg flex B ) 01/28-achieved R, L still limited 03/06-R 109, L 100 04/23-R 110, L 105 STG Duration 03/28 Shelter Goal (LTG) Pt will have at least 0-120 deg ROM on R knee and at least 4-110 on L knee to allow gor improved gait pattern and stair ability 03/06-slowly improving LTG Duration 05/01 strength Short Term Goal (STG Pt will be indep w/HEP ) STG Duration achieved advancing as able Shelter Goal (LTG) Pt will score at least 4+/5 on all BLE MMT to show improved strength and stability in order to be able to typical daily activities w/less B knee pain 01/28-impring 03/06-mostly achieved w/ 04/23 - mostly achieved, pain limited L hip flexion LTG Duration 04/06 Assessment Summary Assessment Pt cont to make progress toward goals and shows good carryover to home. Some improvements in strength were measuring and he improved in his ability to perform squats w/o increasing pain. ROM cont to limit but discussed w/ pt that ROM is likely to increase after surgery and its plateaued in PT. Pt will benefit from PT to cont building HEP in preparation for D/C next visit. Physical Therapy Plan Frequency and Duration Frequency of 1x/Week Treatment Duration of 4 treatment (weeks) Plan of Care Start 04/23/25 Date Plan of Care End 05/21/25 Date Therapeutic Interventions Therapeutic Balance Training,Gait Training,Home Exercise Program, Interventions Joint Mobilizations,Manual Therapy,Neuromuscular Re- education,Patient/Caregiver Education,Self-Care/Home Management,Soft Tissue Mobilization,Taping,Therapeutic Activities,Therapeutic Exercises Modalities Cold Pack/Ice Massage,Electric Stimulation,Hot Packs, Infrared Therapy,Ultrasound Next Visit Focus/Plan Next Note Type Discharge Summary Next Visit Plan f/u on updated HEP, maybe add standing TKEs w/ band Plan of Care Dates Plan of Care Start Date 04/23/25 Plan of Care End Date 05/21/25 Electronically Signed by: Calista Garvey 04/23/25 3522 If you are in agreement with this Plan of Care, please return a signed and dated copy. I have reviewed this Plan of Care and certify that the skilled therapy services above are required to meet the patient?s needs. Physician Signature Date Printed Name and Credentials Clinical Instructor Signature Printed Name and Credentials
--- NOTE | 2025-04-23 17:43 | PT.OTN ---
Addendum entered and electronically signed by Lety Pierre, PT 04/23/25 18:10: PT direct supervision and direction to student PT Calista Garvey throughout session Original Note: Current Diagnoses Bilateral primary osteoarthritis of knee (04/23/25) Physical Therapy Treatment Note PT-OP-A Visit Information Start: 12/20/24 17:58 Freq: Status: Active Protocol: Document 04/23/25 09:06 GG (Rec: 04/23/25 10:08 GG [id number]) Out-Patient Physical Therapy Visit Information Visit Information Visit Type Progress Note Visit Start Time 09:04 Visit Stop Time 09:49 Visit Number 17 (12/31) Number of LAPIDARY APPRENTICE Visits 0 PT-OP-B Current Condition Start: 12/20/24 17:58 Freq: Status: Active Protocol: Document 12/24/24 13:48 [facility] (Rec: 12/24/24 14:35 [facility] [id number]) Current Condition History of Current Condition Onset Date chronic Current Complaints B knee pain History of Current Pt had R knee blew out when working and L knee was Condition taking brunt of all WB activities. Had sx in 2017 and ortho found that d/t this had lack of cartilage in knee and bone on bone. Had surgery on it in 2005 ( meniscectomy). L knee gave out on him in May and he fell injuring his shoulder R and wrist. When L knee gave out, R didn't hold him. Awaiting PT to see how R knee does. He had TKA about 7 years with cont pain although he regained his ROM. Wants to push out knee surgery from January d/t having R shoulder surgery. Kenneth wakes him at nightmult times. Has been having back pain that worse for months likely February or March Treatment Goals Patient/Caregiver strengthen knees prior to L TKA Goals PT-OP-C Subjective Start: 12/20/24 17:58 Freq: Status: Active Protocol: Document 04/23/25 09:06 GG (Rec: 04/23/25 10:08 GG [id number]) OP-PT Subjective Patient Comments Patient Comments Pt reports that he feels stronger and thinks that he can tolerate more exercise because of it. PT-OP-D Balance Start: 12/20/24 17:58 Freq: Status: Active Protocol: Document 12/24/24 13:48 [facility] (Rec: 12/24/24 14:35 [facility] [id number]) Balance Tests Single Limb Standing Single Limb- Right 8 sec Single Limb- Left 18 sec PT-OP-G Mobility & Gait Start: 12/20/24 17:58 Freq: Status: Active Protocol: Document 12/24/24 13:48 [facility] (Rec: 12/24/24 14:35 [facility] [id number]) OP Gait Assessment Comments Gait Comments dec stance time LLE , ddec push off B PT-OP-K Range of Motion Start: 12/20/24 17:58 Freq: Status: Active Protocol: Document 04/23/25 09:06 GG (Rec: 04/23/25 10:08 GG [id number]) Knee Goniometric Range of Motion Knee Right Patient Position Supine Flexion Active ( 110 degrees) Hyper-Extension 2 Active Left Patient Position Supine Flexion Active ( 105 degrees) Extension Active ( 2 degrees) Comments increased pain w/ flexion PT-OP-L Special Tests Start: 12/20/24 17:58 Freq: Status: Active Protocol: Document 12/24/24 13:48 [facility] (Rec: 12/24/24 14:35 [facility] [id number]) Special Tests Knee Special Tests Guerrero Comments B RF and quad tightness SLR Comments WNL PT-OP-M Strength Start: 12/20/24 17:58 Freq: Status: Active Protocol: Document 04/23/25 09:06 GG (Rec: 04/23/25 10:08 GG [id number]) Hip Strength Hip Manual Muscle Testing Right Flexion (L2) 4+ Good+ Extension (S1) 4+ Good+ Abduction 5 Normal Adduction 5 Normal External Rotation 4+ Good+ Internal Rotation 5 Normal Comments PT student tested MMT Left Flexion (L2) 4 Good Extension (S1) 5 Normal Abduction 4+ Good+ Adduction 5 Normal External Rotation 5 Normal Internal Rotation 5 Normal Comments pain knee w/ IR, flexion Knee Strength Knee Manual Muscle Testing Right Flexion (S2) 5 Normal Extension (L3) 5 Normal Left Flexion (S2) 5 Normal Extension (L3) 5 Normal Comments no increase in pain during testing Ankle/Foot Strength Ankle and Foot Manual Muscle Testing Right Comments not tested d/t pain in foot limiting Left Comments not tested PT-OP-Q Treatments Start: 12/20/24 17:58 Freq: Status: Active Protocol: Document 04/23/25 09:06 GG (Rec: 04/23/25 10:08 GG [id number]) Therapeutic Exercises Supine Exercises SLR Reps/Minutes 25x B hip flexor stretch Supine Exercise Name done combined w/ hamstring stretch Side bilateral Reps/Minutes 45s B Sidelying Exercises hip abd Side bilateral Reps/Minutes 25 Comments cues for no rolling back Sitting Exercises long arc quad Side bilateral Resistance L3 Reps/Minutes 20x Comments cue for pain-free range Standing Exercises step up Standing Exercise ascend/descend stairs; ascends recip, descends recip w/ Name rail and step to Reps/Minutes 3x4 steps (6 case) squat Standing Exercise 1. wall squat 2. air squat Name Reps/Minutes 10x Comments cue for foot positioning PT-OP-R Modalities Start: 12/20/24 17:58 Freq: Status: Active Protocol: Document 03/06/25 10:52 [facility] (Rec: 03/06/25 12:01 [facility] [id number]) Hot Pack/Cold Pack Treatment Cold Pack Location B ant/post knee Patient Position Hooklying Patient Tolerance Good Comments 10', LEs on bolster. PT-OP-T Assessment and Plan Start: 12/20/24 17:58 Freq: Status: Active Protocol: Document 04/23/25 09:06 [facility] (Rec: 04/23/25 10:08 [id number]) Physical Therapy Assessment Goals activities Short Term Goal (STG Pt will be able to do sit <>stand w/o inc pain ) 01/28-R knee no pain, L knee pain w/this 03/06-pain w/this 04/23 - slight pain but pt says it feels stronger STG Duration 03/24 Termite Control Representative Goal (LTG) Pt will be able to do stairs w/pain no greater than 2/ 10 and sleep through the night w/o inc pain B knees 01/28-only L knee waking pt at night 2-3x/night, no pain down stairs recip R, L 04/02 03/06-R foot limiting him more. pain in L especially w/ stairs 04/23 - can do reciprocal w/ railing, typically does step to descending, recip ascending. wakes up d/t L knee pain, when he moves positions LTG Duration 04/23 ROM Short Term Goal (STG Pt will improve to at least 110 deg flex B ) 01/28-achieved R, L still limited 03/06-R 109, L 100 04/23-R 110, L 105 STG Duration 03/28 Termite Control Representative Goal (LTG) Pt will have at least 0-120 deg ROM on R knee and at least 4-110 on L knee to allow gor improved gait pattern and stair ability 03/06-slowly improving LTG Duration 05/01 strength Short Term Goal (STG Pt will be indep w/HEP ) STG Duration achieved advancing as able Termite Control Representative Goal (LTG) Pt will score at least 4+/5 on all BLE MMT to show improved strength and stability in order to be able to typical daily activities w/less B knee pain 01/28-impring 03/06-mostly achieved w/ 04/23 - mostly achieved, pain limited L hip flexion LTG Duration 04/06 Assessment Summary Assessment Pt cont to make progress toward goals and shows good carryover to home. Some improvements in strength were measuring and he improved in his ability to perform squats w/o increasing pain. ROM cont to limit but discussed w/ pt that ROM is likely to increase after surgery and its plateaued in PT. Pt will benefit from PT to cont building HEP in preparation for D/C next visit. Physical Therapy Plan Frequency and Duration Frequency of 1x/Week Treatment Duration of 4 treatment (weeks) Plan of Care Start 04/23/25 Date Plan of Care End 05/21/25 Date Therapeutic Interventions Therapeutic Balance Training,Gait Training,Home Exercise Program, Interventions Joint Mobilizations,Manual Therapy,Neuromuscular Re- education,Patient/Caregiver Education,Self-Care/Home Management,Soft Tissue Mobilization,Taping,Therapeutic Activities,Therapeutic Exercises Modalities Cold Pack/Ice Massage,Electric Stimulation,Hot Packs, Infrared Therapy,Ultrasound Next Visit Focus/Plan Next Note Type Discharge Summary Next Visit Plan f/u on updated HEP, maybe add standing TKEs w/ band
--- NOTE | 2025-05-15 17:42 | PT.OTN ---
Current Diagnoses Bilateral primary osteoarthritis of knee (05/15/25) Physical Therapy Treatment Note PT-OP-A Visit Information Start: 12/20/24 17:58 Freq: Status: Active Protocol: Document 05/15/25 14:00 NBM (Rec: 05/15/25 17:15 N[facility] Laptop) Out-Patient Physical Therapy Visit Information Visit Information Visit Type Treatment Note Visit Start Time 13:50 Visit Stop Time 14:34 Visit Number 18 (01/31) Number of SANDBLAST OPERATOR Visits 1 PT-OP-B Current Condition Start: 12/20/24 17:58 Freq: Status: Active Protocol: Document 12/24/24 13:48 [facility] (Rec: 12/24/24 14:35 [facility] [id number]) Current Condition History of Current Condition Onset Date chronic Current Complaints B knee pain History of Current Pt had R knee blew out when working and L knee was Condition taking brunt of all WB activities. Had sx in 2017 and ortho found that d/t this had lack of cartilage in knee and bone on bone. Had surgery on it in 2005 ( meniscectomy). L knee gave out on him in May and he fell injuring his shoulder R and wrist. When L knee gave out, R didn't hold him. Awaiting PT to see how R knee does. He had TKA about 7 years with cont pain although he regained his ROM. Wants to push out knee surgery from January d/t having R shoulder surgery. Kenneth wakes him at nightmult times. Has been having back pain that worse for months likely February or March Treatment Goals Patient/Caregiver strengthen knees prior to L TKA Goals PT-OP-C Subjective Start: 12/20/24 17:58 Freq: Status: Active Protocol: Document 05/15/25 14:00 NBM (Rec: 05/15/25 17:15 N[facility] Laptop) OP-PT Subjective Patient Comments Patient Comments Ranulfo reports he's doing his exercises and they are a lot. His legs are stronger so but the pain is still there, most with going down stairs: ascending 3-4/10, down 5-6/10; if toe is clipped 9/10 pain so he uses both rails. His hip flexors are tight. PT-OP-D Balance Start: 12/20/24 17:58 Freq: Status: Active Protocol: Document 12/24/24 13:48 [facility] (Rec: 12/24/24 14:35 [facility] [id number]) Balance Tests Single Limb Standing Single Limb- Right 8 sec Single Limb- Left 18 sec PT-OP-G Mobility & Gait Start: 12/20/24 17:58 Freq: Status: Active Protocol: Document 12/24/24 13:48 [facility] (Rec: 12/24/24 14:35 [facility] [id number]) OP Gait Assessment Comments Gait Comments dec stance time LLE , ddec push off B PT-OP-K Range of Motion Start: 12/20/24 17:58 Freq: Status: Active Protocol: Document 05/15/25 14:00 NBM (Rec: 05/15/25 17:25 NBM Laptop) Knee Goniometric Range of Motion Knee Right Patient Position Supine Flexion Active ( 110 degrees) Flexion Passive ( 114 degrees) Extension Active ( 2 degrees) Left Patient Position Supine Flexion Active ( 105 degrees) Flexion Passive ( 108 degrees) Extension Active ( 6 degrees) Comments increased pain w/ flexion PT-OP-L Special Tests Start: 12/20/24 17:58 Freq: Status: Active Protocol: Document 12/24/24 13:48 [facility] (Rec: 12/24/24 14:35 [facility] [id number]) Special Tests Knee Special Tests Guerrero Comments B RF and quad tightness SLR Comments WNL PT-OP-M Strength Start: 12/20/24 17:58 Freq: Status: Active Protocol: Document 05/15/25 14:00 NBM (Rec: 05/15/25 17:25 NBM Laptop) Hip Strength Hip Manual Muscle Testing Right Flexion (L2) 4+ Good+ Extension (S1) 5 Normal Abduction 5 Normal Adduction 5 Normal External Rotation 4+ Good+ Internal Rotation 5 Normal Left Flexion (L2) 5 Normal Extension (S1) 4+ Good+ Abduction 4+ Good+ Adduction 5 Normal External Rotation 4- Good- Internal Rotation 4+ Good+ Comments pain L hamstring w/ L hip flexion Knee Strength Knee Manual Muscle Testing Right Flexion (S2) 5 Normal Extension (L3) 5 Normal Left Flexion (S2) 5 Normal Extension (L3) 5 Normal Comments no increase in pain during testing Ankle/Foot Strength Ankle and Foot Manual Muscle Testing Right Comments not tested Left Comments not tested PT-OP-Q Treatments Start: 12/20/24 17:58 Freq: Status: Active Protocol: Document 05/15/25 14:00 NBM (Rec: 05/15/25 17:15 NBM Laptop) Therapeutic Exercises Standing Exercises TKE Standing Exercise terminal knee extension Name Side bilateral Resistance Lvl 3 Tb Equipment Used anchored at clinic stairs just above knee Reps/Minutes 10 x 5SH Comments L>R weakness, added to HEP Manual Therapy Treatment Consent Patient gave verbal Yes consent for manual treatment Self-Care/Home Management Treatment Education Patient Education Home Exercise Program Other Education -HEP review (verbal) in preparation for discharge per evaluating PT. Added TKE - pt given Lvl 3 Tb and copy of final HEP. -Goals review. PT-OP-R Modalities Start: 12/20/24 17:58 Freq: Status: Active Protocol: Document 03/06/25 10:52 [facility] (Rec: 03/06/25 12:01 [facility] [id number]) Hot Pack/Cold Pack Treatment Cold Pack Location B ant/post knee Patient Position Hooklying Patient Tolerance Good Comments 10', LEs on bolster. PT-OP-T Assessment and Plan Start: 12/20/24 17:58 Freq: Status: Active Protocol: Document 05/15/25 14:00 [facility] (Rec: 05/15/25 17:15 [facility] Laptop) Physical Therapy Assessment Goals activities Short Term Goal (STG Pt will be able to do sit <>stand w/o inc pain ) 01/28-R knee no pain, L knee pain w/this 03/06-pain w/this 04/23 - slight pain but pt says it feels stronger 05/15 - knee pain has gone from moderate to minimum and knee feels stronger STG Duration 03/24 Alf Goal (LTG) Pt will be able to do stairs w/pain no greater than 2/ 10 and sleep through the night w/o inc pain B knees 01/28-only L knee waking pt at night 2-3x/night, no pain down stairs recip R, L 6/10 03/06-R foot limiting him more. pain in L especially w/ stairs 04/23 - can do reciprocal w/ railing, typically does step to descending, recip ascending. wakes up d/t L knee pain, when he moves positions 05/15 - ascending 3-4/10, down 5-6/10; if toe is clipped 9/10 pain so he uses both rails LTG Duration 04/23 ROM Short Term Goal (STG Pt will improve to at least 110 deg flex B ) 01/28-achieved R, L still limited 03/06-R 109, L 100 04/23-R 110, L 105 05/15- R 110 AROM (114 w/ overpressure), L 105 (108 w/ overpressure) STG Duration 03/28 Alf Goal (LTG) Pt will have at least 0-120 deg ROM on R knee and at least 4-110 on L knee to allow gor improved gait pattern and stair ability 03/06-slowly improving 05/15-L 6-105, R 2-110 LTG Duration 05/01 strength Short Term Goal (STG Pt will be indep w/HEP ) STG Duration achieved advancing as able Alf Goal (LTG) Pt will score at least 4+/5 on all BLE MMT to show improved strength and stability in order to be able to typical daily activities w/less B knee pain 01/28-impring 03/06-mostly achieved w/ 04/23 - mostly achieved, pain limited L hip flexion 05/15 - mostly achieved, L>R hip weakness LTG Duration 04/06 Assessment Summary Assessment Treatment focus on preparing pt for discharge per evaluating PT, pt in agreement. Of note regarding LTG activity goal pt reports pain ascending 3-4/10, descending 5-6/10, and if toe clips step then 9/10 pain so he uses both rails. Knee flexion AROM L 6-105 deg, R 2-110 deg, pain in max L knee flexion noted; PROM knee flexion R 114 deg and L 108 deg. Pt requires cues for max knee extension L>R with TKE. Added to HEP: TKE - updated HEP and Lvl 3 theraband given to pt. Physical Therapy Plan Frequency and Duration Frequency of 1x/Week Treatment Duration of 4 treatment (weeks) Plan of Care Start 04/23/25 Date Plan of Care End 05/21/25 Date Therapeutic Interventions Therapeutic Balance Training,Gait Training,Home Exercise Program, Interventions Joint Mobilizations,Manual Therapy,Neuromuscular Re- education,Patient/Caregiver Education,Self-Care/Home Management,Soft Tissue Mobilization,Taping,Therapeutic Activities,Therapeutic Exercises Modalities Cold Pack/Ice Massage,Electric Stimulation,Hot Packs, Infrared Therapy,Ultrasound Next Visit Focus/Plan Next Note Type Treatment Note Next Visit Plan D/C per evaluating PT POC: f/u on updated HEP, standing TKEs w/ band added
--- NOTE | 2025-05-22 11:34 | PT.OPDS ---
Current Diagnoses Bilateral primary osteoarthritis of knee (05/15/25) Visit Care Team Role Provider Type STELLA Frey Family Provider Non-Staff Primary Care Provider Specialty: Medical Address: [address] [place] [address], [place], [address] Email: Blas Paez MD Attending Provider Non-Staff Referring Provider Specialty: Orthopedic Surgery Address: [address] [place] [address], [id number] Email: Visit Number Visit Number 18 (01/31) Discharge Summary PT-OP-B Current Condition Start: 12/20/24 17:58 Freq: Status: Active Protocol: Document 12/24/24 13:48 [facility] (Rec: 12/24/24 14:35 [facility] [id number]) Current Condition History of Current Condition Onset Date chronic Current Complaints B knee pain History of Current Pt had R knee blew out when working and L knee was Condition taking brunt of all WB activities. Had sx in 2017 and ortho found that d/t this had lack of cartilage in knee and bone on bone. Had surgery on it in 2005 ( meniscectomy). L knee gave out on him in May and he fell injuring his shoulder R and wrist. When L knee gave out, R didn't hold him. Awaiting PT to see how R knee does. He had TKA about 7 years with cont pain although he regained his ROM. Wants to push out knee surgery from January d/t having R shoulder surgery. Kenneth wakes him at nightmult times. Has been having back pain that worse for months likely February or March Treatment Goals Patient/Caregiver strengthen knees prior to L TKA Goals PT-OP-C Subjective Start: 12/20/24 17:58 Freq: Status: Active Protocol: Document 05/15/25 14:00 N[facility] (Rec: 05/15/25 17:15 NBM Laptop) OP-PT Subjective Patient Comments Patient Comments Ranulfo reports he's doing his exercises and they are a lot. His legs are stronger so but the pain is still there, most with going down stairs: ascending 3-4/10, down 5-6/10; if toe is clipped 9/10 pain so he uses both rails. His hip flexors are tight. PT-OP-D Balance Start: 12/20/24 17:58 Freq: Status: Active Protocol: Document 12/24/24 13:48 [facility] (Rec: 12/24/24 14:35 [facility] [id number]) Balance Tests Single Limb Standing Single Limb- Right 8 sec Single Limb- Left 18 sec PT-OP-G Mobility & Gait Start: 12/20/24 17:58 Freq: Status: Active Protocol: Document 12/24/24 13:48 [facility] (Rec: 12/24/24 14:35 [facility] [id number]) OP Gait Assessment Comments Gait Comments dec stance time LLE , ddec push off B PT-OP-K Range of Motion Start: 12/20/24 17:58 Freq: Status: Active Protocol: Document 05/15/25 14:00 NBM (Rec: 05/15/25 17:25 NBM Laptop) Knee Goniometric Range of Motion Knee Right Patient Position Supine Flexion Active ( 110 degrees) Flexion Passive ( 114 degrees) Extension Active ( 2 degrees) Left Patient Position Supine Flexion Active ( 105 degrees) Flexion Passive ( 108 degrees) Extension Active ( 6 degrees) Comments increased pain w/ flexion PT-OP-L Special Tests Start: 12/20/24 17:58 Freq: Status: Active Protocol: Document 12/24/24 13:48 [facility] (Rec: 12/24/24 14:35 [facility] [id number]) Special Tests Knee Special Tests Guerrero Comments B RF and quad tightness SLR Comments WNL PT-OP-M Strength Start: 12/20/24 17:58 Freq: Status: Active Protocol: Document 05/15/25 14:00 [facility] (Rec: 05/15/25 17:25 NBM Laptop) Hip Strength Hip Manual Muscle Testing Right Flexion (L2) 4+ Good+ Extension (S1) 5 Normal Abduction 5 Normal Adduction 5 Normal External Rotation 4+ Good+ Internal Rotation 5 Normal Left Flexion (L2) 5 Normal Extension (S1) 4+ Good+ Abduction 4+ Good+ Adduction 5 Normal External Rotation 4- Good- Internal Rotation 4+ Good+ Comments pain L hamstring w/ L hip flexion Knee Strength Knee Manual Muscle Testing Right Flexion (S2) 5 Normal Extension (L3) 5 Normal Left Flexion (S2) 5 Normal Extension (L3) 5 Normal Comments no increase in pain during testing Ankle/Foot Strength Ankle and Foot Manual Muscle Testing Right Comments not tested Left Comments not tested PT-OP-T Assessment and Plan Start: 12/20/24 17:58 Freq: Status: Active Protocol: Document 05/22/25 11:32 [facility] (Rec: 05/22/25 11:33 [facility] [id number]) Physical Therapy Assessment Goals activities Short Term Goal (STG Pt will be able to do sit <>stand w/o inc pain ) 01/28-R knee no pain, L knee pain w/this 03/06-pain w/this 04/23 - slight pain but pt says it feels stronger 05/15 - knee pain has gone from moderate to minimum and knee feels stronger STG Duration 03/24 Assisted Goal (LTG) Pt will be able to do stairs w/pain no greater than 2/ 10 and sleep through the night w/o inc pain B knees 01/28-only L knee waking pt at night 2-3x/night, no pain down stairs recip R, L 6/10 03/06-R foot limiting him more. pain in L especially w/ stairs 04/23 - can do reciprocal w/ railing, typically does step to descending, recip ascending. wakes up d/t L knee pain, when he moves positions 05/15 - ascending 3-410, down 5-04/02; if toe is clipped 07/03 pain so he uses both rails LTG Duration 04/23 ROM Short Term Goal (STG Pt will improve to at least 110 deg flex B ) 01/28-achieved R, L still limited 03/06-R 109, L 100 04/23-R 110, L 105 05/15- R 110 AROM (114 w/ overpressure), L 105 (108 w/ overpressure) STG Duration 03/28 Assisted Goal (LTG) Pt will have at least 0-120 deg ROM on R knee and at least 4-110 on L knee to allow gor improved gait pattern and stair ability 03/06-slowly improving 05/15-L 6-105, R 2-110 LTG Duration 05/01 strength Short Term Goal (STG Pt will be indep w/HEP ) STG Duration achieved advancing as able Assisted Goal (LTG) Pt will score at least 4+/5 on all BLE MMT to show improved strength and stability in order to be able to typical daily activities w/less B knee pain 01/28-impring 03/06-mostly achieved w/ 04/23 - mostly achieved, pain limited L hip flexion 05/15 - mostly achieved, L>R hip weakness LTG Duration 04/06 Assessment Summary Assessment Pt has less pain in knees with daily activities and did improve ROM and strength overall. At this time, pt indep w/HEP and is encouraged to cont HEP until he gets L TKA surgery. Physical Therapy Plan Discharge Physical Therapy Discharge Comments progressed to goals and indep w/HEP
== END 2025-05-23 09:52 | disposition home or self-care (01) ==
LOC: PHYS 13:45
PROVIDERS: Family Provider Nurse Practitioner Family; PCP Nurse Practitioner Family; Referring Provider Orthopaedic Surgery Adult Reconstructive Orthopaedic Surgery; Visit Provider Orthopaedic Surgery Adult Reconstructive Orthopaedic Surgery
DX: M17.0 Bilateral primary osteoarthritis of knee (principal)
CPT/HCPCS: 97010; 97110; 97116; 97140; 97162; 97535

== ENCOUNTER → 2025-05-30 07:59 | Outpatient (CLI) | payer MEDICARE, BC, SELFPAY ==
--- NOTE | 2025-05-30 08:01 | DI.MRI.S_ITS ---
PROCEDURE: MR ANKLE RT WO CON INDICATIONS: tendinitis TECHNIQUE: Noncontrast sagittal T1 spin echo and T2 fast spin echo with fat saturation, axial proton density fast spin echo and T2 fast spin echo with fat saturation, coronal T1 spin echo and T2 fast spin echo with fat saturation through the ankle/hindfoot. COMPARISON: None. FINDINGS: Image quality: Excellent. Bones and joints: Mild to-moderate osteoarthritic changes are noted throughout midfoot and hindfoot joints. Marrow edema involving distal portion of talus and adjacent navicular bone. Mild marrow edema in the cuneiform is also seen. No discrete fracture line is noted. Subcortical cystic changes are noted involving inferior aspect of distal talus adjacent to subtalar joint. No acute fracture or dislocation. No osteochondral injuries of the talar dome. No pathologic joint effusions. Medial structures: The posterior tibialis tendon is markedly thickened at the level of medial malleolus tip extending to its distal insertion. The flexor digitorum longus tendon is intact. The flexor hallucis longus tendons is thickened at the level of subtalar joint extending to the level of 1st metatarsal base.. The posterior tibial neurovascular bundle appears normal within the tarsal tunnel, without extrinsic mass effect. The deltoid ligament and spring ligament are thickened . Lateral structures: The anterior talofibular, calcaneofibular, and posterior talofibular ligaments appear intact. More superiorly, the anterior and posterior tibiofibular ligaments appear intact, as is the intermalleolar ligament. The tibiofibular syndesmosis is normal in width at 2 mm or less. The peroneus longus and brevis tendons are normal in size with small to moderate amount of fluid distending tendon sheath at the level of mid to distal calcaneus and calcaneocuboid joint. The sinus tarsi demonstrates normal fatty signal, without edema, fibrosis, or cyst formation. Anterior structures: The tibialis anterior, extensor hallucis longus, and extensor digitorum longus tendons appear intact. The dorsal talonavicular ligament appears intact. Posterior and plantar structures: Achilles tendon is intact. Medial and lateral bands of the plantar fascia are of normal thickness. No abductor digiti quinti muscle atrophy to suggest Hunter neuropathy. IMPRESSION: 1. [id number] midfoot and hindfoot joint osteoarthritis. Contusion involving distal talus, navicular bone and cuneiform is without discrete fracture line. No osteochondral injuries of talar dome. No significant joint effusion or calcified intra-articular loose bodies. 2. Moderate tendinosis involving posterior tibialis tendon at the level of medial malleolus tip extending to its distal insertion. Low-grade tenosynovitis involving flexor hallucis longus tendon at the level of subtalar joint extending to the level of 1st metatarsal base. 3. Low-grade tenosynovitis involving peroneus tendons at the level of mid to distal calcaneus and calcaneocuboid joint. 4. Low-grade medial ankle ligament sprain. Lateral ankle ligaments are intact. Dictated by: Carlos Muñiz M.D. on 05/30/2025 at 15:30 Approved by: Carlos Muñiz M.D. on 05/30/2025 at 15:38
== END ==
LOC: MRI 08:01
PROVIDERS: Family Provider Nurse Practitioner Family; PCP Family Medicine; Referring Provider Podiatrist; Visit Provider Podiatrist
DX: M76.821 Posterior tibial tendinitis, right leg (principal); M19.071 Primary osteoarthritis, right ankle and foot; S90.31XA Contusion of right foot, initial encounter; M65.871 Other synovitis and tenosynovitis, right ankle and foot; S93.421A Sprain of deltoid ligament of right ankle, initial encounter
CPT/HCPCS: 73721